=== PATIENT | female | born 1950 | race Caucasian/White ===

== ENCOUNTER 2016-12-25 06:34 | Inpatient (IN) | payer OTHER ==
[2016-12-25] MEDS ORDERED: SODIUM CHLORIDE 1,000 ML IV STA ×2 (07:17→08:05)
[2016-12-25] MEDS ORDERED: HYDROmorphone HCL CARPU-JECT 1 MG/1 ML DISP.SYRIN IVPUSH ONE ×2 (07:17→10:00)
[2016-12-25] MEDS ORDERED: HYDROmorphone HCL CARPU-JECT 2 MG/1 ML DISP.SYRIN ONE ×3 (07:33→17:24)
[2016-12-25] MEDS ORDERED: LEVOFLOXACIN 500 MG IVPB 100 ML IVPB ONE ×2 (07:40→07:52)
[2016-12-25] MEDS ORDERED: METRONIDAZOLE 500 MG PREMIXED 100 ML IVPB ONE ×2 (07:41→07:52)
--- NOTE | 2016-12-25 07:41 | PDOC ---
History of Present Illness - General Chief Complaint: Nausea/Vomiting Stated Complaint: NAUSEA AND VOMITING X2 DAYS Time Seen by Provider: 12/25/16 07:04 - History of Present Illness Initial Comments: 12/25/16 07:36 66-year-old female with a past medical history of hypertension and hyperlipidemia Past surgical history-cholecystectomy, and 2 She's never had a screening colonoscopy Patient is complaining of abdominal pain and vomiting since Wednesday, and no bowel movement since Wednesday The pain is been progressively worsening She awakened at 4 AM with severe lower abdominal pain, and shortness of breath She denies any fevers or chills She denies any blood in her vomitus She denies any chest pain She denies any history of diabetes She denies any pain radiating to her back She denies any dysuria urgency or frequency Patient arrives with severe pain, hyperventilating, and pale Past History - Past Medical History Allergies/Adverse Reactions: Allergies Allergy/AdvReac Type Severity Reaction Status Date / Time Penicillins Allergy Verified 12/25/16 07:43 Tetanus Vaccines and Toxoid Allergy Verified 12/25/16 07:43 [Tetanus Vaccines & Toxoid] Home Medications: Ambulatory Orders Aspirin [ASA -] 0 mg PO DAILY 12/25/16 HTN: Yes Hypercholesterolemia: Yes - Surgical History Cholecystectomy: Yes (X2) - Psycho/Social/Smoking Cessation Hx Anxiety: No Suicidal Ideation: No Smoking History: Never smoked Hx Alcohol Use: No Drug/Substance Use Hx: No Review of Systems - Review of Systems Able to Perform ROS?: Yes Comments:: 12/25/16 07:38 12 point review of systems is as per history of present illness and otherwise negative *Physical Exam - Vital Signs Last Vital Signs Temp Pulse Resp BP Pulse Ox 97.4 F L 107 H 24 117/81 95 12/25/16 06:41 12/25/16 06:41 12/25/16 06:41 12/25/16 06:41 12/25/16 06:41 - Physical Exam Comments: 12/25/16 07:38 Physical exam Last Vital Signs Temp Pulse Resp BP Pulse Ox 97.4 F L 107 H 24 117/81 95 12/25/16 06:41 12/25/16 06:41 12/25/16 06:41 12/25/16 06:41 12/25/16 06:41 GENERAL: The patient is awake, alert, and in severe pain, hyperventilating, pale HEAD: Normal with no signs of trauma. EYES: Sclera anicteric ENT: mucous membranes dry NECK: Normal range of motion, supple LUNGS: Breath sounds equal, clear to auscultation bilaterally. No wheezes, and no crackles. HEART: Tachycardic Regular rate and rhythm, normal S1 and S2 without murmur, rub or gallop. ABDOMEN: The abdomen is distended and firm with hypoactive to absent bowel sounds There is exquisite diffuse lower abdominal tenderness to palpation more on the right than the left with guarding and rebound There is no CVA tenderness. Upper abdominal tenderness is also noted EXTREMITIES: Normal range of motion, no edema. No clubbing or cyanosis. No cords, erythema, or tenderness. NEUROLOGICAL: Alert and answering questions, moving all extremities, grossly nonfocal neurologic exam PSYCH: Normal mood, normal affect. SKIN: Diaphoretic ED Treatment Course - LABORATORY CBC & Chemistry Diagram: 12/26/16 05:20 12/26/16 05:20 - ADDITIONAL ORDERS Additional order review: Laboratory Results 12/25/16 07:04 POC Glucometer [id number] 12/25/16 07:04 POC Glucometer [id number] - RADIOLOGY Radiology Studies Ordered: Category Date Time Status ABDOMEN & PELVIS CT W/O CONTR [CT] Stat CT Scan 12/25/16 07:14 Ordered CHEST X-RAY PORTABLE* [RAD] Stat Radiology 12/25/16 07:16 Ordered Medical Decision Making - Critical Care Time Total Critical Care Time (minutes): 60 Critical Care Statement: The care of this patient involved high complexity decision making to prevent further life threatening deterioration of the patient 's condition and/or to evalute & treat vital organ system(s) failure or risk of failure. - Medical Decision Making 12/25/16 07:40 Pt seen immediately on arrival by me - documentation done later Concerned about acute surgical abdomen, with acidosis, with compensatory hyperventilation Patient states she has a severe penicillin ALLERGY Will get a stat CAT scan, initiate coverage with Levaquin and Flagyl Stat ABG drawn by [facility]-awaiting transport to [facility] blood gas lab He scan of the abdomen and pelvis stat without contrast There is a perforation in the mid transverse colon, with an abscess adjacent to the colon, as well as fluid in the abdomen This could be secondary to a perforating cancer, or diverticulitis, although the location is unusual for diverticulitis with perforation Awaiting official report Hannah-surgical PA-at bedside seeing patient-and speaking to Dr. Sloan, surgeon on-call Consistent with metabolic acidosis with respiratory compensation from hyperventilation White count elevated, Laboratory Results - last 24 hr 12/25/16 12/25/16 12/25/16 07:04 07:18 07:18 WBC 16.5 H RBC 5.34 H Hgb 13.2 Hct 41.5 MCV 77.9 L MCHC 31.8 L RDW 15.9 H Plt Count 571 H MPV 8.8 INR Anticoagulation Therapy Puncture Site ABG pH ABG pCO2 at Pt Temp ABG pO2 at Pt Temp ABG HCO3 ABG O2 Sat (Measured) ABG O2 Content ABG Base Excess [place] Test Carboxyhemoglobin Methemoglobin O2 Delivery Device Oxygen Flow Rate Vent Mode Vent Rate Mechanical Rate Pressure Support Vent Sodium Potassium Chloride Carbon Dioxide Anion Gap BUN Creatinine Creat Clearance w eGFR POC Glucometer 299.94604 Random Glucose Lactic Acid Calcium Magnesium Total Bilirubin AST ALT Alkaline Phosphatase Creatine Kinase 78 Troponin I < 0.03 L B-Natriuretic Peptide Total Protein Albumin Total Amylase Lipase Urine Color Urine Appearance Urine pH Ur Specific [place] Urine Protein Urine Glucose (UA) Urine Ketones Urine Blood Urine Nitrite Urine Bilirubin Urine Urobilinogen Ur Leukocyte Esterase Urine RBC Urine WBC Ur Epithelial Cells Urine Bacteria Hyaline Casts Acetone, Qual 12/25/16 12/25/16 12/25/16 07:18 07:18 07:19 WBC RBC Hgb Hct MCV MCHC RDW Plt Count MPV INR 1.16 Anticoagulation Therapy Puncture Site ABG pH ABG pCO2 at Pt Temp ABG pO2 at Pt Temp ABG HCO3 ABG O2 Sat (Measured) ABG O2 Content ABG Base Excess [place] Test Carboxyhemoglobin Methemoglobin O2 Delivery Device Oxygen Flow Rate Vent Mode Vent Rate Mechanical Rate Pressure Support Vent Sodium 137 Potassium 4.3 Chloride 100 Carbon Dioxide 23 Anion Gap 14 BUN 23 H Creatinine 1.1 Creat Clearance w eGFR 49.69 POC Glucometer Random Glucose 274 H Lactic Acid 3.359 H* Calcium 8.8 Magnesium 1.6 L Total Bilirubin 0.3 AST 17 ALT 9 L Alkaline Phosphatase 68 Creatine Kinase Troponin I B-Natriuretic Peptide 75.04 Total Protein 7.1 Albumin 3.2 L Total Amylase Lipase 38 Urine Color Urine Appearance Urine pH Ur Specific [place] Urine Protein Urine Glucose (UA) Urine Ketones Urine Blood Urine Nitrite Urine Bilirubin Urine Urobilinogen Ur Leukocyte Esterase Urine RBC Urine WBC Ur Epithelial Cells Urine Bacteria Hyaline Casts Acetone, Qual 12/25/16 12/25/16 12/25/16 08:00 08:00 08:10 WBC RBC Hgb Hct MCV MCHC RDW Plt Count MPV INR Anticoagulation Therapy Puncture Site ABG pH ABG pCO2 at Pt Temp ABG pO2 at Pt Temp ABG HCO3 ABG O2 Sat (Measured) ABG O2 Content ABG Base Excess [place] Test Carboxyhemoglobin Methemoglobin O2 Delivery Device Oxygen Flow Rate Vent Mode Vent Rate Mechanical Rate Pressure Support Vent Sodium Potassium Chloride Carbon Dioxide Anion Gap BUN Creatinine Creat Clearance w eGFR POC Glucometer Random Glucose Lactic Acid Calcium Magnesium Total Bilirubin AST ALT Alkaline Phosphatase Creatine Kinase Troponin I B-Natriuretic Peptide Total Protein Albumin Total Amylase 97 Lipase Urine Color Yellow Urine Appearance Cloudy Urine pH 5.5 Ur Specific [place] >= 1.030 H Urine Protein 2+ H Urine Glucose (UA) Negative Urine Ketones 1+ H Urine Blood Trace H Urine Nitrite Negative Urine Bilirubin 1+ H Urine Urobilinogen 0.2 e.u/dl Ur Leukocyte Esterase Negative Urine RBC 0-3 Urine WBC 0-3 Ur Epithelial Cells Moderate Urine Bacteria Few Hyaline Casts 3-5 Acetone, Qual Negative L 12/25/16 08:10 WBC RBC Hgb Hct MCV MCHC RDW Plt Count MPV INR Anticoagulation Therapy Y Puncture Site Md puncture ABG pH 7.45 ABG pCO2 at Pt Temp 29.9 L ABG pO2 at Pt Temp 69.9 L ABG HCO3 20.5 L ABG O2 Sat (Measured) 93.6 ABG O2 Content 16.8 ABG Base Excess -2.1 L Howard Test Not applicable Carboxyhemoglobin 1.1 Methemoglobin 0.9 O2 Delivery Device Room air Oxygen Flow Rate 21% Vent Mode Y Vent Rate Y Mechanical Rate Y Pressure Support Vent Y Sodium Potassium Chloride Carbon Dioxide Anion Gap BUN Creatinine Creat Clearance w eGFR POC Glucometer Random Glucose Lactic Acid Calcium Magnesium Total Bilirubin AST ALT Alkaline Phosphatase Creatine Kinase Troponin I B-Natriuretic Peptide Total Protein Albumin Total Amylase Lipase Urine Color Urine Appearance Urine pH Ur Specific [place] Urine Protein Urine Glucose (UA) Urine Ketones Urine Blood Urine Nitrite Urine Bilirubin Urine Urobilinogen Ur Leukocyte Esterase Urine RBC Urine WBC Ur Epithelial Cells Urine Bacteria Hyaline Casts Acetone, Qual 12/25/16 09:00 Lactic acid 3.6, patient on second liter of fluid will need ICU bed 12/25/16 09:[address] Deutsch-will admit Case discussed with ID-Dr Chirinos -could consider meropenem if patient does not have a severe penicillin ALLERGY (patient already had Levaquin and Flagyl due to penicillin ALLERGY) I went back and spoke to the patient-she states that she gets hives and throat swelling from penicillin, so would not use meropenem at this time Case discussed with Dr. Salgado-approves ICU bed 12/25/16 10:28 EKG Sinus tachycardia 104, 0 axis Normal AV and IV conduction time Normal QTC Peaked T's Otherwise normal EKG *DC/Admit/Observation/Transfer Diagnosis at time of Disposition: Surgical abdomen, Colon perforation, Sepsis, Lactic acid acidosis - Discharge Dispostion Condition at time of disposition: Guarded Admit: Yes
[2016-12-25 07:57] LABS: INR 1.16 (0.82-1.09)
[2016-12-25 08:00] LABS: MCH 24.8 pg (25.7-33.7); MCHC 31.8 g/dl (32.0-36.0); MEAN CELL VOLUME 77.9 fl (80-96); MEAN PLT VOLUME 8.8 fl (7.5-11.1); PLATELET COUNT 571 K/MM3 (134-434); RDW 15.9 % (11.6-15.6); WHITE BLOOD COUNT 16.5 K/mm3 (4.0-10.0)
[2016-12-25 08:18] LABS: ARTERIAL BLOOD GAS pH 7.45 (7.35-7.45)
[2016-12-25 08:19] LABS: ARTERIAL BLD GAS O2 SATURATION 93.6 % (90-98.9); ARTERIAL BLOOD GAS BASE EXCESS -2.1 meq/l (-2-2); ARTERIAL BLOOD GAS HCO3 20.5 meq/L (22-26); LPM/O2% 21%; METHEMOGLOBIN 0.9 % (0.4-1.5); PT. ON O2? no
[2016-12-25 08:21] LABS: ARTERIAL BLOOD GAS PO2 69.9 mmHg (80-100); TYPE OF O2 ROOM AIR
[2016-12-25 08:25] LABS: PH,URINE 5.5 (4.5-8); URINE APPEARANCE Cloudy; URINE BILIRUBIN 1+ (NEGATIVE); URINE COLOR YELLOW; URINE GLUCOSE (UA) Negative (NEGATIVE); URINE KETONE 1+ (NEGATIVE); URINE LEUK ESTERASE Negative (NEGATIVE); URINE NITRITE Negative (NEGATIVE); URINE PROTEIN 2+ (NEGATIVE); URINE UROBILINOGEN 0.2 E.U/dl (0.2-1.0)
[2016-12-25 08:26] LABS: URINE BACTERIA FEW /hpf (NEGATIVE); URINE BLOOD TRACE (NEGATIVE); URINE RBC 0-3 /hpf (0-3); URINE WBC 0-3 (3-5)
[2016-12-25 08:33] LABS: CPK(DFH) 78 IU/L (26-140)
[2016-12-25 08:34] LABS: ALBUMIN 3.2 g/dl (3.5-5.0); BILIRUBIN,TOTAL 0.3 mg/dl (0.2-1.0); CALCIUM 8.8 mg/dl (8.4-10.2); CREATININE 1.1 mg/dl (0.6-1.3); MAGNESIUM 1.6 mg/dL (1.8-2.4); TOT PROT 7.1 g/dl (6.4-8.3)
[2016-12-25 08:46] LABS: TROPONIN I (DFP) < 0.03 ng/ml (0.03-0.50)
[2016-12-25] MEDS ORDERED: LIDOCAINE HCL 2% JELLY (5 ML/TUBE) ONE (09:10)
[2016-12-25] MEDS ORDERED: SODIUM CHLORIDE 0.9% 500 ML INFUS.BAG IV ONE (09:29)
[2016-12-25] MEDS ORDERED: SODIUM CHLORIDE 1,000 ML IV SCH ×3 (09:30→18:45)
[2016-12-25 11:29] VITALS: BMI 28.3
--- NOTE | 2016-12-25 11:44 | HP ---
Admitting History and Physical - Primary Care Physician PCP: Sera Deutsch - Admission Chief Complaint: ABDOMINAL PAIN History of Present Illness: The patient is a 66 yo female who presents to the ER with the complaints of abd pain since wednesday. She has had no appetite and hasn't really eaten since wednesday. Currently she is nauseated and has had non-bloody emesis, no bowel movements for several days. She denies any SO, CP no dysuria, fevers or chills. - Smoking History Smoking history: Never smoked - Alcohol/Substance Use Hx Alcohol Use: No Home Medications - Allergies Allergies/Adverse Reactions: Allergies Allergy/AdvReac Type Severity Reaction Status Date / Time Penicillins Allergy Verified 12/25/16 07:43 Tetanus Vaccines and Toxoid Allergy Verified 12/25/16 07:43 [Tetanus Vaccines & Toxoid] - Home Medications Home Medications: Ambulatory Orders Aspirin [ASA -] 0 mg PO DAILY 12/25/16 Physical Examination Vital Signs: Vital Signs Temperature 98.7 F 12/25/16 10:54 Pulse Rate 97 H 12/25/16 10:54 Respiratory Rate 18 12/25/16 10:54 Blood Pressure 111/74 12/25/16 10:54 O2 Sat by Pulse Oximetry (%) 98 12/25/16 10:54 Constitutional: Yes: No Distress HENT: Yes: Atraumatic Neck: Yes: Supple Cardiovascular: Yes: Regular Rate and Rhythm Respiratory: Yes: CTA Bilaterally Gastrointestinal: Yes: Normal Bowel Sounds, Tenderness (MILD) Extremities: Yes: WNL Neurological: Yes: Alert, Oriented Problem List - Problems (1) Colon perforation Code(s): K63.1 - PERFORATION OF INTESTINE (NONTRAUMATIC) (2) Lactic acid acidosis Code(s): E87.2 - ACIDOSIS (3) Pneumoperitoneum Code(s): K66.8 - OTHER SPECIFIED DISORDERS OF PERITONEUM (4) Sepsis Code(s): A41.9 - SEPSIS, UNSPECIFIED ORGANISM (5) Surgical abdomen Code(s): R10.0 - ACUTE ABDOMEN Assessment/Plan Laboratory Tests 12/25/16 12/25/16 12/25/16 07:04 07:18 07:18 WBC 16.5 H RBC 5.34 H Hgb 13.2 Hct 41.5 MCV 77.9 L MCHC 31.8 L RDW 15.9 H Plt Count 571 H MPV 8.8 INR Anticoagulation Therapy Puncture Site ABG pH ABG pCO2 at Pt Temp ABG pO2 at Pt Temp ABG HCO3 ABG O2 Sat (Measured) ABG O2 Content ABG Base Excess [place] Test Carboxyhemoglobin Methemoglobin O2 Delivery Device Oxygen Flow Rate Vent Mode Vent Rate Mechanical Rate Pressure Support Vent Sodium Potassium Chloride Carbon Dioxide Anion Gap BUN Creatinine Creat Clearance w eGFR POC Glucometer 299.55295 Random Glucose Lactic Acid Calcium Magnesium Total Bilirubin AST ALT Alkaline Phosphatase Creatine Kinase 78 Troponin I < 0.03 L B-Natriuretic Peptide Total Protein Albumin Total Amylase Lipase Urine Color Urine Appearance Urine pH Ur Specific [place] Urine Protein Urine Glucose (UA) Urine Ketones Urine Blood Urine Nitrite Urine Bilirubin Urine Urobilinogen Ur Leukocyte Esterase Urine RBC Urine WBC Ur Epithelial Cells Urine Bacteria Hyaline Casts Acetone, Qual 12/25/16 12/25/16 12/25/16 07:18 07:18 07:19 WBC RBC Hgb Hct MCV MCHC RDW Plt Count MPV INR 1.16 Anticoagulation Therapy Puncture Site ABG pH ABG pCO2 at Pt Temp ABG pO2 at Pt Temp ABG HCO3 ABG O2 Sat (Measured) ABG O2 Content ABG Base Excess [place] Test Carboxyhemoglobin Methemoglobin O2 Delivery Device Oxygen Flow Rate Vent Mode Vent Rate Mechanical Rate Pressure Support Vent Sodium 137 Potassium 4.3 Chloride 100 Carbon Dioxide 23 Anion Gap 14 BUN 23 H Creatinine 1.1 Creat Clearance w eGFR 49.69 POC Glucometer Random Glucose 274 H Lactic Acid 3.359 H* Calcium 8.8 Magnesium 1.6 L Total Bilirubin 0.3 AST 17 ALT 9 L Alkaline Phosphatase 68 Creatine Kinase Troponin I B-Natriuretic Peptide 75.04 Total Protein 7.1 Albumin 3.2 L Total Amylase Lipase 38 Urine Color Urine Appearance Urine pH Ur Specific [place] Urine Protein Urine Glucose (UA) Urine Ketones Urine Blood Urine Nitrite Urine Bilirubin Urine Urobilinogen Ur Leukocyte Esterase Urine RBC Urine WBC Ur Epithelial Cells Urine Bacteria Hyaline Casts Acetone, Qual 12/25/16 12/25/16 12/25/16 08:00 08:00 08:10 WBC RBC Hgb Hct MCV MCHC RDW Plt Count MPV INR Anticoagulation Therapy Puncture Site ABG pH ABG pCO2 at Pt Temp ABG pO2 at Pt Temp ABG HCO3 ABG O2 Sat (Measured) ABG O2 Content ABG Base Excess Howard Test Carboxyhemoglobin Methemoglobin O2 Delivery Device Oxygen Flow Rate Vent Mode Vent Rate Mechanical Rate Pressure Support Vent Sodium Potassium Chloride Carbon Dioxide Anion Gap BUN Creatinine Creat Clearance w eGFR POC Glucometer Random Glucose Lactic Acid Calcium Magnesium Total Bilirubin AST ALT Alkaline Phosphatase Creatine Kinase Troponin I B-Natriuretic Peptide Total Protein Albumin Total Amylase 97 Lipase Urine Color Yellow Urine Appearance Cloudy Urine pH 5.5 Ur Specific [place] >= 1.030 H Urine Protein 2+ H Urine Glucose (UA) Negative Urine Ketones 1+ H Urine Blood Trace H Urine Nitrite Negative Urine Bilirubin 1+ H Urine Urobilinogen 0.2 e.u/dl Ur Leukocyte Esterase Negative Urine RBC 0-3 Urine WBC 0-3 Ur Epithelial Cells Moderate Urine Bacteria Few Hyaline Casts 3-5 Acetone, Qual Negative L 12/25/16 12/25/16 08:10 09:57 WBC RBC Hgb Hct MCV MCHC RDW Plt Count MPV INR Anticoagulation Therapy Y Puncture Site Md puncture ABG pH 7.45 ABG pCO2 at Pt Temp 29.9 L ABG pO2 at Pt Temp 69.9 L ABG HCO3 20.5 L ABG O2 Sat (Measured) 93.6 ABG O2 Content 16.8 ABG Base Excess -2.1 L Howard Test Not applicable Carboxyhemoglobin 1.1 Methemoglobin 0.9 O2 Delivery Device Room air Oxygen Flow Rate 21% Vent Mode Y Vent Rate Y Mechanical Rate Y Pressure Support Vent Y Sodium Potassium Chloride Carbon Dioxide Anion Gap BUN Creatinine Creat Clearance w eGFR POC Glucometer Random Glucose Lactic Acid 2.579 H* Calcium Magnesium Total Bilirubin AST ALT Alkaline Phosphatase Creatine Kinase Troponin I B-Natriuretic Peptide Total Protein Albumin Total Amylase Lipase Urine Color Urine Appearance Urine pH Ur Specific [place] Urine Protein Urine Glucose (UA) Urine Ketones Urine Blood Urine Nitrite Urine Bilirubin Urine Urobilinogen Ur Leukocyte Esterase Urine RBC Urine WBC Ur Epithelial Cells Urine Bacteria Hyaline Casts Acetone, Qual Active Medications Generic Name Dose Route Start Last Admin Trade Name Freq PRN Reason Stop Dose Admin Chlorhexidine Gluconate 1 applic 12/25/16 22:00 Hibiclens For Decolonization - TP HS OPAL Heparin Sodium (Porcine) 5,000 unit 12/25/16 22:00 Heparin - SQ TID OPAL Hydromorphone HCl 1 mg 12/25/16 17:24 12/25/16 18:30 Dilaudid Injection - IVPUSH 1 mg Q4H PRN Administration PAIN Pantoprazole Sodium 80 mg/ 100 mls @ 10 mls/hr 12/25/16 16:30 12/25/16 17:15 Sodium Chloride IVPB 0 mls Q10H OPAL Administration 8 MG/HR Lactated Ringer's 1,000 mls @ 1,000 mls/hr 12/25/16 16:00 12/25/16 16:15 Lactated Ringers Solution IV 300 mls ASDIR OPAL Administration Lactated Ringer's 1,000 mls @ 200 mls/hr 12/25/16 16:00 12/25/16 18:41 Lactated Ringers Solution IV 12/26/16 07:00 200 mls/hr ASDIR OPAL Administration Metronidazole 50 mls @ 50 mls/hr 12/25/16 20:00 Flagyl 250mg Premixed Ivpb - IVPB Q8H-IV OPAL Levofloxacin 100 mls @ 100 mls/hr 12/26/16 10:00 Levaquin 500 Mg Premixed Ivpb - IVPB DAILY OPAL Aztreonam 1 gm/ Dextrose 50 mls @ 100 mls/hr 12/25/16 18:00 12/25/16 18:22 IVPB 100 mls/hr Q8H-IV OPAL Administration Protocol Fluconazole 50 mls @ 100 mls/hr 12/26/16 10:00 Diflucan 100 Mg/D5w Premixed Ivpb - IVPB DAILY OPAL Sodium Chloride 500 mls @ 500 mls/hr 12/25/16 18:30 Normal Saline - IV 12/25/16 19:29 ASDIR STA Sodium Chloride 1,000 mls @ 100 mls/hr 12/25/16 18:45 Normal Saline - IV 12/26/16 04:44 ASDIR OPAL Midazolam HCl 2 mg 12/25/16 18:41 Versed - IVPUSH Q2H PRN AGITATION Mupirocin 1 applic 12/25/16 22:00 Bactroban Ointment (For Decolonization) - NS 12/30/16 21:59 BID OPAL A/P 1.COLON PERFORATION PT CAME IN FOR ABDOMINAL PAIN NPO, IVF, IV ABX,NGT PRN PAIN MEDS FOR OR DR OSHEA GI AND DVT PPX CC TIME 60 MIN SPENT WITH PATIENT
[2016-12-25] MEDS ORDERED: HYDROmorphone HCL CARPU-JECT 1 MG/1 ML DISP.SYRIN IVPB PRN (11:47)
[2016-12-25] MEDS ORDERED: ROCURONIUM BROMIDE 50 MG/5 ML VIAL ONE ×2 (11:59→13:47)
[2016-12-25] MEDS ORDERED: PROPOFOL 20 ML ONE (11:59)
[2016-12-25] MEDS ORDERED: MIDAZOLAM HCL 2 MG/2 ML SINGLE DOSE VIAL ONE ×2 (11:59→15:15)
[2016-12-25] MEDS ORDERED: LIDOCAINE HCL/PF 2% SDV 5ML VIAL ONE (12:01)
--- NOTE | 2016-12-25 12:12 | EKG ---
Test Reason : Blood Pressure : / mmHG Vent. Rate : 104 BPM Atrial Rate : 104 BPM P-R Int : 136 ms QRS Dur : 074 ms QT Int : 348 ms P-R-T Axes : 054 012 044 degrees QTc Int : 457 ms SINUS TACHYCARDIA OTHERWISE NORMAL ECG NO PREVIOUS ECGS AVAILABLE Confirmed by JOSE LUIS GAGNON MD ([id number] on 12/25/2016 12:12:08 PM Referred By: VIRY ZAYAS Confirmed By:JOSE LUIS GAGNON MD
[2016-12-25] MEDS ORDERED: PHENYLEPHRINE HCL 10 MG/1 ML SINGLE DOSE VIAL ONE (12:16)
[2016-12-25] MEDS ORDERED: DEXAMETHASONE SOD PHOSPHATE 4 MG/1 ML VIAL ONE (12:26)
--- NOTE | 2016-12-25 13:22 | CONSULT ---
- Consultation REQUESTING PROVIDER: Lucrecia Lawson CONSULT REQUEST: We have been asked to surgically evaluate this patient for abdominal pain. PCP:Sera Deutsch HISTORY OF PRESENT ILLNESS: The patient is a 66 yo female who presents to the ER with the complaints of abd pain since wednesday. She has had no appetite and hasn't really eaten since wednesday. Currently she is nauseated and has had non- bloody emesis, no bowel movements for several days. She denies any SO, CP no dysuria, fevers or chills. She denies any weight changes,jess blood in her stool, or changes in her stool caliber. PMHx: HTN, High cholesterol PSHx: c section, open cholecystectomy Home Medications Medication Instructions Recorded Aspirin [ASA -] 0 mg PO DAILY 12/25/16 Allergies Allergy/AdvReac Type Severity Reaction Status Date / Time Penicillins Allergy Verified 12/25/16 07:43 Tetanus Vaccines and Toxoid Allergy Verified 12/25/16 07:43 [Tetanus Vaccines & Toxoid] REVIEW OF SYSTEMS: CONSTITUTIONAL: Absent: fever, chills CARDIOVASCULAR: Absent: chest pain, palpitations, irregular heart rate RESPIRATORY: Absent: cough, shortness of breath GASTROINTESTINAL: Present: upper abdominal pain, abdominal distension, nausea, vomiting, She hasn' t had a colonscopy/EGD. GENITOURINARY: Absent: dysuria, frequency MUSCULOSKELETAL: Present: back pain,b/l knee pain HEMATOLOGIC/IMMUNOLOGIC: Absent: easy bleeding, easy bruising NEUROLOGIC: Absent: no headaches, seizures PSYCHIATRIC: Absent: anxiety, depression, suicidal or homicidal ideation, hallucinations. PHYSICAL EXAM: GENERAL: Awake, alert, and fully oriented, appears uncomfortable HEAD: Normal with no signs of trauma. EYES: sclera anicteric, conjunctiva clear. NECK: Normal ROM, supple without lymphadenopathy, JVD, or masses. LUNGS: Clear to auscultation bilat anteriorly. No wheezes, and no crackles. No accessory muscle use. HEART: Tachycardic and regular rhythm. No murmurs ABDOMEN: Distended, diffuse tenderness with guarding in upper abd/RLQ MUSCULOSKELETAL: Normal ROM at all joints. No bony deformities or tenderness. No CVA tenderness. UPPER EXTREMITIES: 2+ pulses, warm, well-perfused. No cyanosis. Cap refill <2 seconds. No peripheral edema. LOWER EXTREMITIES: 2+ pulses, warm, well-perfused. No calf tenderness. No peripheral edema. NEUROLOGICAL: Normal speech, gait not observed. PSYCH: Cooperative. Good eye contact. Appropriate mood and affect. SKIN: Warm, dry, normal turgor, no rashes or lesions noted. Vital Signs Temperature 98.7 F 12/25/16 10:54 Pulse Rate 97 H 12/25/16 10:54 Respiratory Rate 18 12/25/16 10:54 Blood Pressure 111/74 12/25/16 10:54 O2 Sat by Pulse Oximetry (%) 98 12/25/16 10:54 Lab Results WBC 16.5 K/mm3 (4.0-10.0) H 12/25/16 07:18 RBC 5.34 M/mm3 (3.60-5.2) H 12/25/16 07:18 Hgb 13.2 GM/dl (10.7-15.3) 12/25/16 07:18 Hct 41.5 % (32.4-45.2) 12/25/16 07:18 MCV 77.9 fl (80-96) L 12/25/16 07:18 MCHC 31.8 g/dl (32.0-36.0) L 12/25/16 07:18 RDW 15.9 % (11.6-15.6) H 12/25/16 07:18 Plt Count 571 K/MM3 (134-434) H 12/25/16 07:18 Sodium 137 mmol/L (136-145) 12/25/16 07:18 Potassium 4.3 mmol/L (3.5-5.1) 12/25/16 07:18 Chloride 100 mmol/L (98-107) 12/25/16 07:18 Carbon Dioxide 23 mmol/L (22-28) 12/25/16 07:18 Anion Gap 14 (8-16) 12/25/16 07:18 BUN 23 mg/dl (7-18) H 12/25/16 07:18 Creatinine 1.1 mg/dl (0.6-1.3) 12/25/16 07:18 Random Glucose 274 mg/dl (74-106) H 12/25/16 07:18 Calcium 8.8 mg/dl (8.4-10.2) 12/25/16 07:18 INR 1.16 (0.82-1.09) 12/25/16 07:18 Laboratory Tests 12/25/16 12/25/16 12/25/16 07:18 07:19 09:57 INR 1.16 Lactic Acid 3.359 H* 2.579 H* CT scan-pneumoperitoneum, small fluid collection and abscess which appears to be associated with mid transverse colon. Gastric distention. Problem List - Problems (1) Pneumoperitoneum Assessment/Plan: Spoke with the ER physcian and will arrange for transferred to [place] today for exp lap. D/w Dr. Lawson and will plan for emergent surgery today. Continue with aggressive IV hydration/IV levaquin/flagyl given Place NGT, npo Code(s): K66.8 - OTHER SPECIFIED DISORDERS OF PERITONEUM Visit type - Case Type Case Type: ED Admission - Emergency Emergency Visit: Yes ED Registration Date: 12/25/16 Care time: The patient presented to the Emergency Department on the above date and was hospitalized for further evaluation of their emergent condition. - New patient This patient is new to me today: Yes Date on this admission: 12/25/16 - Critical Care Critical Care patient: Yes Total Critical Care Time: 30 Critical Care Statement: The care of this patient involved high complexity decision making to prevent further life threatening deterioration of the patient 's condition and/or to evalute & treat vital organ system(s) failure or risk of failure.
[2016-12-25] MEDS ORDERED: GLYCOPYRROLATE 0.2 MG/1 ML VIAL ONE (14:31)
[2016-12-25] MEDS ORDERED: NEOSTIGMINE METHYLSULFATE 0.5 MG/ML - 10 ML MDV ONE (14:31)
[2016-12-25] MEDS ORDERED: LACTATED RINGERS SOLUTION 1,000 ML IV SCH ×2 (16:00)
[2016-12-25] MEDS ORDERED: LORAZEPAM CARPU-JECT 2 MG/ML DISP.SYRIN IM PRN (16:00)
[2016-12-25] MEDS: HYDROmorphone HCL CARPU-JECT 1 MG/1 ML DISP.SYRIN IVPUSH PRN ×7 (16:05→22:45)
[2016-12-25 16:21] LABS: BASOPHIL 0.2 % (0-2.0); EOSINOPHIL 0.1 % (0-4.5); MCH 24.4 pg (25.7-33.7); MCHC 31.3 g/dl (32.0-36.0); MEAN CELL VOLUME 78.1 fl (80-96); MEAN PLT VOLUME 7.7 fl (7.5-11.1); NEUTROPHILS 72.5 % (42.8-82.8); PLATELET COUNT 305 K/MM3 (134-434); RDW 17.3 % (11.6-15.6); WHITE BLOOD COUNT 3.5 K/mm3 (4.0-10.0)
[2016-12-25 16:31] LABS: ARTERIAL BLOOD GAS BASE EXCESS -6.1 meq/l (-2-2); ARTERIAL BLOOD GAS HCO3 19.7 meq/L (22-26)
[2016-12-25 16:32] LABS: ALLENS TEST POSITIVE; ART PUNCT SITE RIGHT RADIAL; ARTERIAL BLOOD GAS pH 7.29 (7.35-7.45); LPM/O2% 100; MECH. VENT. YES; PT. ON O2? YES; TYPE OF O2 VENT; VENT RATE 10; VT/PRESS 500
[2016-12-25] MEDS ORDERED: LORAZEPAM CARPU-JECT 2 MG/ML DISP.SYRIN ONE (16:46)
[2016-12-25 17:08] LABS: CREATININE 0.8 mg/dL (0.55-1.02); MAGNESIUM 1.4 mg/dL (1.8-2.4); PHOSPHOROUS 3.2 mg/dL (2.5-4.9)
--- NOTE | 2016-12-25 17:10 | CONSULT ---
Consult Consult Specialty:: infectious diseases Reason for Consultation:: abd perforation - History of Present Illness Chief Complaint: abd pain History of Present Illness: 66 yo female who presents to the ER with the complaints of abd pain since wednesday. She has had no appetite and hasn't really eaten since wednesday. Currently she is nauseated and has had non-bloody emesis, no bowel movements for several days. She denies any SO, CP no dysuria, fevers or chills. She denies any weight changes,jess blood in her stool, or changes in her stool caliber. 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 and gastric tumor patient was taken to the operating room and the resection and repai was done patient now post op and in icu and patient is intubated and sedated history noted form the charts as she is intubated and sedated stable - History Source History Provided By: Medical Record Limitations to Obtaining History: Clinical Condition - Alcohol/Substance Use Hx Alcohol Use: No - Smoking History Smoking history: Never smoked Home Medications - Allergies Allergies/Adverse Reactions: Allergies Allergy/AdvReac Type Severity Reaction Status Date / Time Penicillins Allergy Verified 12/25/16 07:43 Tetanus Vaccines and Toxoid Allergy Verified 12/25/16 07:43 [Tetanus Vaccines & Toxoid] - Home Medications Home Medications: Ambulatory Orders Aspirin [ASA -] 0 mg PO DAILY 12/25/16 Review of Systems Unable to obtain ROS, reason: unable to obtain - Review of Systems Constitutional: reports: Weakness Physical Exam Vital Signs: Vital Signs Temperature 98.7 F 12/25/16 10:54 Pulse Rate 97 H 12/25/16 10:54 Respiratory Rate 18 12/25/16 10:54 Blood Pressure 111/74 12/25/16 10:54 O2 Sat by Pulse Oximetry (%) 98 12/25/16 10:54 Constitutional: Yes: Obese Eyes: Yes: Conjunctiva Clear HENT: Yes: Atraumatic Neck: Yes: Supple, Other Cardiovascular: Yes: Regular Rate and Rhythm, Tachycardia Respiratory: Yes: Regular, Intubated, Mechanically Ventilated Gastrointestinal: Yes: Soft, Other (absent bowel sounds 2 draiange tubes placed including j tube) Musculoskeletal: Yes: WNL Extremities: Yes: WNL Neurological: Yes: Other Labs: CBC, BMP 12/25/16 15:30 Imaging - Results Chest X-ray: Report Reviewed, Image Reviewed Cat Scan: Report Reviewed, Image Reviewed Assessment/Plan 66 year old female with significant PMH of HTN, HLD, s/p exploratory laparotomy for gastric perforation. #Gastric perforation, s/p gastrectomy & gastro-jejunostomy #HTN plan will start on abx also will start on antifungal very close mentoring hydration rest as per surgery and icu cc time 50 min
[2016-12-25] MEDS: PANTOPRAZOLE SODIUM 80 MG in SODIUM CHLORIDE 100 ML IVPB SCH (17:15)
[2016-12-25 17:34] LABS: CALCIUM 6.7 mg/dL (8.5-10.1)
[2016-12-25] MEDS ORDERED: FLUCONAZOLE 200 MG/D5W 100 ML IVPB ONE (18:00)
[2016-12-25] MEDS ORDERED: MAGNESIUM SULF 50% (8.12 MEQ/2 ML-1 GM VIAL) IVPB SCH (18:15)
[2016-12-25] MEDS: AZTREONAM 1 GM in DEXTROSE 5%-WATER - 50 ML IVPB SCH (18:22)
[2016-12-25] MEDS ORDERED: SODIUM CHLORIDE 500 ML IV STA ×2 (18:28→18:30)
[2016-12-25] MEDS ORDERED: MAGNESIUM SULF 50% (8.12 MEQ/2 ML-1 GM VIAL) IVPB ONE (18:30)
--- NOTE | 2016-12-25 18:46 | CONSULT ---
Consultation: HISTORY OF PRESENT ILLNESS: Patient is a 66 year old female with significant PMH of HTN, HLD, Open cholecystectomy presented to ED with abdominal pain wince Wednesday. States she had decrease in appetite & has been nauseous with nonbloody emesis. She also has not had a bowel movement in several days as well. Patient seen in PACU, thus history taken from her children & other providers. CT Abdomen showed pneumoperitoneum (questionable whether via gastric of colonic perforation) & patient was sent to OR for exploratory laparotomy. Found to have perforated stomach during surgery. Distal gastrectomy performed with gastro-jejunostomy & jejunal feeding tube placement. REVIEW OF SYSTEMS: UNABLE TO OBTAIN DUE TO SEDATION PHYSICAL EXAMINATION Vital Signs Temperature 98.7 F 12/25/16 10:54 Pulse Rate 97 H 12/25/16 10:54 Respiratory Rate 10 L 12/25/16 16:15 Blood Pressure 111/74 12/25/16 10:54 O2 Sat by Pulse Oximetry (%) 98 12/25/16 10:54 GENERAL: Intubated & sedated. In no acute distress. HEENT: Atraumatic, EOMI, PERRLA, No lymphadenopathy noted, moist membranes LUNGS: Clear to auscultation bilat anteriorly. No wheezes, and no crackles. No accessory muscle use. HEART: Tachycardic and regular rhythm. No murmurs ABDOMEN: Distended, diffuse tenderness with guarding in upper abd/RLQ EXTREMITIES: 2+ pulses, warm, well-perfused. No calf tenderness. No peripheral edema. SKIN: Warm, dry, normal turgor, no rashes or lesions noted. Laboratory Results - last 24 hr 12/25/16 12/25/16 12/25/16 15:30 15:30 16:15 WBC 3.5 L RBC 4.26 Hgb 10.4 L Hct 33.2 MCV 78.1 L MCHC 31.3 L RDW 17.3 H Plt Count 305 MPV 7.7 Neutrophils % 72.5 Lymphocytes % 15.6 Monocytes % 11.6 H Eosinophils % 0.1 Basophils % 0.2 Anticoagulation Therapy Y Puncture Site Right radial ABG pH 7.29 L ABG pCO2 at Pt Temp 42.5 ABG pO2 at Pt Temp 222.0 H* ABG HCO3 19.7 L ABG O2 Sat (Measured) 99.0 H ABG O2 Content 14.0 L ABG Base Excess -6.1 L Howard Test Positive O2 Delivery Device Vent Oxygen Flow Rate 100 Vent Mode A/c Vent Rate 10 Mechanical Rate Yes PEEP 5.0 Pressure Support Vent 500 Sodium 144 Potassium 4.7 Chloride 111 H Carbon Dioxide 23 Anion Gap 10 BUN 21 H Creatinine 0.8 Random Glucose 170 H Calcium 6.7 L* Phosphorus 3.2 Magnesium 1.4 L Active Medications Generic Name Dose Route Start Last Admin Trade Name Freq PRN Reason Stop Dose Admin Chlorhexidine Gluconate 1 applic 12/25/16 22:00 Hibiclens For Decolonization - TP HS OPAL Heparin Sodium (Porcine) 5,000 unit 12/25/16 22:00 Heparin - SQ TID OPAL Hydromorphone HCl 1 mg 12/25/16 17:24 12/25/16 18:30 Dilaudid Injection - IVPUSH 1 mg Q4H PRN Administration PAIN Pantoprazole Sodium 80 mg/ 100 mls @ 10 mls/hr 12/25/16 16:30 Sodium Chloride IVPB Q10H OPAL 8 MG/HR Lactated Ringer's 1,000 mls @ 1,000 mls/hr 12/25/16 16:00 Lactated Ringers Solution IV ASDIR OPAL Lactated Ringer's 1,000 mls @ 200 mls/hr 12/25/16 16:00 12/25/16 18:41 Lactated Ringers Solution IV 12/26/16 07:00 200 mls/hr ASDIR OPAL Administration Metronidazole 50 mls @ 50 mls/hr 12/25/16 20:00 Flagyl 250mg Premixed Ivpb - IVPB Q8H-IV OPAL Levofloxacin 100 mls @ 100 mls/hr 12/26/16 10:00 Levaquin 500 Mg Premixed Ivpb - IVPB DAILY OPAL Aztreonam 1 gm/ Dextrose 50 mls @ 100 mls/hr 12/25/16 18:00 12/25/16 18:22 IVPB 100 mls/hr Q8H-IV OPAL Administration Protocol Fluconazole 50 mls @ 100 mls/hr 12/26/16 10:00 Diflucan 100 Mg/D5w Premixed Ivpb - IVPB DAILY OPAL Sodium Chloride 500 mls @ 500 mls/hr 12/25/16 18:30 Normal Saline - IV 12/25/16 19:29 ASDIR STA Sodium Chloride 1,000 mls @ 100 mls/hr 12/25/16 18:45 Normal Saline - IV 12/26/16 04:44 ASDIR OPAL Midazolam HCl 2 mg 12/25/16 18:41 Versed - IVPUSH Q2H PRN AGITATION Mupirocin 1 applic 12/25/16 22:00 Bactroban Ointment (For Decolonization) - NS 12/30/16 21:59 BID OPAL ASSESSMENT/PLAN: 66 year old female with significant PMH of HTN, HLD, Open cholecystectomy presents to ICU from PACU s/p exploratory laparotomy for gastric perforation. #Gastric perforation, s/p gastrectomy & gastro-jejunostomy -intubated but not sedated -on Aztreonam, Levaquin, Metronidazole, Fluconazole -versed PRN for agitation -aggressive IV hydration (required 5 liters in OR) -follow urine output (IMPROVING) -PPI -Dilaudid pain management, as needed -keep O2 Sat >94% -ID Following #HTN -Holding antihypertensives Prophylaxis/FEN -Heparin/PPI -IVF, gave magnesium, NPO Dispo: We will continue to follow the patient. Thank you for this consultative opportunity. Visit type - Emergency Visit Emergency Visit: Yes ED Registration Date: 12/25/16 Care time: The patient presented to the Emergency Department on the above date and was hospitalized for further evaluation of their emergent condition. - New Patient This patient is new to me today: Yes Date on this admission: 12/28/16 - Critical Care Critical Care patient: Yes Total Critical Care Time (in minutes): 50 Critical Care Statement: The care of this patient involved high complexity decision making to prevent further life threatening deterioration of the patient 's condition and/or to evalute & treat vital organ system(s) failure or risk of failure.
[2016-12-25] MEDS: MIDAZOLAM HCL 2 MG/2 ML SINGLE DOSE VIAL IVPUSH PRN (20:45)
[2016-12-25] MEDS: METRONIDAZOLE PREMIXED IVPB 50 ML IVPB SCH (21:00)
[2016-12-25] MEDS: HEPARIN NA (PORCINE) 5,000 UNITS/ML 1ML VIAL SQ SCH (21:07)
[2016-12-25] MEDS: MUPIROCIN 2% TOPICAL OINTMENT FOR DECOLONIZATION NS SCH (21:07)
[2016-12-25] MEDS: CHLORHEXIDINE GLUCONATE 4% CLEANSER FOR DECOLONIZATION TP SCH (21:08)
[2016-12-25] MEDS ORDERED: CHLORHEXIDINE GLUCONATE 4% CLEANSER FOR DECOLONIZATION TP SCH (22:00)
[2016-12-25] MEDS ORDERED: MUPIROCIN 2% TOPICAL OINTMENT FOR DECOLONIZATION NS SCH (22:00)
--- NOTE | 2016-12-25 22:04 | CONSULT ---
Consult Consult Specialty:: Pulm/CCM Reason for Consultation:: stomach perf - History of Present Illness Chief Complaint: nausea, vomiting, abd pain History of Present Illness: This is a 66 yo woman HTN, HLD presented from home with severe abdominal pain, constipation (7 days) nausea/vomiting (NBNB), tachypneic and febrile. CTAP showed pneumoperitoneum with fluid collection c/f abscess. Surgery and ID were consulted. Labs: WBC 16.5, lactate 3.36. ABX: aztreonam, levaquin, flagyl and flucon. Patient taken to the OR for ex lap and found to have perforated stomach a distal gastrectomy was performed with GJ tube placement. PPI gtt started. Patient transferred to ICU intubated and sedated. Surgical site C/D/I, EDWARD drains with serosanguinous drainage. - History Source History Provided By: Medical Record Limitations to Obtaining History: Intubated - Alcohol/Substance Use Hx Alcohol Use: No - Smoking History Smoking history: Never smoked Home Medications - Allergies Allergies/Adverse Reactions: Allergies Allergy/AdvReac Type Severity Reaction Status Date / Time Penicillins Allergy Verified 12/25/16 07:43 Tetanus Vaccines and Toxoid Allergy Verified 12/25/16 07:43 [Tetanus Vaccines & Toxoid] - Home Medications Home Medications: Ambulatory Orders Aspirin [ASA -] 0 mg PO DAILY 12/25/16 Family Disease History - Family Disease History Family History: Unable to Obtain Review of Systems Unable to obtain ROS, reason: intubation Physical Exam Vital Signs: Vital Signs Temperature 98.8 F 12/25/16 21:53 Pulse Rate 96 H 12/25/16 21:53 Respiratory Rate 18 12/25/16 21:53 Blood Pressure 101/63 12/25/16 21:53 O2 Sat by Pulse Oximetry (%) 99 12/25/16 21:53 Current Medications Chlorhexidine Gluconate (Hibiclens For Decolonization -) 1 applic TP HS OPAL Last Admin: 12/25/16 21:08 Dose: 1 applic Heparin Sodium (Porcine) (Heparin -) 5,000 unit SQ TID OPAL Last Admin: 12/25/16 21:07 Dose: 5,000 unit Hydromorphone HCl (Dilaudid Injection -) 1 mg IVPUSH Q4H PRN PRN Reason: PAIN Last Admin: 12/25/16 18:30 Dose: 1 mg Pantoprazole Sodium 80 mg/ (Sodium Chloride) 100 mls @ 10 mls/hr IVPB Q10H OPAL PRN Reason: 8 MG/HR Last Admin: 12/25/16 17:15 Dose: 0 mls Lactated Ringer's (Lactated Ringers Solution) 1,000 mls @ 1,000 mls/hr IV ASDIR [facility] Last Admin: 12/25/16 16:15 Dose: 300 mls Lactated Ringer's (Lactated Ringers Solution) 1,000 mls @ 200 mls/hr IV ASDIR OPAL Stop: 12/26/16 07:00 Last Admin: 12/25/16 18:41 Dose: 200 mls/hr Metronidazole (Flagyl 250mg Premixed Ivpb -) 50 mls @ 50 mls/hr IVPB Q8H-IV OPAL Levofloxacin (Levaquin 500 Mg Premixed Ivpb -) 100 mls @ 100 mls/hr IVPB DAILY OPAL Aztreonam 1 gm/ Dextrose 50 mls @ 100 mls/hr IVPB Q8H-IV OPAL PRN Reason: Protocol Last Admin: 12/25/16 18:22 Dose: 100 mls/hr Fluconazole (Diflucan 100 Mg/D5w Premixed Ivpb -) 50 mls @ 100 mls/hr IVPB DAILY [facility] Sodium Chloride (Normal Saline -) 1,000 mls @ 100 mls/hr IV ASDIR [facility] Stop: 12/26/16 04:44 Midazolam HCl (Versed -) 2 mg IVPUSH Q2H PRN PRN Reason: AGITATION Last Admin: 12/25/16 20:45 Dose: 2 mg Mupirocin (Bactroban Ointment (For Decolonization) -) 1 applic NS BID [facility] Stop: 12/30/16 21:59 Last Admin: 12/25/16 21:07 Dose: 1 applic Constitutional: Yes: Calm Eyes: Yes: Conjunctiva Clear, PERRL Cardiovascular: Yes: Regular Rate and Rhythm, S1, S2 Respiratory: Yes: CTA Bilaterally, Mechanically Ventilated Gastrointestinal: Yes: Hypoactive Bowel Sounds, Tenderness (surgical site c/d/i , EDWARD drain x2: serosan, feeding tube in place.) Extremities: Yes: WNL Edema: LLE: 1+, RLE: 1+ Wound/Incision: Yes: Clean/Dry, Dressing Dry and Intact, Draining (EDWARD drains x2) Neurological: Yes: Alert (following commands) ...Motor Strength: WNL Labs: CBCD WBC 3.5 K/mm3 (4.0-10.0) L 12/25/16 15:30 RBC 4.26 M/mm3 (3.60-5.2) 12/25/16 15:30 Hgb 10.4 GM/dL (10.7-15.3) L 12/25/16 15:30 Hct 33.2 % (32.4-45.2) 12/25/16 15:30 MCV 78.1 fl (80-96) L 12/25/16 15:30 MCHC 31.3 g/dl (32.0-36.0) L 12/25/16 15:30 RDW 17.3 % (11.6-15.6) H 12/25/16 15:30 Plt Count 305 K/MM3 (134-434) 12/25/16 15:30 MPV 7.7 fl (7.5-11.1) 12/25/16 15:30 CMP Sodium 144 mmol/L (136-145) 12/25/16 15:30 Potassium 4.7 mmol/L (3.5-5.1) 12/25/16 15:30 Chloride 111 mmol/L (98-107) H 12/25/16 15:30 Carbon Dioxide 23 mmol/L (21-32) 12/25/16 15:30 Anion Gap 10 (8-16) 12/25/16 15:30 BUN 21 mg/dL (7-18) H 12/25/16 15:30 Creatinine 0.8 mg/dL (0.55-1.02) 12/25/16 15:30 Creat Clearance w eGFR 49.69 (>60) 12/25/16 07:18 Random Glucose 170 mg/dL (74-106) H 12/25/16 15:30 Calcium 6.7 mg/dL (8.5-10.1) L* 12/25/16 15:30 Total Bilirubin 0.3 mg/dl (0.2-1.0) 12/25/16 07:18 AST 17 U/L (10-42) 12/25/16 07:18 ALT 9 U/L (10-40) L 12/25/16 07:18 Alkaline Phosphatase 68 U/L (32-92) 12/25/16 07:18 Total Protein 7.1 g/dl (6.4-8.3) 12/25/16 07:18 Albumin 3.2 g/dl (3.5-5.0) L 12/25/16 07:18 CARDIAC ENZYMES Creatine Kinase 78 IU/L (26-140) 12/25/16 07:18 Troponin I < 0.03 ng/ml (0.03-0.50) L 12/25/16 07:18 Laboratory Tests 12/25/16 07:19 Lactic Acid 3.359 H* Imaging - Results Chest X-ray: Report Reviewed, Image Reviewed Cat Scan: Report Reviewed, Image Reviewed Problem List - Problems (1) Lactic acid acidosis Code(s): E87.2 - ACIDOSIS (2) Pneumoperitoneum Code(s): K66.8 - OTHER SPECIFIED DISORDERS OF PERITONEUM (3) Sepsis Code(s): A41.9 - SEPSIS, UNSPECIFIED ORGANISM (4) Surgical abdomen Code(s): R10.0 - ACUTE ABDOMEN (5) Perforated stomach Code(s): K25.5 - CHRONIC OR UNSPECIFIED GASTRIC ULCER WITH PERFORATION Assessment/Plan a/p: 66 yo woman with abdominal sepsis r/t perforated stomach s/p distal gastrectomy. Intubated and sedated in ICU. -ICU monitoring -ID following --aztreonam for GN coverage --flagyl for anaerobic coverage --levaquin for double GN coverage --flucon for empiric antifungal coverage -mechanical ventilation -VAP bundle: HOB >30, oral care -O2 for sat >92% -daily breathing trial -prn sedation -IVfluids -NPO -DVT prophylaxis Boerem ACNP Pulm/CCM CCT: 45m
[2016-12-26] MEDS: PANTOPRAZOLE SODIUM 80 MG in SODIUM CHLORIDE 100 ML IVPB SCH ×4 (00:50→21:23)
[2016-12-26] MEDS: AZTREONAM 1 GM in DEXTROSE 5%-WATER - 50 ML IVPB SCH ×3 (02:00→17:41)
[2016-12-26] MEDS: METRONIDAZOLE PREMIXED IVPB 50 ML IVPB SCH ×3 (02:00→18:57)
[2016-12-26] MEDS: HYDROmorphone HCL CARPU-JECT 1 MG/1 ML DISP.SYRIN IVPUSH PRN ×3 (02:32→09:26)
[2016-12-26] MEDS: MIDAZOLAM HCL 2 MG/2 ML SINGLE DOSE VIAL IVPUSH PRN (03:30)
[2016-12-26 06:19] LABS: BASOPHIL 0.1 % (0-2.0); MCH 24.7 pg (25.7-33.7); MEAN CELL VOLUME 77.3 fl (80-96); MEAN PLT VOLUME 8.2 fl (7.5-11.1); NEUTROPHILS 84.1 % (42.8-82.8); PLATELET COUNT 346 K/MM3 (134-434); RDW 16.6 % (11.6-15.6); WHITE BLOOD COUNT 12.1 K/mm3 (4.0-10.0)
[2016-12-26] MEDS: HEPARIN NA (PORCINE) 5,000 UNITS/ML 1ML VIAL SQ SCH ×3 (06:21→21:21)
[2016-12-26 06:35] LABS: INR 1.49 (0.82-1.09); PROTHROMBIN TIME (PATIENT) 16.5 SEC (9.98-11.88)
[2016-12-26 06:37] LABS: ACTIVATED PTT 31.6 SECONDS (26.9-34.4)
[2016-12-26 06:51] LABS: ALBUMIN 1.6 g/dl (3.4-5.0); ANION GAP 8 (8-16); BILIRUBIN,TOTAL 0.5 mg/dL (0.2-1.0); CALCIUM 7.1 mg/dL (8.5-10.1); CO2 24 mmol/L (21-32); CREATININE 0.8 mg/dL (0.55-1.02); GLUCOSE,RANDOM 185 mg/dL (74-106); MAGNESIUM 1.9 mg/dL (1.8-2.4); PHOSPHOROUS 2.6 mg/dL (2.5-4.9); SGOT/AST 16 U/L (15-37); SGPT/ALT 9 U/L (12-78); TOT PROT 4.1 g/dl (6.4-8.2)
[2016-12-26 06:52] LABS: ALK PHOS 42 U/L (45-117)
--- NOTE | 2016-12-26 08:32 | PN ---
Progress Note (short form) - Note Progress Note: Seen and examined in ICU BP stable post op Extubated this AM Denies: nausea, abd pain, CP, LUNDY, SOB Current Medications Chlorhexidine Gluconate (Hibiclens For Decolonization -) 1 applic TP HS OPAL Last Admin: 12/25/16 21:08 Dose: 1 applic Heparin Sodium (Porcine) (Heparin -) 5,000 unit SQ TID OPAL Last Admin: 12/26/16 06:21 Dose: 5,000 unit Hydromorphone HCl (Dilaudid Injection -) 1 mg IVPUSH Q4H PRN PRN Reason: PAIN Last Admin: 12/26/16 06:22 Dose: 1 mg Pantoprazole Sodium 80 mg/ (Sodium Chloride) 100 mls @ 10 mls/hr IVPB Q10H OPLA PRN Reason: 8 MG/HR Last Admin: 12/26/16 00:50 Dose: 10 mls/hr Lactated Ringer's (Lactated Ringers Solution) 1,000 mls @ 1,000 mls/hr IV ASDIR OPAL Last Admin: 12/25/16 16:15 Dose: 300 mls Metronidazole (Flagyl 250mg Premixed Ivpb -) 50 mls @ 50 mls/hr IVPB Q8H-IV OPAL Last Admin: 12/26/16 02:00 Dose: 50 mls/hr Levofloxacin (Levaquin 500 Mg Premixed Ivpb -) 100 mls @ 100 mls/hr IVPB DAILY OPAL Aztreonam 1 gm/ Dextrose 50 mls @ 100 mls/hr IVPB Q8H-IV OPAL PRN Reason: Protocol Last Admin: 12/26/16 02:00 Dose: 100 mls/hr Fluconazole (Diflucan 100 Mg/D5w Premixed Ivpb -) 50 mls @ 100 mls/hr IVPB DAILY [facility] Midazolam HCl (Versed -) 2 mg IVPUSH Q2H PRN PRN Reason: AGITATION Last Admin: 12/26/16 03:30 Dose: 2 mg Mupirocin (Bactroban Ointment (For Decolonization) -) 1 applic NS BID [facility] Stop: 12/30/16 21:59 Last Admin: 12/25/16 21:07 Dose: 1 applic Vital Signs Period Temp Pulse Resp BP Sys/Coker Pulse Ox Last 24 Hr 98.2 F-98.8 F 15-105 10- 80-165/50-586 98-100 Intake & Output 12/23/16 12/24/16 12/25/16 12/26/16 23:59 23:59 23:59 23:59 Intake Total 9750 1000 Output Total 2390 580 Balance 7360 420 Weight 82.1 kg 88.904 kg ExaM: Awake, alert w/o distress HEENT: PERRL, no JVD CV: RRR Pulm: CTA Abd: dressing c/d/i. EDWARD drains with serosang drainage. EDWARD and NGT tube with bilious drainage Ext: WWP +2 edema Neuro: grossly intact CXR: pending CBCD WBC 12.1 K/mm3 (4.0-10.0) H D 12/26/16 05:20 RBC 4.00 M/mm3 (3.60-5.2) 12/26/16 05:20 Hgb 9.9 GM/dL (10.7-15.3) L 12/26/16 05:20 Hct 30.9 % (32.4-45.2) L 12/26/16 05:20 MCV 77.3 fl (80-96) L 12/26/16 05:20 MCHC 32.0 g/dl (32.0-36.0) 12/26/16 05:20 RDW 16.6 % (11.6-15.6) H 12/26/16 05:20 Plt Count 346 K/MM3 (134-434) 12/26/16 05:20 MPV 8.2 fl (7.5-11.1) 12/26/16 05:20 CMP Sodium 142 mmol/L (136-145) 12/26/16 05:20 Potassium 4.5 mmol/L (3.5-5.1) 12/26/16 05:20 Chloride 110 mmol/L (98-107) H 12/26/16 05:20 Carbon Dioxide 24 mmol/L (21-32) 12/26/16 05:20 Anion Gap 8 (8-16) 12/26/16 05:20 BUN 20 mg/dL (7-18) H 12/26/16 05:20 Creatinine 0.8 mg/dL (0.55-1.02) 12/26/16 05:20 Creat Clearance w eGFR > 60 (>60) 12/26/16 05:20 Random Glucose 185 mg/dL (74-106) H 12/26/16 05:20 Calcium 7.1 mg/dL (8.5-10.1) L 12/26/16 05:20 Total Bilirubin 0.5 mg/dL (0.2-1.0) 12/26/16 05:20 AST 16 U/L (15-37) 12/26/16 05:20 ALT 9 U/L (12-78) L 12/26/16 05:20 Alkaline Phosphatase 42 U/L (45-117) L 12/26/16 05:20 Total Protein 4.1 g/dl (6.4-8.2) L 12/26/16 05:20 Albumin 1.6 g/dl (3.4-5.0) L 12/26/16 05:20 CARDIAC ENZYMES Creatine Kinase 78 IU/L (26-140) 12/25/16 07:18 Troponin I < 0.03 ng/ml (0.03-0.50) L 12/25/16 07:18 Micro: pending Problem List - Problems (1) Lactic acid acidosis Code(s): E87.2 - ACIDOSIS (2) Pneumoperitoneum Code(s): K66.8 - OTHER SPECIFIED DISORDERS OF PERITONEUM (3) Sepsis Code(s): A41.9 - SEPSIS, UNSPECIFIED ORGANISM (4) Surgical abdomen Code(s): R10.0 - ACUTE ABDOMEN (5) Perforated stomach Code(s): K25.5 - CHRONIC OR UNSPECIFIED GASTRIC ULCER WITH PERFORATION Assessment/Plan a/p: 66 yo woman with abdominal sepsis r/t perforated stomach s/p distal gastrectomy. Intubated and sedated in ICU. -ICU monitoring -ID following --aztreonam for GN coverage --flagyl for anaerobic coverage --levaquin for double GN coverage --flucon for empiric antifungal coverage -extubated this AM -incentive insentive goran -O2 for sat >92% -pain control prn -IVfluids -NPO -DVT prophylaxis Boerem ACNP Pulm/CCM CCT: 45m Problem List - Problems (1) Lactic acid acidosis Code(s): E87.2 - ACIDOSIS (2) Pneumoperitoneum Code(s): K66.8 - OTHER SPECIFIED DISORDERS OF PERITONEUM (3) Sepsis Code(s): A41.9 - SEPSIS, UNSPECIFIED ORGANISM (4) Surgical abdomen Code(s): R10.0 - ACUTE ABDOMEN (5) Perforated stomach Code(s): K25.5 - CHRONIC OR UNSPECIFIED GASTRIC ULCER WITH PERFORATION
[2016-12-26 08:43] LABS: ALLENS TEST POSITIVE; ARTERIAL BLD GAS O2 SATURATION 94.8 % (90-98.9); ARTERIAL BLOOD GAS BASE EXCESS 2.7 meq/l (-2-2); ARTERIAL BLOOD GAS HCO3 22.2 meq/L (22-26); ARTERIAL BLOOD GAS PO2 80.2 mmHg (80-100); ARTERIAL BLOOD GAS pH 7.34 (7.35-7.45)
[2016-12-26 08:44] LABS: TROPONIN I < 0.02 ng/ml (0.00-0.05)
[2016-12-26 08:44] LABS: ART PUNCT SITE RIGHT RADIAL; LPM/O2% 40; MECH. VENT. YES; PT. ON O2? YES; TYPE OF O2 MECH VENT
[2016-12-26 08:45] LABS: VT/PRESS PS5
--- NOTE | 2016-12-26 08:50 | OP ---
Operative Note - Note: Operative Date: 12/25/16 Pre-Operative Diagnosis: acute abdomen Operation: exploratory laparotomy, distal gastrectomy, gastro-jejunostomy, feeding jejunostomy, abdominal washout and drainage Findings: large perforated gastric ulcer in the greater curvature located inthe distal body proximal antrum. extensive lymphadenopathy int he celiac region and portahepatis Post-Operative Diagnosis: Same as Pre-op Surgeon: Adam Sloan Loan Reviewer: Denisse Tariq Anesthesia: General Specimens Removed: portion of stomach Estimated Blood Loss (mls): 100 Operative Report Dictated: Yes
--- NOTE | 2016-12-26 08:57 | PN ---
Progress Note, Physician History of Present Illness: s/p ex lap and partial gastrectomy, extubated this am - Current Medication List Current Medications: Active Medications Chlorhexidine Gluconate (Hibiclens For Decolonization -) 1 applic TP HS [facility] Last Admin: 12/25/16 21:08 Dose: 1 applic Heparin Sodium (Porcine) (Heparin -) 5,000 unit SQ TID OPAL Last Admin: 12/26/16 06:21 Dose: 5,000 unit Hydromorphone HCl (Dilaudid Injection -) 1 mg IVPUSH Q4H PRN PRN Reason: PAIN Last Admin: 12/26/16 06:22 Dose: 1 mg Pantoprazole Sodium 80 mg/ (Sodium Chloride) 100 mls @ 10 mls/hr IVPB Q10H OPAL PRN Reason: 8 MG/HR Last Admin: 12/26/16 00:50 Dose: 10 mls/hr Metronidazole (Flagyl 250mg Premixed Ivpb -) 50 mls @ 50 mls/hr IVPB Q8H-IV OPAL Last Admin: 12/26/16 02:00 Dose: 50 mls/hr Levofloxacin (Levaquin 500 Mg Premixed Ivpb -) 100 mls @ 100 mls/hr IVPB DAILY [facility] Aztreonam 1 gm/ Dextrose 50 mls @ 100 mls/hr IVPB Q8H-IV OPAL PRN Reason: Protocol Last Admin: 12/26/16 02:00 Dose: 100 mls/hr Fluconazole (Diflucan 100 Mg/D5w Premixed Ivpb -) 50 mls @ 100 mls/hr IVPB DAILY [facility] Mupirocin (Bactroban Ointment (For Decolonization) -) 1 applic NS BID [facility] Stop: 12/30/16 21:59 Last Admin: 12/25/16 21:07 Dose: 1 applic - Objective Vital Signs: Vital Signs Temperature 98.6 F 12/26/16 06:00 Pulse Rate 94 H 12/26/16 06:00 Respiratory Rate 17 12/26/16 07:47 Blood Pressure 127/80 12/26/16 06:00 O2 Sat by Pulse Oximetry (%) 99 12/25/16 22:07 Gastrointestinal: Yes: Other (dressing clean NGT, and drains in place) Labs: CBC, BMP 12/26/16 05:20 12/26/16 05:20 INR, PTT INR 1.49 (0.82-1.09) H 12/26/16 05:20 Problem List - Problems (1) Gastric ulcer with hemorrhage and perforation but without obstruction Code(s): K25.6 - CHRONIC OR UNSP GASTRIC ULCER W BOTH HEMORRHAGE AND PERF Assessment/Plan 66 yr old female with perforated gastric ulcer , peritonitis, extensive spillage, s/p ex.lap. distal gastrectomy and wash out Hemodynamically stable extubated continue antibiotics, protonix drip, support hemodynamics as needed Plan for Upper GI series on wednesday
[2016-12-26] MEDS ORDERED: ONDANSETRON 4 MG/2 ML VIAL IVPUSH PRN (09:18)
--- NOTE | 2016-12-26 09:18 | PN ---
Progress Note (short form) - Note Progress Note: ANESTHESIA POST-OP CHECK 66F s/p exploratory laparotomy, partial gastrectomy, gastrojejunostomy, under general anesthesia - POD #1. No acute events, NGT in place, denies N/V. Not yet OOB, wan in place. Pain 8/10. Extubated, awake and alert. Denies dyspnea. Vital Signs Temperature 98.6 F 12/26/16 06:00 Pulse Rate 107 H 12/26/16 08:25 Respiratory Rate 12/26/16 07:47 Blood Pressure 127/80 12/26/16 06:00 O2 Sat by Pulse Oximetry (%) 98 12/26/16 08:25 Active Medications Chlorhexidine Gluconate (Hibiclens For Decolonization -) 1 applic TP HS OPAL Last Admin: 12/25/16 21:08 Dose: 1 applic Heparin Sodium (Porcine) (Heparin -) 5,000 unit SQ TID OPAL Last Admin: 12/26/16 06:21 Dose: 5,000 unit Hydromorphone HCl (Dilaudid Injection -) 1 mg IVPUSH Q4H PRN PRN Reason: PAIN Last Admin: 12/26/16 06:22 Dose: 1 mg Pantoprazole Sodium 80 mg/ (Sodium Chloride) 100 mls @ 10 mls/hr IVPB Q10H OPAL PRN Reason: 8 MG/HR Last Admin: 12/26/16 00:50 Dose: 10 mls/hr Metronidazole (Flagyl 250mg Premixed Ivpb -) 50 mls @ 50 mls/hr IVPB Q8H-IV OPAL Last Admin: 12/26/16 02:00 Dose: 50 mls/hr Levofloxacin (Levaquin 500 Mg Premixed Ivpb -) 100 mls @ 100 mls/hr IVPB DAILY [facility] Aztreonam 1 gm/ Dextrose 50 mls @ 100 mls/hr IVPB Q8H-IV OPAL PRN Reason: Protocol Last Admin: 12/26/16 02:00 Dose: 100 mls/hr Fluconazole (Diflucan 100 Mg/D5w Premixed Ivpb -) 50 mls @ 100 mls/hr IVPB DAILY [facility] Potassium Chloride/Sodium Chloride (Ns+20 Meq Kcl -) 1,000 mls @ 100 mls/hr IV ASDIR OPAL Mupirocin (Bactroban Ointment (For Decolonization) -) 1 applic NS BID OPAL Stop: 12/30/16 21:59 Last Admin: 12/25/16 21:07 Dose: 1 applic Gen: awake, alert No apparent anesthesia complications. Will start Dilaudid [employer] for pain control and will follow. Continue management as per primary team.
[2016-12-26] MEDS ORDERED: PT OWN MED DRAWER 7, Y5N ONE ×3 (09:25→19:36)
[2016-12-26] MEDS: LEVOFLOXACIN 500 MG IVPB 100 ML IVPB SCH (09:31)
[2016-12-26] MEDS: SODIUM CHLORIDE 0.9%/KCL 1,000 ML IV SCH ×2 (09:58→19:53)
[2016-12-26] MEDS: MUPIROCIN 2% TOPICAL OINTMENT FOR DECOLONIZATION NS SCH ×2 (10:02→21:20)
[2016-12-26] MEDS: HYDROmorphone *PCA* 10MG/50ML DISP.SYRIN PCA SCH (10:21)
[2016-12-26] MEDS: FLUCONAZOLE 100 MG/D5W 50 ML IVPB SCH (11:39)
--- NOTE | 2016-12-26 15:50 | PN ---
Progress Note, Physician History of Present Illness: patient stable extubated and feeling well family in room no complaints - Current Medication List Current Medications: Active Medications Chlorhexidine Gluconate (Hibiclens For Decolonization -) 1 applic TP HS [facility] Last Admin: 12/25/16 21:08 Dose: 1 applic Heparin Sodium (Porcine) (Heparin -) 5,000 unit SQ TID [facility] Last Admin: 12/26/16 15:29 Dose: 5,000 unit Hydromorphone HCl (Dilaudid Plumbing Foreman -) 10 mg RIB KNITTER RIB KNITTER OPAL PRN Reason: Protocol Stop: 01/02/17 09:18 Last Admin: 12/26/16 10:21 Dose: 10 mg Pantoprazole Sodium 80 mg/ (Sodium Chloride) 100 mls @ 10 mls/hr IVPB Q10H [facility] PRN Reason: 8 MG/HR Last Admin: 12/26/16 12:45 Dose: 10 mls/hr Metronidazole (Flagyl 250mg Premixed Ivpb -) 50 mls @ 50 mls/hr IVPB Q8H-IV [facility] Last Admin: 12/26/16 12:45 Dose: 50 mls/hr Levofloxacin (Levaquin 500 Mg Premixed Ivpb -) 100 mls @ 100 mls/hr IVPB DAILY [facility] Last Admin: 12/26/16 09:31 Dose: 100 mls/hr Aztreonam 1 gm/ Dextrose 50 mls @ 100 mls/hr IVPB Q8H-IV [facility] PRN Reason: Protocol Last Admin: 12/26/16 10:34 Dose: 100 mls/hr Fluconazole (Diflucan 100 Mg/D5w Premixed Ivpb -) 50 mls @ 100 mls/hr IVPB DAILY [facility] Last Admin: 12/26/16 11:39 Dose: 100 mls/hr Potassium Chloride/Sodium Chloride (Ns+20 Meq Kcl -) 1,000 mls @ 100 mls/hr IV ASDIR [facility] Last Admin: 12/26/16 09:58 Dose: 100 mls/hr Mupirocin (Bactroban Ointment (For Decolonization) -) 1 applic NS BID [facility] Stop: 12/30/16 21:59 Last Admin: 12/26/16 10:02 Dose: 1 applic Ondansetron HCl (Zofran Injection) 4 mg IVPUSH Q4H PRN PRN Reason: NAUSEA AND/OR VOMITING Stop: 12/26/16 21:19 Promethazine HCl (Phenergan Injection -) 12.5 mg IVPB Q6H PRN PRN Reason: NAUSEA AND/OR VOMITING - Objective Vital Signs: Vital Signs Temperature 98.6 F 12/26/16 06:00 Pulse Rate 120 H 12/26/16 14:00 Respiratory Rate 16 12/26/16 14:00 Blood Pressure 118/67 12/26/16 14:00 O2 Sat by Pulse Oximetry (%) 98 12/26/16 09:00 Constitutional: Yes: No Distress, Calm Neck: Yes: Supple Cardiovascular: Yes: Regular Rate and Rhythm, Tachycardia Respiratory: Yes: Regular, On Venti-Mask, Poor Air Entry Gastrointestinal: Yes: Soft, Other (absent bowel sounds multiple drainage and [address]) Musculoskeletal: Yes: WNL Extremities: Yes: WNL Neurological: Yes: Alert, Oriented Psychiatric: Yes: Alert Labs: CBC, BMP 12/26/16 05:20 12/26/16 05:20 INR, PTT INR 1.49 (0.82-1.09) H 12/26/16 05:20 - ....Imaging Chest X-ray: Report Reviewed, Image Reviewed Assessment/Plan 66 year old female with significant PMH of HTN, HLD, s/p exploratory laparotomy for gastric perforation. #Gastric perforation, s/p gastrectomy & gastro-jejunostomy #HTN plan continue abx continue hydration rest as per icu close watch cc time 40 min
--- NOTE | 2016-12-26 17:39 | PN ---
Progress Note, Physician History of Present Illness: EXTUBATED - Current Medication List Current Medications: Active Medications Chlorhexidine Gluconate (Hibiclens For Decolonization -) 1 applic TP HS [facility] Last Admin: 12/25/16 21:08 Dose: 1 applic Heparin Sodium (Porcine) (Heparin -) 5,000 unit SQ TID [facility] Last Admin: 12/26/16 15:29 Dose: 5,000 unit Hydromorphone HCl (Dilaudid Household Worker -) 10 mg SOD CUTTER SOD CUTTER OPAL PRN Reason: Protocol Stop: 01/02/17 09:18 Last Admin: 12/26/16 10:21 Dose: 10 mg Pantoprazole Sodium 80 mg/ (Sodium Chloride) 100 mls @ 10 mls/hr IVPB Q10H [facility] PRN Reason: 8 MG/HR Last Admin: 12/26/16 12:45 Dose: 10 mls/hr Metronidazole (Flagyl 250mg Premixed Ivpb -) 50 mls @ 50 mls/hr IVPB Q8H-IV [facility] Last Admin: 12/26/16 12:45 Dose: 50 mls/hr Levofloxacin (Levaquin 500 Mg Premixed Ivpb -) 100 mls @ 100 mls/hr IVPB DAILY [facility] Last Admin: 12/26/16 09:31 Dose: 100 mls/hr Aztreonam 1 gm/ Dextrose 50 mls @ 100 mls/hr IVPB Q8H-IV [facility] PRN Reason: Protocol Last Admin: 12/26/16 10:34 Dose: 100 mls/hr Fluconazole (Diflucan 100 Mg/D5w Premixed Ivpb -) 50 mls @ 100 mls/hr IVPB DAILY [facility] Last Admin: 12/26/16 11:39 Dose: 100 mls/hr Potassium Chloride/Sodium Chloride (Ns+20 Meq Kcl -) 1,000 mls @ 100 mls/hr IV ASDIR [facility] Last Admin: 12/26/16 09:58 Dose: 100 mls/hr Mupirocin (Bactroban Ointment (For Decolonization) -) 1 applic NS BID [facility] Stop: 12/30/16 21:59 Last Admin: 12/26/16 10:02 Dose: 1 applic Ondansetron HCl (Zofran Injection) 4 mg IVPUSH Q4H PRN PRN Reason: NAUSEA AND/OR VOMITING Stop: 12/26/16 21:19 Promethazine HCl (Phenergan Injection -) 12.5 mg IVPB Q6H PRN PRN Reason: NAUSEA AND/OR VOMITING - Objective Vital Signs: Vital Signs Temperature 99.3 F 12/26/16 14:00 Pulse Rate 120 H 12/26/16 14:00 Respiratory Rate 16 12/26/16 14:00 Blood Pressure 118/67 12/26/16 14:00 O2 Sat by Pulse Oximetry (%) 98 12/26/16 09:00 Constitutional: Yes: No Distress HENT: Yes: Atraumatic Neck: Yes: Supple Cardiovascular: Yes: Regular Rate and Rhythm Respiratory: Yes: Rhonchi Gastrointestinal: Yes: Tenderness (AT THE SURGERY SITE) Extremities: Yes: WNL Neurological: Yes: Alert, Oriented Labs: CBC, BMP 12/26/16 05:20 12/26/16 05:20 INR, PTT INR 1.49 (0.82-1.09) H 12/26/16 05:20 Problem List - Problems (1) Colon perforation Code(s): K63.1 - PERFORATION OF INTESTINE (NONTRAUMATIC) (2) Lactic acid acidosis Code(s): E87.2 - ACIDOSIS (3) Pneumoperitoneum Code(s): K66.8 - OTHER SPECIFIED DISORDERS OF PERITONEUM (4) Sepsis Code(s): A41.9 - SEPSIS, UNSPECIFIED ORGANISM (5) Surgical abdomen Code(s): R10.0 - ACUTE ABDOMEN (6) Gastric ulcer with hemorrhage and perforation but without obstruction Code(s): K25.6 - CHRONIC OR UNSP GASTRIC ULCER W BOTH HEMORRHAGE AND PERF (7) Perforated stomach Code(s): K25.5 - CHRONIC OR UNSPECIFIED GASTRIC ULCER WITH PERFORATION Assessment/Plan A/P 1.COLON PERFORATION/gastric perforation s/p surgery NPO, IVF, IV ABX, PRN PAIN MEDS GI AND DVT PPX CC TIME 30 MIN SPENT WITH PATIENT
[2016-12-26] MEDS: PROMETHAZINE HCL 25 MG/1 ML VIAL IVPB PRN (21:21)
[2016-12-26] MEDS: CHLORHEXIDINE GLUCONATE 4% CLEANSER FOR DECOLONIZATION TP SCH (21:21)
[2016-12-27] MEDS: METRONIDAZOLE PREMIXED IVPB 50 ML IVPB SCH ×3 (01:38→17:36)
[2016-12-27] MEDS: AZTREONAM 1 GM in DEXTROSE 5%-WATER - 50 ML IVPB SCH ×3 (01:38→18:40)
[2016-12-27] MEDS: PROMETHAZINE HCL 25 MG/1 ML VIAL IVPB PRN (04:30)
[2016-12-27] MEDS: HEPARIN NA (PORCINE) 5,000 UNITS/ML 1ML VIAL SQ SCH ×3 (05:10→22:13)
[2016-12-27] MEDS: SODIUM CHLORIDE 0.9%/KCL 1,000 ML IV SCH (05:11)
[2016-12-27 06:18] LABS: MCH 25.3 pg (25.7-33.7); MCHC 32.9 g/dl (32.0-36.0); MEAN CELL VOLUME 77.1 fl (80-96); MEAN PLT VOLUME 8.2 fl (7.5-11.1); PLATELET COUNT 312 K/MM3 (134-434); RDW 16.8 % (11.6-15.6); WHITE BLOOD COUNT 13.2 K/mm3 (4.0-10.0)
[2016-12-27 07:51] LABS: CALCIUM 7.1 mg/dL (8.5-10.1)
[2016-12-27 08:02] LABS: CREATININE 0.5 mg/dL (0.55-1.02); PHOSPHOROUS 1.2 mg/dL (2.5-4.9)
--- NOTE | 2016-12-27 08:24 | PN ---
Progress Note (short form) - Note Progress Note: Anesthesia/Pain Pt seen and examined S:alert and awake. Does not use INSPECTOR COLD WORKING due to hand swelling O: Vital Signs Temperature 100 F H 12/27/16 06:00 Pulse Rate 111 H 12/27/16 06:21 Respiratory Rate 18 12/27/16 06:21 Blood Pressure 147/80 12/27/16 06:21 O2 Sat by Pulse Oximetry (%) 99 12/26/16 21:00 CBC, BMP 12/27/16 05:20 A/P: Current Active Problems Colon perforation (Acute) Gastric ulcer with hemorrhage and perforation but without obstruction (Acute) Lactic acid acidosis (Acute) Perforated stomach (Acute) Pneumoperitoneum (Acute) Sepsis (Acute) Surgical abdomen (Acute) Still in guarded condition Pain control by IV prn bases Will d/c IV INSPECTOR COLD WORKING and add IV narcotics Grant Lucio MD
[2016-12-27] MEDS: HYDROmorphone HCL CARPU-JECT 1 MG/1 ML DISP.SYRIN IVPUSH PRN ×3 (09:01→23:00)
[2016-12-27] MEDS: PANTOPRAZOLE SODIUM 80 MG in SODIUM CHLORIDE 100 ML IVPB SCH ×3 (09:02→19:48)
[2016-12-27] MEDS ORDERED: PT OWN MED DRAWER 7, Y5N ONE ×3 (09:09→20:02)
[2016-12-27] MEDS: LEVOFLOXACIN 500 MG IVPB 100 ML IVPB SCH (11:11)
[2016-12-27] MEDS: MUPIROCIN 2% TOPICAL OINTMENT FOR DECOLONIZATION NS SCH ×2 (11:11→22:13)
[2016-12-27] MEDS: LACTATED RINGERS SOLUTION 1,000 ML IV SCH (11:11)
--- NOTE | 2016-12-27 11:20 | PN ---
Progress Note (short form) - Note Progress Note: Seen and examined in the ICU Awake, alert and cooperative OOB to chair this AM Denies: LUNDY, CP, SOB, n/v c/o: abd pain at surgical site Current Medications Chlorhexidine Gluconate (Hibiclens For Decolonization -) 1 applic TP HS [facility] Last Admin: 12/26/16 21:21 Dose: 1 applic Heparin Sodium (Porcine) (Heparin -) 5,000 unit SQ TID [facility] Last Admin: 12/27/16 05:10 Dose: 5,000 unit Hydromorphone HCl (Dilaudid Grain Elevator Worker -) 10 mg SUPERVISOR DELIVERY DEPARTMENT SUPERVISOR DELIVERY DEPARTMENT OPAL PRN Reason: Protocol Stop: 01/02/17 09:18 Last Admin: 12/26/16 10:21 Dose: 10 mg Hydromorphone HCl (Dilaudid Injection -) 0.5 mg IVPUSH Q4H PRN PRN Reason: PAIN Stop: 12/28/16 08:23 Last Admin: 12/27/16 09:01 Dose: 0.5 mg Pantoprazole Sodium 80 mg/ (Sodium Chloride) 100 mls @ 10 mls/hr IVPB Q10H [facility] PRN Reason: 8 MG/HR Last Admin: 12/27/16 09:03 Dose: Not Given Metronidazole (Flagyl 250mg Premixed Ivpb -) 50 mls @ 50 mls/hr IVPB Q8H-IV [facility] Last Admin: 12/27/16 09:10 Dose: 50 mls/hr Levofloxacin (Levaquin 500 Mg Premixed Ivpb -) 100 mls @ 100 mls/hr IVPB DAILY [facility] Last Admin: 12/26/16 09:31 Dose: 100 mls/hr Aztreonam 1 gm/ Dextrose 50 mls @ 100 mls/hr IVPB Q8H-IV [facility] PRN Reason: Protocol Last Admin: 12/27/16 09:47 Dose: 100 mls/hr Fluconazole (Diflucan 100 Mg/D5w Premixed Ivpb -) 50 mls @ 100 mls/hr IVPB DAILY [facility] Last Admin: 12/26/16 11:39 Dose: 100 mls/hr Lactated Ringer's (Lactated Ringers Solution) 1,000 mls @ 83 mls/hr IV ASDIR [facility] Mupirocin (Bactroban Ointment (For Decolonization) -) 1 applic NS BID [facility] Stop: 12/30/16 21:59 Last Admin: 12/26/16 21:20 Dose: 1 applic Promethazine HCl (Phenergan Injection -) 12.5 mg IVPB Q6H PRN PRN Reason: NAUSEA AND/OR VOMITING Last Admin: 12/27/16 04:30 Dose: 12.5 mg Vital Signs Period Temp Pulse Resp BP Sys/Coker Pulse Ox Last 24 Hr 99 F-100 F 91-122 12-18 109-147/59-86 96-99 Intake & Output 12/24/16 12/25/16 12/26/16 12/27/16 23:59 23:59 23:59 23:59 Intake Total 9750 3140 993 Output Total 2390 1395 600 Balance 7360 1745 393 Weight 82.1 kg 88.904 kg 89.947 kg General: awake, alert and cooperative sitting in bed HEENT: PERRRL CV: s1, s2 Pulm: CTA Abd: dressing c/d/i, EDWARD right>left sersang, feeding tube & NG with bilious drainage Ext: Le +1 edema Neuro: grossly intact CBCD WBC 13.2 K/mm3 (4.0-10.0) H 12/27/16 05:20 RBC 3.31 M/mm3 (3.60-5.2) L 12/27/16 05:20 Hgb 8.4 GM/dL (10.7-15.3) L D 12/27/16 05:20 Hct 25.5 % (32.4-45.2) L D 12/27/16 05:20 MCV 77.1 fl (80-96) L 12/27/16 05:20 MCHC 32.9 g/dl (32.0-36.0) 12/27/16 05:20 RDW 16.8 % (11.6-15.6) H 12/27/16 05:20 Plt Count 312 K/MM3 (134-434) 12/27/16 05:20 MPV 8.2 fl (7.5-11.1) 12/27/16 05:20 CMP Sodium 142 mmol/L (136-145) 12/27/16 05:20 Potassium 4.5 mmol/L (3.5-5.1) 12/27/16 05:20 Chloride 111 mmol/L (98-107) H 12/27/16 05:20 Carbon Dioxide 24 mmol/L (21-32) 12/27/16 05:20 Anion Gap 7 (8-16) L 12/27/16 05:20 BUN 14 mg/dL (7-18) D 12/27/16 05:20 Creatinine 0.5 mg/dL (0.55-1.02) L D 12/27/16 05:20 Creat Clearance w eGFR > 60 (>60) 12/26/16 05:20 Random Glucose 109 mg/dL (74-106) H D 12/27/16 05:20 Calcium 7.1 mg/dL (8.5-10.1) L 12/27/16 05:20 Total Bilirubin 0.5 mg/dL (0.2-1.0) 12/26/16 05:20 AST 16 U/L (15-37) 12/26/16 05:20 ALT 9 U/L (12-78) L 12/26/16 05:20 Alkaline Phosphatase 42 U/L (45-117) L 12/26/16 05:20 Total Protein 4.1 g/dl (6.4-8.2) L 12/26/16 05:20 Albumin 1.6 g/dl (3.4-5.0) L 12/26/16 05:20 CARDIAC ENZYMES Creatine Kinase 242 IU/L (26-192) H 12/26/16 05:20 Troponin I < 0.02 ng/ml (0.00-0.05) 12/26/16 05:20 Microbiology 12/25/16 07:18 Blood - Peripheral Venous Blood Culture - Preliminary NO GROWTH OBTAINED AFTER 48 HOURS, INCUBATION TO CONTINUE FOR 3 DAYS. 12/25/16 07:18 Blood - Peripheral Venous Blood Culture - Preliminary NO GROWTH OBTAINED AFTER 48 HOURS, INCUBATION TO CONTINUE FOR 3 DAYS. 12/25/16 14:00 Peritoneal Fluid Gram Stain - Final 12/25/16 14:00 Peritoneal Fluid Body Fluid Culture - Preliminary NO AEROBIC GROWTH, 24 HRS Problem List - Problems (1) Lactic acid acidosis Code(s): E87.2 - ACIDOSIS (2) Pneumoperitoneum Code(s): K66.8 - OTHER SPECIFIED DISORDERS OF PERITONEUM (3) Sepsis Code(s): A41.9 - SEPSIS, UNSPECIFIED ORGANISM (4) Surgical abdomen Code(s): R10.0 - ACUTE ABDOMEN (5) Perforated stomach Code(s): K25.5 - CHRONIC OR UNSPECIFIED GASTRIC ULCER WITH PERFORATION Assessment/Plan a/p: 66 yo woman with abdominal sepsis r/t perforated stomach s/p distal gastrectomy. Intubated and sedated in ICU. -ICU monitoring -ID following --aztreonam for GN coverage --flagyl for anaerobic coverage --levaquin for double GN coverage --flucon for empiric antifungal coverage -O2 for Sat >92% on NC 2lpm -incentive insentive goran -O2 for sat >92% -pain control prn -IVfluids change to LR given hypercholoremia -NPO -DVT prophylaxis Boerem ACNP Pulm/CCM CCT: 45m Problem List - Problems (1) Lactic acid acidosis Code(s): E87.2 - ACIDOSIS (2) Pneumoperitoneum Code(s): K66.8 - OTHER SPECIFIED DISORDERS OF PERITONEUM (3) Sepsis Code(s): A41.9 - SEPSIS, UNSPECIFIED ORGANISM (4) Surgical abdomen Code(s): R10.0 - ACUTE ABDOMEN (5) Perforated stomach Code(s): K25.5 - CHRONIC OR UNSPECIFIED GASTRIC ULCER WITH PERFORATION
[2016-12-27] MEDS: FLUCONAZOLE 100 MG/D5W 50 ML IVPB SCH (12:09)
--- NOTE | 2016-12-27 13:12 | PN ---
Progress Note, Physician History of Present Illness: s/p ex lap and partial gastrectomy, extubated yesterday feeling better, thirsty! pain 06/10 - Current Medication List Current Medications: Active Medications Chlorhexidine Gluconate (Hibiclens For Decolonization -) 1 applic TP HS [facility] Last Admin: 12/26/16 21:21 Dose: 1 applic Heparin Sodium (Porcine) (Heparin -) 5,000 unit SQ TID [facility] Last Admin: 12/27/16 05:10 Dose: 5,000 unit Hydromorphone HCl (Dilaudid Millinery Salesperson -) 10 mg TECHNICAL FELLOW TECHNICAL FELLOW OPAL PRN Reason: Protocol Stop: 01/02/17 09:18 Last Admin: 12/26/16 10:21 Dose: 10 mg Hydromorphone HCl (Dilaudid Injection -) 0.5 mg IVPUSH Q4H PRN PRN Reason: PAIN Stop: 12/28/16 08:23 Last Admin: 12/27/16 12:45 Dose: 0.5 mg Pantoprazole Sodium 80 mg/ (Sodium Chloride) 100 mls @ 10 mls/hr IVPB Q10H [facility] PRN Reason: 8 MG/HR Last Admin: 12/27/16 09:03 Dose: Not Given Metronidazole (Flagyl 250mg Premixed Ivpb -) 50 mls @ 50 mls/hr IVPB Q8H-IV [facility] Last Admin: 12/27/16 09:10 Dose: 50 mls/hr Levofloxacin (Levaquin 500 Mg Premixed Ivpb -) 100 mls @ 100 mls/hr IVPB DAILY [facility] Last Admin: 12/27/16 11:11 Dose: 100 mls/hr Aztreonam 1 gm/ Dextrose 50 mls @ 100 mls/hr IVPB Q8H-IV [facility] PRN Reason: Protocol Last Admin: 12/27/16 09:47 Dose: 100 mls/hr Fluconazole (Diflucan 100 Mg/D5w Premixed Ivpb -) 50 mls @ 100 mls/hr IVPB DAILY [facility] Last Admin: 12/27/16 12:09 Dose: 100 mls/hr Lactated Ringer's (Lactated Ringers Solution) 1,000 mls @ 83 mls/hr IV ASDIR [facility] Last Admin: 12/27/16 11:11 Dose: 83 mls/hr Mupirocin (Bactroban Ointment (For Decolonization) -) 1 applic NS BID [facility] Stop: 12/30/16 21:59 Last Admin: 12/27/16 11:11 Dose: 1 applic Promethazine HCl (Phenergan Injection -) 12.5 mg IVPB Q6H PRN PRN Reason: NAUSEA AND/OR VOMITING Last Admin: 12/27/16 04:30 Dose: 12.5 mg - Objective Vital Signs: Vital Signs Temperature 99.8 F H 12/27/16 10:00 Pulse Rate 109 H 12/27/16 12:00 Respiratory Rate 12/27/16 12:00 Blood Pressure 123/72 12/27/16 12:00 O2 Sat by Pulse Oximetry (%) 96 12/27/16 09:18 Labs: CBC, BMP 12/27/16 05:20 12/27/16 05:20 INR, PTT INR 1.49 (0.82-1.09) H 12/26/16 05:20 Problem List - Problems (1) Gastric ulcer with hemorrhage and perforation but without obstruction Code(s): K25.6 - CHRONIC OR UNSP GASTRIC ULCER W BOTH HEMORRHAGE AND PERF Assessment/Plan 66 yr old female with perforated gastric ulcer , peritonitis, extensive spillage, s/p ex.lap. distal gastrectomy and wash out Hemodynamically stable will start with water at 20cc's /hr via feeding jejunostomy continue antibiotics, protonix drip, support hemodynamics as needed Plan for Upper GI series on wednesday
--- NOTE | 2016-12-27 14:49 | PN ---
Progress Note, Physician History of Present Illness: stable - Current Medication List Current Medications: Active Medications Chlorhexidine Gluconate (Hibiclens For Decolonization -) 1 applic TP HS [facility] Last Admin: 12/26/16 21:21 Dose: 1 applic Heparin Sodium (Porcine) (Heparin -) 5,000 unit SQ TID [facility] Last Admin: 12/27/16 05:10 Dose: 5,000 unit Hydromorphone HCl (Dilaudid Injection -) 1 mg IVPUSH Q3H PRN PRN Reason: pain 5-7 Stop: 12/28/16 08:23 Hydromorphone HCl (Dilaudid Injection -) 2 mg IVPUSH Q3H PRN PRN Reason: pain >7 Pantoprazole Sodium 80 mg/ (Sodium Chloride) 100 mls @ 10 mls/hr IVPB Q10H [facility] PRN Reason: 8 MG/HR Last Admin: 12/27/16 09:03 Dose: Not Given Metronidazole (Flagyl 250mg Premixed Ivpb -) 50 mls @ 50 mls/hr IVPB Q8H-IV [facility] Last Admin: 12/27/16 09:10 Dose: 50 mls/hr Levofloxacin (Levaquin 500 Mg Premixed Ivpb -) 100 mls @ 100 mls/hr IVPB DAILY [facility] Last Admin: 12/27/16 11:11 Dose: 100 mls/hr Aztreonam 1 gm/ Dextrose 50 mls @ 100 mls/hr IVPB Q8H-IV [facility] PRN Reason: Protocol Last Admin: 12/27/16 09:47 Dose: 100 mls/hr Fluconazole (Diflucan 100 Mg/D5w Premixed Ivpb -) 50 mls @ 100 mls/hr IVPB DAILY [facility] Last Admin: 12/27/16 12:09 Dose: 100 mls/hr Lactated Ringer's (Lactated Ringers Solution) 1,000 mls @ 83 mls/hr IV ASDIR [facility] Last Admin: 12/27/16 11:11 Dose: 83 mls/hr Mupirocin (Bactroban Ointment (For Decolonization) -) 1 applic NS BID [facility] Stop: 12/30/16 21:59 Last Admin: 12/27/16 11:11 Dose: 1 applic Promethazine HCl (Phenergan Injection -) 12.5 mg IVPB Q6H PRN PRN Reason: NAUSEA AND/OR VOMITING Last Admin: 12/27/16 04:30 Dose: 12.5 mg - Objective Vital Signs: Vital Signs Temperature 99.8 F H 12/27/16 10:00 Pulse Rate 112 H 12/27/16 14:00 Respiratory Rate 20 12/27/16 14:00 Blood Pressure 137/66 12/27/16 14:00 O2 Sat by Pulse Oximetry (%) 96 12/27/16 09:18 Constitutional: Yes: No Distress HENT: Yes: Atraumatic Neck: Yes: Supple Cardiovascular: Yes: Regular Rate and Rhythm Respiratory: Yes: CTA Bilaterally Gastrointestinal: Yes: Hypoactive Bowel Sounds, Tenderness, Other (dressing in place) Extremities: Yes: WNL Neurological: Yes: Alert, Oriented Labs: CBC, BMP 12/27/16 05:20 12/27/16 05:20 INR, PTT INR 1.49 (0.82-1.09) H 12/26/16 05:20 Problem List - Problems (1) Colon perforation Code(s): K63.1 - PERFORATION OF INTESTINE (NONTRAUMATIC) (2) Lactic acid acidosis Code(s): E87.2 - ACIDOSIS (3) Pneumoperitoneum Code(s): K66.8 - OTHER SPECIFIED DISORDERS OF PERITONEUM (4) Sepsis Code(s): A41.9 - SEPSIS, UNSPECIFIED ORGANISM (5) Surgical abdomen Code(s): R10.0 - ACUTE ABDOMEN (6) Gastric ulcer with hemorrhage and perforation but without obstruction Code(s): K25.6 - CHRONIC OR UNSP GASTRIC ULCER W BOTH HEMORRHAGE AND PERF (7) Perforated stomach Code(s): K25.5 - CHRONIC OR UNSPECIFIED GASTRIC ULCER WITH PERFORATION Assessment/Plan A/P 1.COLON PERFORATION/gastric perforation s/p surgery NPO, IVF, IV ABX, PRN PAIN MEDS GI AND DVT PPX CC TIME 30 MIN SPENT WITH PATIENT
[2016-12-27] MEDS: HYDROmorphone HCL CARPU-JECT 2 MG/1 ML DISP.SYRIN IVPUSH PRN ×2 (15:03→17:59)
--- NOTE | 2016-12-27 15:44 | PN ---
Progress Note, Physician History of Present Illness: patient stable extubated and feeling well family in room no complaints ng tube still drainaing - Current Medication List Current Medications: Active Medications Chlorhexidine Gluconate (Hibiclens For Decolonization -) 1 applic TP HS [facility] Last Admin: 12/26/16 21:21 Dose: 1 applic Heparin Sodium (Porcine) (Heparin -) 5,000 unit SQ TID [facility] Last Admin: 12/27/16 15:03 Dose: 5,000 unit Hydromorphone HCl (Dilaudid Injection -) 1 mg IVPUSH Q3H PRN PRN Reason: pain 5-7 Stop: 12/28/16 08:23 Hydromorphone HCl (Dilaudid Injection -) 2 mg IVPUSH Q3H PRN PRN Reason: pain >7 Last Admin: 12/27/16 15:03 Dose: 2 mg Pantoprazole Sodium 80 mg/ (Sodium Chloride) 100 mls @ 10 mls/hr IVPB Q10H [facility] PRN Reason: 8 MG/HR Last Admin: 12/27/16 09:03 Dose: Not Given Metronidazole (Flagyl 250mg Premixed Ivpb -) 50 mls @ 50 mls/hr IVPB Q8H-IV [facility] Last Admin: 12/27/16 09:10 Dose: 50 mls/hr Levofloxacin (Levaquin 500 Mg Premixed Ivpb -) 100 mls @ 100 mls/hr IVPB DAILY [facility] Last Admin: 12/27/16 11:11 Dose: 100 mls/hr Aztreonam 1 gm/ Dextrose 50 mls @ 100 mls/hr IVPB Q8H-IV [facility] PRN Reason: Protocol Last Admin: 12/27/16 09:47 Dose: 100 mls/hr Fluconazole (Diflucan 100 Mg/D5w Premixed Ivpb -) 50 mls @ 100 mls/hr IVPB DAILY [facility] Last Admin: 12/27/16 12:09 Dose: 100 mls/hr Lactated Ringer's (Lactated Ringers Solution) 1,000 mls @ 83 mls/hr IV ASDIR [facility] Last Admin: 12/27/16 11:11 Dose: 83 mls/hr Mupirocin (Bactroban Ointment (For Decolonization) -) 1 applic NS BID [facility] Stop: 12/30/16 21:59 Last Admin: 12/27/16 11:11 Dose: 1 applic Promethazine HCl (Phenergan Injection -) 12.5 mg IVPB Q6H PRN PRN Reason: NAUSEA AND/OR VOMITING Last Admin: 12/27/16 04:30 Dose: 12.5 mg - Objective Vital Signs: Vital Signs Temperature 99.8 F H 12/27/16 10:00 Pulse Rate 112 H 12/27/16 14:00 Respiratory Rate 20 12/27/16 14:00 Blood Pressure 137/66 12/27/16 14:00 O2 Sat by Pulse Oximetry (%) 96 12/27/16 09:18 Constitutional: Yes: No Distress, Calm Cardiovascular: Yes: Regular Rate and Rhythm Respiratory: Yes: Regular, Poor Air Entry Gastrointestinal: Yes: Soft, Hypoactive Bowel Sounds, Other (draiange tube and j tube in place patient started on j tube with trickle of water) Musculoskeletal: Yes: WNL Extremities: Yes: WNL Wound/Incision: Yes: Clean/Dry, Other Neurological: Yes: Alert, Oriented Psychiatric: Yes: Alert Labs: CBC, BMP 12/27/16 05:20 12/27/16 05:20 INR, PTT INR 1.49 (0.82-1.09) H 12/26/16 05:20 Assessment/Plan 66 year old female with significant PMH of HTN, HLD, s/p exploratory laparotomy for gastric perforation. #Gastric perforation, s/p gastrectomy & gastro-jejunostomy #HTN plan continue abx continue hydration rest as per icu close watch patient started on trickle of water will d/c levaquin cc time 40 min
[2016-12-27] MEDS ORDERED: PROPOFOL 100 ML ONE (15:48)
[2016-12-27] MEDS: CHLORHEXIDINE GLUCONATE 4% CLEANSER FOR DECOLONIZATION TP SCH (22:14)
[2016-12-28] MEDS: METRONIDAZOLE PREMIXED IVPB 50 ML IVPB SCH ×3 (01:27→18:34)
[2016-12-28] MEDS: AZTREONAM 1 GM in DEXTROSE 5%-WATER - 50 ML IVPB SCH ×3 (01:27→17:14)
[2016-12-28] MEDS: LACTATED RINGERS SOLUTION 1,000 ML IV SCH ×2 (01:27→17:14)
[2016-12-28] MEDS: HYDROmorphone HCL CARPU-JECT 1 MG/1 ML DISP.SYRIN IVPUSH PRN ×5 (02:38→22:15)
[2016-12-28] MEDS: HEPARIN NA (PORCINE) 5,000 UNITS/ML 1ML VIAL SQ SCH ×3 (05:09→22:44)
[2016-12-28] MEDS: PANTOPRAZOLE SODIUM 80 MG in SODIUM CHLORIDE 100 ML IVPB SCH ×2 (05:09→15:21)
[2016-12-28 06:03] LABS: MCH 24.9 pg (25.7-33.7); MCHC 32.1 g/dl (32.0-36.0); MEAN CELL VOLUME 77.5 fl (80-96); MEAN PLT VOLUME 7.7 fl (7.5-11.1); PLATELET COUNT 329 K/MM3 (134-434); RDW 17.3 % (11.6-15.6); WHITE BLOOD COUNT 15.6 K/mm3 (4.0-10.0)
[2016-12-28 06:20] LABS: INR 1.19 (0.82-1.09); PROTHROMBIN TIME (PATIENT) 13.1 SEC (9.98-11.88)
[2016-12-28 06:28] LABS: ALBUMIN 1.6 g/dl (3.4-5.0); BILIRUBIN,DIRECT 0.1 mg/dL (0.0-0.2); CALCIUM 7.1 mg/dL (8.5-10.1); CREATININE 0.5 mg/dL (0.55-1.02); PHOSPHOROUS 1.8 mg/dL (2.5-4.9)
[2016-12-28 06:29] LABS: BILIRUBIN,TOTAL 0.4 mg/dL (0.2-1.0); TOT PROT 4.6 g/dl (6.4-8.2)
[2016-12-28] MEDS ORDERED: PT OWN MED DRAWER 7, Y5N ONE ×2 (08:18→14:51)
[2016-12-28] MEDS: HYDROmorphone HCL CARPU-JECT 2 MG/1 ML DISP.SYRIN IVPUSH PRN (10:37)
[2016-12-28] MEDS: MUPIROCIN 2% TOPICAL OINTMENT FOR DECOLONIZATION NS SCH ×2 (10:53→22:20)
[2016-12-28] MEDS: FLUCONAZOLE 100 MG/D5W 50 ML IVPB SCH (12:29)
--- NOTE | 2016-12-28 14:34 | PN ---
Teaching Attending Note Name of Resident: Facundo Weaver ATTENDING PHYSICIAN STATEMENT I saw and evaluated the patient. I reviewed the resident's note and discussed the case with the resident. I agree with the resident's findings and plan as documented. SUBJECTIVE: Patient seen and examined in the ICU. Awake and alert. Some discomfort at the surgical sites. Tolerating water at 20cc. No CP or SOB. Some dry cough. Awaiting UGI series to R/O leak. Intake & Output 12/25/16 12/26/16 12/27/16 12/28/16 23:59 23:59 23:59 23:59 Intake Total 9750 3140 3009 891 Output Total 2390 1395 1780 1095 Balance 7360 1745 1229 -204 Weight 181 lb 196 lb 198 lb 4.8 oz 201 lb 6.4 oz Last Vital Signs Temp Pulse Resp BP Pulse Ox 99.1 F 102 H 17 149/81 96 12/28/16 14:28 12/28/16 14:28 12/28/16 14:28 12/28/16 14:28 12/27/16 20:25 Active Medications Chlorhexidine Gluconate (Hibiclens For Decolonization -) 1 applic TP HS [facility] Last Admin: 12/27/16 22:14 Dose: 1 applic Heparin Sodium (Porcine) (Heparin -) 5,000 unit SQ TID [facility] Last Admin: 12/28/16 05:09 Dose: 5,000 unit Hydromorphone HCl (Dilaudid Injection -) 2 mg IVPUSH Q3H PRN PRN Reason: pain >7 Last Admin: 12/28/16 10:37 Dose: 2 mg Hydromorphone HCl (Dilaudid Injection -) 1 mg IVPUSH Q3H PRN PRN Reason: PAIN Pantoprazole Sodium 80 mg/ (Sodium Chloride) 100 mls @ 10 mls/hr IVPB Q10H OPAL PRN Reason: 8 MG/HR Last Admin: 12/28/16 05:09 Dose: 10 mls/hr Metronidazole (Flagyl 250mg Premixed Ivpb -) 50 mls @ 50 mls/hr IVPB Q8H-IV [facility] Last Admin: 12/28/16 10:38 Dose: 50 mls/hr Aztreonam 1 gm/ Dextrose 50 mls @ 100 mls/hr IVPB Q8H-IV [facility] PRN Reason: Protocol Last Admin: 12/28/16 10:38 Dose: 100 mls/hr Fluconazole (Diflucan 100 Mg/D5w Premixed Ivpb -) 50 mls @ 100 mls/hr IVPB DAILY [facility] Last Admin: 12/28/16 12:29 Dose: 100 mls/hr Lactated Ringer's (Lactated Ringers Solution) 1,000 mls @ 83 mls/hr IV ASDIR [facility] Last Admin: 12/28/16 01:27 Dose: 83 mls/hr Mupirocin (Bactroban Ointment (For Decolonization) -) 1 applic NS BID [facility] Stop: 12/30/16 21:59 Last Admin: 12/28/16 10:53 Dose: 1 applic Promethazine HCl (Phenergan Injection -) 12.5 mg IVPB Q6H PRN PRN Reason: NAUSEA AND/OR VOMITING Last Admin: 12/27/16 04:30 Dose: 12.5 mg Awake, alert and cooperative OOB to chair this AM Denies: LUNDY, CP, SOB, n/v c/o: abd pain at surgical site General: awake, alert, mildly tachypneic at rest HEENT: (-) Pallor CV: s1, s2 Pulm: few basilar rhonchi Abd: dressing c/d/i, EDWARD right>left sersang, feeding tube & NG with bilious drainage Ext: Le +1 edema Neuro: grossly intact Laboratory Results - last 24 hr 12/28/16 12/28/16 12/28/16 05:00 05:00 05:00 WBC 15.6 H RBC 3.29 L Hgb 8.2 L Hct 25.5 L MCV 77.5 L MCHC 32.1 RDW 17.3 H Plt Count 329 MPV 7.7 INR 1.19 H Sodium 143 Potassium 4.2 Chloride 108 H Carbon Dioxide 28 Anion Gap 7 L BUN 11 D Creatinine 0.5 L Random Glucose 94 Calcium 7.1 L Phosphorus 1.8 L D Magnesium 2.0 Total Bilirubin 0.4 Direct Bilirubin 0.1 AST 20 D ALT 7 L D Alkaline Phosphatase 54 D Total Protein 4.6 L Albumin 1.6 L Problem List - Problems (1) Lactic acid acidosis Code(s): E87.2 - ACIDOSIS (2) Pneumoperitoneum Code(s): K66.8 - OTHER SPECIFIED DISORDERS OF PERITONEUM (3) Sepsis Code(s): A41.9 - SEPSIS, UNSPECIFIED ORGANISM (4) Surgical abdomen Code(s): R10.0 - ACUTE ABDOMEN (5) Perforated stomach Code(s): K25.5 - CHRONIC OR UNSPECIFIED GASTRIC ULCER WITH PERFORATION Assessment/Plan ABX Per ID IVF For UGI Series Incentive Spirometry O2 to maintain saturation Pain control VTE prophylaxis PO when ok with Surgery Dr Salgado CCTime 35"
--- NOTE | 2016-12-28 15:08 | PN ---
Physical Exam: SUBJECTIVE: Patient seen and examined at bedside this AM. AAO and in a pleasant mood. Afebrile overnight with good urine output. Surgical site is mildly tender , but clean & dry. Minimal serous output from EDWARD drain. For upper GI series later today. OBJECTIVE: Vital Signs Period Temp Pulse Resp BP Sys/Coker Pulse Ox Last 24 Hr 98.6 F-99.8 F 86-104 11-18 100-166/58-81 96 GENERAL: The patient is awake, alert, and fully oriented, in no acute distress. HEENT: Atraumatic, EOMI, PERRLA, No lymphadenopathy, moist emmbranes LUNGS: mildly diminished breath sounds at bases HEART: Regular rate and rhythm, S1, S2 without murmur, rub or gallop. ABDOMEN: Soft, non distended, mildly tender to touch diffusely, dressing clean/ dry/intact; EDWARD tube draining minimal serous fluid EXTREMITIES: 2+ pulses, warm, well-perfused, no edema. NEUROLOGICAL: Cranial nerves II through XII grossly intact. Normal speech, gait not observed. PSYCH: Normal mood, normal affect. SKIN: Warm, dry, normal turgor, no rashes or lesions noted Laboratory Results - last 24 hr 12/28/16 12/28/16 12/28/16 05:00 05:00 05:00 WBC 15.6 H RBC 3.29 L Hgb 8.2 L Hct 25.5 L MCV 77.5 L MCHC 32.1 RDW 17.3 H Plt Count 329 MPV 7.7 INR 1.19 H Sodium 143 Potassium 4.2 Chloride 108 H Carbon Dioxide 28 Anion Gap 7 L BUN 11 D Creatinine 0.5 L Random Glucose 94 Calcium 7.1 L Phosphorus 1.8 L D Magnesium 2.0 Total Bilirubin 0.4 Direct Bilirubin 0.1 AST 20 D ALT 7 L D Alkaline Phosphatase 54 D Total Protein 4.6 L Albumin 1.6 L Active Medications Generic Name Dose Route Start Last Admin Trade Name Freq PRN Reason Stop Dose Admin Chlorhexidine Gluconate 1 applic 12/25/16 22:00 12/27/16 22:14 Hibiclens For Decolonization - TP 1 applic HS OPAL Administration Heparin Sodium (Porcine) 5,000 unit 12/25/16 22:00 12/28/16 05:09 Heparin - SQ 5,000 unit TID OPAL Administration Hydromorphone HCl 2 mg 12/27/16 14:42 12/28/16 10:37 Dilaudid Injection - IVPUSH 2 mg Q3H PRN Administration pain >7 Hydromorphone HCl 1 mg 12/28/16 13:24 Dilaudid Injection - IVPUSH Q3H PRN PAIN Pantoprazole Sodium 80 mg/ 100 mls @ 10 mls/hr 12/25/16 16:30 12/28/16 05:09 Sodium Chloride IVPB 10 mls/hr Q10H OPAL Administration 8 MG/HR Metronidazole 50 mls @ 50 mls/hr 12/25/16 20:00 12/28/16 10:38 Flagyl 250mg Premixed Ivpb - IVPB 50 mls/hr Q8H-IV OP[facility] Administration Aztreonam 1 gm/ Dextrose 50 mls @ 100 mls/hr 12/25/16 18:00 12/28/16 10:38 IVPB 100 mls/hr Q8H-IV OPAL Administration Protocol Fluconazole 50 mls @ 100 mls/hr 12/26/16 10:00 12/28/16 12:29 Diflucan 100 Mg/D5w Premixed Ivpb - IVPB 100 mls/hr DAILY [facility] Administration Lactated Ringer's 1,000 mls @ 83 mls/hr 12/27/16 10:45 12/28/16 01:27 Lactated Ringers Solution IV 83 mls/hr ASDIR [facility] Administration Mupirocin 1 applic 12/25/16 22:00 12/28/16 10:53 Bactroban Ointment (For Decolonization) - NS 12/30/16 21:59 1 applic BID OPAL Administration Promethazine HCl 12.5 mg 12/26/16 09:18 12/27/16 04:30 Phenergan Injection - IVPB 12.5 mg Q6H PRN Administration NAUSEA AND/OR VOMITING ASSESSMENT/PLAN: 66 year old female with significant PMH of HTN, HLD, Open cholecystectomy presents to ICU from PACU s/p exploratory laparotomy for gastric perforation. #Gastric perforation, s/p gastrectomy & gastro-jejunostomy -saturating well on NC 2L -on Aztreonam, Metronidazole, Fluconazole -upper gI series later today -dilaudid pain management -IVF LR@150cc/hr w/ good urine output -PPI -Dilaudid pain management, as needed -keep O2 Sat >94% -PT -ID Following #HTN -Holding antihypertensives Prophylaxis/FEN -Heparin/PPI -IVF, monitoring electrolytes, tube feeds with just water (defer to surgery) Visit type - Emergency Visit Emergency Visit: Yes ED Registration Date: 12/25/16 Care time: The patient presented to the Emergency Department on the above date and was hospitalized for further evaluation of their emergent condition. - New Patient This patient is new to me today: No - Critical Care Critical Care patient: Yes Total Critical Care Time (in minutes): 40 Critical Care Statement: The care of this patient involved high complexity decision making to prevent further life threatening deterioration of the patient 's condition and/or to evalute & treat vital organ system(s) failure or risk of failure.
--- NOTE | 2016-12-28 16:27 | PN ---
Progress Note, Physician History of Present Illness: patient stable no complaints family in room no complaints ng tube still drainaing - Current Medication List Current Medications: Active Medications Chlorhexidine Gluconate (Hibiclens For Decolonization -) 1 applic TP HS [facility] Last Admin: 12/27/16 22:14 Dose: 1 applic Heparin Sodium (Porcine) (Heparin -) 5,000 unit SQ TID [facility] Last Admin: 12/28/16 15:21 Dose: 5,000 unit Hydromorphone HCl (Dilaudid Injection -) 2 mg IVPUSH Q3H PRN PRN Reason: pain >7 Last Admin: 12/28/16 10:37 Dose: 2 mg Hydromorphone HCl (Dilaudid Injection -) 1 mg IVPUSH Q3H PRN PRN Reason: PAIN Pantoprazole Sodium 80 mg/ (Sodium Chloride) 100 mls @ 10 mls/hr IVPB Q10H OPAL PRN Reason: 8 MG/HR Last Admin: 12/28/16 15:21 Dose: 10 mls/hr Metronidazole (Flagyl 250mg Premixed Ivpb -) 50 mls @ 50 mls/hr IVPB Q8H-IV [facility] Last Admin: 12/28/16 10:38 Dose: 50 mls/hr Aztreonam 1 gm/ Dextrose 50 mls @ 100 mls/hr IVPB Q8H-IV [facility]AL PRN Reason: Protocol Last Admin: 12/28/16 10:38 Dose: 100 mls/hr Fluconazole (Diflucan 100 Mg/D5w Premixed Ivpb -) 50 mls @ 100 mls/hr IVPB DAILY [facility] Last Admin: 12/28/16 12:29 Dose: 100 mls/hr Lactated Ringer's (Lactated Ringers Solution) 1,000 mls @ 83 mls/hr IV ASDIR [facility] Last Admin: 12/28/16 01:27 Dose: 83 mls/hr Mupirocin (Bactroban Ointment (For Decolonization) -) 1 applic NS BID [facility] Stop: 12/30/16 21:59 Last Admin: 12/28/16 10:53 Dose: 1 applic Promethazine HCl (Phenergan Injection -) 12.5 mg IVPB Q6H PRN PRN Reason: NAUSEA AND/OR VOMITING Last Admin: 12/27/16 04:30 Dose: 12.5 mg - Objective Vital Signs: Vital Signs Temperature 99.1 F 12/28/16 14:28 Pulse Rate 102 H 12/28/16 14:28 Respiratory Rate 17 12/28/16 14:28 Blood Pressure 149/81 12/28/16 14:28 O2 Sat by Pulse Oximetry (%) 96 12/27/16 20:25 Constitutional: Yes: No Distress, Calm Cardiovascular: Yes: Regular Rate and Rhythm Respiratory: Yes: Regular, CTA Bilaterally Gastrointestinal: Yes: Soft, Other (tubes in place) Musculoskeletal: Yes: WNL Extremities: Yes: WNL Integumentary: Yes: WNL Wound/Incision: Yes: Dressing Dry and Intact Neurological: Yes: Alert Psychiatric: Yes: Alert Labs: CBC, BMP 12/28/16 05:00 12/28/16 05:00 INR, PTT INR 1.19 (0.82-1.09) H 12/28/16 05:00 Assessment/Plan 66 year old female with significant PMH of HTN, HLD, s/p exploratory laparotomy for gastric perforation. #Gastric perforation, s/p gastrectomy & gastro-jejunostomy #HTN plan continue abx continue hydration rest as per icu close watch patient started on trickle of water patient for study to see if any leak present cc time 40 min
--- NOTE | 2016-12-28 18:36 | PN ---
Progress Note (short form) - Note Progress Note: Surgery- Dr. Sloan Patient seen and examined. Patient discussed with nursing. Patient states she is feeling better. She states her pain is controlled. She denies nausea and vomiting. She denies passing flatus, but feels she will soon. She was able to get oob with physical therapy today and states she spent time sitting in the chair. She denies fever/chills. Last Vital Signs Temp Pulse Resp BP Pulse Ox 99.1 F 102 H 17 149/81 96 12/28/16 14:28 12/28/16 14:28 12/28/16 14:28 12/28/16 14:28 12/27/16 20:25 CBC, BMP 12/28/16 05:00 12/28/16 05:00 Exam: Gen: NAD, pleasant and cooperative ENT: NG in place ABD: obese, soft, midline incision repacked with wet to dry dressing (gauze and saline), healing well without surrounding erythema, EDWARD drains in place with minimal serosanguineous drainage (left EDWARD 85ml and right EDWARD 25 ml recorded today per chart), J tube in place, mild tenderness with dressing change Problem List - Problems (1) Surgical abdomen Assessment/Plan: POD#3 s/p exploratory laparotomy, distal gastrectomy, gastro-jejunostomy, feeding jejunostomy, abdominal washout water via Jtube Continue DVT prophylaxis Continue GI prophylaxis Continue IV abx per ID OOB/PT Pain control Replete electrolytes PRN Dressing/packing changed on rounds Followup upper GI series Code(s): R10.0 - ACUTE ABDOMEN
--- NOTE | 2016-12-28 20:39 | PN ---
Progress Note, Physician History of Present Illness: stable - Current Medication List Current Medications: Active Medications Chlorhexidine Gluconate (Hibiclens For Decolonization -) 1 applic TP HS [facility] Last Admin: 12/27/16 22:14 Dose: 1 applic Heparin Sodium (Porcine) (Heparin -) 5,000 unit SQ TID [facility] Last Admin: 12/28/16 15:21 Dose: 5,000 unit Hydromorphone HCl (Dilaudid Injection -) 2 mg IVPUSH Q3H PRN PRN Reason: pain >7 Last Admin: 12/28/16 10:37 Dose: 2 mg Hydromorphone HCl (Dilaudid Injection -) 1 mg IVPUSH Q3H PRN PRN Reason: PAIN Last Admin: 12/28/16 18:26 Dose: 1 mg Pantoprazole Sodium 80 mg/ (Sodium Chloride) 100 mls @ 10 mls/hr IVPB Q10H OPAL PRN Reason: 8 MG/HR Last Admin: 12/28/16 15:21 Dose: 10 mls/hr Metronidazole (Flagyl 250mg Premixed Ivpb -) 50 mls @ 50 mls/hr IVPB Q8H-IV [facility] Last Admin: 12/28/16 18:34 Dose: 50 mls/hr Aztreonam 1 gm/ Dextrose 50 mls @ 100 mls/hr IVPB Q8H-IV [facility] PRN Reason: Protocol Last Admin: 12/28/16 17:14 Dose: 100 mls/hr Fluconazole (Diflucan 100 Mg/D5w Premixed Ivpb -) 50 mls @ 100 mls/hr IVPB DAILY [facility] Last Admin: 12/28/16 12:29 Dose: 100 mls/hr Lactated Ringer's (Lactated Ringers Solution) 1,000 mls @ 83 mls/hr IV ASDIR [facility] Last Admin: 12/28/16 17:14 Dose: 83 mls/hr Mupirocin (Bactroban Ointment (For Decolonization) -) 1 applic NS BID [facility] Stop: 12/30/16 21:59 Last Admin: 12/28/16 10:53 Dose: 1 applic Promethazine HCl (Phenergan Injection -) 12.5 mg IVPB Q6H PRN PRN Reason: NAUSEA AND/OR VOMITING Last Admin: 12/27/16 04:30 Dose: 12.5 mg - Objective Vital Signs: Vital Signs Temperature 99.1 F 12/28/16 14:28 Pulse Rate 102 H 12/28/16 14:28 Respiratory Rate 17 12/28/16 14:28 Blood Pressure 149/81 12/28/16 14:28 O2 Sat by Pulse Oximetry (%) 96 12/27/16 20:25 Constitutional: Yes: No Distress HENT: Yes: Atraumatic Neck: Yes: Supple Cardiovascular: Yes: Regular Rate and Rhythm Respiratory: Yes: Rhonchi Gastrointestinal: Yes: Hypoactive Bowel Sounds, Tenderness Extremities: Yes: WNL Neurological: Yes: Alert, Oriented Labs: CBC, BMP 12/28/16 05:00 12/28/16 05:00 INR, PTT INR 1.19 (0.82-1.09) H 12/28/16 05:00 Problem List - Problems (1) Colon perforation Code(s): K63.1 - PERFORATION OF INTESTINE (NONTRAUMATIC) (2) Lactic acid acidosis Code(s): E87.2 - ACIDOSIS (3) Pneumoperitoneum Code(s): K66.8 - OTHER SPECIFIED DISORDERS OF PERITONEUM (4) Sepsis Code(s): A41.9 - SEPSIS, UNSPECIFIED ORGANISM (5) Surgical abdomen Code(s): R10.0 - ACUTE ABDOMEN (6) Gastric ulcer with hemorrhage and perforation but without obstruction Code(s): K25.6 - CHRONIC OR UNSP GASTRIC ULCER W BOTH HEMORRHAGE AND PERF (7) Perforated stomach Code(s): K25.5 - CHRONIC OR UNSPECIFIED GASTRIC ULCER WITH PERFORATION Assessment/Plan A/P 1.COLON PERFORATION/gastric perforation s/p ex-lap, distal gastrectomy, gastro-jejunostomy, feeding jejunostomy, abd washout Patient seen and examined in ICU. Awake and alert. Resting comfortably. C/o incisional tenderness. NPO, IVF, IV ABX, PRN PAIN MEDS ngt in place GI AND DVT PPX CC TIME 30 MIN SPENT WITH PATIENT
[2016-12-28] MEDS: CHLORHEXIDINE GLUCONATE 4% CLEANSER FOR DECOLONIZATION TP SCH (22:30)
[2016-12-29] MEDS: AZTREONAM 1 GM in DEXTROSE 5%-WATER - 50 ML IVPB SCH ×3 (01:51→22:13)
[2016-12-29] MEDS: METRONIDAZOLE PREMIXED IVPB 50 ML IVPB SCH ×3 (01:51→18:37)
[2016-12-29] MEDS: HYDROmorphone HCL CARPU-JECT 1 MG/1 ML DISP.SYRIN IVPUSH PRN (02:44)
[2016-12-29 06:19] LABS: MCH 24.6 pg (25.7-33.7); MEAN CELL VOLUME 76.9 fl (80-96); MEAN PLT VOLUME 7.7 fl (7.5-11.1); PLATELET COUNT 334 K/MM3 (134-434); RDW 16.7 % (11.6-15.6); WHITE BLOOD COUNT 11.7 K/mm3 (4.0-10.0)
[2016-12-29 06:27] LABS: INR 1.16 (0.82-1.09); PROTHROMBIN TIME (PATIENT) 12.8 SEC (9.98-11.88)
[2016-12-29 06:32] LABS: ALBUMIN 1.4 g/dl (3.4-5.0); ANION GAP 13 (8-16); CALCIUM 7.4 mg/dL (8.5-10.1); CO2 23 mmol/L (21-32); GLUCOSE,RANDOM 94 mg/dL (74-106); MAGNESIUM 1.7 mg/dL (1.8-2.4)
[2016-12-29] MEDS: HEPARIN NA (PORCINE) 5,000 UNITS/ML 1ML VIAL SQ SCH ×3 (06:33→22:14)
[2016-12-29 06:35] LABS: ALK PHOS 45 U/L (45-117); BILIRUBIN,TOTAL 0.3 mg/dL (0.2-1.0); CREATININE 0.3 mg/dL (0.55-1.02); PHOSPHOROUS 2.5 mg/dL (2.5-4.9); SGOT/AST 16 U/L (15-37); SGPT/ALT < 6 U/L (12-78); TOT PROT 4.1 g/dl (6.4-8.2)
[2016-12-29] MEDS ORDERED: PT OWN MED DRAWER 7, Y5N ONE ×2 (08:10→17:13)
[2016-12-29] MEDS: MUPIROCIN 2% TOPICAL OINTMENT FOR DECOLONIZATION NS SCH ×2 (11:16→22:06)
[2016-12-29] MEDS: FLUCONAZOLE 100 MG/D5W 50 ML IVPB SCH (11:17)
[2016-12-29] MEDS: PANTOPRAZOLE SODIUM 80 MG in SODIUM CHLORIDE 100 ML IVPB SCH ×4 (11:19→22:06)
[2016-12-29] MEDS: LACTATED RINGERS SOLUTION 1,000 ML IV SCH ×2 (11:20→20:59)
[2016-12-29] MEDS ORDERED: D5-NS + 20 MEQ KCL - 1,000 ML IV SCH (14:00)
--- NOTE | 2016-12-29 14:38 | PN ---
Progress Note, Physician History of Present Illness: patient doing well no new issues no complaints - Current Medication List Current Medications: Active Medications Chlorhexidine Gluconate (Hibiclens For Decolonization -) 1 applic TP HS [facility] Last Admin: 12/28/16 22:30 Dose: 1 applic Heparin Sodium (Porcine) (Heparin -) 5,000 unit SQ TID [facility] Last Admin: 12/29/16 06:33 Dose: 5,000 unit Hydromorphone HCl (Dilaudid Injection -) 2 mg IVPUSH Q3H PRN PRN Reason: pain >7 Last Admin: 12/28/16 10:37 Dose: 2 mg Hydromorphone HCl (Dilaudid Injection -) 1 mg IVPUSH Q3H PRN PRN Reason: PAIN Last Admin: 12/29/16 02:44 Dose: 1 mg Pantoprazole Sodium 80 mg/ (Sodium Chloride) 100 mls @ 10 mls/hr IVPB Q10H OPAL PRN Reason: 8 MG/HR Last Admin: 12/29/16 11:19 Dose: 10 mls/hr Metronidazole (Flagyl 250mg Premixed Ivpb -) 50 mls @ 50 mls/hr IVPB Q8H-IV [facility] Last Admin: 12/29/16 11:16 Dose: 50 mls/hr Aztreonam 1 gm/ Dextrose 50 mls @ 100 mls/hr IVPB Q8H-IV [facility] PRN Reason: Protocol Last Admin: 12/29/16 11:17 Dose: 100 mls/hr Fluconazole (Diflucan 100 Mg/D5w Premixed Ivpb -) 50 mls @ 100 mls/hr IVPB DAILY [facility] Last Admin: 12/29/16 11:17 Dose: 100 mls/hr Lactated Ringer's (Lactated Ringers Solution) 1,000 mls @ 83 mls/hr IV [facility]IR [facility] Last Admin: 12/29/16 11:20 Dose: 83 mls/hr Dextrose/Sodium Chloride (Dextrose 5%-Normal Saline+20 Meq Kcl -) 1,000 mls @ 125 mls/hr IV ASDIR [facility] Mupirocin (Bactroban Ointment (For Decolonization) -) 1 applic NS BID [facility] Stop: 12/30/16 21:59 Last Admin: 12/29/16 11:16 Dose: 1 applic Promethazine HCl (Phenergan Injection -) 12.5 mg IVPB Q6H PRN PRN Reason: NAUSEA AND/OR VOMITING Last Admin: 12/27/16 04:30 Dose: 12.5 mg - Objective Vital Signs: Vital Signs Temperature 99.7 F H 12/29/16 13:49 Pulse Rate 103 H 12/29/16 13:49 Respiratory Rate 19 12/29/16 13:49 Blood Pressure 153/72 12/29/16 13:49 O2 Sat by Pulse Oximetry (%) 97 12/28/16 20:58 Constitutional: Yes: No Distress, Calm Cardiovascular: Yes: Regular Rate and Rhythm Respiratory: Yes: Regular, Poor Air Entry Gastrointestinal: Yes: Soft, Hypoactive Bowel Sounds, Other (multiple draiange tubes in place) Musculoskeletal: Yes: WNL Extremities: Yes: WNL Integumentary: Yes: WNL Wound/Incision: Yes: Dressing Dry and Intact, Other Neurological: Yes: Alert, Oriented Labs: CBC, BMP 12/29/16 05:10 12/29/16 05:10 INR, PTT INR 1.16 (0.82-1.09) H 12/29/16 05:10 - ....Imaging Cat Scan: Report Reviewed, Image Reviewed Assessment/Plan 66 year old female with significant PMH of HTN, HLD, s/p exploratory laparotomy for gastric perforation. #Gastric perforation, s/p gastrectomy & gastro-jejunostomy #HTN plan continue abx continue hydration rest as per icu close watch patient started on trickle of water wbc trending down will deescalte abx soon cc time 40 min
--- NOTE | 2016-12-29 14:55 | PN ---
Progress Note (short form) - Note Progress Note: Patient seen and examined in the ICU. Awake and alert. Some discomfort at the surgical sites. Tolerating water at 20cc. Had UGI series -> no extravasation of contrast media. Noted increase in lactic acid level. Denies CP or SOB. Some dry cough. Intake & Output 12/26/16 12/27/16 12/28/16 12/29/16 23:59 23:59 23:59 23:59 Intake Total 3140 3009 2201 1356 Output Total 1395 1780 1710 1335 Balance 1745 1229 491 21 Weight 196 lb 198 lb 4.8 oz 201 lb 6.4 oz 204 lb 6 oz Last Vital Signs Temp Pulse Resp BP Pulse Ox 99.7 F H 103 H 19 153/72 97 12/29/16 13:49 12/29/16 13:49 12/29/16 13:49 12/29/16 13:49 12/28/16 20:58 Active Medications Chlorhexidine Gluconate (Hibiclens For Decolonization -) 1 applic TP HS [facility] Last Admin: 12/28/16 22:30 Dose: 1 applic Heparin Sodium (Porcine) (Heparin -) 5,000 unit SQ TID [facility] Last Admin: 12/29/16 06:33 Dose: 5,000 unit Hydromorphone HCl (Dilaudid Injection -) 2 mg IVPUSH Q3H PRN PRN Reason: pain >7 Last Admin: 12/28/16 10:37 Dose: 2 mg Hydromorphone HCl (Dilaudid Injection -) 1 mg IVPUSH Q3H PRN PRN Reason: PAIN Last Admin: 12/29/16 02:44 Dose: 1 mg Pantoprazole Sodium 80 mg/ (Sodium Chloride) 100 mls @ 10 mls/hr IVPB Q10H [facility] PRN Reason: 8 MG/HR Last Admin: 12/29/16 11:19 Dose: 10 mls/hr Metronidazole (Flagyl 250mg Premixed Ivpb -) 50 mls @ 50 mls/hr IVPB Q8H-IV [facility] Last Admin: 12/29/16 11:16 Dose: 50 mls/hr Aztreonam 1 gm/ Dextrose 50 mls @ 100 mls/hr IVPB Q8H-IV [facility] PRN Reason: Protocol Last Admin: 12/29/16 11:17 Dose: 100 mls/hr Fluconazole (Diflucan 100 Mg/D5w Premixed Ivpb -) 50 mls @ 100 mls/hr IVPB DAILY [facility] Last Admin: 12/29/16 11:17 Dose: 100 mls/hr Lactated Ringer's (Lactated Ringers Solution) 1,000 mls @ 83 mls/hr IV [facility] Last Admin: 12/29/16 11:20 Dose: 83 mls/hr Dextrose/Sodium Chloride (Dextrose 5%-Normal Saline+20 Meq Kcl -) 1,000 mls @ 125 mls/hr IV ASDIR [facility] Mupirocin (Bactroban Ointment (For Decolonization) -) 1 applic NS BID [facility] Stop: 12/30/16 21:59 Last Admin: 12/29/16 11:16 Dose: 1 applic Promethazine HCl (Phenergan Injection -) 12.5 mg IVPB Q6H PRN PRN Reason: NAUSEA AND/OR VOMITING Last Admin: 12/27/16 04:30 Dose: 12.5 mg General: awake, alert, NAD HEENT: (-) Pallor CV: s1, s2 Pulm: few basilar rhonchi Abd: dressing c/d/i, EDWARD right>left sersang, feeding tube & NG with bilious drainage Ext: Le +1 edema Neuro: grossly intact Laboratory Results - last 24 hr 12/29/16 12/29/16 12/29/16 05:10 05:10 05:10 WBC 11.7 H RBC 2.92 L Hgb 7.2 L D Hct 22.4 L MCV 76.9 L MCHC 32.0 RDW 16.7 H Plt Count 334 MPV 7.7 INR 1.16 H Sodium 139 Potassium 3.7 Chloride 103 Carbon Dioxide 23 Anion Gap 13 BUN 6 L D Creatinine 0.3 L D Creat Clearance w eGFR > 60 Random Glucose 94 Lactic Acid Calcium 7.4 L Phosphorus 2.5 D Magnesium 1.7 L Total Bilirubin 0.3 D AST 16 ALT < 6 L Alkaline Phosphatase 45 Total Protein 4.1 L Albumin 1.4 L 12/29/16 05:10 WBC RBC Hgb Hct MCV MCHC RDW Plt Count MPV INR Sodium Potassium Chloride Carbon Dioxide Anion Gap BUN Creatinine Creat Clearance w eGFR Random Glucose Lactic Acid 3.123 H* Calcium Phosphorus Magnesium Total Bilirubin AST ALT Alkaline Phosphatase Total Protein Albumin Problem List - Problems (1) Lactic acid acidosis Code(s): E87.2 - ACIDOSIS (2) Pneumoperitoneum Code(s): K66.8 - OTHER SPECIFIED DISORDERS OF PERITONEUM (3) Sepsis Code(s): A41.9 - SEPSIS, UNSPECIFIED ORGANISM (4) Surgical abdomen Code(s): R10.0 - ACUTE ABDOMEN (5) Perforated stomach Code(s): K25.5 - CHRONIC OR UNSPECIFIED GASTRIC ULCER WITH PERFORATION Assessment/Plan ABX Per ID IVF Enteral to be started IVF changed / increased -> Recheck Lactic acid level Incentive Spirometry O2 to maintain saturation Pain control VTE prophylaxis Dr Salgado CCTime 35"
--- NOTE | 2016-12-29 15:01 | PN ---
Addendum entered and electronically signed by Torres Kathleen PA 12/30/16 08:07: 12/29/16 14:20 Lactic Acid 0.922 Original Note: Progress Note (short form) - Note Progress Note: POD #4 s/p ex-lap, distal gastrectomy, gastro-jejunostomy, feeding jejunostomy, abd washout Patient seen and examined in ICU. Awake and alert. Resting comfortably. C/o incisional tenderness. Adequate pain control via prn meds. Denies flatus, bm, n/ v/f/c, CP or SOB. UGI w/ gastrograffin 12/29: negative leak with good flow of contrast in to jejunum. Last Vital Signs Temp Pulse Resp BP Pulse Ox 99.7 F H 103 H 19 153/72 97 12/29/16 14:00 12/29/16 14:00 12/29/16 14:00 12/29/16 14:00 12/28/16 20:58 CBC, BMP 12/29/16 05:10 12/29/16 05:10 Lactic Acid 12/26/16 12/29/16 12/29/16 12/29/16 05:20 05:10 05:10 14:20 Lactic Acid 2.205 H* 3.123 H* Pending PE: General: alert. nad. Nose: NGT 50mL Pulm: Cor: Abd: Midline incision open. Deep fascia intact. Wound clean. Left EDWARD 80mL ( serosang), Right EDWARD 15mL (serosang), feeding tube intact : wan to gravity (>30mL/hr and clear) LE: soft. non-tender. +1 b/l edema. Problem List - Problems (1) Surgical abdomen Assessment/Plan: Cont NPO NGT dc'd on rounds GI/DVT ppx Tube feeding started 12/29: Pivot: 1200 cc/ day to provide: 1800 cals 112 gm protein and 910 ml water 20cc H20 flush / hr with additional 200cc H20 2 x day feedings at 20cc / hr titrate 20 ml / hr Q 4 h OOB to chair PT Pain control Replete elytes PRN Dressing/packing changed on rounds f/u Lactic Acid - if trending down, can downgrade to floor at ICU discretion. Above plan discussed with Dr. Nathalia and agrees. Code(s): R10.0 - ACUTE ABDOMEN
[2016-12-29] MEDS ORDERED: SODIUM CHLORIDE 500 ML IV STA (16:54)
[2016-12-29] MEDS ORDERED: PROMETHAZINE HCL 25 MG/1 ML VIAL IVPB PRN (16:54)
--- NOTE | 2016-12-29 17:21 | PN ---
Progress Note, Physician History of Present Illness: stable - Current Medication List Current Medications: Active Medications Chlorhexidine Gluconate (Hibiclens For Decolonization -) 1 applic TP HS OPAL Heparin Sodium (Porcine) (Heparin -) 5,000 unit SQ TID OPAL Hydromorphone HCl (Dilaudid Injection -) 1 mg IVPUSH Q3H PRN PRN Reason: PAIN Hydromorphone HCl (Dilaudid Injection -) 2 mg IVPUSH Q3H PRN PRN Reason: pain >7 Aztreonam 1 gm/ Dextrose 50 mls @ 100 mls/hr IVPB Q8H-IV OPAL PRN Reason: Protocol Dextrose/Sodium Chloride (Dextrose 5%-Normal Saline+20 Meq Kcl -) 1,000 mls @ 125 mls/hr IV ASDIR OPAL Metronidazole (Flagyl 250mg Premixed Ivpb -) 50 mls @ 50 mls/hr IVPB Q8H-IV OPAL Fluconazole (Diflucan 100 Mg/D5w Premixed Ivpb -) 50 mls @ 100 mls/hr IVPB DAILY OPAL Lactated Ringer's (Lactated Ringers Solution) 1,000 mls @ 83 mls/hr IV ASDIR OPAL Pantoprazole Sodium 80 mg/ (Sodium Chloride) 100 mls @ 10 mls/hr IVPB Q10H OPAL PRN Reason: 8 MG/HR Sodium Chloride (Normal Saline -) 500 mls @ 500 mls/hr IV ASDIR STA Stop: 12/29/16 17:53 Mupirocin (Bactroban Ointment (For Decolonization) -) 1 applic NS BID OPAL Stop: 12/30/16 21:59 Promethazine HCl (Phenergan Injection -) 12.5 mg IVPB Q6H PRN PRN Reason: NAUSEA AND/OR VOMITING - Objective Vital Signs: Vital Signs Temperature 99.7 F H 12/29/16 14:00 Pulse Rate 99 H 12/29/16 16:00 Respiratory Rate 18 12/29/16 16:00 Blood Pressure 138/76 12/29/16 16:00 O2 Sat by Pulse Oximetry (%) 97 12/28/16 20:58 Constitutional: Yes: No Distress HENT: Yes: Atraumatic Neck: Yes: Supple Cardiovascular: Yes: Regular Rate and Rhythm Respiratory: Yes: CTA Bilaterally Gastrointestinal: Yes: Hypoactive Bowel Sounds, Tenderness Extremities: Yes: WNL Neurological: Yes: Alert, Oriented Labs: CBC, BMP 12/29/16 05:10 12/29/16 05:10 INR, PTT INR 1.16 (0.82-1.09) H 12/29/16 05:10 Problem List - Problems (1) Colon perforation Code(s): K63.1 - PERFORATION OF INTESTINE (NONTRAUMATIC) (2) Lactic acid acidosis Code(s): E87.2 - ACIDOSIS (3) Pneumoperitoneum Code(s): K66.8 - OTHER SPECIFIED DISORDERS OF PERITONEUM (4) Sepsis Code(s): A41.9 - SEPSIS, UNSPECIFIED ORGANISM (5) Surgical abdomen Code(s): R10.0 - ACUTE ABDOMEN (6) Gastric ulcer with hemorrhage and perforation but without obstruction Code(s): K25.6 - CHRONIC OR UNSP GASTRIC ULCER W BOTH HEMORRHAGE AND PERF (7) Perforated stomach Code(s): K25.5 - CHRONIC OR UNSPECIFIED GASTRIC ULCER WITH PERFORATION Assessment/Plan A/P 1.COLON PERFORATION/gastric perforation s/p ex-lap, distal gastrectomy, gastro-jejunostomy, feeding jejunostomy, abd washout Patient seen and examined in ICU. Awake and alert. Resting comfortably. C/o incisional tenderness. NPO, IVF, IV ABX, PRN PAIN MEDS ngt in place GI AND DVT PPX CC TIME 30 MIN SPENT WITH PATIENT
[2016-12-29] MEDS: D5-NS + 20 MEQ KCL - 1,000 ML IV SCH (20:59)
[2016-12-29] MEDS ORDERED: CHLORHEXIDINE GLUCONATE 4% CLEANSER FOR DECOLONIZATION TP SCH (22:00)
[2016-12-29] MEDS: SODIUM CHLORIDE 0.9%/KCL 1,000 ML IV SCH (22:17)
[2016-12-29] MEDS: HYDROmorphone *PCA* 10MG/50ML DISP.SYRIN PCA SCH (22:17)
[2016-12-30] MEDS: D5-NS + 20 MEQ KCL - 1,000 ML IV SCH ×3 (00:41→18:27)
[2016-12-30] MEDS: HYDROmorphone HCL CARPU-JECT 1 MG/1 ML DISP.SYRIN IVPUSH PRN ×2 (00:41→09:46)
[2016-12-30] MEDS: METRONIDAZOLE PREMIXED IVPB 50 ML IVPB SCH ×2 (02:01→10:51)
[2016-12-30] MEDS: AZTREONAM 1 GM in DEXTROSE 5%-WATER - 50 ML IVPB SCH ×3 (02:01→18:29)
[2016-12-30] MEDS: HEPARIN NA (PORCINE) 5,000 UNITS/ML 1ML VIAL SQ SCH ×3 (06:28→21:40)
[2016-12-30] MEDS: PANTOPRAZOLE SODIUM 80 MG in SODIUM CHLORIDE 100 ML IVPB SCH (06:33)
[2016-12-30] MEDS ORDERED: PT OWN MED DRAWER 7, Y5N ONE ×3 (09:43→18:29)
[2016-12-30] MEDS ORDERED: FLUCONAZOLE 100 MG/D5W 50 ML IVPB SCH (10:00)
[2016-12-30] MEDS: MUPIROCIN 2% TOPICAL OINTMENT FOR DECOLONIZATION NS SCH (11:15)
--- NOTE | 2016-12-30 13:40 | PN ---
Addendum entered and electronically signed by Torres Kathleen PA 12/30/16 14:07: Per Dr. Sloan, it's ok to start patient on clear liquid diet. Changed Protonix to BID. Stop IV fluid Original Note: Progress Note (short form) - Note Progress Note: POD #5 s/p ex-lap, distal gastrectomy, gastro-jejunostomy, feeding jejunostomy, abd washout Sitting in chair at bedside. Using her incentive spirometer. Resting comfortably. C/o mild incisional tenderness. Adequate pain control via prn meds. Her J-Tube feeds were started yesterday. Denies flatus, bm, n/v/f/c, CP or SOB. Last Vital Signs Temp Pulse Resp BP Pulse Ox 99.0 F 80 20 143/68 93 L 12/30/16 09:35 12/30/16 10:05 12/30/16 09:35 12/30/16 09:35 12/30/16 10:05 CBC, BMP 12/29/16 05:10 12/29/16 05:10 PE General: alert. nad. Pulm: mild basilar rhonchi b/l Cor: rrr Abd: Midline incision open. Deep fascia intact. Wound clean. EDWARD x2 (serosang), feeding tube intact : wan to gravity (>30mL/hr and clear) LE: +1 edema b/l. No calf tenderness. Problem List - Problems (1) Surgical abdomen Assessment/Plan: POD #5 s/p ex-lap, distal gastrectomy, gastro-jejunostomy, feeding jejunostomy, abd washout f/u STAT CBC, if still low, transfuse PRBC PRN Tube feeds increased to 30cc/hr with 10cc titration every 6hrs GI / DVT ppx Lower extremity elevation while seated in chair CBC, BMP in AM ordered Code(s): R10.0 - ACUTE ABDOMEN
--- NOTE | 2016-12-30 13:48 | PATH ---
Surgical Pathology Report Patient Name: LAURI WHITESIDE [facility]. Rec. #: [id number] /Age/Gender: 1950 (Age: 66) / F Account: [id number] Location: [facility] MED/SURG Taken: 12/25/2016 Received: 12/25/2016 Reported: 12/30/2016 Physicians: Adam Sloan M.D. Specimen(s) Received A: GASTRIC ULCER B: DISTAL GASTRECTOMY TISSUE C: OMENTUM Clinical History Gastric perforation Intraoperative Consult Diagnosis Gastric ulcer: Ulcer with marked inflammation. No malignant cells seen on a surgical device sales representative section. Final determination has to be done on permanent sections. Dr. Abel on 12/25/16 at 1:37 PM. Final Diagnosis A. GASTRIC ULCER, RESECTION: SEGMENT OF ULCERATED GASTRIC WALL WITH EVIDENCE OF TRANSMURAL PERFORATION AND ASSOCIATED MARKED ACUTE AND CHRONIC INFLAMMATION; BACKGROUND MODERATE CHRONIC GASTRITIS. NO MALIGNANCY IDENTIFIED. Comment: Immunohistochemical stain for Ae1/Ae3 keratin performed and interpreted [facility] highlights gastric surface epithelium and is negative in the deeper layers of the gastric wall supporting the interpretation above. B. STOMACH, DISTAL GASTRECTOMY: PORTION OF STOMACH WITH ULCERATION, ASSOCIATED PERFORATION WITH ACUTE INFLAMMATION AND BACKGROUND MODERATE CHRONIC GASTRITIS. NO MALIGNANCY IDENTIFIED. IMMUNOSTAIN FOR H. PYLORI IS NEGATIVE FOR ORGANISMS. SURGICAL RESECTION MARGINS APPEAR VIABLE. Comment: Immunohistochemical stain for Ae1/Ae3 keratin performed and interpreted [facility] on block B8 highlights gastric surface epithelium and is negative in the deeper layers of the gastric wall supporting the interpretation above. C. OMENTUM, OMENTECTOMY: BENIGN FATTY TISSUE WITH FOCI OF ACUTE INFLAMMATION, HEMORRHAGE AND MARKED VASCULAR CONGESTION . NO MALIGNANCY IDENTIFIED. Electronically Signed Carlos Abel M.D. Gross Description A. Received fresh, labeled "gastric ulcer" is a 3.5 x 3.3 x 1.0 cm open portion of stomach. The serosal surface is pink-keenan and smooth. The mucosa is keenan with normal folds. No mucosal masses are identified. Sectioning reveals a thickened, firm wall. The serosa is inked black and a surgical device sales representative section is submitted for frozen section. The specimen is serially sectioned and entirely submitted in 6 cassettes as follows: 1-frozen section residue; 2-9-zhuwswipo of specimen. B. Received in formalin, labeled "distal gastrectomy tissue" is a 10.5 x 5.5 x 3.3 cm previously opened portion of stomach with minimal attached fat. There is an open presumed proximal mucosal margin and a stapled presumed distal mucosal margin. The serosa is keenan-palafox and smooth. The mucosa is brown and appears focally ulcerated at the open edge of the specimen. No definite perforation is identified grossly. No definite masses are identified. Exhibit Technician sections are submitted in 11 cassettes as follows: 0-2-mlyuhlxs proximal (open) mucosal margin; 1-0-wpxqchzu distal (stapled) mucosal margin; 6-5-xtksuikw from ulcerated appearing edge of specimen; 28-43-teljthuhjt uninvolved mucosa. C. Received in formalin, labeled "omentum" is an 18.0 x 15.0 x 1.3 cm portion of yellow, lobulated adipose tissue, consistent with a portion of omentum. Sectioning reveals homogeneous yellow adipose tissue. No masses are identified. Exhibit Technician sections are submitted in 5 cassettes. 12/25/2016 [facility]12/25/2016
[2016-12-30] MEDS: HYDROmorphone HCL CARPU-JECT 2 MG/1 ML DISP.SYRIN IVPUSH PRN ×2 (14:18→22:55)
[2016-12-30 15:10] LABS: MCH 24.3 pg (25.7-33.7); MCHC 31.8 g/dl (32.0-36.0); MEAN CELL VOLUME 76.3 fl (80-96); MEAN PLT VOLUME 7.3 fl (7.5-11.1); PLATELET COUNT 416 K/MM3 (134-434); RDW 16.9 % (11.6-15.6); WHITE BLOOD COUNT 15.9 K/mm3 (4.0-10.0)
--- NOTE | 2016-12-30 15:18 | PN ---
Progress Note, Physician History of Present Illness: patient stable no issues plan from surgery to start orally - Current Medication List Current Medications: Active Medications Heparin Sodium (Porcine) (Heparin -) 5,000 unit SQ TID OPAL Last Admin: 12/30/16 13:25 Dose: 5,000 unit Hydromorphone HCl (Dilaudid Injection -) 1 mg IVPUSH Q3H PRN PRN Reason: PAIN Last Admin: 12/30/16 09:46 Dose: 1 mg Hydromorphone HCl (Dilaudid Injection -) 2 mg IVPUSH Q3H PRN PRN Reason: pain >7 Last Admin: 12/30/16 14:18 Dose: 2 mg Aztreonam 1 gm/ Dextrose 50 mls @ 100 mls/hr IVPB Q8H-IV OPAL PRN Reason: Protocol Last Admin: 12/30/16 10:02 Dose: 100 mls/hr Dextrose/Sodium Chloride (Dextrose 5%-Normal Saline+20 Meq Kcl -) 1,000 mls @ 125 mls/hr IV ASDIR OPAL Last Admin: 12/30/16 09:38 Dose: 125 mls/hr Lactated Ringer's (Lactated Ringers Solution) 1,000 mls @ 83 mls/hr IV ASDIR OPAL Last Admin: 12/29/16 20:59 Dose: Not Given Pantoprazole Sodium (Protonix 40mg Ivpb (Pre-Docked)) 100 mls @ 200 mls/hr IVPB BID OPAL Promethazine HCl (Phenergan Injection -) 12.5 mg IVPB Q6H PRN PRN Reason: NAUSEA AND/OR VOMITING - Objective Vital Signs: Vital Signs Temperature 99.0 F 12/30/16 09:35 Pulse Rate 80 12/30/16 10:05 Respiratory Rate 20 12/30/16 09:35 Blood Pressure 143/68 12/30/16 09:35 O2 Sat by Pulse Oximetry (%) 93 L 12/30/16 10:05 Constitutional: Yes: No Distress, Calm Cardiovascular: Yes: Regular Rate and Rhythm Respiratory: Yes: Regular, Poor Air Entry Gastrointestinal: Yes: Soft, Other (multiple tubes including j tube) Musculoskeletal: Yes: WNL Extremities: Yes: WNL Neurological: Yes: Alert, Oriented Psychiatric: Yes: Alert Labs: CBC, BMP 12/29/16 05:10 INR, PTT INR 1.16 (0.82-1.09) H 12/29/16 05:10 Assessment/Plan 66 year old female with significant PMH of HTN, HLD, s/p exploratory laparotomy for gastric perforation. #Gastric perforation, s/p gastrectomy & gastro-jejunostomy #HTN plan stopped diflucan and flagyl wbc awaited if normal will stop aztro tomorrow rest ct current mgmt
--- NOTE | 2016-12-30 18:25 | PN ---
Progress Note, Physician History of Present Illness: stable - Current Medication List Current Medications: Active Medications Heparin Sodium (Porcine) (Heparin -) 5,000 unit SQ TID OPAL Last Admin: 12/30/16 13:25 Dose: 5,000 unit Hydromorphone HCl (Dilaudid Injection -) 1 mg IVPUSH Q3H PRN PRN Reason: PAIN Last Admin: 12/30/16 09:46 Dose: 1 mg Hydromorphone HCl (Dilaudid Injection -) 2 mg IVPUSH Q3H PRN PRN Reason: pain >7 Last Admin: 12/30/16 14:18 Dose: 2 mg Aztreonam 1 gm/ Dextrose 50 mls @ 100 mls/hr IVPB Q8H-IV OPAL PRN Reason: Protocol Last Admin: 12/30/16 10:02 Dose: 100 mls/hr Dextrose/Sodium Chloride (Dextrose 5%-Normal Saline+20 Meq Kcl -) 1,000 mls @ 125 mls/hr IV ASDIR OPAL Last Admin: 12/30/16 09:38 Dose: 125 mls/hr Lactated Ringer's (Lactated Ringers Solution) 1,000 mls @ 83 mls/hr IV ASDIR OPAL Last Admin: 12/29/16 20:59 Dose: Not Given Pantoprazole Sodium (Protonix 40mg Ivpb (Pre-Docked)) 100 mls @ 200 mls/hr IVPB BID OPAL Promethazine HCl (Phenergan Injection -) 12.5 mg IVPB Q6H PRN PRN Reason: NAUSEA AND/OR VOMITING - Objective Vital Signs: Vital Signs Temperature 99.2 F 12/30/16 17:06 Pulse Rate 91 H 12/30/16 17:06 Respiratory Rate 20 12/30/16 17:06 Blood Pressure 137/67 12/30/16 17:06 O2 Sat by Pulse Oximetry (%) 93 L 12/30/16 10:05 Constitutional: Yes: No Distress HENT: Yes: Atraumatic Neck: Yes: Supple Cardiovascular: Yes: Regular Rate and Rhythm Respiratory: Yes: Rhonchi Gastrointestinal: Yes: Hypoactive Bowel Sounds, Tenderness Extremities: Yes: WNL Neurological: Yes: Alert, Oriented Labs: CBC, BMP 12/30/16 14:20 12/29/16 05:10 INR, PTT INR 1.16 (0.82-1.09) H 12/29/16 05:10 Problem List - Problems (1) Colon perforation Code(s): K63.1 - PERFORATION OF INTESTINE (NONTRAUMATIC) (2) Lactic acid acidosis Code(s): E87.2 - ACIDOSIS (3) Pneumoperitoneum Code(s): K66.8 - OTHER SPECIFIED DISORDERS OF PERITONEUM (4) Sepsis Code(s): A41.9 - SEPSIS, UNSPECIFIED ORGANISM (5) Surgical abdomen Code(s): R10.0 - ACUTE ABDOMEN (6) Gastric ulcer with hemorrhage and perforation but without obstruction Code(s): K25.6 - CHRONIC OR UNSP GASTRIC ULCER W BOTH HEMORRHAGE AND PERF (7) Perforated stomach Code(s): K25.5 - CHRONIC OR UNSPECIFIED GASTRIC ULCER WITH PERFORATION Assessment/Plan A/P 1.COLON PERFORATION/gastric perforation s/p ex-lap, distal gastrectomy, gastro-jejunostomy, feeding jejunostomy, abd washout Patient seen and examined in ICU. Awake and alert. Resting comfortably. C/o incisional tenderness. on clear liquid diet IVF, IV ABX, PRN PAIN MEDS GI AND DVT PPX
[2016-12-30] MEDS: LACTATED RINGERS SOLUTION 1,000 ML IV SCH (18:27)
[2016-12-30] MEDS: PANTOPRAZOLE SODIUM 100 ML IVPB SCH (21:40)
[2016-12-31] MEDS: AZTREONAM 1 GM in DEXTROSE 5%-WATER - 50 ML IVPB SCH ×3 (02:45→17:37)
[2016-12-31] MEDS ORDERED: PT OWN MED DRAWER 7, Y5N ONE ×4 (02:57→18:30)
[2016-12-31] MEDS: HEPARIN NA (PORCINE) 5,000 UNITS/ML 1ML VIAL SQ SCH ×3 (06:19→21:14)
[2016-12-31 07:38] LABS: BASOPHIL 0.8 % (0-2.0); MCH 24.6 pg (25.7-33.7); MEAN PLT VOLUME 7.2 fl (7.5-11.1); NEUTROPHILS 73.3 % (42.8-82.8); PLATELET COUNT 427 K/MM3 (134-434); RDW 17.2 % (11.6-15.6)
[2016-12-31 08:01] LABS: ALBUMIN 1.6 g/dl (3.4-5.0); ANION GAP 9 (8-16); CALCIUM 7.7 mg/dL (8.5-10.1); CO2 27 mmol/L (21-32); GLUCOSE,RANDOM 185 mg/dL (74-106)
[2016-12-31 08:03] LABS: ALK PHOS 55 U/L (45-117); BILIRUBIN,TOTAL 0.3 mg/dL (0.2-1.0); CREATININE 0.4 mg/dL (0.55-1.02); SGOT/AST 18 U/L (15-37); SGPT/ALT 9 U/L (12-78); TOT PROT 4.8 g/dl (6.4-8.2)
--- NOTE | 2016-12-31 08:12 | PN ---
Addendum entered and electronically signed by Denisse Tariq PA 12/31/16 09:45 : CBC, BMP 12/31/16 06:00 12/31/16 06:00 WBC 15.0, 15.9 yesterday, discussed with Dr. Sloan, consider CT scan tomorrow if WBC remains elevated Continue clear liquid diet and tube feeds Original Note: Progress Note (short form) - Note Progress Note: Patient seen and examined. Patient states she had some increased pain after moving around and washing up this morning, but is improving now. She has tolerated some water by mouth. Her wan catheter was removed and she was able to urinate without issue. She denies flatus. She has been OOB to chair and is using her incentive spirometry. She denies fever, chills, nausea, vomiting, CP , SOB, LUNDY, calf pain. Last Vital Signs Temp Pulse Resp BP Pulse Ox 98.2 F 97 H 20 158/85 93 L 12/31/16 06:36 12/31/16 06:36 12/31/16 06:36 12/31/16 06:36 12/30/16 21:00 Labs pending EDWARD output per chart: Left: 100 ml Right: 20 ml Exam: Gen: NAD, pleasant and cooperative Abd: obese, soft, mild tenderness with palp around midline and with dressing change, midline incision with fascia intact, healing well without erythema, wet to dry dressing replaced on rounds, EDWARD drains in place left and right abd with minimal serosanguineous drainage, J tube in place LE: calves soft without tenderness Problem List - Problems (1) Surgical abdomen Assessment/Plan: POD#6 s/p exploratory laparotomy, distal gastrectomy, gastro-jejunostomy, feeding jejunostomy, abdominal washout Pt tolerating water, continue clear liquid diet Follow-up labs DVT/GI prophylaxis PT, incentive spirometer Pain control Abx per ID PAcking/dressing changed on rounds Code(s): R10.0 - ACUTE ABDOMEN
[2016-12-31] MEDS: HYDROmorphone HCL CARPU-JECT 2 MG/1 ML DISP.SYRIN IVPUSH PRN ×2 (09:28→19:44)
[2016-12-31] MEDS: PANTOPRAZOLE SODIUM 100 ML IVPB SCH ×2 (10:39→21:14)
--- NOTE | 2016-12-31 11:44 | OP ---
DATE OF OPERATION: 12/25/2016 PREOPERATIVE DIAGNOSES: Perforated viscus, acute abdomen, questionable colonic perforation transverse colon. POSTOPERATIVE DIAGNOSES: Perforated gastric ulcer, peritonitis. PROCEDURE: Exploratory laparotomy, distal gastrectomy, gastrojejunostomy, feeding jejunostomy, irrigation and washout of peritoneal cavity. SURGEON: Adam Sloan MD SENIOR CUSTOMER SERVICE REPRESENTATIVE: TREVER Son COMPLICATIONS: Patient tolerated the procedure well. INDICATIONS: This is a 66-year-old female who presents with acute onset of abdominal pain. On the initial evaluation in the ER, she showed evidence of some free air and free fluid in the peritoneal cavity. It was suggested that perhaps this was related to a transverse colon perforation. The patient was taken emergently to the operating room for emergent exploratory laparotomy. Risks and benefits were discussed with the patient and family. DESCRIPTION OF PROCEDURE: In the operating room, the patient was placed in the supine position. After induction of general anesthesia, she was prepped and draped in the usual sterile fashion. After a standard time-out, a midline incision was performed from stem to cannon with a scalpel and carried through the subcutaneous tissues in a standard fashion. The fascia was incised and opened with a cautery. Upon entering the peritoneal cavity, there was evidence of purulent intestinal contents. Initial exploration including mobilization of the right colon, which was done with the use of cautery to free the White line of Toldt. After initial inspection, the transverse colon appeared to be stained but, otherwise, intact with no evidence of perforation. The left sac was entered, and this revealed the gastric contents within the larger sac and a large abscess cavity. Upon further exploration, there appeared to be a large, perforated ulcer in the greater curvature of the stomach directly connecting to the transverse colon mesentery, which had sealed it. Mobilization of this revealed significant evidence of lymphadenopathy in the karishma hepatis and celiac trunk. There was concern whether or not this was a malignancy. Biopsy was sent to pathology, which did not confirm malignancy. Upon the absence of malignancy, the decision was made to perform a distal gastrectomy given the large size of this ulcer, and at this point, the stomach was fully mobilized along the lesser curvature and greater curvature with the use of LigaSure. A stapler was used to divide the stomach just proximal to the ulcer and then a staple TA green cartridge was used at the level of the pylorus to staple opposite pylorus, and the stomach was divided here and the specimen removed. A loop of jejunum was then identified approximately 70 cm distal to the ligament of Treitz and brought up to the stomach, and a gastrojejunostomy was performed in 2 layers first using a running layer of 2-0 PDS and then a stapled anastomosis linear stapler blue cartridge was created. We did 2 enterotomies. The common enterotomy was then closed with a TA 55 and then oversewn through skin pop off sutures in a Lembert fashion. Once complete, a feeding jejunostomy was placed distally through the anastomosis. A NG tube was advanced transnasally and positioned through this anastomosis stump. The jejunostomy was done in standard fashion with purse string of 3-0 silk and then an enterotomy with placement of a G-tube 12 Chadian into the jejunostomy and then whistle technique was used to complete the procedure. The feeding jejunostomy was secured to the anterior abdominal wall with 3-0 silk sutures in 4 corners. At this point then the peritoneal cavity was irrigated copiously with 6 L of saline. Two Gentry-Puente drains 19 Chadian were placed, 1 on the left and 1 on the right side to cover both the gutters as well as the subdiaphragmatic spaces. At this point, the fascia was closed with No. 1 PDS double strength in 1 layer. Two sutures were run from each corner approximately 1 cm apart and then secured in the middle and tied in the middle. The wound was irrigated, and the skin was left open. Sterile dressing was applied, and the patient was returned to the recovery room away and alert in stable condition. He tolerated the procedure well. Kyle [id number]
--- NOTE | 2016-12-31 14:14 | PN ---
Progress Note, Physician History of Present Illness: patient remaining stable wbc on the higher side - Current Medication List Current Medications: Active Medications Heparin Sodium (Porcine) (Heparin -) 5,000 unit SQ TID OPAL Last Admin: 12/31/16 06:19 Dose: 5,000 unit Hydromorphone HCl (Dilaudid Injection -) 1 mg IVPUSH Q3H PRN PRN Reason: PAIN Last Admin: 12/30/16 09:46 Dose: 1 mg Hydromorphone HCl (Dilaudid Injection -) 2 mg IVPUSH Q3H PRN PRN Reason: pain >7 Last Admin: 12/31/16 09:28 Dose: 2 mg Aztreonam 1 gm/ Dextrose 50 mls @ 100 mls/hr IVPB Q8H-IV OPAL PRN Reason: Protocol Last Admin: 12/31/16 11:29 Dose: 100 mls/hr Pantoprazole Sodium (Protonix 40mg Ivpb (Pre-Docked)) 100 mls @ 200 mls/hr IVPB BID OPAL Last Admin: 12/31/16 10:39 Dose: 200 mls/hr Promethazine HCl (Phenergan Injection -) 12.5 mg IVPB Q6H PRN PRN Reason: NAUSEA AND/OR VOMITING - Objective Vital Signs: Vital Signs Temperature 98.4 F 12/31/16 10:00 Pulse Rate 84 12/31/16 10:00 Respiratory Rate 20 12/31/16 10:00 Blood Pressure 150/83 12/31/16 10:00 O2 Sat by Pulse Oximetry (%) 95 12/31/16 09:00 Constitutional: Yes: No Distress, Calm Cardiovascular: Yes: Regular Rate and Rhythm Respiratory: Yes: Regular, Poor Air Entry Gastrointestinal: Yes: Soft, Other (multiple tubes present) Musculoskeletal: Yes: WNL Extremities: Yes: WNL Neurological: Yes: Alert, Oriented Psychiatric: Yes: Alert, Oriented Labs: CBC, BMP 12/31/16 06:00 12/31/16 06:00 INR, PTT INR 1.16 (0.82-1.09) H 12/29/16 05:10 Assessment/Plan 66 year old female with significant PMH of HTN, HLD, s/p exploratory laparotomy for gastric perforation. #Gastric perforation, s/p gastrectomy & gastro-jejunostomy #HTN plan wbc results noted continue aztreonam for now if wbc does not decrease then will have to see or do imaging to see patient started orally
--- NOTE | 2016-12-31 17:44 | PN ---
Progress Note, Physician - Current Medication List Current Medications: Active Medications Heparin Sodium (Porcine) (Heparin -) 5,000 unit SQ TID OPAL Last Admin: 12/31/16 15:33 Dose: 5,000 unit Hydromorphone HCl (Dilaudid Injection -) 1 mg IVPUSH Q3H PRN PRN Reason: PAIN Last Admin: 12/30/16 09:46 Dose: 1 mg Hydromorphone HCl (Dilaudid Injection -) 2 mg IVPUSH Q3H PRN PRN Reason: pain >7 Last Admin: 12/31/16 09:28 Dose: 2 mg Aztreonam 1 gm/ Dextrose 50 mls @ 100 mls/hr IVPB Q8H-IV OPAL PRN Reason: Protocol Last Admin: 12/31/16 17:37 Dose: 100 mls/hr Pantoprazole Sodium (Protonix 40mg Ivpb (Pre-Docked)) 100 mls @ 200 mls/hr IVPB BID OPAL Last Admin: 12/31/16 10:39 Dose: 200 mls/hr Promethazine HCl (Phenergan Injection -) 12.5 mg IVPB Q6H PRN PRN Reason: NAUSEA AND/OR VOMITING - Objective Vital Signs: Vital Signs Temperature 99.3 F 12/31/16 17:17 Pulse Rate 93 H 12/31/16 17:17 Respiratory Rate 20 12/31/16 17:17 Blood Pressure 138/72 12/31/16 17:17 O2 Sat by Pulse Oximetry (%) 95 12/31/16 09:00 Constitutional: Yes: No Distress HENT: Yes: Atraumatic Neck: Yes: Supple Cardiovascular: Yes: Regular Rate and Rhythm Respiratory: Yes: CTA Bilaterally Gastrointestinal: Yes: Normal Bowel Sounds Extremities: Yes: WNL Neurological: Yes: Alert, Oriented Labs: CBC, BMP 12/31/16 06:00 12/31/16 06:00 INR, PTT INR 1.16 (0.82-1.09) H 12/29/16 05:10 Problem List - Problems (1) Colon perforation Code(s): K63.1 - PERFORATION OF INTESTINE (NONTRAUMATIC) (2) Lactic acid acidosis Code(s): E87.2 - ACIDOSIS (3) Pneumoperitoneum Code(s): K66.8 - OTHER SPECIFIED DISORDERS OF PERITONEUM (4) Sepsis Code(s): A41.9 - SEPSIS, UNSPECIFIED ORGANISM (5) Surgical abdomen Code(s): R10.0 - ACUTE ABDOMEN (6) Gastric ulcer with hemorrhage and perforation but without obstruction Code(s): K25.6 - CHRONIC OR UNSP GASTRIC ULCER W BOTH HEMORRHAGE AND PERF (7) Perforated stomach Code(s): K25.5 - CHRONIC OR UNSPECIFIED GASTRIC ULCER WITH PERFORATION Assessment/Plan A/P 1.COLON PERFORATION/gastric perforation s/p ex-lap, distal gastrectomy, gastro-jejunostomy, feeding jejunostomy, abd washout Patient seen and examined in ICU. Awake and alert. Resting comfortably. C/o incisional tenderness. on clear liquid diet IVF, IV ABX, PRN PAIN MEDS follow up labs GI AND DVT PPX
[2017-01-01] MEDS: AZTREONAM 1 GM in DEXTROSE 5%-WATER - 50 ML IVPB SCH ×3 (02:35→17:30)
[2017-01-01] MEDS: HEPARIN NA (PORCINE) 5,000 UNITS/ML 1ML VIAL SQ SCH ×3 (05:45→21:42)
[2017-01-01 09:53] LABS: MCH 24.4 pg (25.7-33.7); MCHC 31.8 g/dl (32.0-36.0); MEAN CELL VOLUME 76.8 fl (80-96); MEAN PLT VOLUME 7.4 fl (7.5-11.1); PLATELET COUNT 439 K/MM3 (134-434); RDW 17.2 % (11.6-15.6); WHITE BLOOD COUNT 13.1 K/mm3 (4.0-10.0)
[2017-01-01] MEDS: PANTOPRAZOLE SODIUM 100 ML IVPB SCH ×2 (10:43→21:41)
[2017-01-01 10:44] LABS: CALCIUM 7.2 mg/dL (8.5-10.1); CREATININE 0.4 mg/dL (0.55-1.02)
[2017-01-01] MEDS: HYDROmorphone HCL CARPU-JECT 1 MG/1 ML DISP.SYRIN IVPUSH PRN ×2 (11:24→22:56)
--- NOTE | 2017-01-01 11:58 | PN ---
Progress Note (short form) - Note Progress Note: Surgery- Dr. Sloan Patient seen and examined. Patient is having some pain with movement, but it is controlled. She has been tolerating clear liquids. She has been OOB to chair, is working with PT, has not ambulated yet. Patient reports 4 liquid bowel movements starting last night. She denies fever, chills, vomiting. Patient is receiving tube feeds at 60 ml/hr. Last Vital Signs Temp Pulse Resp BP Pulse Ox 98.9 F 96 H 18 160/83 95 01/01/17 05:24 01/01/17 05:24 01/01/17 05:24 01/01/17 05:24 12/31/16 21:00 CBC, BMP 01/01/17 09:20 01/01/17 09:20 WBC improved from 15 Exam: Gen: NAD, pleasant and cooperative Abd: obese, soft, nondistended, mild tenderness with palpation near midline incision, midline wound clean, healing well, wet to dry gauze packing and dressing replaced on rounds, Jtube in place, left and right EDWARD drains in place with serosanguineous drainage Problem List - Problems (1) Surgical abdomen Assessment/Plan: POD#7 s/p exploratory laparotomy, distal gastrectomy, gastro-jejunostomy, feeding jejunostomy, abdominal washout continue clear liquid diet and tube feeds at 60 ml/hr DVT/GI prophylaxis PT incentive spirometer Pain control WBC improving Abx per ID Packing/dressing changed on rounds Discussed with Dr. Sloan Code(s): R10.0 - ACUTE ABDOMEN
--- NOTE | 2017-01-01 14:56 | PN ---
Progress Note, Physician History of Present Illness: patient stable no complaints walked little - Current Medication List Current Medications: Active Medications Heparin Sodium (Porcine) (Heparin -) 5,000 unit SQ TID OPAL Last Admin: 01/01/17 05:45 Dose: 5,000 unit Hydromorphone HCl (Dilaudid Injection -) 1 mg IVPUSH Q3H PRN PRN Reason: PAIN Last Admin: 01/01/17 11:24 Dose: 1 mg Hydromorphone HCl (Dilaudid Injection -) 2 mg IVPUSH Q3H PRN PRN Reason: pain >7 Last Admin: 12/31/16 19:44 Dose: 2 mg Aztreonam 1 gm/ Dextrose 50 mls @ 100 mls/hr IVPB Q8H-IV OPAL PRN Reason: Protocol Last Admin: 01/01/17 11:11 Dose: 100 mls/hr Pantoprazole Sodium (Protonix 40mg Ivpb (Pre-Docked)) 100 mls @ 200 mls/hr IVPB BID OPAL Last Admin: 01/01/17 10:43 Dose: 200 mls/hr Promethazine HCl (Phenergan Injection -) 12.5 mg IVPB Q6H PRN PRN Reason: NAUSEA AND/OR VOMITING - Objective Vital Signs: Vital Signs Temperature 99.4 F 01/01/17 10:00 Pulse Rate 101 H 01/01/17 10:00 Respiratory Rate 20 01/01/17 10:00 Blood Pressure 158/77 01/01/17 10:00 O2 Sat by Pulse Oximetry (%) 95 12/31/16 21:00 Constitutional: Yes: No Distress, Calm Cardiovascular: Yes: Regular Rate and Rhythm Respiratory: Yes: Regular, CTA Bilaterally Gastrointestinal: Yes: Soft, Other (tubes in place) Musculoskeletal: Yes: WNL Extremities: Yes: WNL Neurological: Yes: Alert, Oriented Labs: CBC, BMP 01/01/17 09:20 01/01/17 09:20 INR, PTT INR 1.16 (0.82-1.09) H 12/29/16 05:10 Assessment/Plan 66 year old female with significant PMH of HTN, HLD, s/p exploratory laparotomy for gastric perforation. #Gastric perforation, s/p gastrectomy & gastro-jejunostomy #HTN plan wbc trending down continue current mgmt
[2017-01-01] MEDS ORDERED: PT OWN MED DRAWER 7, Y5N ONE (17:03)
--- NOTE | 2017-01-01 19:14 | PN ---
Progress Note, Physician History of Present Illness: stable - Current Medication List Current Medications: Active Medications Heparin Sodium (Porcine) (Heparin -) 5,000 unit SQ TID OPAL Last Admin: 01/01/17 15:48 Dose: 5,000 unit Aztreonam 1 gm/ Dextrose 50 mls @ 100 mls/hr IVPB Q8H-IV OPAL PRN Reason: Protocol Last Admin: 01/01/17 17:30 Dose: 100 mls/hr Pantoprazole Sodium (Protonix 40mg Ivpb (Pre-Docked)) 100 mls @ 200 mls/hr IVPB BID OPAL Last Admin: 01/01/17 10:43 Dose: 200 mls/hr Promethazine HCl (Phenergan Injection -) 12.5 mg IVPB Q6H PRN PRN Reason: NAUSEA AND/OR VOMITING - Objective Vital Signs: Vital Signs Temperature 99.5 F 01/01/17 18:47 Pulse Rate 94 H 01/01/17 18:47 Respiratory Rate 20 01/01/17 18:47 Blood Pressure 147/69 01/01/17 18:47 O2 Sat by Pulse Oximetry (%) 97 01/01/17 09:00 Constitutional: Yes: No Distress HENT: Yes: Atraumatic Neck: Yes: Supple Cardiovascular: Yes: Regular Rate and Rhythm Respiratory: Yes: CTA Bilaterally Gastrointestinal: Yes: Hypoactive Bowel Sounds, Tenderness Extremities: Yes: WNL Neurological: Yes: Alert, Oriented Labs: CBC, BMP 01/01/17 09:20 01/01/17 09:20 INR, PTT INR 1.16 (0.82-1.09) H 12/29/16 05:10 Problem List - Problems (1) Colon perforation Code(s): K63.1 - PERFORATION OF INTESTINE (NONTRAUMATIC) (2) Lactic acid acidosis Code(s): E87.2 - ACIDOSIS (3) Pneumoperitoneum Code(s): K66.8 - OTHER SPECIFIED DISORDERS OF PERITONEUM (4) Sepsis Code(s): A41.9 - SEPSIS, UNSPECIFIED ORGANISM (5) Surgical abdomen Code(s): R10.0 - ACUTE ABDOMEN (6) Gastric ulcer with hemorrhage and perforation but without obstruction Code(s): K25.6 - CHRONIC OR UNSP GASTRIC ULCER W BOTH HEMORRHAGE AND PERF (7) Perforated stomach Code(s): K25.5 - CHRONIC OR UNSPECIFIED GASTRIC ULCER WITH PERFORATION Assessment/Plan A/P 1.COLON PERFORATION/gastric perforation s/p ex-lap, distal gastrectomy, gastro-jejunostomy, feeding jejunostomy, abd washout Patient seen and examined in ICU. Awake and alert. Resting comfortably. C/o incisional tenderness. on clear liquid diet IVF, IV ABX, wbc trending down PRN PAIN MEDS follow up labs GI AND DVT PPX
[2017-01-02] MEDS: AZTREONAM 1 GM in DEXTROSE 5%-WATER - 50 ML IVPB SCH ×3 (02:43→17:43)
[2017-01-02] MEDS: HEPARIN NA (PORCINE) 5,000 UNITS/ML 1ML VIAL SQ SCH ×3 (06:00→21:54)
[2017-01-02 10:08] LABS: MCH 24.5 pg (25.7-33.7); MCHC 32.1 g/dl (32.0-36.0); MEAN CELL VOLUME 76.4 fl (80-96); PLATELET COUNT 435 K/MM3 (134-434); RDW 17.5 % (11.6-15.6); WHITE BLOOD COUNT 13.6 K/mm3 (4.0-10.0)
--- NOTE | 2017-01-02 10:24 | PN ---
Progress Note (short form) - Note Progress Note: Surgery- Dr. Sloan Patient seen and examined. Patient states she is feeling well today. Her pain is controlled. She is tolerating her clear liquid diet and would like to be advanced. She reports 3 more BM, less watery, today. She was able to ambulate with PT yesterday. She denies fever, chills, nausea, vomiting. Last Vital Signs Temp Pulse Resp BP Pulse Ox 98.6 F 92 H 20 141/58 96 01/02/17 09:07 01/02/17 09:07 01/02/17 09:07 01/02/17 09:07 01/01/17 21:00 CBC, BMP 01/02/17 09:55 BMP pending EDWARD output left: 120ml yesterday, 10 today in chart right: 20 ml yesterday, 5ml today Exam: Gen: NAD, pleasant and cooperative Abd: obese, soft, nondistended, mild tenderness with palp around midline, midline wound clean without drainage, packing and dressing replaced on rounds, J tube in place, EDWARD drains in place in left and right abdomen with small amount serosanguineous drainage Ext: soft, nontender Problem List - Problems (1) Surgical abdomen Assessment/Plan: POD#8 s/p exploratory laparotomy, distal gastrectomy, gastro-jejunostomy, feeding jejunostomy, abdominal washout Advance to full liquid diet and continue current tube feeds at 60 ml/hr DVT/GI prophylaxis Continue OOB with PT and incentive spirometer Pain control Abx per ID follow labs Packing/dressing changed on rounds Discussed with Dr. Sloan Code(s): R10.0 - ACUTE ABDOMEN
[2017-01-02 10:45] LABS: CALCIUM 7.2 mg/dL (8.5-10.1); CREATININE 0.4 mg/dL (0.55-1.02)
--- NOTE | 2017-01-02 11:18 | PN ---
Progress Note (short form) - Note Progress Note: Clinically appears better overall. Tolerating tube feeds and some oral intake. Overall abdominal pain is better. No CP or SOB. Intake & Output 12/30/16 12/31/16 01/01/17 01/02/17 23:59 23:59 23:59 23:59 Intake Total 1250 1350 2350 50 Output Total 1255 455 410 15 Balance -5 895 1940 35 Weight 207 lb 8 oz Last Vital Signs Temp Pulse Resp BP Pulse Ox 98.6 F 92 H 20 141/58 96 01/02/17 09:07 01/02/17 09:07 01/02/17 09:07 01/02/17 09:07 01/01/17 21:00 Active Medications Heparin Sodium (Porcine) (Heparin -) 5,000 unit SQ TID OPAL Last Admin: 01/02/17 06:00 Dose: 5,000 unit Hydromorphone HCl (Dilaudid Injection -) 1 mg IVPUSH Q3H PRN PRN Reason: PAIN Last Admin: 01/01/17 22:56 Dose: 1 mg Aztreonam 1 gm/ Dextrose 50 mls @ 100 mls/hr IVPB Q8H-IV OPAL PRN Reason: Protocol Last Admin: 01/02/17 10:39 Dose: 100 mls/hr Pantoprazole Sodium (Protonix 40mg Ivpb (Pre-Docked)) 100 mls @ 200 mls/hr IVPB BID OPAL Last Admin: 01/01/17 21:41 Dose: 200 mls/hr Promethazine HCl (Phenergan Injection -) 12.5 mg IVPB Q6H PRN PRN Reason: NAUSEA AND/OR VOMITING General: awake, alert, NAD HEENT: (-) Pallor CV: s1, s2 Pulm: few basilar rhonchi Abd: dressings intact and dry, (+) BS Ext: Le +1 edema Neuro: grossly intact Laboratory Results - last 24 hr 01/02/17 01/02/17 09:55 09:55 WBC 13.6 H RBC 3.29 L Hgb 8.1 L Hct 25.1 L MCV 76.4 L MCHC 32.1 RDW 17.5 H Plt Count 435 H MPV 7.0 L Neutrophils % Y Lymphocytes % Y Sodium 143 Potassium 3.8 Chloride 108 H Carbon Dioxide 27 Anion Gap 8 BUN 13 Creatinine 0.4 L Random Glucose 170 H Calcium 7.2 L Problem List - Problems (1) Lactic acid acidosis Code(s): E87.2 - ACIDOSIS (2) Pneumoperitoneum Code(s): K66.8 - OTHER SPECIFIED DISORDERS OF PERITONEUM (3) Sepsis Code(s): A41.9 - SEPSIS, UNSPECIFIED ORGANISM (4) Surgical abdomen Code(s): R10.0 - ACUTE ABDOMEN (5) Perforated stomach Code(s): K25.5 - CHRONIC OR UNSPECIFIED GASTRIC ULCER WITH PERFORATION Assessment/Plan ABX Per ID Enteral / PO nutrition Incentive Spirometry O2 to maintain saturation Pain control VTE prophylaxis Dr Salgado
[2017-01-02] MEDS: PANTOPRAZOLE SODIUM 100 ML IVPB SCH ×2 (11:29→21:54)
[2017-01-02 13:37] LABS: METAMYELOCYTE 1 % (0-2); PLATELET ESTIMATE ADEQUATE (NORMAL)
--- NOTE | 2017-01-02 14:50 | PN ---
Progress Note, Physician History of Present Illness: patient stable no complaints - Current Medication List Current Medications: Active Medications Heparin Sodium (Porcine) (Heparin -) 5,000 unit SQ TID OPAL Last Admin: 01/02/17 14:00 Dose: 5,000 unit Hydromorphone HCl (Dilaudid Injection -) 1 mg IVPUSH Q3H PRN PRN Reason: PAIN Last Admin: 01/01/17 22:56 Dose: 1 mg Aztreonam 1 gm/ Dextrose 50 mls @ 100 mls/hr IVPB Q8H-IV OPAL PRN Reason: Protocol Last Admin: 01/02/17 10:39 Dose: 100 mls/hr Pantoprazole Sodium (Protonix 40mg Ivpb (Pre-Docked)) 100 mls @ 200 mls/hr IVPB BID OPAL Last Admin: 01/02/17 11:29 Dose: 200 mls/hr Promethazine HCl (Phenergan Injection -) 12.5 mg IVPB Q6H PRN PRN Reason: NAUSEA AND/OR VOMITING - Objective Vital Signs: Vital Signs Temperature 98.6 F 01/02/17 09:07 Pulse Rate 92 H 01/02/17 09:07 Respiratory Rate 20 01/02/17 09:07 Blood Pressure 141/58 01/02/17 09:07 O2 Sat by Pulse Oximetry (%) 96 01/01/17 21:00 Constitutional: Yes: No Distress, Calm Cardiovascular: Yes: Regular Rate and Rhythm Respiratory: Yes: Regular, CTA Bilaterally Gastrointestinal: Yes: Soft Neurological: Yes: Alert, Oriented Psychiatric: Yes: Alert Labs: CBC, BMP 01/02/17 09:55 01/02/17 09:55 INR, PTT INR 1.16 (0.82-1.09) H 12/29/16 05:10 Assessment/Plan 66 year old female with significant PMH of HTN, HLD, s/p exploratory laparotomy for gastric perforation. #Gastric perforation, s/p gastrectomy & gastro-jejunostomy #HTN plan continue current mgmt monitor wbc will soon deescalate abx if wbc remains steady rest ct current mgmt
[2017-01-02] MEDS ORDERED: PT OWN MED DRAWER 7, Y5N ONE (17:42)
--- NOTE | 2017-01-02 17:49 | PN ---
Progress Note, Physician History of Present Illness: NO NEW COMPLAINTs - Current Medication List Current Medications: Active Medications Heparin Sodium (Porcine) (Heparin -) 5,000 unit SQ TID OPAL Last Admin: 01/02/17 14:00 Dose: 5,000 unit Hydromorphone HCl (Dilaudid Injection -) 1 mg IVPUSH Q3H PRN PRN Reason: PAIN Last Admin: 01/01/17 22:56 Dose: 1 mg Aztreonam 1 gm/ Dextrose 50 mls @ 100 mls/hr IVPB Q8H-IV OPAL PRN Reason: Protocol Last Admin: 01/02/17 17:43 Dose: 100 mls/hr Pantoprazole Sodium (Protonix 40mg Ivpb (Pre-Docked)) 100 mls @ 200 mls/hr IVPB BID OPAL Last Admin: 01/02/17 11:29 Dose: 200 mls/hr Promethazine HCl (Phenergan Injection -) 12.5 mg IVPB Q6H PRN PRN Reason: NAUSEA AND/OR VOMITING - Objective Vital Signs: Vital Signs Temperature 98.2 F 01/02/17 16:47 Pulse Rate 91 H 01/02/17 16:47 Respiratory Rate 20 01/02/17 16:47 Blood Pressure 144/76 01/02/17 16:47 O2 Sat by Pulse Oximetry (%) 96 01/02/17 09:00 Constitutional: Yes: Well Nourished Cardiovascular: Yes: WNL, Regular Rate and Rhythm Respiratory: Yes: WNL, Regular, CTA Bilaterally Gastrointestinal: Yes: WNL, Normal Bowel Sounds, Soft Labs: CBC, BMP 01/02/17 09:55 01/02/17 09:55 INR, PTT INR 1.16 (0.82-1.09) H 12/29/16 05:10 Problem List - Problems (1) CVA (cerebral vascular accident) Code(s): I63.9 - CEREBRAL INFARCTION, UNSPECIFIED (2) Colon perforation Code(s): K63.1 - PERFORATION OF INTESTINE (NONTRAUMATIC) (3) Paroxysmal atrial fibrillation Code(s): I48.0 - PAROXYSMAL ATRIAL FIBRILLATION (4) Pneumoperitoneum Code(s): K66.8 - OTHER SPECIFIED DISORDERS OF PERITONEUM
[2017-01-02] MEDS: HYDROmorphone HCL CARPU-JECT 1 MG/1 ML DISP.SYRIN IVPUSH PRN (23:05)
[2017-01-03] MEDS ORDERED: PT OWN MED DRAWER 7, Y5N ONE (02:12)
[2017-01-03] MEDS: AZTREONAM 1 GM in DEXTROSE 5%-WATER - 50 ML IVPB SCH ×2 (02:22→10:17)
[2017-01-03] MEDS: HEPARIN NA (PORCINE) 5,000 UNITS/ML 1ML VIAL SQ SCH ×3 (06:18→22:22)
[2017-01-03] MEDS ORDERED: OXYCODONE/APAP 5/325MG COMBO TABLET PO PRN (08:31)
[2017-01-03] MEDS: PANTOPRAZOLE 40 MG TABLET (FP) PO SCH ×2 (10:17→22:22)
--- NOTE | 2017-01-03 10:21 | PN ---
Progress Note (short form) - Note Progress Note: Clinically appears better overall. Tolerating tube feeds and some oral intake. Overall abdominal pain is better. (+) Diarrhea. No CP or SOB. Intake & Output 12/31/16 01/01/17 01/02/17 01/03/17 23:59 23:59 23:59 23:59 Intake Total 1350 2350 1370 50 Output Total 455 410 70 32 Balance 895 1940 1300 18 Weight 207 lb 8 oz 201 lb 7 oz Last Vital Signs Temp Pulse Resp BP Pulse Ox 98.4 F 88 24 162/83 96 01/03/17 09:07 01/03/17 09:07 01/03/17 09:07 01/03/17 09:07 01/02/17 09:00 Active Medications Acetaminophen (Tylenol -) 325 mg PO Q6H PRN PRN Reason: PAIN Heparin Sodium (Porcine) (Heparin -) 5,000 unit SQ TID [facility] Last Admin: 01/03/17 06:18 Dose: 5,000 unit Aztreonam 1 gm/ Dextrose 50 mls @ 100 mls/hr IVPB Q8H-IV OPAL PRN Reason: Protocol Last Admin: 01/03/17 10:17 Dose: 100 mls/hr Oxycodone HCl (Roxicodone -) 5 mg PO Q6H PRN PRN Reason: PAIN Pantoprazole Sodium (Protonix -) 40 mg PO BID [facility] Last Admin: 01/03/17 10:17 Dose: 40 mg Promethazine HCl (Phenergan Injection -) 12.5 mg IVPB Q6H PRN PRN Reason: NAUSEA AND/OR VOMITING General: awake, alert, NAD HEENT: (-) Pallor CV: s1, s2 Pulm: few basilar rhonchi Abd: dressings intact and dry, (+) BS Ext: Le +1 edema Neuro: grossly intact Laboratory Results - last 24 hr 01/02/17 01/02/17 09:55 09:55 Neutrophils % 75.0 Lymphocytes % 14.0 Monocytes % 8.0 Eosinophils % 1.0 Basophils % 0.0 Band Neutrophils 1.0 Metamyelocytes 1 Differential Comment Manual diff done Platelet Estimate Adequate Sodium 143 Potassium 3.8 Chloride 108 H Carbon Dioxide 27 Anion Gap 8 BUN 13 Creatinine 0.4 L Random Glucose 170 H Calcium 7.2 L Problem List - Problems (1) Lactic acid acidosis Code(s): E87.2 - ACIDOSIS (2) Pneumoperitoneum Code(s): K66.8 - OTHER SPECIFIED DISORDERS OF PERITONEUM (3) Sepsis Code(s): A41.9 - SEPSIS, UNSPECIFIED ORGANISM (4) Surgical abdomen Code(s): R10.0 - ACUTE ABDOMEN (5) Perforated stomach Code(s): K25.5 - CHRONIC OR UNSPECIFIED GASTRIC ULCER WITH PERFORATION Assessment/Plan ABX Per ID Enteral / PO nutrition Incentive Spirometry O2 to maintain saturation Pain control VTE prophylaxis Check C Diff Dr Salgado
--- NOTE | 2017-01-03 11:45 | PN ---
Progress Note (short form) - Note Progress Note: Surgery-Dr. Sloan Patient seen and examined. Patient states she is doing ok, pain is controlled, worse at night. She states she is continuing to have diarrhea, several episodes of liquid stool. She has been OOB walking and using her incentive spirometry. She has been tolerating the full liquid diet. She denies fever/ chills/nausea/vomiting. Last Vital Signs Temp Pulse Resp BP Pulse Ox 98.4 F 88 24 162/83 96 01/03/17 09:07 01/03/17 09:07 01/03/17 09:07 01/03/17 09:07 01/02/17 09:00 CBC, BMP 01/02/17 09:55 01/02/17 09:55 EDWARD output: Left:50ml yesterday 25ml today Right: 20 recorded yesterday 7ml recorded today Exam: Gen: NAD, pleasant and cooperative Abd: obese, soft, minimal tenderness, dressings changed with nursing on rounds, midline wound clean, healing well, without drainage, EDWARD with small amount serosanguineous drainage, Jtube in place Problem List - Problems (1) Surgical abdomen Assessment/Plan: POD#9 s/p exploratory laparotomy, distal gastrectomy, gastro-jejunostomy, feeding jejunostomy, abdominal washout Continued diarrhea- send stool for cdiff Continue full liquid diet and continue tube feeds at 60 ml/hr for now, may decrease tomorrow DVT/GI prophylaxis Continue OOB/ambulation with PT and incentive spirometer Pain control with PO medication Abx per ID Follow labs Packing/dressing changed on rounds Discussed with Dr. Sloan Code(s): R10.0 - ACUTE ABDOMEN
--- NOTE | 2017-01-03 16:01 | PN ---
Progress Note, Physician History of Present Illness: stable dirrhoea no complaints tolerating tube feeds and oral - Current Medication List Current Medications: Active Medications Acetaminophen (Tylenol -) 325 mg PO Q6H PRN PRN Reason: PAIN Heparin Sodium (Porcine) (Heparin -) 5,000 unit SQ TID [facility] Last Admin: 01/03/17 13:20 Dose: 5,000 unit Oxycodone HCl (Roxicodone -) 5 mg PO Q6H PRN PRN Reason: PAIN Pantoprazole Sodium (Protonix -) 40 mg PO BID [facility] Last Admin: 01/03/17 10:17 Dose: 40 mg Promethazine HCl (Phenergan Injection -) 12.5 mg IVPB Q6H PRN PRN Reason: NAUSEA AND/OR VOMITING - Objective Vital Signs: Vital Signs Temperature 99.1 F 01/03/17 15:44 Pulse Rate 92 H 01/03/17 15:44 Respiratory Rate 18 01/03/17 15:44 Blood Pressure 144/71 01/03/17 15:44 O2 Sat by Pulse Oximetry (%) 95 01/03/17 09:00 Constitutional: Yes: No Distress, Calm HENT: Yes: Atraumatic Cardiovascular: Yes: Regular Rate and Rhythm Respiratory: Yes: Regular, CTA Bilaterally Gastrointestinal: Yes: Normal Bowel Sounds, Soft, Other (tubes in place) Musculoskeletal: Yes: WNL Extremities: Yes: WNL Wound/Incision: Yes: Clean/Dry Neurological: Yes: Alert, Oriented Labs: CBC, BMP 01/02/17 09:55 01/02/17 09:55 INR, PTT INR 1.16 (0.82-1.09) H 12/29/16 05:10 Assessment/Plan 66 year old female with significant PMH of HTN, HLD, s/p exploratory laparotomy for gastric perforation. #Gastric perforation, s/p gastrectomy & gastro-jejunostomy #HTN plan continue current mgmt stopped abx as patient doing very well check wbc and monitor rest as per the teams
--- NOTE | 2017-01-03 18:13 | PN ---
Progress Note, Physician History of Present Illness: stable - Current Medication List Current Medications: Active Medications Acetaminophen (Tylenol -) 325 mg PO Q6H PRN PRN Reason: PAIN Heparin Sodium (Porcine) (Heparin -) 5,000 unit SQ TID [facility] Last Admin: 01/03/17 13:20 Dose: 5,000 unit Oxycodone HCl (Roxicodone -) 5 mg PO Q6H PRN PRN Reason: PAIN Pantoprazole Sodium (Protonix -) 40 mg PO BID [facility] Last Admin: 01/03/17 10:17 Dose: 40 mg Promethazine HCl (Phenergan Injection -) 12.5 mg IVPB Q6H PRN PRN Reason: NAUSEA AND/OR VOMITING - Objective Vital Signs: Vital Signs Temperature 99.8 F H 01/03/17 17:30 Pulse Rate 94 H 01/03/17 17:30 Respiratory Rate 20 01/03/17 17:30 Blood Pressure 146/73 01/03/17 17:30 O2 Sat by Pulse Oximetry (%) 95 01/03/17 09:00 Constitutional: Yes: No Distress HENT: Yes: Atraumatic Neck: Yes: Supple Cardiovascular: Yes: Regular Rate and Rhythm Respiratory: Yes: CTA Bilaterally Gastrointestinal: Yes: Normal Bowel Sounds, Tenderness (mild at the surgery site) Extremities: Yes: WNL Neurological: Yes: Alert, Oriented Labs: CBC, BMP 01/02/17 09:55 01/02/17 09:55 INR, PTT INR 1.16 (0.82-1.09) H 12/29/16 05:10 Problem List - Problems (1) Colon perforation Code(s): K63.1 - PERFORATION OF INTESTINE (NONTRAUMATIC) (2) Lactic acid acidosis Code(s): E87.2 - ACIDOSIS (3) Pneumoperitoneum Code(s): K66.8 - OTHER SPECIFIED DISORDERS OF PERITONEUM (4) Sepsis Code(s): A41.9 - SEPSIS, UNSPECIFIED ORGANISM (5) Surgical abdomen Code(s): R10.0 - ACUTE ABDOMEN (6) Gastric ulcer with hemorrhage and perforation but without obstruction Code(s): K25.6 - CHRONIC OR UNSP GASTRIC ULCER W BOTH HEMORRHAGE AND PERF (7) Perforated stomach Code(s): K25.5 - CHRONIC OR UNSPECIFIED GASTRIC ULCER WITH PERFORATION Assessment/Plan A/P 1.COLON PERFORATION/gastric perforation s/p ex-lap, distal gastrectomy, gastro-jejunostomy, feeding jejunostomy, abd washout Patient seen and examined in ICU. Awake and alert. Resting comfortably. C/o incisional tenderness. on clear liquid diet IVF, IV ABX,...stopped wbc trending down PRN PAIN MEDS follow up labs cdiffpending GI AND DVT PPX
[2017-01-03] MEDS: ACETAMINOPHEN 325 MG TABLET (FP) PO PRN (22:22)
[2017-01-03] MEDS: oxyCODONE HCL 5 MG TABLET PO PRN (22:23)
[2017-01-04] MEDS: HYDROmorphone HCL CARPU-JECT 1 MG/1 ML DISP.SYRIN IVPB PRN ×2 (00:14→20:13)
[2017-01-04] MEDS: HEPARIN NA (PORCINE) 5,000 UNITS/ML 1ML VIAL SQ SCH ×3 (06:17→23:03)
[2017-01-04 07:42] LABS: MCH 24.6 pg (25.7-33.7); MCHC 32.3 g/dl (32.0-36.0); MEAN CELL VOLUME 76.2 fl (80-96); MEAN PLT VOLUME 7.6 fl (7.5-11.1); PLATELET COUNT 501 K/MM3 (134-434); RDW 17.7 % (11.6-15.6); WHITE BLOOD COUNT 14.2 K/mm3 (4.0-10.0)
[2017-01-04 08:49] LABS: CALCIUM 7.1 mg/dL (8.5-10.1)
[2017-01-04 08:52] LABS: CREATININE 0.4 mg/dL (0.55-1.02)
[2017-01-04] MEDS: PANTOPRAZOLE 40 MG TABLET (FP) PO SCH ×2 (09:33→23:03)
--- NOTE | 2017-01-04 12:05 | PN ---
Addendum entered and electronically signed by Denisse Tariq PA 01/04/17 16:11 : Patient seen for EDWARD drain removal. 2 EDWARD drains removed intact without issue, patient tolerated removal. Original Note: Progress Note (short form) - Note Progress Note: POD#10 Pt states that her diarrhea has improved. She is tolerating full liquids/tube feeds. OOB and ambulating with PT. Vital Signs Period Temp Pulse Resp BP Sys/Coker Pulse Ox Last 24 Hr 99.1 F-99.8 F 87-94 18-20 144-156/71-75 EDWARD-43ml(left) 35ml(right) GEN: A&)x3, NAD ABD: soft, non-distended, inc tenderness. Midline inc skin edges open and without drainage. Fascia intact. CBC, BMP 01/04/17 06:00 01/04/17 06:00 A/P: POD#10 from exp lap for gastric perforation/distal gastrectomy with gastrojejunosotomy feeding jejunosotomy Spoke with Dr. Lawson and plan for repeat ct scan of abd/pelivs to r/o any collections. Recommend to continue fulls/tube feeds x 1 month. Continue physical therapy, will need to make arrangements for possible rehab. wet to dry daily to open wound. oob/ambulate. Problem List - Problems (1) Pneumoperitoneum Code(s): K66.8 - OTHER SPECIFIED DISORDERS OF PERITONEUM
--- NOTE | 2017-01-04 13:19 | PN ---
Progress Note, Physician History of Present Illness: patient stable no new issues patient walking also tolerating orally dirrhoea better thinks the tube feds causing dirrhoea - Current Medication List Current Medications: Active Medications Acetaminophen (Tylenol -) 325 mg PO Q6H PRN PRN Reason: PAIN Last Admin: 01/03/17 22:22 Dose: 325 mg Heparin Sodium (Porcine) (Heparin -) 5,000 unit SQ TID [facility] Last Admin: 01/04/17 06:17 Dose: 5,000 unit Hydromorphone HCl (Dilaudid Injection -) 1 mg IVPB Q3H PRN Last Admin: 01/04/17 00:14 Dose: 1 mg Oxycodone HCl (Roxicodone -) 5 mg PO Q6H PRN PRN Reason: PAIN Last Admin: 01/03/17 22:23 Dose: 5 mg Pantoprazole Sodium (Protonix -) 40 mg PO BID [facility] Last Admin: 01/04/17 09:33 Dose: 40 mg Promethazine HCl (Phenergan Injection -) 12.5 mg IVPB Q6H PRN PRN Reason: NAUSEA AND/OR VOMITING - Objective Vital Signs: Vital Signs Temperature 98.3 F 01/04/17 10:00 Pulse Rate 80 01/04/17 10:00 Respiratory Rate 18 01/04/17 10:00 Blood Pressure 154/78 01/04/17 10:00 O2 Sat by Pulse Oximetry (%) 97 01/04/17 09:00 Constitutional: Yes: No Distress, Calm Cardiovascular: Yes: Regular Rate and Rhythm Respiratory: Yes: Regular Gastrointestinal: Yes: Normal Bowel Sounds, Soft, Other (tubes in place) Musculoskeletal: Yes: WNL Extremities: Yes: WNL Wound/Incision: Yes: Clean/Dry Neurological: Yes: Alert, Oriented Labs: CBC, BMP 01/04/17 06:00 01/04/17 06:00 INR, PTT INR 1.16 (0.82-1.09) H 12/29/16 05:10 Assessment/Plan 66 year old female with significant PMH of HTN, HLD, s/p exploratory laparotomy for gastric perforation. #Gastric perforation, s/p gastrectomy & gastro-jejunostomy #HTN plan continue current mgmt stable off of abx but patients wbc is slowly starting to creep up will continue to follow hydration as needed might need one more imaging if wbc continues to increase
--- NOTE | 2017-01-04 14:12 | PN ---
Progress Note (short form) - Note Progress Note: Clinically appears better overall. Tolerating tube feeds and oral intake. Overall abdominal pain is better. Less Diarrhea. No CP or SOB. Intake & Output 01/01/17 01/02/17 01/03/17 01/04/17 23:59 23:59 23:59 23:59 Intake Total 2350 1370 1270 530 Output Total 410 70 50 57 Balance 1940 1300 1220 473 Weight 207 lb 8 oz 201 lb 7 oz 200 lb 6.4 oz Last Vital Signs Temp Pulse Resp BP Pulse Ox 98.3 F 80 18 154/78 97 01/04/17 10:00 01/04/17 10:00 01/04/17 10:00 01/04/17 10:00 01/04/17 09:00 Active Medications Acetaminophen (Tylenol -) 325 mg PO Q6H PRN PRN Reason: PAIN Last Admin: 01/03/17 22:22 Dose: 325 mg Heparin Sodium (Porcine) (Heparin -) 5,000 unit SQ TID [facility] Last Admin: 01/04/17 06:17 Dose: 5,000 unit Hydromorphone HCl (Dilaudid Injection -) 1 mg IVPB Q3H PRN Last Admin: 01/04/17 00:14 Dose: 1 mg Oxycodone HCl (Roxicodone -) 5 mg PO Q6H PRN PRN Reason: PAIN Last Admin: 01/03/17 22:23 Dose: 5 mg Pantoprazole Sodium (Protonix -) 40 mg PO BID [facility] Last Admin: 01/04/17 09:33 Dose: 40 mg Promethazine HCl (Phenergan Injection -) 12.5 mg IVPB Q6H PRN PRN Reason: NAUSEA AND/OR VOMITING General: awake, alert, NAD HEENT: (-) Pallor CV: s1, s2 Pulm: few basilar rhonchi Abd: dressings intact and dry, (+) BS Ext: Le +1 edema Neuro: grossly intact Laboratory Results - last 24 hr 01/04/17 01/04/17 06:00 06:00 WBC 14.2 H RBC 3.21 L Hgb 7.9 L Hct 24.5 L MCV 76.2 L MCHC 32.3 RDW 17.7 H Plt Count 501 H MPV 7.6 Sodium 140 Potassium 4.4 Chloride 105 Carbon Dioxide 25 Anion Gap 10 BUN 11 Creatinine 0.4 L Random Glucose 148 H Calcium 7.1 L Problem List - Problems (1) Lactic acid acidosis Code(s): E87.2 - ACIDOSIS (2) Pneumoperitoneum Code(s): K66.8 - OTHER SPECIFIED DISORDERS OF PERITONEUM (3) Sepsis Code(s): A41.9 - SEPSIS, UNSPECIFIED ORGANISM (4) Surgical abdomen Code(s): R10.0 - ACUTE ABDOMEN (5) Perforated stomach Code(s): K25.5 - CHRONIC OR UNSPECIFIED GASTRIC ULCER WITH PERFORATION Assessment/Plan ABX Per ID Enteral / PO nutrition Incentive Spirometry O2 to maintain saturation Pain control VTE prophylaxis Check C Diff Dr Salgado
--- NOTE | 2017-01-04 17:58 | PN ---
Progress Note, Physician History of Present Illness: stable - Current Medication List Current Medications: Active Medications Acetaminophen (Tylenol -) 325 mg PO Q6H PRN PRN Reason: PAIN Last Admin: 01/03/17 22:22 Dose: 325 mg Heparin Sodium (Porcine) (Heparin -) 5,000 unit SQ TID [facility] Last Admin: 01/04/17 14:17 Dose: 5,000 unit Hydromorphone HCl (Dilaudid Injection -) 1 mg IVPB Q3H PRN Last Admin: 01/04/17 00:14 Dose: 1 mg Oxycodone HCl (Roxicodone -) 5 mg PO Q6H PRN PRN Reason: PAIN Last Admin: 01/03/17 22:23 Dose: 5 mg Pantoprazole Sodium (Protonix -) 40 mg PO BID [facility] Last Admin: 01/04/17 09:33 Dose: 40 mg Promethazine HCl (Phenergan Injection -) 12.5 mg IVPB Q6H PRN PRN Reason: NAUSEA AND/OR VOMITING - Objective Vital Signs: Vital Signs Temperature 98.9 F 01/04/17 15:06 Pulse Rate 93 H 01/04/17 15:06 Respiratory Rate 18 01/04/17 15:06 Blood Pressure 144/67 01/04/17 15:06 O2 Sat by Pulse Oximetry (%) 97 01/04/17 09:00 Constitutional: Yes: No Distress HENT: Yes: Atraumatic Neck: Yes: Supple Cardiovascular: Yes: Regular Rate and Rhythm Respiratory: Yes: CTA Bilaterally Gastrointestinal: Yes: Normal Bowel Sounds, Tenderness (mild) Extremities: Yes: WNL Neurological: Yes: Alert, Oriented Labs: CBC, BMP 01/04/17 06:00 01/04/17 06:00 INR, PTT INR 1.16 (0.82-1.09) H 12/29/16 05:10 Problem List - Problems (1) Colon perforation Code(s): K63.1 - PERFORATION OF INTESTINE (NONTRAUMATIC) (2) Lactic acid acidosis Code(s): E87.2 - ACIDOSIS (3) Pneumoperitoneum Code(s): K66.8 - OTHER SPECIFIED DISORDERS OF PERITONEUM (4) Sepsis Code(s): A41.9 - SEPSIS, UNSPECIFIED ORGANISM (5) Surgical abdomen Code(s): R10.0 - ACUTE ABDOMEN (6) Gastric ulcer with hemorrhage and perforation but without obstruction Code(s): K25.6 - CHRONIC OR UNSP GASTRIC ULCER W BOTH HEMORRHAGE AND PERF (7) Perforated stomach Code(s): K25.5 - CHRONIC OR UNSPECIFIED GASTRIC ULCER WITH PERFORATION Assessment/Plan A/P 1.COLON PERFORATION/gastric perforation s/p ex-lap, distal gastrectomy, gastro-jejunostomy, feeding jejunostomy, abd washout Patient seen and examined in ICU. Awake and alert. Resting comfortably. C/o incisional tenderness. on clear liquid diet IVF, IV ABX,...stopped wbc trending down PRN PAIN MEDS follow up labs cdiff negative drain was taken out today on tube feeds surgery to give prescription for tube feeds and feeding plan dc planning
[2017-01-05] MEDS: HEPARIN NA (PORCINE) 5,000 UNITS/ML 1ML VIAL SQ SCH ×3 (05:56→22:33)
--- NOTE | 2017-01-05 09:14 | PN ---
Progress Note (short form) - Note Progress Note: clinically stable tolerating full liquid diet and tube feedings Afebrile Exam benign Ct scan negative clear for discharge Problem List - Problems (1) Gastric ulcer with hemorrhage and perforation but without obstruction Code(s): K25.6 - CHRONIC OR UNSP GASTRIC ULCER W BOTH HEMORRHAGE AND PERF
--- NOTE | 2017-01-05 10:08 | PN ---
Progress Note (short form) - Note Progress Note: Yesterday, EDWARD drains removed yesterday without difficulty x 2. Pt seen today by Dr. Lawson and discharge planning to rehab was discussed. She needs to remain on J tube feeds/fulls for 2 to 3 weeks and then will follow-up by Problem List - Problems (1) Pneumoperitoneum Code(s): K66.8 - OTHER SPECIFIED DISORDERS OF PERITONEUM
--- NOTE | 2017-01-05 10:32 | PN ---
Progress Note (short form) - Note Progress Note: Clinically appears better overall. Tolerating tube feeds and oral intake. Overall abdominal pain is better. No CP or SOB. Intake & Output 01/02/17 01/03/17 01/04/17 01/05/17 23:59 23:59 23:59 23:59 Intake Total 1370 1270 930 Output Total 70 50 67 Balance 1300 1220 863 Weight 207 lb 8 oz 201 lb 7 oz 200 lb 6.4 oz 196 lb 9.6 oz Last Vital Signs Temp Pulse Resp BP Pulse Ox 99.6 F 90 20 144/75 97 01/05/17 06:00 01/05/17 06:00 01/05/17 06:00 01/05/17 06:00 01/04/17 21:00 Active Medications Acetaminophen (Tylenol -) 325 mg PO Q6H PRN PRN Reason: PAIN Last Admin: 01/03/17 22:22 Dose: 325 mg Heparin Sodium (Porcine) (Heparin -) 5,000 unit SQ TID [facility] Last Admin: 01/05/17 05:56 Dose: 5,000 unit Hydromorphone HCl (Dilaudid Injection -) 1 mg IVPB Q3H PRN Last Admin: 01/04/17 20:13 Dose: 1 mg Oxycodone HCl (Roxicodone -) 5 mg PO Q6H PRN PRN Reason: PAIN Last Admin: 01/03/17 22:23 Dose: 5 mg Pantoprazole Sodium (Protonix -) 40 mg PO BID [facility] Last Admin: 01/04/17 23:03 Dose: 40 mg Promethazine HCl (Phenergan Injection -) 12.5 mg IVPB Q6H PRN PRN Reason: NAUSEA AND/OR VOMITING General: awake, alert, NAD HEENT: (-) Pallor CV: s1, s2 Pulm: few basilar rhonchi Abd: dressings intact and dry, (+) BS Ext: Le +1 edema Neuro: grossly intact Problem List - Problems (1) Lactic acid acidosis Code(s): E87.2 - ACIDOSIS (2) Pneumoperitoneum Code(s): K66.8 - OTHER SPECIFIED DISORDERS OF PERITONEUM (3) Sepsis Code(s): A41.9 - SEPSIS, UNSPECIFIED ORGANISM (4) Surgical abdomen Code(s): R10.0 - ACUTE ABDOMEN (5) Perforated stomach Code(s): K25.5 - CHRONIC OR UNSPECIFIED GASTRIC ULCER WITH PERFORATION Assessment/Plan ABX Per ID Enteral / PO nutrition Incentive Spirometry O2 to maintain saturation Pain control VTE prophylaxis D/C planning Dr Salgado
[2017-01-05] MEDS: PANTOPRAZOLE 40 MG TABLET (FP) PO SCH ×2 (10:50→22:29)
--- NOTE | 2017-01-05 12:32 | PN ---
Progress Note, Physician History of Present Illness: doing well no new events - Current Medication List Current Medications: Active Medications Acetaminophen (Tylenol -) 325 mg PO Q6H PRN PRN Reason: PAIN Last Admin: 01/03/17 22:22 Dose: 325 mg Heparin Sodium (Porcine) (Heparin -) 5,000 unit SQ TID [facility] Last Admin: 01/05/17 05:56 Dose: 5,000 unit Hydromorphone HCl (Dilaudid Injection -) 1 mg IVPB Q3H PRN Last Admin: 01/04/17 20:13 Dose: 1 mg Oxycodone HCl (Roxicodone -) 5 mg PO Q6H PRN PRN Reason: PAIN Last Admin: 01/03/17 22:23 Dose: 5 mg Pantoprazole Sodium (Protonix -) 40 mg PO BID [facility] Last Admin: 01/05/17 10:50 Dose: 40 mg Promethazine HCl (Phenergan Injection -) 12.5 mg IVPB Q6H PRN PRN Reason: NAUSEA AND/OR VOMITING - Objective Vital Signs: Vital Signs Temperature 99.6 F 01/05/17 06:00 Pulse Rate 90 01/05/17 06:00 Respiratory Rate 20 01/05/17 06:00 Blood Pressure 144/75 01/05/17 06:00 O2 Sat by Pulse Oximetry (%) 97 01/04/17 21:00 Constitutional: Yes: No Distress, Calm Cardiovascular: Yes: Regular Rate and Rhythm Respiratory: Yes: Regular, CTA Bilaterally Gastrointestinal: Yes: Normal Bowel Sounds, Soft, Other Musculoskeletal: Yes: WNL Extremities: Yes: WNL Wound/Incision: Yes: Clean/Dry Neurological: Yes: Alert, Oriented Psychiatric: Yes: Alert, Oriented Labs: CBC, BMP 01/04/17 06:00 01/04/17 06:00 INR, PTT INR 1.16 (0.82-1.09) H 12/29/16 05:10 Assessment/Plan 66 year old female with significant PMH of HTN, HLD, s/p exploratory laparotomy for gastric perforation. #Gastric perforation, s/p gastrectomy & gastro-jejunostomy #HTN plan continue current mgmt stable off of abx will check wbc tomorrow continue nutrition
--- NOTE | 2017-01-05 18:08 | PN ---
Progress Note, Physician History of Present Illness: stable - Current Medication List Current Medications: Active Medications Acetaminophen (Tylenol -) 325 mg PO Q6H PRN PRN Reason: PAIN Last Admin: 01/03/17 22:22 Dose: 325 mg Heparin Sodium (Porcine) (Heparin -) 5,000 unit SQ TID [facility] Last Admin: 01/05/17 15:19 Dose: 5,000 unit Hydromorphone HCl (Dilaudid Injection -) 1 mg IVPB Q3H PRN Last Admin: 01/04/17 20:13 Dose: 1 mg Oxycodone HCl (Roxicodone -) 5 mg PO Q6H PRN PRN Reason: PAIN Last Admin: 01/03/17 22:23 Dose: 5 mg Pantoprazole Sodium (Protonix -) 40 mg PO BID [facility] Last Admin: 01/05/17 10:50 Dose: 40 mg Promethazine HCl (Phenergan Injection -) 12.5 mg IVPB Q6H PRN PRN Reason: NAUSEA AND/OR VOMITING - Objective Vital Signs: Vital Signs Temperature 99.0 F 01/05/17 16:52 Pulse Rate 95 H 01/05/17 16:52 Respiratory Rate 20 01/05/17 16:52 Blood Pressure 152/73 01/05/17 16:52 O2 Sat by Pulse Oximetry (%) 97 01/04/17 21:00 Constitutional: Yes: No Distress HENT: Yes: Atraumatic Neck: Yes: Supple Cardiovascular: Yes: Regular Rate and Rhythm Respiratory: Yes: CTA Bilaterally Gastrointestinal: Yes: Normal Bowel Sounds, Tenderness (at the surgery site) Extremities: Yes: WNL Neurological: Yes: Alert, Oriented Labs: CBC, BMP 01/04/17 06:00 01/04/17 06:00 INR, PTT INR 1.16 (0.82-1.09) H 12/29/16 05:10 Problem List - Problems (1) Colon perforation Code(s): K63.1 - PERFORATION OF INTESTINE (NONTRAUMATIC) (2) Lactic acid acidosis Code(s): E87.2 - ACIDOSIS (3) Pneumoperitoneum Code(s): K66.8 - OTHER SPECIFIED DISORDERS OF PERITONEUM (4) Sepsis Code(s): A41.9 - SEPSIS, UNSPECIFIED ORGANISM (5) Surgical abdomen Code(s): R10.0 - ACUTE ABDOMEN (6) Gastric ulcer with hemorrhage and perforation but without obstruction Code(s): K25.6 - CHRONIC OR UNSP GASTRIC ULCER W BOTH HEMORRHAGE AND PERF (7) Perforated stomach Code(s): K25.5 - CHRONIC OR UNSPECIFIED GASTRIC ULCER WITH PERFORATION Assessment/Plan A/P 1.COLON PERFORATION/gastric perforation s/p ex-lap, distal gastrectomy, gastro-jejunostomy, feeding jejunostomy, abd washout Patient seen and examined in ICU. Awake and alert. Resting comfortably. C/o incisional tenderness. on clear liquid diet on tube feeds oxycododne prescription sent surgery to give prescription for tube feeds and feeding plan
[2017-01-05] MEDS: oxyCODONE HCL 5 MG TABLET PO PRN (20:40)
[2017-01-05] MEDS: ACETAMINOPHEN 325 MG TABLET (FP) PO PRN (20:41)
[2017-01-05] MEDS ORDERED: ACETAMINOPHEN 325 MG TABLET (FP) PO PRN (21:33)
[2017-01-05] MEDS ORDERED: oxyCODONE HCL 5 MG TABLET PO ONE (21:45)
[2017-01-06] MEDS: oxyCODONE HCL 5 MG TABLET PO PRN ×3 (03:00→18:25)
[2017-01-06] MEDS: ACETAMINOPHEN 325 MG TABLET (FP) PO PRN ×2 (03:05→12:47)
[2017-01-06 08:17] LABS: MCH 24.3 pg (25.7-33.7); MEAN CELL VOLUME 75.8 fl (80-96); PLATELET COUNT 485 K/MM3 (134-434); RDW 18.1 % (11.6-15.6); WHITE BLOOD COUNT 15.2 K/mm3 (4.0-10.0)
[2017-01-06 09:20] LABS: CALCIUM 7.3 mg/dL (8.5-10.1); CREATININE 0.4 mg/dL (0.55-1.02)
[2017-01-06] MEDS: PANTOPRAZOLE 40 MG TABLET (FP) PO SCH ×2 (12:47→22:11)
--- NOTE | 2017-01-06 14:20 | PN ---
Progress Note, Physician History of Present Illness: doing well no new events patient had one episode of dirrhoea otherwise no issues one thing of note is wbc is creeping up - Current Medication List Current Medications: Active Medications Acetaminophen (Tylenol -) 325 mg PO Q6H PRN PRN Reason: PAIN Last Admin: 01/06/17 12:47 Dose: 325 mg Acetaminophen (Tylenol -) 325 mg PO Q6H PRN PRN Reason: PAIN Hydromorphone HCl (Dilaudid Injection -) 1 mg IVPB Q3H PRN Last Admin: 01/04/17 20:13 Dose: 1 mg Oxycodone HCl (Roxicodone -) 10 mg PO Q6H PRN PRN Reason: PAIN Last Admin: 01/06/17 12:46 Dose: 10 mg Pantoprazole Sodium (Protonix -) 40 mg PO BID [facility] Last Admin: 01/06/17 12:47 Dose: 40 mg Promethazine HCl (Phenergan Injection -) 12.5 mg IVPB Q6H PRN PRN Reason: NAUSEA AND/OR VOMITING - Objective Vital Signs: Vital Signs Temperature 98.9 F 01/06/17 06:00 Pulse Rate 83 01/06/17 06:00 Respiratory Rate 20 01/06/17 06:00 Blood Pressure 131/69 01/06/17 06:00 O2 Sat by Pulse Oximetry (%) 97 01/04/17 21:00 Constitutional: Yes: No Distress, Calm Neck: Yes: Supple Cardiovascular: Yes: Regular Rate and Rhythm Respiratory: Yes: Regular, CTA Bilaterally Gastrointestinal: Yes: Normal Bowel Sounds, Soft Musculoskeletal: Yes: WNL Extremities: Yes: WNL Neurological: Yes: Alert, Oriented Psychiatric: Yes: Alert Labs: CBC, BMP 01/06/17 06:00 01/06/17 06:00 INR, PTT INR 1.16 (0.82-1.09) H 12/29/16 05:10 Assessment/Plan 66 year old female with significant PMH of HTN, HLD, s/p exploratory laparotomy for gastric perforation. #Gastric perforation, s/p gastrectomy & gastro-jejunostomy #HTN patients wbc has started to increase plan will start on oral flagyl and see wbc tomorrow rest ct current mgmt
[2017-01-06] MEDS ORDERED: metroNIDAZOLE 250 MG TABLET PO SCH (15:00)
--- NOTE | 2017-01-06 15:59 | SURG ---
Surgery [employer] Note [employer] Counselor: Denisse Tariq PA-C Date of Service: 12/25/16 Diagnosis: acute abdomen Procedure: exploratory laparotomy, distal gastrectomy, gastro-jejunostomy, feeding jejunostomy, abdominal washout and drainage I was present for the entirety of the operative procedure. For further detail, please refer to operative report. Visit type - Case Type Case Type: ED Admission
[2017-01-06] MEDS ORDERED: ACETAMINOPHEN 325 MG TABLET (FP) PO PRN ×2 (16:39→18:10)
[2017-01-06] MEDS: METRONIDAZOLE 500 MG PREMIXED 100 ML IVPB SCH (18:16)
[2017-01-06] MEDS: AZTREONAM 1 GM in DEXTROSE 5%-WATER - 50 ML IVPB SCH (18:16)
--- NOTE | 2017-01-06 18:22 | PN ---
Progress Note, Physician History of Present Illness: fever of 101 - Current Medication List Current Medications: Active Medications Acetaminophen (Tylenol -) 650 mg PO Q6H PRN PRN Reason: FEVER OR PAIN Hydromorphone HCl (Dilaudid Injection -) 1 mg IVPB Q3H PRN Last Admin: 01/04/17 20:13 Dose: 1 mg Metronidazole (Flagyl 500mg Premixed Ivpb -) 100 mls @ 100 mls/hr IVPB Q8H-IV [facility] Aztreonam 1 gm/ Dextrose 50 mls @ 100 mls/hr IVPB Q8H-IV [facility] Oxycodone HCl (Roxicodone -) 10 mg PO Q6H PRN PRN Reason: PAIN Last Admin: 01/06/17 12:46 Dose: 10 mg Pantoprazole Sodium (Protonix -) 40 mg PO BID [facility] Last Admin: 01/06/17 12:47 Dose: 40 mg Promethazine HCl (Phenergan Injection -) 12.5 mg IVPB Q6H PRN PRN Reason: NAUSEA AND/OR VOMITING - Objective Vital Signs: Vital Signs Temperature 101.1 F H 01/06/17 17:08 Pulse Rate 97 H 01/06/17 17:08 Respiratory Rate 18 01/06/17 17:08 Blood Pressure 158/82 01/06/17 17:08 O2 Sat by Pulse Oximetry (%) 97 01/04/17 21:00 Constitutional: Yes: No Distress HENT: Yes: Atraumatic Neck: Yes: Supple Cardiovascular: Yes: Regular Rate and Rhythm Respiratory: Yes: CTA Bilaterally Gastrointestinal: Yes: Normal Bowel Sounds, Tenderness Extremities: Yes: WNL Neurological: Yes: Alert, Oriented Labs: CBC, BMP 01/06/17 06:00 01/06/17 06:00 INR, PTT INR 1.16 (0.82-1.09) H 12/29/16 05:10 Problem List - Problems (1) Colon perforation Code(s): K63.1 - PERFORATION OF INTESTINE (NONTRAUMATIC) (2) Lactic acid acidosis Code(s): E87.2 - ACIDOSIS (3) Pneumoperitoneum Code(s): K66.8 - OTHER SPECIFIED DISORDERS OF PERITONEUM (4) Sepsis Code(s): A41.9 - SEPSIS, UNSPECIFIED ORGANISM (5) Surgical abdomen Code(s): R10.0 - ACUTE ABDOMEN (6) Gastric ulcer with hemorrhage and perforation but without obstruction Code(s): K25.6 - CHRONIC OR UNSP GASTRIC ULCER W BOTH HEMORRHAGE AND PERF (7) Perforated stomach Code(s): K25.5 - CHRONIC OR UNSPECIFIED GASTRIC ULCER WITH PERFORATION Assessment/Plan A/P 1.COLON PERFORATION/gastric perforation s/p ex-lap, distal gastrectomy, gastro-jejunostomy, feeding jejunostomy, abd washout Patient seen and examined in ICU. Awake and alert. Resting comfortably. C/o incisional tenderness. on clear liquid diet on tube feeds oxycododne prescription sent discharge cancel pt had a temp today, on abx, cxr done , bcx sent
[2017-01-07] MEDS: oxyCODONE HCL 5 MG TABLET PO PRN (00:52)
[2017-01-07] MEDS: AZTREONAM 1 GM in DEXTROSE 5%-WATER - 50 ML IVPB SCH ×3 (01:00→17:18)
[2017-01-07] MEDS: METRONIDAZOLE 500 MG PREMIXED 100 ML IVPB SCH ×3 (01:39→17:18)
--- NOTE | 2017-01-07 08:50 | RAPID ---
Physical Examination Vital Signs: Vital Signs Temperature 99.1 F 01/07/17 06:00 Pulse Rate 87 01/07/17 06:00 Respiratory Rate 20 01/07/17 06:00 Blood Pressure 133/66 01/07/17 06:00 O2 Sat by Pulse Oximetry (%) 97 01/04/17 21:00 Findings/Remarks: The patient is alert and oriented x 3. She has difficulty finding words but her speech is not slurred. Constitutional: Yes: No Distress Eyes: Yes: WNL, EOM Intact HENT: Yes: WNL, Atraumatic, Normocephalic Neck: Yes: Supple, Trachea Midline Respiratory: Yes: WNL, Regular, CTA Bilaterally Extremities: Yes: WNL Neurological: Yes: Alert, Oriented, Aphasia (the patient had problems with finding words), Babinski negative. No: Confusion, Facial Droop, Seizure, Weakness Psychiatric: Yes: Alert, Oriented Labs: CBC, BMP 01/06/17 06:00 01/06/17 06:00 Rapid Response - Rapid Response Assessment: The patient is a 66 yo female s/p gastric perforation, post-op ex-lap, distal gastrectomy, gastro-jejunostomy, feeding jejunostomy, abd washout. We were called for rapid response. The nurse noticed that she had difficulty finding words. Her vitals are stable, Oxygen Saturation is 97 on RA. She is not tachycardic. Outcome: We initiated code silva and ordered CT head without contrast, EKG stat, apirin 325, she is not a candidate for tPA. We also ordered brain MRI and called neurology. primary team. Her NIHSS score is 1. Primary Physician Notified: Rashida Lam Critical Care Total Critical Care Time (in minutes): 30 Critical Care Statement: The care of this patient involved high complexity decision making to prevent further life threatening deterioration of the patient 's condition and/or to evalute & treat vital organ system(s) failure or risk of failure.
--- NOTE | 2017-01-07 08:56 | RAPID ---
Physical Examination Vital Signs: Vital Signs Temperature 99.1 F 01/07/17 06:00 Pulse Rate 87 01/07/17 06:00 Respiratory Rate 20 01/07/17 06:00 Blood Pressure 133/66 01/07/17 06:00 O2 Sat by Pulse Oximetry (%) 97 01/04/17 21:00 Findings/Remarks: [employer] was called at 8:15 as pt had difficulty with her speech. last time she was noted to have normal speech was 7 am . Pt seen , denies any SOB, LUNDY , or CP . Exam : NAD , AAOx3. mild aphasia . symmetric face , tongue at mid line, EOMI, round equal pupils , reactive to light , uvula at mid line. Strength 5/5 in upper and lower ext proximally and distally , sensation to light touch nL , reflexes 2+ knee jerk and biceps b/l . CV : RRR, NOM RG Lung s: CTAB Abd : dressing on ABd wall . BS heard . edema on LE A/P : 66 y/o lady with no known medical hx who presented with abd pain, was found tohave colonic ischemia now post surgical intervention approximately 2 weks ago. [employer] was called due to aphasia impression : possible stroke plan : - give 325 mg of asa - stat CT scan of head w/o contrast - EKG - neuro paged. - NPO - tx to tele . - MRI of brain . - dr. Deutsch was updated, I will f/u on CT results, she will f/u on rest . - Likely pt is not a candidate for TPA due to low NIH scale score and recent surgery . Labs: CBC, BMP 01/06/17 06:00 01/06/17 06:00
[2017-01-07] MEDS: PANTOPRAZOLE 40 MG TABLET (FP) PO SCH (09:47)
[2017-01-07] MEDS ORDERED: ASPIRIN 325 MG TABLET PO SCH (10:00)
--- NOTE | 2017-01-07 10:57 | EKG ---
Test Reason : Blood Pressure : / mmHG Vent. Rate : 091 BPM Atrial Rate : 091 BPM P-R Int : 138 ms QRS Dur : 082 ms QT Int : 370 ms P-R-T Axes : 042 029 038 degrees QTc Int : 455 ms NORMAL SINUS RHYTHM NORMAL ECG WHEN COMPARED WITH ECG OF 25-DEC-2016 06:39, NO SIGNIFICANT CHANGE WAS FOUND Confirmed by ARLEEN TEMPLE MD ([id number]) on 01/07/2017 10:57:39 AM Referred By: ALMAS PUENTE Confirmed By:ARLEEN TEMPLE MD
--- NOTE | 2017-01-07 11:20 | PN ---
Teaching Attending Note Name of Resident: Facundo Weaver ATTENDING PHYSICIAN STATEMENT I saw and evaluated the patient. I reviewed the resident's note and discussed the case with the resident. I agree with the resident's findings and plan as documented. SUBJECTIVE: Pt seen and examined in the ICU. Events this AM noted. New expressive aphasia but pt not a candidate for tPA due to recent surgery this admission. She denies headache, nausea. Recognizes family members at bedside. OBJECTIVE: Last Vital Signs Temp Pulse Resp BP Pulse Ox 98.6 F 87 18 159/72 98 01/07/17 08:50 01/07/17 10:50 01/07/17 08:50 01/07/17 08:50 01/07/17 10:50 Intake & Output 01/04/17 01/05/17 01/06/17 01/07/17 23:59 23:59 23:59 23:59 Intake Total 930 1120 1650 1020 Output Total 67 Balance 863 1120 1650 1020 Weight 200 lb 6.4 oz 196 lb 9.6 oz 192 lb 8 oz 192 lb 12.8 oz Gen: NAD at rest, aphasic Heart: RRR Lung: decreased breath sounds at the bases Abd: soft, mild TTP lower quadrants, no rebound, dressings intact Ext: + edema CBC, BMP 01/06/17 06:00 01/06/17 06:00 Active Medications Acetaminophen (Tylenol -) 650 mg PO Q6H PRN PRN Reason: FEVER OR PAIN Aspirin (Asa -) 325 mg PO DAILY [facility] Last Admin: 01/07/17 09:27 Dose: 325 mg Enoxaparin Sodium (Lovenox -) 40 mg SQ DAILY [facility] Hydromorphone HCl (Dilaudid Injection -) 1 mg IVPB Q3H PRN Last Admin: 01/04/17 20:13 Dose: 1 mg Metronidazole (Flagyl 500mg Premixed Ivpb -) 100 mls @ 100 mls/hr IVPB Q8H-IV [facility] Last Admin: 01/07/17 09:47 Dose: 100 mls/hr Aztreonam 1 gm/ Dextrose 50 mls @ 100 mls/hr IVPB Q8H-IV [facility] Last Admin: 01/07/17 10:56 Dose: 100 mls/hr Pantoprazole Sodium (Protonix 40mg Ivpb (Pre-Docked)) 100 mls @ 200 mls/hr IVPB BID [facility] Oxycodone HCl (Roxicodone -) 10 mg PO Q6H PRN PRN Reason: PAIN Last Admin: 01/07/17 00:52 Dose: 10 mg Promethazine HCl (Phenergan Injection -) 12.5 mg IVPB Q6H PRN PRN Reason: NAUSEA AND/OR VOMITING ASSESSMENT AND PLAN: Acute CVA with Expressive Aphasia NIHSS 1 Gastric Perforation s/p ex-lap/gastrectomy/gastro-jejunostomy HTN - MRI brain - neuro checks - aspiration precautions - SPT eval - continue antibiotics per ID - f/u cultures - send UA, UCx, resent C diff - incentive spirometry - DVT prophylaxis - ICU monitoring
--- NOTE | 2017-01-07 11:25 | CONSULT ---
Consult - text type - Consultation Consultation Note: Neurology History of Present Illness 66-year-old female with a past medical history of hypertension and hyperlipidemia, cholecystectomy, and 2, presented initially complaining of abdominal pain and vomiting, and no bowel movements. Patient had extensive stay with surigcal intervention for perforated bowel. This AM, rapid response called on patient for slurred speech. She was sent for CT which showed R parietal region. 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 No other deficits, NIHSS 1. I was contacted by hospitalist as I was entering hospital. Was not TPA case due to NIHSS being only 1 and recent surgery. Was given 325mg, had been on hold due surgery. Had some difficulty with speech this morning with her family at bedside and we discussed speech and swallow eval/treatment. They were in agreement. Past History - Past Medical History Allergies/Adverse Reactions: Allergies Allergy/AdvReac Type Severity Reaction Status Date / Time Penicillins Allergy Verified 12/25/16 07:43 Tetanus Vaccines and Toxoid Allergy Verified 12/25/16 07:43 [Tetanus Vaccines & Toxoid] Current Medications Acetaminophen (Tylenol -) 650 mg PO Q6H PRN PRN Reason: FEVER OR PAIN Aspirin (Asa -) 325 mg PO DAILY [facility] Last Admin: 01/07/17 09:27 Dose: 325 mg Enoxaparin Sodium (Lovenox -) 40 mg SQ DAILY [facility] Hydromorphone HCl (Dilaudid Injection -) 1 mg IVPB Q3H PRN Last Admin: 01/04/17 20:13 Dose: 1 mg Metronidazole (Flagyl 500mg Premixed Ivpb -) 100 mls @ 100 mls/hr IVPB Q8H-IV [facility] Last Admin: 01/07/17 09:47 Dose: 100 mls/hr Aztreonam 1 gm/ Dextrose 50 mls @ 100 mls/hr IVPB Q8H-IV OP[facility] Last Admin: 01/07/17 10:56 Dose: 100 mls/hr Pantoprazole Sodium (Protonix 40mg Ivpb (Pre-Docked)) 100 mls @ 200 mls/hr IVPB BID OPAL Oxycodone HCl (Roxicodone -) 10 mg PO Q6H PRN PRN Reason: PAIN Last Admin: 01/07/17 00:52 Dose: 10 mg Promethazine HCl (Phenergan Injection -) 12.5 mg IVPB Q6H PRN PRN Reason: NAUSEA AND/OR VOMITING HTN: Yes Hypercholesterolemia: Yes - Surgical History Cholecystectomy: Yes (X2) - Psycho/Social/Smoking Cessation Hx Anxiety: No Suicidal Ideation: No Smoking History: Never smoked Hx Alcohol Use: No Drug/Substance Use Hx: No *Physical Exam Last Vital Signs Temp Pulse Resp BP Pulse Ox 97.4 F L 107 H 24 117/81 95 12/25/16 06:41 12/25/16 06:41 12/25/16 06:41 12/25/16 06:41 12/25/16 06:41 GENERAL: The patient is awake, alert, HEAD: Normal with no signs of trauma. EYES: Sclera anicteric ENT: mucous membranes dry NECK: Normal range of motion, supple LUNGS: Breath sounds equal, clear to auscultation bilaterally. No wheezes, and no crackles. HEART: Tachycardic Regular rate and rhythm, normal S1 and S2 without murmur, rub or gallop. ABDOMEN: The abdomen is distended and firm with hypoactive to absent bowel sounds There is exquisite diffuse lower abdominal tenderness to palpation more on the right than the left with guarding and rebound There is no CVA tenderness. Upper abdominal tenderness is also noted EXTREMITIES: Normal range of motion, no edema. No clubbing or cyanosis. No cords, erythema, or tenderness. NEUROLOGICAL: Alert and answering questions, moving all extremities, delayed speech, able to articulate but expressive difficulty PSYCH: Normal mood, normal affect. SKIN: Diaphoretic CBCD WBC 15.2 K/mm3 (4.0-10.0) H 01/06/17 06:00 RBC 3.28 M/mm3 (3.60-5.2) L 01/06/17 06:00 Hgb 8.0 GM/dL (10.7-15.3) L 01/06/17 06:00 Hct 24.9 % (32.4-45.2) L 01/06/17 06:00 MCV 75.8 fl (80-96) L 01/06/17 06:00 MCHC 32.0 g/dl (32.0-36.0) 01/06/17 06:00 RDW 18.1 % (11.6-15.6) H 01/06/17 06:00 Plt Count 485 K/MM3 (134-434) H 01/06/17 06:00 MPV 7.0 fl (7.5-11.1) L 01/06/17 06:00 CMP Sodium 140 mmol/L (136-145) 01/06/17 06:00 Potassium 3.8 mmol/L (3.5-5.1) 01/06/17 06:00 Chloride 104 mmol/L (98-107) 01/06/17 06:00 Carbon Dioxide 25 mmol/L (21-32) 01/06/17 06:00 Anion Gap 11 (8-16) 01/06/17 06:00 BUN 9 mg/dL (7-18) 01/06/17 06:00 Creatinine 0.4 mg/dL (0.55-1.02) L 01/06/17 06:00 Creat Clearance w eGFR > 60 (>60) 12/31/16 06:00 Calcium 7.3 mg/dL (8.5-10.1) L 01/06/17 06:00 Total Bilirubin 0.3 mg/dL (0.2-1.0) 12/31/16 06:00 AST 18 U/L (15-37) 12/31/16 06:00 ALT 9 U/L (12-78) L D 12/31/16 06:00 Alkaline Phosphatase 55 U/L (45-117) D 12/31/16 06:00 Total Protein 4.8 g/dl (6.4-8.2) L 12/31/16 06:00 Albumin 1.6 g/dl (3.4-5.0) L 12/31/16 06:00 Plan 66-year-old female with a past medical history of hypertension and hyperlipidemia, cholecystectomy, and 2, presented initially complaining of abdominal pain and vomiting, and no bowel movements. Patient had extensive stay with surgical intervention for perforated bowel. This AM, rapid response called on patient for slurred speech. She was sent for CT which showed R parietal region. 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 No other deficits, NIHSS 1. I was contacted by hospitalist as I was entering hospital. Was not TPA case due to NIHSS being only 1 and recent surgery. Was given 325mg, had been on hold due surgery. Had some difficulty with speech this morning with her family at bedside and we discussed speech and swallow eval/treatment. They were in agreement. This may be considered a wake up stroke which has been confirmed via CT. MRI can be obtained to confirm acuity. If patient safe to restart ASA 325mg daily, I would recommend this though would defer to surgeon regarding bleed risk. If not, would ASA 81mg daily be acceptable for now? Would allow for permissive HTN (up to 180/100) for 24 hrs then goal < 160/90. Being monitored closely in ICU. Continue speech therapy as much as possible.
--- NOTE | 2017-01-07 11:45 | PN ---
Physical Exam: SUBJECTIVE: Patient seen and examined at bedside in ICU this AM. Sons were present for meeting. Rapid response called this morning when patient was found with slurred speech. CT head confirmed recent right parietal (and ? frontal) ischemia. [id number] given (not tPA candidate d/t recent surgery). Afebrile overnight and was to be discharged soon before stroke this AM. Patient looks comfortable during examination but has expressive aphasia when asked questions. Denies headache, vomiting or visual changes. OBJECTIVE: Vital Signs Period Temp Pulse Resp BP Sys/Coker Pulse Ox Last 24 Hr 98.6 F-101.1 F 87-98 18-20 133-159/66-82 98 GENERAL: The patient is awake, alert, and fully oriented, in no acute distress. HEENT: Atraumatic, EOMI, PERRLA, No lymphadenopathy, moist membranes LUNGS: mildly diminished breath sounds at bases HEART: Regular rate and rhythm, S1, S2 without murmur, rub or gallop. ABDOMEN: Soft, non distended, mildly tender to touch diffusely, dressing clean/ dry/intact EXTREMITIES: 2+ pulses, warm, well-perfused, +1 pitting edema bilateral LE (L>R) NEUROLOGICAL: Expressive aphasia. Cranial nerves II through XII grossly intact. Strength 5/5 bilateral upper & lower extremities; sensation intact bilateral upper & lower extremities PSYCH: Normal mood, normal affect. SKIN: Warm, dry, normal turgor, no rashes or lesions noted Laboratory Last Values WBC 15.2 K/mm3 (4.0-10.0) H 01/06/17 06:00 RBC 3.28 M/mm3 (3.60-5.2) L 01/06/17 06:00 Hgb 8.0 GM/dL (10.7-15.3) L 01/06/17 06:00 Hct 24.9 % (32.4-45.2) L 01/06/17 06:00 MCV 75.8 fl (80-96) L 01/06/17 06:00 MCHC 32.0 g/dl (32.0-36.0) 01/06/17 06:00 RDW 18.1 % (11.6-15.6) H 01/06/17 06:00 Plt Count 485 K/MM3 (134-434) H 01/06/17 06:00 MPV 7.0 fl (7.5-11.1) L 01/06/17 06:00 Neutrophils % 75.0 % (42.8-82.8) 01/02/17 09:55 Lymphocytes % 14.0 % (8-40) 01/02/17 09:55 Monocytes % 8.0 % (3.8-10.2) 01/02/17 09:55 Eosinophils % 1.0 % (0-4.5) 01/02/17 09:55 Basophils % 0.0 % (0-2.0) 01/02/17 09:55 Band Neutrophils 1.0 % (0-10) 01/02/17 09:55 Metamyelocytes 1 % (0-2) 01/02/17 09:55 Differential Comment Manual diff done 01/02/17 09:55 Platelet Estimate Adequate (NORMAL) 01/02/17 09:55 INR 1.16 (0.82-1.09) H 12/29/16 05:10 PTT (Actin FS) 31.6 SECONDS (26.9-34.4) 12/26/16 05:20 Anticoagulation Therapy Y 12/26/16 08:40 Puncture Site Right radial 12/26/16 08:40 ABG pH 7.34 (7.35-7.45) L 12/26/16 08:40 ABG pCO2 at Pt Temp 42.0 mmHg (35-45) 12/26/16 08:40 ABG pO2 at Pt Temp 80.2 mmHg (80-100) D 12/26/16 08:40 ABG HCO3 22.2 meq/L (22-26) 12/26/16 08:40 ABG O2 Sat (Measured) 94.8 % (90-98.9) 12/26/16 08:40 ABG O2 Content 13.0 % vol (15-22) L 12/26/16 08:40 ABG Base Excess 2.7 meq/l (-2-2) H 12/26/16 08:40 Howard Test Positive 12/26/16 08:40 Carboxyhemoglobin 1.1 gm% (0.5-2.0) 12/25/16 08:10 Methemoglobin 0.9 % (0.4-1.5) 12/25/16 08:10 O2 Delivery Device Mech vent 12/26/16 08:40 Oxygen Flow Rate 40 12/26/16 08:40 Vent Mode Cpap 12/26/16 08:40 Vent Rate Y 12/26/16 08:40 Mechanical Rate Yes 12/26/16 08:40 PEEP 5.0 cmH2O 12/26/16 08:40 Pressure Support Vent Ps5 12/26/16 08:40 Sodium 140 mmol/L (136-145) 01/06/17 06:00 Potassium 3.8 mmol/L (3.5-5.1) 01/06/17 06:00 Chloride 104 mmol/L (98-107) 01/06/17 06:00 Carbon Dioxide 25 mmol/L (21-32) 01/06/17 06:00 Anion Gap 11 (8-16) 01/06/17 06:00 BUN 9 mg/dL (7-18) 01/06/17 06:00 Creatinine 0.4 mg/dL (0.55-1.02) L 01/06/17 06:00 Creat Clearance w eGFR > 60 (>60) 12/31/16 06:00 POC Glucometer 299.77084 UNITS (()) 12/25/16 07:04 Random Glucose 157 mg/dL (74-106) H 01/06/17 06:00 Lactic Acid 0.922 mmol/L (0.4-2.0) 12/29/16 14:20 Calcium 7.3 mg/dL (8.5-10.1) L 01/06/17 06:00 Phosphorus 2.5 mg/dL (2.5-4.9) D 12/29/16 05:10 Magnesium 1.7 mg/dL (1.8-2.4) L 12/29/16 05:10 Total Bilirubin 0.3 mg/dL (0.2-1.0) 12/31/16 06:00 Direct Bilirubin 0.1 mg/dL (0.0-0.2) 12/28/16 05:00 AST 18 U/L (15-37) 12/31/16 06:00 ALT 9 U/L (12-78) L D 12/31/16 06:00 Alkaline Phosphatase 55 U/L (45-117) D 12/31/16 06:00 Creatine Kinase 242 IU/L (26-192) H 12/26/16 05:20 CK-MB (CK-2) 1.506 ng/ml (0.5-3.6) 12/26/16 05:20 Troponin I < 0.02 ng/ml (0.00-0.05) 12/26/16 05:20 B-Natriuretic Peptide 75.04 pg/ml (5-125) 12/25/16 07:18 Total Protein 4.8 g/dl (6.4-8.2) L 12/31/16 06:00 Albumin 1.6 g/dl (3.4-5.0) L 12/31/16 06:00 Total Amylase 97 U/L (25-125) 12/25/16 08:00 Lipase 38 U/L (22-51) 12/25/16 07:18 Urine Color Yellow 12/25/16 08:10 Urine Appearance Cloudy 12/25/16 08:10 Urine pH 5.5 (4.5-8) 12/25/16 08:10 Ur Specific [place] >= 1.030 (1.005-1.025) H 12/25/16 08:10 Urine Protein 2+ (NEGATIVE) H 12/25/16 08:10 Urine Glucose (UA) Negative (NEGATIVE) 12/25/16 08:10 Urine Ketones 1+ (NEGATIVE) H 12/25/16 08:10 Urine Blood Trace (NEGATIVE) H 12/25/16 08:10 Urine Nitrite Negative (NEGATIVE) 12/25/16 08:10 Urine Bilirubin 1+ (NEGATIVE) H 12/25/16 08:10 Urine Urobilinogen 0.2 e.u/dl (0.2-1.0) 12/25/16 08:10 Ur Leukocyte Esterase Negative (NEGATIVE) 12/25/16 08:10 Urine RBC 0-3 /hpf (0-3) 12/25/16 08:10 Urine WBC 0-3 (3-5) 12/25/16 08:10 Ur Epithelial Cells Moderate /HPF 12/25/16 08:10 Urine Bacteria Few /hpf (NEGATIVE) 12/25/16 08:10 Hyaline Casts 3-5 /lpf 12/25/16 08:10 Acetone, Qual Negative (NEGATIVE) L 12/25/16 08:00 Blood Type A POSITIVE 12/25/16 09:57 Antibody Screen Negative 12/25/16 09:57 Active Medications Generic Name Dose Route Start Last Admin Trade Name Freq PRN Reason Stop Dose Admin Acetaminophen 650 mg 01/06/17 18:10 Tylenol - PO Q6H PRN FEVER OR PAIN Aspirin 325 mg 01/07/17 10:00 01/07/17 09:27 Asa - PO 325 mg DAILY OPAL Administration Enoxaparin Sodium 40 mg 01/07/17 11:15 Lovenox - SQ DAILY OPAL Hydromorphone HCl 1 mg 01/04/17 00:16 01/04/17 20:13 Dilaudid Injection - IVPB 1 mg Q3H PRN Administration Metronidazole 100 mls @ 100 mls/hr 01/06/17 18:00 01/07/17 09:47 Flagyl 500mg Premixed Ivpb - IVPB 100 mls/hr Q8H-IV OPAL Administration Aztreonam 1 gm/ Dextrose 50 mls @ 100 mls/hr 01/06/17 18:00 01/07/17 10:56 IVPB 100 mls/hr Q8H-IV OPAL Administration Pantoprazole Sodium 100 mls @ 200 mls/hr 01/07/17 22:00 Protonix 40mg Ivpb (Pre-Docked) IVPB BID OPAL Oxycodone HCl 10 mg 01/05/17 21:33 01/07/17 00:52 Roxicodone - PO 10 mg Q6H PRN Administration PAIN Promethazine HCl 12.5 mg 12/29/16 16:54 Phenergan Injection - IVPB Q6H PRN NAUSEA AND/OR VOMITING MRI Brain Impression: Nonhemorrhagic acute/subacute infarcts with restrictive diffusion are noted. Right posterior cope radiata. Cortical infarct of inferior, superior frontal gyrus of the right frontal lobe. Cortical infarct of the left temporal lobe, occipital lobe. Cortical infarct involving the anterior aspect of the left precentral gyrus. Punctate cortical infarct - left parietal lobe. Subacute nonhemorrhagic infarct is observed in the right postcentral gyrus of the right parietal lobe with restrictive changes on diffusion weighted, normalization of the signal intensity on ADC, with increased signal intensity on FLAIR, T2-weighted images. ASSESSMENT/PLAN: 66 year old female with significant PMH of HTN, HLD, Open cholecystectomy presented to ICU this AM after slurred speech noted. CT showed right parietal & questionable right frontal lobe stroke. ASA 325mg given as patient not tPA candidate. Originally seen in ICU on December 25 s/p exploratory laparotomy for gastric perforation. She has been in the hospital since the operation. #Acute Stroke -CT Head showed right parietal & right frontal ischemic areas -MRI brain ordered for later today -ASA 325mg given -need to discuss bleeding risk with surgery (may need to be on 81mg instead) -Speech & swallow eval ordered -NPO for now, Aspiration precautions -Neurochecks -Neurology following #Gastric perforation, s/p gastrectomy & gastro-jejunostomy -saturating well on NC 2L -PPI -Dilaudid pain management, as needed -keep O2 Sat >94% -PT -Incentive spirometer #HTN -Holding antihypertensives (permissive HTN for 24 hours) #Acute Sepsis -on Aztreonam, Metronidazole -Blood Cultures pending -UA w/ cultures sent today -C Diff ordered -ID following Prophylaxis/FEN -Lovenox, PPI -Tube feed Pivot 1.5, monitoring electrolytes, NPO Visit type - Emergency Visit Emergency Visit: Yes ED Registration Date: 12/25/16 Care time: The patient presented to the Emergency Department on the above date and was hospitalized for further evaluation of their emergent condition. - New Patient This patient is new to me today: Yes Date on this admission: 01/07/17 - Critical Care Critical Care patient: Yes Total Critical Care Time (in minutes): 45 Critical Care Statement: The care of this patient involved high complexity decision making to prevent further life threatening deterioration of the patient 's condition and/or to evalute & treat vital organ system(s) failure or risk of failure.
[2017-01-07] MEDS: ENOXAPARIN NA (PORCINE) 40 MG/0.4 ML DISP.SYRIN SQ SCH (12:50)
--- NOTE | 2017-01-07 12:50 | CONSULT ---
Admitting History and Physical - Primary Care Physician PCP: Rashida Lam - Admission History of Present Illness: Per EMR: "Operative Date: 12/25/16 Pre-Operative Diagnosis: acute abdomen Operation: exploratory laparotomy, distal gastrectomy, gastro-jejunostomy, feeding jejunostomy, abdominal washout and drainage Findings: large perforated gastric ulcer in the greater curvature located inthe distal body proximal antrum. extensive lymphadenopathy int he celiac region and portahepatis" Pt was on full fluid diet/JT feedings. Today pt presented with word finding deficits- Code silva initiated. Made NPO MRI- Multiple infarcts. History Source: Patient, Family Member, Medical Record Limitations to Obtaining History: Other (Non fluent Aphasia) - Smoking History Smoking history: Never smoked - Alcohol/Substance Use Hx Alcohol Use: No - Social History Occupation: [employer], History - Admission Reason For Visit: PERFORATED COLON - Diagnostics X-ray: Report Reviewed CT Scan: Report Reviewed MRI: Report Reviewed - General Mental Status: Alert and Oriented, Awake and Alert, Able to Follow Commands Attention: Intact Ability to Follow Directions: Excellent (Follow 2 stage, complex commands without difficulty.) - Hearing Hearing: Functional Hearing: Impaired Hearing Aide: No Speech Evaluation - Communication Primary Language: BELARUSIAN Communication: Yes: Aphasia Oral Expression Ability: Yes: Moderate Impairment - Speech Production Able to Make Needs Known: Yes: Mildly Impaired Intelligibility: Yes: WNL - Speech Characteristics Voice Loudness: Normal Voice Pitch: Yes: Normal Voice Phonatory-based Quality: Yes: Normal Speech Clarity: < 100% Nasal Resonance: Normal Articulation: Yes: Precise Rate of Speech: Too Slow - Language/Auditory Comprehension Follows: Yes: Complex Commands Observation: Able to respond to yes/no queries: Yes, Yes/No Confusion: No, Comprehends Conversational Speech: Yes - Language/Verbal Expression Aphasia: Yes: Nonfluent, Impaired Repetition (on longer, low probability sentences), Sound Errors (on multisullabbic words), Grammatic Errors ( intermittent omission of function words.) Able to Respond to Simple Queries: Yes: Mildly Impaired, Moderately Impaired Able to Communicate Wants and Needs: Yes: WNL Functional Communication Status: Yes: WNL Aware of Errors: Yes Attempts to Correct Errors: Yes - Memory/Perception ferry terminal agent Memory: Yes: WNL Short Term Memory: Yes: WNL - Swallow Evaluation/Bedside Assessment Current Nutritional Intake: NPO Oral Secretions: Yes: WFL Dentition: Yes: Adequate Facial Symmetry at Rest: Symmetrical Facial Symmetry on Retraction: Symmetrical Facial Movement: Controlled Against Resistance Opening: Normal Against Resistance Closing: Normal Pucker Lips: Normal Smile: Normal Lingual Movement: Normal Lingual Speed of Movement: Normal Lingual Movement Strgth Against Opposition: Normal Lingual Movement Characteristics: Normal Velopharyngeal Movement: Normal Laryngeal Elevation: WFL Laryngeal Movement: Able to Palpate Rate of Intake: WFL Bolus Size: WFL Labial Seal: WFL Chewing: WFL Oral Prep Time: WFL A-P Transit: WFL Pocketing: None Timing of Swallow: WFL Coughing/Throat Clear: No Change in Voice: No Recommendations - Speech Evaluation, Impression/Plan Impression: Pt presents with nonfluent Aphasia, characterized by reduced rate of speech initiation, reduced fluency of propositional speech, intermittent phonemic errors, more frequently with multisyllabic words, intermittent omission of function words, repetition errors on low probability sentences,good confrontation naming on simple level but with difficulty on less common words eg stem, metal, etc.. Excellent auditory comprehension and cognition. Swallowing function intact. Recommended Therapies: Speech, Language, Fluency, Speech Rate Recommended Frequency for Therapy: 3-5 x Week - Disposition Discharge to: [facility] - Dysphagia Impressions/Plan Swallowing Skills: WFL *Silent aspiration: cannot be R/O at bedside - Recommendations Diet Consistency: Other (full fluid per surgeon.) Liquids: Thin Liquids
[2017-01-07 13:39] LABS: URINE APPEARANCE CLOUDY; URINE BILIRUBIN NEGATIVE (NEGATIVE); URINE BLOOD NEGATIVE (NEGATIVE); URINE COLOR STRAW; URINE GLUCOSE (UA) NEGATIVE (NEGATIVE); URINE KETONE NEGATIVE (NEGATIVE); URINE LEUK ESTERASE 1+ (NEGATIVE); URINE NITRITE NEGATIVE (NEGATIVE); URINE PROTEIN NEGATIVE (NEGATIVE); URINE UROBILINOGEN NEGATIVE E.U./dl (0.2-1.0)
[2017-01-07 14:34] LABS: URINE RBC 11 /hpf (0-3); URINE WBC 12 /hpf (3-5)
--- NOTE | 2017-01-07 16:52 | PN ---
Progress Note, Physician History of Present Illness: patient stable events noted stroke noted patient transferred to icu - Current Medication List Current Medications: Active Medications Acetaminophen (Tylenol -) 650 mg PO Q6H PRN PRN Reason: FEVER OR PAIN Aspirin (Asa -) 325 mg PO DAILY [facility] Last Admin: 01/07/17 09:27 Dose: 325 mg Enoxaparin Sodium (Lovenox -) 40 mg SQ DAILY [facility] Last Admin: 01/07/17 12:50 Dose: 40 mg Hydromorphone HCl (Dilaudid Injection -) 1 mg IVPB Q3H PRN Last Admin: 01/04/17 20:13 Dose: 1 mg Metronidazole (Flagyl 500mg Premixed Ivpb -) 100 mls @ 100 mls/hr IVPB Q8H-IV [facility] Last Admin: 01/07/17 09:47 Dose: 100 mls/hr Aztreonam 1 gm/ Dextrose 50 mls @ 100 mls/hr IVPB Q8H-IV [facility] Last Admin: 01/07/17 10:56 Dose: 100 mls/hr Pantoprazole Sodium (Protonix 40mg Ivpb (Pre-Docked)) 100 mls @ 200 mls/hr IVPB BID [facility] Oxycodone HCl (Roxicodone -) 10 mg PO Q6H PRN PRN Reason: PAIN Last Admin: 01/07/17 00:52 Dose: 10 mg Promethazine HCl (Phenergan Injection -) 12.5 mg IVPB Q6H PRN PRN Reason: NAUSEA AND/OR VOMITING - Objective Vital Signs: Vital Signs Temperature 98.8 F 01/07/17 12:00 Pulse Rate 78 01/07/17 12:00 Respiratory Rate 18 01/07/17 12:00 Blood Pressure 126/90 01/07/17 12:00 O2 Sat by Pulse Oximetry (%) 98 01/07/17 10:50 Constitutional: Yes: No Distress, Calm Eyes: Yes: Conjunctiva Clear Cardiovascular: Yes: Regular Rate and Rhythm Respiratory: Yes: Regular, CTA Bilaterally Gastrointestinal: Yes: Normal Bowel Sounds, Soft, Other (tube in place) Musculoskeletal: Yes: WNL Extremities: Yes: WNL Integumentary: Yes: WNL Wound/Incision: Yes: Clean/Dry Psychiatric: Yes: Alert, Oriented Labs: CBC, BMP 01/06/17 06:00 01/06/17 06:00 INR, PTT INR 1.16 (0.82-1.09) H 12/29/16 05:10 - ....Imaging Cat Scan: Report Reviewed, Image Reviewed MRI: Report Reviewed, Image Reviewed Assessment/Plan 66 year old female with significant PMH of HTN, HLD, s/p exploratory laparotomy for gastric perforation. #Gastric perforation, s/p gastrectomy & gastro-jejunostomy #HTN stroke patients dirrhoea has decreased plan continue abx for now patient now being followed by neurology stable at the moment icu care we will start deescating abx once patient is afebrile for some time rest ct mgmt cc time 40 min
[2017-01-07] MEDS ORDERED: PT OWN MED DRAWER 7, Y5N ONE (16:59)
--- NOTE | 2017-01-07 17:55 | PN ---
Progress Note, Physician - Current Medication List Current Medications: Active Medications Acetaminophen (Tylenol -) 650 mg PO Q6H PRN PRN Reason: FEVER OR PAIN Aspirin (Ecotrin -) 325 mg PO DAILY [facility] Enoxaparin Sodium (Lovenox -) 40 mg SQ DAILY [facility] Last Admin: 01/07/17 12:50 Dose: 40 mg Hydromorphone HCl (Dilaudid Injection -) 1 mg IVPB Q3H PRN Last Admin: 01/04/17 20:13 Dose: 1 mg Metronidazole (Flagyl 500mg Premixed Ivpb -) 100 mls @ 100 mls/hr IVPB Q8H-IV [facility] Last Admin: 01/07/17 17:18 Dose: 100 mls/hr Aztreonam 1 gm/ Dextrose 50 mls @ 100 mls/hr IVPB Q8H-IV [facility] Last Admin: 01/07/17 17:18 Dose: 100 mls/hr Pantoprazole Sodium (Protonix 40mg Ivpb (Pre-Docked)) 100 mls @ 200 mls/hr IVPB BID [facility] Oxycodone HCl (Roxicodone -) 10 mg PO Q6H PRN PRN Reason: PAIN Last Admin: 01/07/17 00:52 Dose: 10 mg Promethazine HCl (Phenergan Injection -) 12.5 mg IVPB Q6H PRN PRN Reason: NAUSEA AND/OR VOMITING - Objective Vital Signs: Vital Signs Temperature 98.8 F 01/07/17 12:00 Pulse Rate 78 01/07/17 12:00 Respiratory Rate 18 01/07/17 12:00 Blood Pressure 126/90 01/07/17 12:00 O2 Sat by Pulse Oximetry (%) 98 01/07/17 10:50 Constitutional: Yes: No Distress HENT: Yes: Atraumatic Neck: Yes: Supple Cardiovascular: Yes: Regular Rate and Rhythm Respiratory: Yes: CTA Bilaterally Gastrointestinal: Yes: Normal Bowel Sounds Labs: CBC, BMP 01/06/17 06:00 01/06/17 06:00 INR, PTT INR 1.16 (0.82-1.09) H 12/29/16 05:10 Problem List - Problems (1) Colon perforation Code(s): K63.1 - PERFORATION OF INTESTINE (NONTRAUMATIC) (2) Lactic acid acidosis Code(s): E87.2 - ACIDOSIS (3) Pneumoperitoneum Code(s): K66.8 - OTHER SPECIFIED DISORDERS OF PERITONEUM (4) Sepsis Code(s): A41.9 - SEPSIS, UNSPECIFIED ORGANISM (5) Surgical abdomen Code(s): R10.0 - ACUTE ABDOMEN (6) Gastric ulcer with hemorrhage and perforation but without obstruction Code(s): K25.6 - CHRONIC OR UNSP GASTRIC ULCER W BOTH HEMORRHAGE AND PERF (7) Perforated stomach Code(s): K25.5 - CHRONIC OR UNSPECIFIED GASTRIC ULCER WITH PERFORATION (8) CVA (cerebral vascular accident) Code(s): I63.9 - CEREBRAL INFARCTION, UNSPECIFIED Assessment/Plan A/P 1.COLON PERFORATION/gastric perforation s/p ex-lap, distal gastrectomy, gastro-jejunostomy, feeding jejunostomy, abd washout Patient seen and examined in ICU. Awake and alert. Resting comfortably. C/o incisional tenderness. on clear liquid diet on tube feeds 2.CVA This AM, rapid response called on patient for slurred speech. She was sent for CT which showed R parietal region. 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 No other deficits, NIHSS 1. NO TPA due to NIHSS being only 1 and recent surgery. MRI DONE REPORT REVIEWED SPEECH AND SWALLOWING EVAL
[2017-01-07] MEDS: PANTOPRAZOLE SODIUM 100 ML IVPB SCH (22:00)
[2017-01-08] MEDS: AZTREONAM 1 GM in DEXTROSE 5%-WATER - 50 ML IVPB SCH ×3 (01:13→17:28)
[2017-01-08] MEDS: METRONIDAZOLE 500 MG PREMIXED 100 ML IVPB SCH ×3 (01:13→17:28)
[2017-01-08 05:48] LABS: BASOPHIL 0.5 % (0-2.0); EOSINOPHIL 3.8 % (0-4.5); MCH 25.2 pg (25.7-33.7); MCHC 33.2 g/dl (32.0-36.0); MEAN PLT VOLUME 7.3 fl (7.5-11.1); NEUTROPHILS 73.3 % (42.8-82.8); PLATELET COUNT 527 K/MM3 (134-434); RDW 17.7 % (11.6-15.6); WHITE BLOOD COUNT 9.8 K/mm3 (4.0-10.0)
[2017-01-08 06:17] LABS: ALBUMIN 1.7 g/dl (3.4-5.0); ANION GAP 10 (8-16); CALCIUM 7.4 mg/dL (8.5-10.1); CO2 26 mmol/L (21-32); GLUCOSE,RANDOM 155 mg/dL (74-106)
[2017-01-08 06:20] LABS: ALK PHOS 49 U/L (45-117); BILIRUBIN,TOTAL 0.2 mg/dL (0.2-1.0); CREATININE 0.4 mg/dL (0.55-1.02); SGOT/AST 15 U/L (15-37); SGPT/ALT 8 U/L (12-78); TOT PROT 5.2 g/dl (6.4-8.2)
[2017-01-08] MEDS: ASPIRIN 325 MG ENTERIC COATED TABLET (FP) PO SCH (09:02)
[2017-01-08] MEDS: ENOXAPARIN NA (PORCINE) 40 MG/0.4 ML DISP.SYRIN SQ SCH (09:02)
[2017-01-08] MEDS: PANTOPRAZOLE SODIUM 100 ML IVPB SCH ×2 (09:02→22:00)
--- NOTE | 2017-01-08 11:31 | PN ---
Teaching Attending Note Name of Resident: Luis Voss ATTENDING PHYSICIAN STATEMENT I saw and evaluated the patient. I reviewed the resident's note and discussed the case with the resident. I agree with the resident's findings and plan as documented. SUBJECTIVE: Patient seen and examined in the ICU. Expressive aphasia yesterday and was transferred to the ICU. Now awake and alert. Expressive aphasia seems improved from yesterday. No headache or BOV. No CP or SOB. OBJECTIVE: Intake & Output 01/05/17 01/06/17 01/07/17 01/08/17 23:59 23:59 23:59 23:59 Intake Total 1120 1650 1725 350 Output Total 60 Balance 1120 1650 1665 350 Weight 196 lb 9.6 oz 192 lb 8 oz 192 lb 12.8 oz 190 lb 12.8 oz Last Vital Signs Temp Pulse Resp BP Pulse Ox 98.8 F 94 H 18 138/72 97 01/08/17 10:00 01/08/17 10:00 01/08/17 10:00 01/08/17 10:00 01/08/17 09:00 Active Medications Acetaminophen (Tylenol -) 650 mg PO Q6H PRN PRN Reason: FEVER OR PAIN Aspirin (Ecotrin -) 325 mg PO DAILY [facility] Last Admin: 01/08/17 09:02 Dose: 325 mg Enoxaparin Sodium (Lovenox -) 40 mg SQ DAILY [facility] Last Admin: 01/08/17 09:02 Dose: 40 mg Hydromorphone HCl (Dilaudid Injection -) 1 mg IVPB Q3H PRN Last Admin: 01/04/17 20:13 Dose: 1 mg Metronidazole (Flagyl 500mg Premixed Ivpb -) 100 mls @ 100 mls/hr IVPB Q8H-IV [facility] Last Admin: 01/08/17 09:03 Dose: 100 mls/hr Aztreonam 1 gm/ Dextrose 50 mls @ 100 mls/hr IVPB Q8H-IV [facility] Last Admin: 01/08/17 09:03 Dose: 100 mls/hr Pantoprazole Sodium (Protonix 40mg Ivpb (Pre-Docked)) 100 mls @ 200 mls/hr IVPB BID [facility] Last Admin: 01/08/17 09:02 Dose: 200 mls/hr Oxycodone HCl (Roxicodone -) 10 mg PO Q6H PRN PRN Reason: PAIN Last Admin: 01/07/17 00:52 Dose: 10 mg Promethazine HCl (Phenergan Injection -) 12.5 mg IVPB Q6H PRN PRN Reason: NAUSEA AND/OR VOMITING Gen: NAD at rest, expressive aphasia Heart: RRR Lung: decreased breath sounds at the bases Abd: soft, mild TTP lower quadrants, no rebound, dressings intact Ext: + edema Laboratory Results - last 24 hr 01/07/17 01/08/17 01/08/17 12:15 05:00 05:00 WBC 9.8 D RBC 3.24 L Hgb 8.2 L Hct 24.6 L MCV 76.0 L MCHC 33.2 RDW 17.7 H Plt Count 527 H MPV 7.3 L Neutrophils % 73.3 Lymphocytes % 11.1 D Monocytes % 11.3 H Eosinophils % 3.8 D Basophils % 0.5 D Sodium 138 Potassium 4.1 Chloride 102 Carbon Dioxide 26 Anion Gap 10 BUN 10 Creatinine 0.4 L Creat Clearance w eGFR > 60 Random Glucose 155 H Calcium 7.4 L Total Bilirubin 0.2 D AST 15 ALT 8 L Alkaline Phosphatase 49 Total Protein 5.2 L Albumin 1.7 L Urine Color Straw Urine Appearance Cloudy Urine pH 7.0 Ur Specific [place] 1.009 Urine Protein Negative Urine Glucose (UA) Negative Urine Ketones Negative Urine Blood Negative Urine Nitrite Negative Urine Bilirubin Negative Urine Urobilinogen Negative Ur Leukocyte Esterase 1+ H Urine RBC 11 Urine WBC 12 Ur Epithelial Cells Rare ASSESSMENT AND PLAN: Acute CVA with Expressive Aphasia NIHSS Gastric Perforation s/p ex-lap/gastrectomy/gastro-jejunostomy HTN - neuro checks - aspiration precautions - PO as tolerated - ABX per ID - incentive spirometry - DVT prophylaxis - PT / ambulate Dr Salgado CCTime 35"
--- NOTE | 2017-01-08 14:00 | PN ---
Progress Note (short form) - Note Progress Note: Neurology History of Present Illness 66-year-old female with a past medical history of hypertension and hyperlipidemia, cholecystectomy, and 2, presented initially complaining of abdominal pain and vomiting, and no bowel movements. Patient had extensive stay with surigcal intervention for perforated bowel. Yesterday, rapid response called on patient for slurred speech. She was sent for CT which showed R parietal region. 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 No other deficits, NIHSS 1. I was contacted by hospitalist as I was entering hospital. Was not TPA case due to NIHSS being only 1 and recent surgery. Was given 325mg, had been on hold due surgery. Much improved speech, nonfocal exam, still slight slowness in vocalization of words but encouraged continued speech. Active Medications Acetaminophen (Tylenol -) 650 mg PO Q6H PRN PRN Reason: FEVER OR PAIN Aspirin (Ecotrin -) 325 mg PO DAILY [facility] Last Admin: 01/08/17 09:02 Dose: 325 mg Enoxaparin Sodium (Lovenox -) 40 mg SQ DAILY [facility] Last Admin: 01/08/17 09:02 Dose: 40 mg Hydromorphone HCl (Dilaudid Injection -) 1 mg IVPB Q3H PRN Last Admin: 01/04/17 20:13 Dose: 1 mg Metronidazole (Flagyl 500mg Premixed Ivpb -) 100 mls @ 100 mls/hr IVPB Q8H-IV [facility] Last Admin: 01/08/17 09:03 Dose: 100 mls/hr Aztreonam 1 gm/ Dextrose 50 mls @ 100 mls/hr IVPB Q8H-IV [facility] Last Admin: 01/08/17 09:03 Dose: 100 mls/hr Pantoprazole Sodium (Protonix 40mg Ivpb (Pre-Docked)) 100 mls @ 200 mls/hr IVPB BID [facility] Last Admin: 01/08/17 09:02 Dose: 200 mls/hr Oxycodone HCl (Roxicodone -) 10 mg PO Q6H PRN PRN Reason: PAIN Last Admin: 01/07/17 00:52 Dose: 10 mg Promethazine HCl (Phenergan Injection -) 12.5 mg IVPB Q6H PRN PRN Reason: NAUSEA AND/OR VOMITING *Physical Exam Last Vital Signs Temp Pulse Resp BP Pulse Ox 97.4 F L 107 H 24 117/81 95 12/25/16 06:41 12/25/16 06:41 12/25/16 06:41 12/25/16 06:41 12/25/16 06:41 GENERAL: The patient is awake, alert, HEAD: Normal with no signs of trauma. EYES: Sclera anicteric ENT: mucous membranes dry NECK: Normal range of motion, supple LUNGS: Breath sounds equal, clear to auscultation bilaterally. No wheezes, and no crackles. HEART: Tachycardic Regular rate and rhythm, normal S1 and S2 without murmur, rub or gallop. ABDOMEN: The abdomen is distended and firm with hypoactive to absent bowel sounds There is exquisite diffuse lower abdominal tenderness to palpation more on the right than the left with guarding and rebound There is no CVA tenderness. Upper abdominal tenderness is also noted EXTREMITIES: Normal range of motion, no edema. No clubbing or cyanosis. No cords, erythema, or tenderness. NEUROLOGICAL: Alert and answering questions, moving all extremities, delayed speech but improved, able to articulate but expressive difficulty PSYCH: Normal mood, normal affect. SKIN: Diaphoretic CBCD WBC 15.2 K/mm3 (4.0-10.0) H 01/06/17 06:00 RBC 3.28 M/mm3 (3.60-5.2) L 01/06/17 06:00 Hgb 8.0 GM/dL (10.7-15.3) L 01/06/17 06:00 Hct 24.9 % (32.4-45.2) L 01/06/17 06:00 MCV 75.8 fl (80-96) L 01/06/17 06:00 MCHC 32.0 g/dl (32.0-36.0) 01/06/17 06:00 RDW 18.1 % (11.6-15.6) H 01/06/17 06:00 Plt Count 485 K/MM3 (134-434) H 01/06/17 06:00 MPV 7.0 fl (7.5-11.1) L 01/06/17 06:00 CMP Sodium 140 mmol/L (136-145) 01/06/17 06:00 Potassium 3.8 mmol/L (3.5-5.1) 01/06/17 06:00 Chloride 104 mmol/L (98-107) 01/06/17 06:00 Carbon Dioxide 25 mmol/L (21-32) 01/06/17 06:00 Anion Gap 11 (8-16) 01/06/17 06:00 BUN 9 mg/dL (7-18) 01/06/17 06:00 Creatinine 0.4 mg/dL (0.55-1.02) L 01/06/17 06:00 Creat Clearance w eGFR > 60 (>60) 12/31/16 06:00 Calcium 7.3 mg/dL (8.5-10.1) L 01/06/17 06:00 Total Bilirubin 0.3 mg/dL (0.2-1.0) 12/31/16 06:00 AST 18 U/L (15-37) 12/31/16 06:00 ALT 9 U/L (12-78) L D 12/31/16 06:00 Alkaline Phosphatase 55 U/L (45-117) D 12/31/16 06:00 Total Protein 4.8 g/dl (6.4-8.2) L 12/31/16 06:00 Albumin 1.6 g/dl (3.4-5.0) L 12/31/16 06:00 Plan 66-year-old female with a past medical history of hypertension and hyperlipidemia, cholecystectomy, and 2, presented initially complaining of abdominal pain and vomiting, and no bowel movements. Patient had extensive stay with surgical intervention for perforated bowel. This AM, rapid response called on patient for slurred speech. She was sent for CT which showed R parietal region. 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 No other deficits, NIHSS 1. I was contacted by hospitalist as I was entering hospital. Was not TPA case due to NIHSS being only 1 and recent surgery. Was given 325mg, had been on hold due surgery. Had some difficulty with speech this morning with her family at bedside and we discussed speech and swallow eval/treatment. They were in agreement. This may be considered a wake up stroke which has been confirmed via CT. MRI completed and with multiple locations of infarcts. If patient safe to restart ASA 325mg daily, I would recommend this though would defer to surgeon regarding bleed risk. BP goal now < 160/90. Being monitored closely in ICU. Continue speech therapy as much as possible. Would check CD, Echo for emboli given multiple locations of infarcts.
--- NOTE | 2017-01-08 14:22 | PN ---
Progress Note, Physician History of Present Illness: patient doing much better aphasia cavanaugh nearly resolved no complaints - Current Medication List Current Medications: Active Medications Acetaminophen (Tylenol -) 650 mg PO Q6H PRN PRN Reason: FEVER OR PAIN Aspirin (Ecotrin -) 325 mg PO DAILY [facility] Last Admin: 01/08/17 09:02 Dose: 325 mg Enoxaparin Sodium (Lovenox -) 40 mg SQ DAILY [facility] Last Admin: 01/08/17 09:02 Dose: 40 mg Hydromorphone HCl (Dilaudid Injection -) 1 mg IVPB Q3H PRN Last Admin: 01/04/17 20:13 Dose: 1 mg Metronidazole (Flagyl 500mg Premixed Ivpb -) 100 mls @ 100 mls/hr IVPB Q8H-IV [facility] Last Admin: 01/08/17 09:03 Dose: 100 mls/hr Aztreonam 1 gm/ Dextrose 50 mls @ 100 mls/hr IVPB Q8H-IV [facility] Last Admin: 01/08/17 09:03 Dose: 100 mls/hr Pantoprazole Sodium (Protonix 40mg Ivpb (Pre-Docked)) 100 mls @ 200 mls/hr IVPB BID [facility] Last Admin: 01/08/17 09:02 Dose: 200 mls/hr Oxycodone HCl (Roxicodone -) 10 mg PO Q6H PRN PRN Reason: PAIN Last Admin: 01/07/17 00:52 Dose: 10 mg Promethazine HCl (Phenergan Injection -) 12.5 mg IVPB Q6H PRN PRN Reason: NAUSEA AND/OR VOMITING - Objective Vital Signs: Vital Signs Temperature 98.8 F 01/08/17 10:00 Pulse Rate 92 H 01/08/17 14:00 Respiratory Rate 18 01/08/17 14:00 Blood Pressure 153/78 01/08/17 14:00 O2 Sat by Pulse Oximetry (%) 97 01/08/17 09:00 Constitutional: Yes: No Distress, Calm Cardiovascular: Yes: Regular Rate and Rhythm Respiratory: Yes: Regular Gastrointestinal: Yes: Normal Bowel Sounds, Soft Musculoskeletal: Yes: WNL Extremities: Yes: WNL Wound/Incision: Yes: Clean/Dry, Well Approximated, Other Neurological: Yes: Alert, Oriented Psychiatric: Yes: Alert, Oriented Labs: CBC, BMP 01/08/17 05:00 03/10/17 05:00 INR, PTT INR 1.16 (0.82-1.09) H 12/29/16 05:10 Assessment/Plan 66 year old female with significant PMH of HTN, HLD, s/p exploratory laparotomy for gastric perforation. #Gastric perforation, s/p gastrectomy & gastro-jejunostomy #HTN stroke dirrhoea resolving plan continue abx for now patient now being followed by neurology stable at the moment icu care wbc normal aphasia nearly resolved rest ct mgmt cc time 40 min
--- NOTE | 2017-01-08 15:47 | PN ---
Progress Note, RESP THER - Note Progress Note: Excellent tx session today- Pt is retrieving words with less delay, and fewer articulation errors. Still with function word omissions but improving. Prosody is still quite impaired with reduced fluency, and absent pitch/rhythm variation. Worked on using music to improve pitch/prosody variation and stringing words together, pausing at the correct spot in the sentence to improve naturalness of speech production.Excellent stimulability in repetition on simple sentence level. Sons also educated and trained for carryover of techniques b/n sessions. Pt is tolerating full liquids. From swallowing standpoint, diet can be upgraded once surgeon gives clearance. Excellent prognosis for improvement with intensive rehabilitation.
--- NOTE | 2017-01-08 15:55 | PN ---
Progress Note (short form) - Note Progress Note: Cardiology Consult Dictated Acute CVAs, multiple Perforated peptic ulcer s/p partial gastrectomy 12/30 Multiple possibilities for etiology of CVAs, the differential includes: PAF, intracardiac source, infection (?bacteremia), hypercoag state from critical illness. REC: Continue TELE in ICU to evaluate for occult AF Would obtain blood cultures if not yet done. Further neuro imaging as per Neurology Will likely need YURIDIA if safe from surgical standpoint (with omission of transgastric views). Continue ASA. Above discussed at length with patient and family.
[2017-01-08] MEDS ORDERED: PT OWN MED DRAWER 7, Y5N ONE ×2 (17:23→23:11)
--- NOTE | 2017-01-08 19:05 | PN ---
Physical Exam: SUBJECTIVE: Patient seen and examined at bed side. patietn reports less diarrhea. Expressive aphasia seems improved from yesterday. patient with help of PT sat from bed to chair. denies LUNDY, sob, cp, n/v/, fever, chills, visual changes. Two sons present at bed side. requesting to speak to nursing home social worker for rehab placemnt. Sons were present for meeting. OBJECTIVE: Vital Signs Period Temp Pulse Resp BP Sys/Coker Pulse Ox Last 24 Hr 98 F-98.8 F 78-98 16-20 114-157/63-78 97-98 GENERAL: The patient is awake, alert, and fully oriented, in no acute distress. HEENT: Atraumatic, EOMI, PERRLA, No lymphadenopathy, moist membranes LUNGS: mildly diminished breath sounds at bases HEART: Regular rate and rhythm, S1, S2 without murmur, rub or gallop. ABDOMEN: Soft, non distended, mildly tender to touch diffusely, dressing clean/ dry/intact. incision no sign of infection no erythema, warmth, dry, and drainage. EXTREMITIES: 2+ pulses, warm, well-perfused, +1 pitting edema bilateral LE (L>R) NEUROLOGICAL: Expressive aphasia. Cranial nerves II through XII grossly intact. Strength 5/5 bilateral upper & lower extremities; sensation intact bilateral upper & lower extremities PSYCH: Normal mood, normal affect. SKIN: Warm, dry, normal turgor, no rashes or lesions noted Laboratory Results - last 24 hr 01/08/17 01/08/17 05:00 05:00 WBC 9.8 D RBC 3.24 L Hgb 8.2 L Hct 24.6 L MCV 76.0 L MCHC 33.2 RDW 17.7 H Plt Count 527 H MPV 7.3 L Neutrophils % 73.3 Lymphocytes % 11.1 D Monocytes % 11.3 H Eosinophils % 3.8 D Basophils % 0.5 D Sodium 138 Potassium 4.1 Chloride 102 Carbon Dioxide 26 Anion Gap 10 BUN 10 Creatinine 0.4 L Creat Clearance w eGFR > 60 Random Glucose 155 H Calcium 7.4 L Total Bilirubin 0.2 D AST 15 ALT 8 L Alkaline Phosphatase 49 Total Protein 5.2 L Albumin 1.7 L Active Medications Generic Name Dose Route Start Last Admin Trade Name Freq PRN Reason Stop Dose Admin Acetaminophen 650 mg 01/06/17 18:10 Tylenol - PO Q6H PRN FEVER OR PAIN Aspirin 325 mg 01/08/17 10:00 01/08/17 09:02 Ecotrin - PO 325 mg DAILY [facility] Administration Enoxaparin Sodium 40 mg 01/07/17 11:15 01/08/17 09:02 Lovenox - SQ 40 mg DAILY [facility] Administration Hydromorphone HCl 1 mg 01/04/17 00:16 01/04/17 20:13 Dilaudid Injection - IVPB 1 mg Q3H PRN Administration Metronidazole 100 mls @ 100 mls/hr 01/06/17 18:00 01/08/17 17:28 Flagyl 500mg Premixed Ivpb - IVPB 100 mls/hr Q8H-IV [facility] Administration Aztreonam 1 gm/ Dextrose 50 mls @ 100 mls/hr 01/06/17 18:00 01/08/17 17:28 IVPB 100 mls/hr Q8H-IV [facility] Administration Pantoprazole Sodium 100 mls @ 200 mls/hr 01/07/17 22:00 01/08/17 09:02 Protonix 40mg Ivpb (Pre-Docked) IVPB 200 mls/hr BID [facility] Administration Oxycodone HCl 10 mg 01/05/17 21:33 01/07/17 00:52 Roxicodone - PO 10 mg Q6H PRN Administration PAIN Promethazine HCl 12.5 mg 12/29/16 16:54 Phenergan Injection - IVPB Q6H PRN NAUSEA AND/OR VOMITING ASSESSMENT/PLAN: 66 year old female with significant PMH of HTN, HLD, Open cholecystectomy presented to ICU this AM after slurred speech noted. CT showed right parietal & questionable right frontal lobe stroke. ASA 325mg given as patient not tPA candidate. Originally seen in ICU on December 25 s/p exploratory laparotomy for gastric perforation. She has been in the hospital since the operation. #Acute Stroke NIH score 1: possible emboli inlight of multiple infarctions and Of Mitral annular Calcifications, vs Multiple possibilities for etiology of CVAs , the differential includes: PAF, intracardiac source, infection (?bacteremia), hypercoag state from critical illness. -continue ASA 325mg given, need to discuss bleeding risk with surgery (may need to be on 81mg instead) -Speech & swallow appreciated -NPO for now, Aspiration precautions -Neurochecks -Neurology following -PT / ambulate sat in chair. -BP goal now < 160/90. -echo- mild , mild to severe mitral annular calcification -Continue tele and monitor to evaluate for occult AF -Blood cultures neg -consider YURIDIA if safe from surgical standpoint (with omission of transgastric views). -cardiac input appreciated #Gastric perforation, s/p gastrectomy & gastro-jejunostomy -saturating well on NC 2L -PPI -Dilaudid pain management, as needed -keep O2 Sat >94% -PT -Incentive spirometer -would like surgery imput on timeline of starting PO intake and advacemt of diet. . #HTN -Holding antihypertensives (permissive HTN for 24 hours) #Acute Sepsis -on Aztreonam, Metronidazole -Blood Cultures neg -UA w/ cultures sent today -C Diff tox neg, antigen post -ID following Prophylaxis/FEN -PPI, SCD's - tube feed vital 1.5, monitoring electrolytes, NPO dispo: case management for placement, continue tele . Visit type - Emergency Visit Emergency Visit: Yes ED Registration Date: 12/25/16 Care time: The patient presented to the Emergency Department on the above date and was hospitalized for further evaluation of their emergent condition. - New Patient This patient is new to me today: Yes Date on this admission: 12/25/16 - Critical Care Critical Care patient: Yes Total Critical Care Time (in minutes): 45 Critical Care Statement: The care of this patient involved high complexity decision making to prevent further life threatening deterioration of the patient 's condition and/or to evalute & treat vital organ system(s) failure or risk of failure.
--- NOTE | 2017-01-08 20:39 | PN ---
Progress Note, Physician History of Present Illness: stable still has loose bm - Current Medication List Current Medications: Active Medications Acetaminophen (Tylenol -) 650 mg PO Q6H PRN PRN Reason: FEVER OR PAIN Aspirin (Ecotrin -) 325 mg PO DAILY [facility] Last Admin: 01/08/17 09:02 Dose: 325 mg Enoxaparin Sodium (Lovenox -) 40 mg SQ DAILY [facility] Last Admin: 01/08/17 09:02 Dose: 40 mg Hydromorphone HCl (Dilaudid Injection -) 1 mg IVPB Q3H PRN Last Admin: 01/04/17 20:13 Dose: 1 mg Metronidazole (Flagyl 500mg Premixed Ivpb -) 100 mls @ 100 mls/hr IVPB Q8H-IV [facility] Last Admin: 01/08/17 17:28 Dose: 100 mls/hr Aztreonam 1 gm/ Dextrose 50 mls @ 100 mls/hr IVPB Q8H-IV [facility] Last Admin: 01/08/17 17:28 Dose: 100 mls/hr Pantoprazole Sodium (Protonix 40mg Ivpb (Pre-Docked)) 100 mls @ 200 mls/hr IVPB BID [facility] Last Admin: 01/08/17 09:02 Dose: 200 mls/hr Oxycodone HCl (Roxicodone -) 10 mg PO Q6H PRN PRN Reason: PAIN Last Admin: 01/07/17 00:52 Dose: 10 mg Promethazine HCl (Phenergan Injection -) 12.5 mg IVPB Q6H PRN PRN Reason: NAUSEA AND/OR VOMITING - Objective Vital Signs: Vital Signs Temperature 98 F 01/08/17 18:00 Pulse Rate 80 01/08/17 18:00 Respiratory Rate 20 01/08/17 18:00 Blood Pressure 118/63 01/08/17 18:00 O2 Sat by Pulse Oximetry (%) 97 01/08/17 09:00 Constitutional: Yes: No Distress HENT: Yes: Atraumatic Neck: Yes: Supple Cardiovascular: Yes: Regular Rate and Rhythm Respiratory: Yes: CTA Bilaterally Gastrointestinal: Yes: Normal Bowel Sounds, Tenderness, Rebound (betetr at the surgery site) Extremities: Yes: WNL Neurological: Yes: Alert, Oriented Labs: CBC, BMP 01/08/17 05:00 01/08/17 05:00 INR, PTT INR 1.16 (0.82-1.09) H 12/29/16 05:10 Problem List - Problems (1) Colon perforation Code(s): K63.1 - PERFORATION OF INTESTINE (NONTRAUMATIC) (2) Lactic acid acidosis Code(s): E87.2 - ACIDOSIS (3) Pneumoperitoneum Code(s): K66.8 - OTHER SPECIFIED DISORDERS OF PERITONEUM (4) Sepsis Code(s): A41.9 - SEPSIS, UNSPECIFIED ORGANISM (5) Surgical abdomen Code(s): R10.0 - ACUTE ABDOMEN (6) Gastric ulcer with hemorrhage and perforation but without obstruction Code(s): K25.6 - CHRONIC OR UNSP GASTRIC ULCER W BOTH HEMORRHAGE AND PERF (7) Perforated stomach Code(s): K25.5 - CHRONIC OR UNSPECIFIED GASTRIC ULCER WITH PERFORATION (8) CVA (cerebral vascular accident) Code(s): I63.9 - CEREBRAL INFARCTION, UNSPECIFIED Assessment/Plan A/P 1.COLON PERFORATION/gastric perforation s/p ex-lap, distal gastrectomy, gastro-jejunostomy, feeding jejunostomy, abd washout Patient seen and examined in ICU. Awake and alert. Resting comfortably. C/o incisional tenderness. on clear liquid diet on tube feeds 2.CVA speech is much better pt/ot cardiology consult reviewed continue iv abx cxs negative to date dc planning to rehab CC TIME 30 MIN
[2017-01-09] MEDS: AZTREONAM 1 GM in DEXTROSE 5%-WATER - 50 ML IVPB SCH ×2 (02:00→10:13)
[2017-01-09] MEDS: METRONIDAZOLE 500 MG PREMIXED 100 ML IVPB SCH ×3 (02:00→18:17)
[2017-01-09 06:27] LABS: BASOPHIL 0.7 % (0-2.0); EOSINOPHIL 4.7 % (0-4.5); MCH 24.7 pg (25.7-33.7); MCHC 32.4 g/dl (32.0-36.0); MEAN CELL VOLUME 76.3 fl (80-96); MEAN PLT VOLUME 6.8 fl (7.5-11.1); NEUTROPHILS 70.4 % (42.8-82.8); PLATELET COUNT 506 K/MM3 (134-434); RDW 17.5 % (11.6-15.6); WHITE BLOOD COUNT 8.9 K/mm3 (4.0-10.0)
[2017-01-09 06:39] LABS: ALBUMIN 1.6 g/dl (3.4-5.0); ANION GAP 8 (8-16); CALCIUM 7.4 mg/dL (8.5-10.1); CO2 26 mmol/L (21-32); CREATININE 0.4 mg/dL (0.55-1.02); GLUCOSE,RANDOM 158 mg/dL (74-106); SGOT/AST 17 U/L (15-37); SGPT/ALT 11 U/L (12-78)
[2017-01-09 06:40] LABS: ALK PHOS 45 U/L (45-117); BILIRUBIN,TOTAL 0.2 mg/dL (0.2-1.0); TOT PROT 5.1 g/dl (6.4-8.2)
--- NOTE | 2017-01-09 07:55 | PN ---
Progress Note (short form) - Note Progress Note: PT states that she is tolerating clears. OOB to chair. she is having diarrhea. Vital Signs Period Temp Pulse Resp BP Sys/Coker Pulse Ox Last 24 Hr 98 F-98.9 F 78-98 18-20 111-153/62-78 97-97 PE: GEN: Alert and oriented x3. Neuro: Speech delayed, difficult to find words but answers appropriately ABD: soft, non-distended, midline inc: skin edges open, wound base with clean granulation tissue. Rectal: tube in place/draining light brown liquid stool CBC, BMP 01/09/17 05:20 01/09/17 05:20 A/P: s/p exp lap for perforated gastric ulcer, gastrojejunostomy. Continue local wound care with wet to dry full liquid diet and J tube feeds, as per Dr. Lawson will continue this diet for at least another 2 to 3 weeks. PT, oob to chair Pt with expressive aphasia from [facility] [place], on 325mg aspirin, and monitoring for bleeding. Cont protonix bid. Problem List - Problems (1) Pneumoperitoneum Code(s): K66.8 - OTHER SPECIFIED DISORDERS OF PERITONEUM
--- NOTE | 2017-01-09 08:01 | PN ---
Progress Note, Physician Chief Complaint: Alert and oriented no complaints History of Present Illness: TELE: reviewed. NSR with a short run of Paroxysmal atrial fibrillation/flutter - Current Medication List Current Medications: Active Medications Acetaminophen (Tylenol -) 650 mg PO Q6H PRN PRN Reason: FEVER OR PAIN Aspirin (Ecotrin -) 325 mg PO DAILY [facility] Last Admin: 01/08/17 09:02 Dose: 325 mg Enoxaparin Sodium (Lovenox -) 40 mg SQ DAILY [facility] Last Admin: 01/08/17 09:02 Dose: 40 mg Hydromorphone HCl (Dilaudid Injection -) 1 mg IVPB Q3H PRN Last Admin: 01/04/17 20:13 Dose: 1 mg Metronidazole (Flagyl 500mg Premixed Ivpb -) 100 mls @ 100 mls/hr IVPB Q8H-IV [facility] Last Admin: 01/09/17 02:00 Dose: 100 mls/hr Aztreonam 1 gm/ Dextrose 50 mls @ 100 mls/hr IVPB Q8H-IV [facility] Last Admin: 01/09/17 02:00 Dose: 100 mls/hr Pantoprazole Sodium (Protonix 40mg Ivpb (Pre-Docked)) 100 mls @ 200 mls/hr IVPB BID [facility] Last Admin: 01/08/17 22:00 Dose: 200 mls/hr Promethazine HCl (Phenergan Injection -) 12.5 mg IVPB Q6H PRN PRN Reason: NAUSEA AND/OR VOMITING - Objective Vital Signs: Vital Signs Temperature 98.9 F 01/09/17 06:00 Pulse Rate 82 01/09/17 06:00 Respiratory Rate 18 01/09/17 06:00 Blood Pressure 133/65 01/09/17 06:00 O2 Sat by Pulse Oximetry (%) 97 01/08/17 21:00 Constitutional: Yes: No Distress, Calm Eyes: Yes: Conjunctiva Clear Cardiovascular: Yes: Regular Rate and Rhythm Respiratory: Yes: CTA Bilaterally Gastrointestinal: Yes: Soft, Other (no rebound or guarding) Edema: Yes Edema: LLE: 1+, RLE: 1+ Labs: CBC, BMP 01/09/17 05:20 01/09/17 05:20 INR, PTT INR 1.16 (0.82-1.09) H 12/29/16 05:10 Microbiology 01/06/17 21:00 Blood - Peripheral Venous Blood Culture - Preliminary NO GROWTH OBTAINED AFTER 48 HOURS, INCUBATION TO CONTINUE FOR 3 DAYS. 01/06/17 18:45 Blood - Peripheral Venous Blood Culture - Preliminary NO GROWTH OBTAINED AFTER 48 HOURS, INCUBATION TO CONTINUE FOR 3 DAYS. Laboratory Tests 01/09/17 01/09/17 05:20 05:20 WBC 8.9 Hgb 7.9 L Hct 24.4 L Plt Count 506 H Potassium 3.8 Creatinine 0.4 L - ....Imaging EKG: Image Reviewed Assessment/Plan Perforated peptic ulcer, pneumoperitoneum s/p partial gastrectomy Bilateral CVAs Paroxysmal atrial fibrillation, newly detected. REC: Etiology of CVAs is likely PAF, newly detected while on tele in ICU. Would begin UFH gtts without bolus if ok from surgical standpoint. If heparin can be initiated, then d/c ASA and Lovenox. If YURIDIA is needed, will discuss with surgery timing and anatomy. May need GI to help guide depth of insertion of probe. With newly detected PAF as the likely source, YURIDIA may not need to be done at this time.
--- NOTE | 2017-01-09 09:32 | PN ---
Progress Note (short form) - Note Progress Note: PULM/CRITICAL CARE MEDICINE PROGRESS NOTE: Pt seen and examined in the ICU Events: Hemodynamically stable, oxygenating well on room air. Has some abdominal tenderness but does not want narcotics. Afebrile. Current Medications Acetaminophen (Tylenol -) 650 mg PO Q6H PRN PRN Reason: FEVER OR PAIN Aspirin (Ecotrin -) 325 mg PO DAILY [facility] Last Admin: 01/08/17 09:02 Dose: 325 mg Enoxaparin Sodium (Lovenox -) 40 mg SQ DAILY [facility] Last Admin: 01/08/17 09:02 Dose: 40 mg Hydromorphone HCl (Dilaudid Injection -) 1 mg IVPB Q3H PRN Last Admin: 01/04/17 20:13 Dose: 1 mg Metronidazole (Flagyl 500mg Premixed Ivpb -) 100 mls @ 100 mls/hr IVPB Q8H-IV [facility] Last Admin: 01/09/17 02:00 Dose: 100 mls/hr Aztreonam 1 gm/ Dextrose 50 mls @ 100 mls/hr IVPB Q8H-IV [facility] Last Admin: 01/09/17 02:00 Dose: 100 mls/hr Pantoprazole Sodium (Protonix 40mg Ivpb (Pre-Docked)) 100 mls @ 200 mls/hr IVPB BID [facility] Last Admin: 01/08/17 22:00 Dose: 200 mls/hr Promethazine HCl (Phenergan Injection -) 12.5 mg IVPB Q6H PRN PRN Reason: NAUSEA AND/OR VOMITING Vital Signs Temp 98.9 F 01/09/17 06:00 Pulse 82 01/09/17 06:00 Resp 18 01/09/17 06:00 BP 133/65 01/09/17 06:00 Pulse Ox 97 01/08/17 21:00 Intake & Output 01/08/17 01/09/17 01/09/17 18:59 06:59 18:59 Intake Total 2420 450 Output Total 30 Balance 2420 420 Weight 87.271 kg Intake: IV 450 Saline Lock 450 IVPB 250 Oral 760 200 Tube Feeding 960 Tube Irrigant 250 Output: Gastric Drainage 30 Other: Voiding Method Incontinent Incontinent # Unmeasured Voids Void 3 3 Bowel Movement Yes Yes Weight Measurement Method Built in [facility] EXAM: Gen: awake, alert, no distress, expressive aphasia Heart: RRR Lung: decreased breath sounds at the bases Abd: soft, appropriately tender Ext: trace edema CBC, BMP 01/09/17 05:20 01/09/17 05:20 ASSESSMENT AND PLAN: Acute CVA with Expressive Aphasia NIHSS Gastric Perforation s/p ex-lap/gastrectomy/gastro-jejunostomy HTN - consider non-opiate analgesia - Tylenol, Toradol? - neuro checks - aspiration precautions - PO as tolerated - ABX per ID - incentive spirometry - DVT prophylaxis - PT / ambulate as able Transfer to the floor Andi De [facility] Pulm/Critical Care [employer] 35"
[2017-01-09] MEDS ORDERED: PT OWN MED DRAWER 7, Y5N ONE (10:11)
[2017-01-09] MEDS: PANTOPRAZOLE SODIUM 100 ML IVPB SCH (10:20)
[2017-01-09] MEDS ORDERED: HEPARIN - 25,000 UNIT in SODIUM CHLORIDE 495 ML IV SCH (11:00)
[2017-01-09 11:55] LABS: INR 1.22 (0.82-1.09); PROTHROMBIN TIME (PATIENT) 13.5 SEC (9.98-11.88)
[2017-01-09 11:58] LABS: ACTIVATED PTT 27.8 SECONDS (26.9-34.4)
--- NOTE | 2017-01-09 13:29 | PN ---
Progress Note, Physician History of Present Illness: patient stable having dirrhoea otherwise stable started on heparin taking orally still has some expressive aphasia - Current Medication List Current Medications: Active Medications Acetaminophen (Tylenol -) 650 mg PO Q6H PRN PRN Reason: FEVER OR PAIN Hydromorphone HCl (Dilaudid Injection -) 1 mg IVPB Q3H PRN Last Admin: 01/04/17 20:13 Dose: 1 mg Metronidazole (Flagyl 500mg Premixed Ivpb -) 100 mls @ 100 mls/hr IVPB Q8H-IV [facility] Last Admin: 01/09/17 10:20 Dose: 100 mls/hr Pantoprazole Sodium (Protonix 40mg Ivpb (Pre-Docked)) 100 mls @ 200 mls/hr IVPB BID [facility] Last Admin: 01/09/17 10:20 Dose: 200 mls/hr Heparin Sodium (Porcine) 25, (000 unit/ Sodium Chloride) 500 mls @ 20 mls/hr IV TITR OPAL; 1,000 UNIT/HR PRN Reason: Protocol Last Admin: 01/09/17 12:03 Dose: 20 mls/hr Promethazine HCl (Phenergan Injection -) 12.5 mg IVPB Q6H PRN PRN Reason: NAUSEA AND/OR VOMITING - Objective Vital Signs: Vital Signs Temperature 99.2 F 01/09/17 10:00 Pulse Rate 92 H 01/09/17 12:12 Respiratory Rate 23 01/09/17 12:00 Blood Pressure 134/71 01/09/17 12:00 O2 Sat by Pulse Oximetry (%) 95 01/09/17 12:12 Constitutional: Yes: No Distress, Calm Neck: Yes: Supple Respiratory: Yes: Regular, Poor Air Entry Gastrointestinal: Yes: Normal Bowel Sounds, Soft, Other (dirrhoea) Musculoskeletal: Yes: WNL Extremities: Yes: WNL Neurological: Yes: Alert, Oriented Psychiatric: Yes: Alert Labs: CBC, BMP 01/09/17 05:20 01/09/17 05:20 INR, PTT INR 1.22 (0.82-1.09) H 01/09/17 11:20 Assessment/Plan 66 year old female with significant PMH of HTN, HLD, s/p exploratory laparotomy for gastric perforation. #Gastric perforation, s/p gastrectomy & gastro-jejunostomy #HTN stroke expressive aphasia plan will stop aztreonam and watch how patient does patient now being followed by neurology stable at the moment icu care wbc normal aphasia better rest ct mgmt cc time 40 min
[2017-01-09] MEDS ORDERED: HEPARIN NA (PORCINE) 5,000 UNITS/ML 1ML VIAL IVPUSH PRN (13:38)
[2017-01-09] MEDS ORDERED: HYDROmorphone HCL CARPU-JECT 1 MG/1 ML DISP.SYRIN IVPB PRN (13:38)
[2017-01-09] MEDS ORDERED: PROMETHAZINE HCL 25 MG/1 ML VIAL IVPB PRN (13:38)
[2017-01-09] MEDS: ENOXAPARIN NA (PORCINE) 40 MG/0.4 ML DISP.SYRIN SQ SCH (13:39)
[2017-01-09] MEDS: ASPIRIN 325 MG ENTERIC COATED TABLET (FP) PO SCH (13:39)
--- NOTE | 2017-01-09 13:47 | PN ---
Progress Note, Physician History of Present Illness: stable still has loose bm words more clear today - Current Medication List Current Medications: Active Medications Acetaminophen (Tylenol -) 650 mg PO Q6H PRN PRN Reason: FEVER OR PAIN Heparin Sodium (Porcine) (Heparin -) 1,000 unit IVPUSH PRN PRN PRN Reason: Heparin Heparin Sodium (Porcine) (Heparin -) 5,000 unit IVPUSH PRN PRN PRN Reason: Heparin Hydromorphone HCl (Dilaudid Injection -) 1 mg IVPB Q3H PRN Heparin Sodium (Porcine) 25, (000 unit/ Sodium Chloride) 500 mls @ 20 mls/hr IV TITR OPAL; 1,000 UNIT/HR PRN Reason: Protocol Metronidazole (Flagyl 500mg Premixed Ivpb -) 100 mls @ 100 mls/hr IVPB Q8H-IV [facility] Pantoprazole Sodium (Protonix 40mg Ivpb (Pre-Docked)) 100 mls @ 200 mls/hr IVPB BID OP[facility] Promethazine HCl (Phenergan Injection -) 12.5 mg IVPB Q6H PRN PRN Reason: NAUSEA AND/OR VOMITING - Objective Vital Signs: Vital Signs Temperature 99.2 F 01/09/17 10:00 Pulse Rate 92 H 01/09/17 12:12 Respiratory Rate 23 01/09/17 12:00 Blood Pressure 134/71 01/09/17 12:00 O2 Sat by Pulse Oximetry (%) 95 01/09/17 12:12 Constitutional: Yes: No Distress HENT: Yes: Atraumatic Neck: Yes: Supple Cardiovascular: Yes: Regular Rate and Rhythm Respiratory: Yes: CTA Bilaterally Gastrointestinal: Yes: Normal Bowel Sounds, Tenderness (improving at the surgery site) Extremities: Yes: WNL Labs: CBC, BMP 01/09/17 05:20 01/09/17 05:20 INR, PTT INR 1.22 (0.82-1.09) H 01/09/17 11:20 Problem List - Problems (1) Colon perforation Code(s): K63.1 - PERFORATION OF INTESTINE (NONTRAUMATIC) (2) Lactic acid acidosis Code(s): E87.2 - ACIDOSIS (3) Pneumoperitoneum Code(s): K66.8 - OTHER SPECIFIED DISORDERS OF PERITONEUM (4) Sepsis Code(s): A41.9 - SEPSIS, UNSPECIFIED ORGANISM (5) Surgical abdomen Code(s): R10.0 - ACUTE ABDOMEN (6) Gastric ulcer with hemorrhage and perforation but without obstruction Code(s): K25.6 - CHRONIC OR UNSP GASTRIC ULCER W BOTH HEMORRHAGE AND PERF (7) Perforated stomach Code(s): K25.5 - CHRONIC OR UNSPECIFIED GASTRIC ULCER WITH PERFORATION (8) CVA (cerebral vascular accident) Code(s): I63.9 - CEREBRAL INFARCTION, UNSPECIFIED Assessment/Plan A/P 1.COLON PERFORATION/gastric perforation s/p ex-lap, distal gastrectomy, gastro-jejunostomy, feeding jejunostomy, abd washout Patient seen and examined in ICU. Awake and alert. Resting comfortably. C/o incisional tenderness. on clear liquid diet on tube feeds 2.CVA speech is much better pt/ot dc planning to rehab Dc abx per id on iv flagyl, still has loose bms. pt is on tf and clear liquid could be due to that c diff was negative...will repeat 3.paf on iv heparin dr esteban has d/w with patient and family the pathology report CC TIME 30 MIN
--- NOTE | 2017-01-09 19:29 | CONS ---
CARDIOLOGY CONSULTATION DATE OF CONSULTATION: 01/08/2017 REQUESTED BY: Dr. Bipin MD REASON FOR CONSULTATION: Assistance in evaluation of recent multiple strokes. HISTORY OF PRESENT ILLNESS: The patient is a 66-year-old female who was admitted on December 25 with severe abdominal pain which began several weeks prior to admission. A CT scan of the abdomen and pelvis performed on December 25, 2016 in the emergency department showed pneumoperitoneum. Surgery was consulted and she was ultimately taken to the operating room, where she was found to have a perforated peptic ulcer for which a distal gastrectomy was performed. The patient had been in the hospital several days recovering when yesterday, she began having difficulty speaking and a stroke protocol was initiated. MRI of the brain showed multiple acute/subacute infarcts in the right posterior cope radiata, the inferior and superior right frontal lobes, the left temporal and occipital lobes. The patient states she has a past medical history of hypertension and hyperlipidemia, both treated with medications at home. She denies prior cerebrovascular incidents. She has no history of coronary artery disease. PAST MEDICAL HISTORY: Hypertension, hyperlipidemia. SURGICAL HISTORY: History of cholecystectomy in the late 80s and C-sections. ALLERGIES: She is allergic to PENICILLIN, which causes a rash, and TETANUS VACCINE. MEDICATIONS: Her medications at home include an anti-hypertensive agent and cholesterol medication which she did not recall the name of. Currently, she is receiving Tylenol 650 mg p.o. q 6 p.r.n., aspirin 325 daily, aztreonam, Lovenox 40 mg subcutaneously daily, Dilaudid 1 mg IV q 3 p.r.n., Flagyl intravenously, Protonix drip and promethazine p.r.n. FAMILY HISTORY: Both of her parents had strokes. Both had hypertension. SOCIAL HISTORY: She is a non-smoker. She works for [employer] and lives at home with her two sons. PHYSICAL EXAM: Vital signs: The patient was febrile to 101 Fahrenheit on January 06. Currently, she is afebrile. Pulse of 92 and regular. Review of telemetry and previous EKGs this admission has shown all sinus rhythm. Blood pressure is 153/78. Reviewing blood pressures from the last several days, I do not see any documented episodes of hypotension. She is saturating at 97% on room air. HEENT: She is anicteric. Neck: There were no carotid bruits, and carotid pulses were 2+ bilaterally. Heart: The heart was regular with no murmurs. Chest: Clear. Abdomen: Soft. Extremities: She has 1+ edema symmetrically. No tenderness. Negative Karyn sign. Her EKGs were reviewed and show all sinus rhythm. LABS: White count 9.8, hematocrit 24.6, platelets 527. INR 1.16. Sodium 138, potassium 4.1. Creatinine 0.4. LFTs are normal. Albumin is 1.7. Carotid duplex was performed on January 07, 2017 showing small to moderate plaque in the right bulb and small plaque in the left bulb with no hemodynamically-significant stenosis. Blood cultures were drawn on December 25 and again on January 06, which are negative to date. Her stool on January 03 was negative for C. difficile. She does have an enterococcal urinary tract infection in cultures on January 07. IMPRESSION: 1. Multiple cerebrovascular accidents. 2. Recent perforated bowel secondary to perforated peptic ulcer, status post partial/distal gastrectomy. There are multiple possibilities for the etiology of her multiple strokes. The differential diagnosis includes: Occult paroxysmal atrial fibrillation; possible intracardiac source of embolism which has not been excluded on the transthoracic study thus far; infection (? bacteremia); hypercoagulable state from critical illness. RECOMMENDATIONS: 1. Continue telemetry in the ICU to evaluate for occult atrial fibrillation. 2. Continue to observe blood cultures to rule out bacteremia in an effort to rule out endocarditis. 3. Further neuro imaging of the carotids and brain as per Neurology. 4. She may need a transesophageal echocardiogram due to the technically limited nature of her transthoracic study if no other source of embolism is found on telemetry. There was significant mitral annular calcification and the aortic valve was not well visualized. This can be done when safe from a surgical standpoint, obviously with omission of the transgastric views or with GI guidance as to depth of probe insertion. 5. Continue aspirin for now. Above differential and course of action for further diagnostic studies was discussed at length with the patient and family at the bedside. Thank you for this consultation. DIAZ PEÑA M.D. [id number] MTDD
[2017-01-09] MEDS: HEPARIN - 25,000 UNIT in SODIUM CHLORIDE 495 ML IV SCH (19:35)
[2017-01-09] MEDS: PANTOPRAZOLE SODIUM 40MG/100 ML IVPB SCH (22:01)
[2017-01-10] MEDS: METRONIDAZOLE 500 MG PREMIXED 100 ML IVPB SCH ×3 (04:22→17:50)
[2017-01-10] MEDS: PANTOPRAZOLE SODIUM 40MG/100 ML IVPB SCH ×2 (09:04→22:07)
--- NOTE | 2017-01-10 10:23 | PN ---
Progress Note, Physician Chief Complaint: no new complaints TELE: NSR rare APCs - Current Medication List Current Medications: Active Medications Acetaminophen (Tylenol -) 650 mg PO Q6H PRN PRN Reason: FEVER OR PAIN Heparin Sodium (Porcine) (Heparin -) 1,000 unit IVPUSH PRN PRN PRN Reason: Heparin Last Admin: 01/09/17 21:10 Dose: 1,000 unit Heparin Sodium (Porcine) (Heparin -) 5,000 unit IVPUSH PRN PRN PRN Reason: Heparin Hydromorphone HCl (Dilaudid Injection -) 1 mg IVPB Q3H PRN Heparin Sodium (Porcine) 25, (000 unit/ Sodium Chloride) 500 mls @ 20 mls/hr IV TITR OPAL; 1,000 UNIT/HR PRN Reason: Protocol Last Titration: 01/09/17 21:13 Dose: 1,100 unit/hr Metronidazole (Flagyl 500mg Premixed Ivpb -) 100 mls @ 100 mls/hr IVPB Q8H-IV [facility] Last Admin: 01/10/17 09:04 Dose: 100 mls/hr Pantoprazole Sodium (Protonix 40mg Ivpb (Pre-Docked)) 100 mls @ 200 mls/hr IVPB BID [facility] Last Admin: 01/10/17 09:04 Dose: 200 mls/hr Promethazine HCl (Phenergan Injection -) 12.5 mg IVPB Q6H PRN PRN Reason: NAUSEA AND/OR VOMITING - Objective Vital Signs: Vital Signs Temperature 98.1 F 01/10/17 09:13 Pulse Rate 86 01/10/17 09:13 Respiratory Rate 18 01/10/17 09:13 Blood Pressure 136/70 01/10/17 09:13 O2 Sat by Pulse Oximetry (%) 95 01/10/17 08:22 Constitutional: Yes: No Distress Eyes: Yes: Conjunctiva Clear Cardiovascular: Yes: Regular Rate and Rhythm Respiratory: Yes: CTA Bilaterally Gastrointestinal: Yes: Soft Edema: No Neurological: Yes: Alert, Oriented Labs: CBC, BMP 01/09/17 05:20 01/09/17 05:20 INR, PTT INR 1.22 (0.82-1.09) H 01/09/17 11:20 Laboratory Tests 01/09/17 18:35 PTT (Actin FS) 40.0 H D - ....Imaging EKG: Image Reviewed Assessment/Plan Assessment/Plan Perforated peptic ulcer, pneumoperitoneum s/p partial gastrectomy Bilateral CVAs Paroxysmal atrial fibrillation, newly detected. REC: Etiology of CVAs is likely PAF, newly detected while on tele in ICU. Tolerating heparin well. If YURIDIA is needed, will likely need to be done with GI guidance. Have discussed with Dr. Lawson, and there are no surgical contraindications for a YURIDIA if required.
[2017-01-10] MEDS: HEPARIN - 25,000 UNIT in SODIUM CHLORIDE 495 ML IV SCH (13:00)
[2017-01-10] MEDS: HEPARIN NA (PORCINE) 5,000 UNITS/ML 1ML VIAL IVPUSH PRN (13:00)
--- NOTE | 2017-01-10 15:14 | PN ---
Progress Note, Physician History of Present Illness: stable doing well dirrhoea still present aphasia improving - Current Medication List Current Medications: Active Medications Acetaminophen (Tylenol -) 650 mg PO Q6H PRN PRN Reason: FEVER OR PAIN Heparin Sodium (Porcine) (Heparin -) 1,000 unit IVPUSH PRN PRN PRN Reason: Heparin Last Admin: 01/09/17 21:10 Dose: 1,000 unit Heparin Sodium (Porcine) (Heparin -) 5,000 unit IVPUSH PRN PRN PRN Reason: Heparin Hydromorphone HCl (Dilaudid Injection -) 1 mg IVPB Q3H PRN Heparin Sodium (Porcine) 25, (000 unit/ Sodium Chloride) 500 mls @ 20 mls/hr IV TITR OPAL; 1,000 UNIT/HR PRN Reason: Protocol Last Titration: 01/09/17 21:13 Dose: 1,100 unit/hr Metronidazole (Flagyl 500mg Premixed Ivpb -) 100 mls @ 100 mls/hr IVPB Q8H-IV [facility] Last Admin: 01/10/17 09:04 Dose: 100 mls/hr Pantoprazole Sodium (Protonix 40mg Ivpb (Pre-Docked)) 100 mls @ 200 mls/hr IVPB BID [facility] Last Admin: 01/10/17 09:04 Dose: 200 mls/hr Promethazine HCl (Phenergan Injection -) 12.5 mg IVPB Q6H PRN PRN Reason: NAUSEA AND/OR VOMITING - Objective Vital Signs: Vital Signs Temperature 98.1 F 01/10/17 09:13 Pulse Rate 86 01/10/17 09:13 Respiratory Rate 18 01/10/17 09:13 Blood Pressure 136/70 01/10/17 09:13 O2 Sat by Pulse Oximetry (%) 95 01/10/17 08:22 Constitutional: Yes: No Distress, Calm Cardiovascular: Yes: Regular Rate and Rhythm Respiratory: Yes: Regular, CTA Bilaterally Gastrointestinal: Yes: Normal Bowel Sounds, Soft Musculoskeletal: Yes: WNL Extremities: Yes: WNL Labs: CBC, BMP 01/09/17 05:20 01/09/17 05:20 INR, PTT INR 1.22 (0.82-1.09) H 01/09/17 11:20 Assessment/Plan 66 year old female with significant PMH of HTN, HLD, s/p exploratory laparotomy for gastric perforation. #Gastric perforation, s/p gastrectomy & gastro-jejunostomy #HTN stroke expressive aphasia plan patient doing well except dirrhoea cdiff being send will decide on next step will stop flagyl tomorrow
--- NOTE | 2017-01-10 22:07 | PN ---
Progress Note, Physician - Current Medication List Current Medications: Active Medications Acetaminophen (Tylenol -) 650 mg PO Q6H PRN PRN Reason: FEVER OR PAIN Heparin Sodium (Porcine) (Heparin -) 1,000 unit IVPUSH PRN PRN PRN Reason: Heparin Last Admin: 01/09/17 21:10 Dose: 1,000 unit Heparin Sodium (Porcine) (Heparin -) 5,000 unit IVPUSH PRN PRN PRN Reason: Heparin Last Admin: 01/10/17 13:00 Dose: 5,000 unit Hydromorphone HCl (Dilaudid Injection -) 1 mg IVPB Q3H PRN Heparin Sodium (Porcine) 25, (000 unit/ Sodium Chloride) 500 mls @ 20 mls/hr IV TITR OPAL; 1,000 UNIT/HR PRN Reason: Protocol Last Admin: 01/10/17 13:00 Dose: 25 mls/hr Metronidazole (Flagyl 500mg Premixed Ivpb -) 100 mls @ 100 mls/hr IVPB Q8H-IV OPAL Last Admin: 01/10/17 17:50 Dose: 100 mls/hr Pantoprazole Sodium (Protonix 40mg Ivpb (Pre-Docked)) 100 mls @ 200 mls/hr IVPB BID OPAL Last Admin: 01/10/17 09:04 Dose: 200 mls/hr Promethazine HCl (Phenergan Injection -) 12.5 mg IVPB Q6H PRN PRN Reason: NAUSEA AND/OR VOMITING - Objective Vital Signs: Vital Signs Temperature 99.9 F H 01/10/17 18:00 Pulse Rate 84 01/10/17 18:00 Respiratory Rate 18 01/10/17 18:00 Blood Pressure 133/66 01/10/17 18:00 O2 Sat by Pulse Oximetry (%) 95 01/10/17 08:22 Labs: CBC, BMP 01/09/17 05:20 01/09/17 05:20 INR, PTT INR 1.22 (0.82-1.09) H 01/09/17 11:20 Assessment/Plan A/P 1.COLON PERFORATION/gastric perforation s/p ex-lap, distal gastrectomy, gastro-jejunostomy, feeding jejunostomy Cont feeds Cont IV flagyl 2.CVA Cont IV heparin New onset parosymal AFib
[2017-01-11] MEDS: METRONIDAZOLE 500 MG PREMIXED 100 ML IVPB SCH (02:07)
[2017-01-11 07:27] LABS: MCH 24.2 pg (25.7-33.7); MCHC 31.9 g/dl (32.0-36.0); MEAN CELL VOLUME 75.9 fl (80-96); MEAN PLT VOLUME 7.1 fl (7.5-11.1); PLATELET COUNT 564 K/MM3 (134-434); RDW 17.7 % (11.6-15.6); WHITE BLOOD COUNT 9.1 K/mm3 (4.0-10.0)
[2017-01-11] MEDS: PANTOPRAZOLE SODIUM 40MG/100 ML IVPB SCH ×2 (09:30→21:12)
--- NOTE | 2017-01-11 10:50 | PN ---
Progress Note, Physician History of Present Illness: seen and examined today in nad. awake and alert. 2 sons at bedside. pt states she is feeling much better. no overnight events. no new complaints. - Current Medication List Current Medications: Active Medications Acetaminophen (Tylenol -) 650 mg PO Q6H PRN PRN Reason: FEVER OR PAIN Heparin Sodium (Porcine) (Heparin -) 1,000 unit IVPUSH PRN PRN PRN Reason: Heparin Last Admin: 01/09/17 21:10 Dose: 1,000 unit Heparin Sodium (Porcine) (Heparin -) 5,000 unit IVPUSH PRN PRN PRN Reason: Heparin Last Admin: 01/10/17 13:00 Dose: 5,000 unit Hydromorphone HCl (Dilaudid Injection -) 1 mg IVPB Q3H PRN Heparin Sodium (Porcine) 25, (000 unit/ Sodium Chloride) 500 mls @ 20 mls/hr IV TITR OPAL; 1,000 UNIT/HR PRN Reason: Protocol Last Admin: 01/10/17 13:00 Dose: 25 mls/hr Metronidazole (Flagyl 500mg Premixed Ivpb -) 100 mls @ 100 mls/hr IVPB Q8H-IV OPAL Last Admin: 01/11/17 02:07 Dose: 100 mls/hr Pantoprazole Sodium (Protonix 40mg Ivpb (Pre-Docked)) 100 mls @ 200 mls/hr IVPB BID OPAL Last Admin: 01/10/17 22:07 Dose: 200 mls/hr Promethazine HCl (Phenergan Injection -) 12.5 mg IVPB Q6H PRN PRN Reason: NAUSEA AND/OR VOMITING - Objective Vital Signs: Vital Signs Temperature 98.2 F 01/11/17 09:16 Pulse Rate 69 01/11/17 09:16 Respiratory Rate 18 01/11/17 09:16 Blood Pressure 140/89 01/11/17 09:16 O2 Sat by Pulse Oximetry (%) 95 01/11/17 09:00 Constitutional: Yes: Well Nourished, No Distress, Calm Eyes: Yes: Conjunctiva Clear, EOM Intact, PERRL HENT: Yes: Atraumatic, Normocephalic Neck: Yes: Supple, Trachea Midline Cardiovascular: Yes: Regular Rate and Rhythm, Murmur, S1, S2. No: Bradycardia, Tachycardia, Pulse Irregular, Bruit, JVD, Gallop, Rub, S3, S4, Varicosities Respiratory: Yes: Regular, Diminished. No: Rales, Rhonchi, Wheezes Gastrointestinal: Yes: Normal Bowel Sounds, Soft, Tenderness Extremities: Yes: WNL Edema: No Peripheral Pulses WNL: Yes Peripheral Pulses: Left Doralis Pedis: 2+, Right Dorsalis Pedis: 2+ Neurological: Yes: Alert, Oriented Psychiatric: Yes: Alert, Oriented Labs: CBC, BMP 01/11/17 05:35 01/09/17 05:20 INR, PTT INR 1.22 (0.82-1.09) H 01/09/17 11:20 - ....Imaging Chest X-ray: Report Reviewed, Image Reviewed EKG: Report Reviewed, Image Reviewed Other: Report Reviewed, Image Reviewed (tele-nsr, sinus arrhythmia, no further pafib overnight) Problem List - Problems (1) CVA (cerebral vascular accident) Code(s): I63.9 - CEREBRAL INFARCTION, UNSPECIFIED (2) Colon perforation Code(s): K63.1 - PERFORATION OF INTESTINE (NONTRAUMATIC) (3) Gastric ulcer with hemorrhage and perforation but without obstruction Code(s): K25.6 - CHRONIC OR UNSP GASTRIC ULCER W BOTH HEMORRHAGE AND PERF (4) Pneumoperitoneum Code(s): K66.8 - OTHER SPECIFIED DISORDERS OF PERITONEUM (5) Sepsis Code(s): A41.9 - SEPSIS, UNSPECIFIED ORGANISM (6) Paroxysmal atrial fibrillation Code(s): I48.0 - PAROXYSMAL ATRIAL FIBRILLATION Assessment/Plan Perforated peptic ulcer, pneumoperitoneum s/p partial gastrectomy Bilateral CVAs Paroxysmal atrial fibrillation, newly diagnosed REC: Multiple CVAs suggest embolic events, PAFib newly detected on tele in ICU Tolerating heparin well without reported bleeding. YURIDIA does not seem necessary at this time given documented Pafib thus pt warrants full AC Can transition to po AC, coumadin likely best option given GI pathology If being discharged to rehab can change heparin gtt to Lovenox and bridge to coumadin Would confirm safety of AC plan with surgery prior to the above adjustments
[2017-01-11] MEDS: HEPARIN - 25,000 UNIT in SODIUM CHLORIDE 495 ML IV SCH ×2 (13:40→19:35)
--- NOTE | 2017-01-11 14:09 | PN ---
Progress Note, Physician History of Present Illness: improving aphasia improving - Current Medication List Current Medications: Active Medications Acetaminophen (Tylenol -) 650 mg PO Q6H PRN PRN Reason: FEVER OR PAIN Heparin Sodium (Porcine) (Heparin -) 1,000 unit IVPUSH PRN PRN PRN Reason: Heparin Last Admin: 01/09/17 21:10 Dose: 1,000 unit Heparin Sodium (Porcine) (Heparin -) 5,000 unit IVPUSH PRN PRN PRN Reason: Heparin Last Admin: 01/10/17 13:00 Dose: 5,000 unit Hydromorphone HCl (Dilaudid Injection -) 1 mg IVPB Q3H PRN Heparin Sodium (Porcine) 25, (000 unit/ Sodium Chloride) 500 mls @ 20 mls/hr IV TITR OPAL; 1,000 UNIT/HR PRN Reason: Protocol Last Admin: 01/10/17 13:00 Dose: 25 mls/hr Pantoprazole Sodium (Protonix 40mg Ivpb (Pre-Docked)) 100 mls @ 200 mls/hr IVPB BID OPAL Last Admin: 01/10/17 22:07 Dose: 200 mls/hr Promethazine HCl (Phenergan Injection -) 12.5 mg IVPB Q6H PRN PRN Reason: NAUSEA AND/OR VOMITING - Objective Vital Signs: Vital Signs Temperature 98.2 F 01/11/17 09:16 Pulse Rate 69 01/11/17 09:16 Respiratory Rate 18 01/11/17 09:16 Blood Pressure 140/89 01/11/17 09:16 O2 Sat by Pulse Oximetry (%) 95 01/11/17 09:00 Constitutional: Yes: No Distress, Calm Cardiovascular: Yes: Regular Rate and Rhythm Respiratory: Yes: Regular, CTA Bilaterally Gastrointestinal: Yes: Normal Bowel Sounds, Soft Musculoskeletal: Yes: WNL Extremities: Yes: WNL Neurological: Yes: Alert, Oriented Labs: CBC, BMP 01/11/17 05:35 01/09/17 05:20 INR, PTT INR 1.22 (0.82-1.09) H 01/09/17 11:20 Assessment/Plan 66 year old female with significant PMH of HTN, HLD, s/p exploratory laparotomy for gastric perforation. #Gastric perforation, s/p gastrectomy & gastro-jejunostomy #HTN stroke expressive aphasia plan await fo cdiff report continue current mgmt patient off of abx i think her dirrhoea might be due to feeds
--- NOTE | 2017-01-11 14:23 | PN ---
Progress Note, HOMEWORKER - Note Progress Note: Expressive fluency improving with 70 % achieved upon repetition,and 50% during propositional tasks. Confrontation naming improving with 100% on common words and 70% on less common words.Improved fluency in singing and prayer recitation. Excellent prognosis for improved language fluency, function and recovery. Cognitively intact and highly motivated with excellent support. Excellent rehab candidate.
--- NOTE | 2017-01-11 17:25 | PN ---
Progress Note, Physician History of Present Illness: stable - Current Medication List Current Medications: Active Medications Acetaminophen (Tylenol -) 650 mg PO Q6H PRN PRN Reason: FEVER OR PAIN Heparin Sodium (Porcine) (Heparin -) 1,000 unit IVPUSH PRN PRN PRN Reason: Heparin Last Admin: 01/09/17 21:10 Dose: 1,000 unit Heparin Sodium (Porcine) (Heparin -) 5,000 unit IVPUSH PRN PRN PRN Reason: Heparin Last Admin: 01/10/17 13:00 Dose: 5,000 unit Hydromorphone HCl (Dilaudid Injection -) 1 mg IVPB Q3H PRN Heparin Sodium (Porcine) 25, (000 unit/ Sodium Chloride) 500 mls @ 20 mls/hr IV TITR OPAL; 1,000 UNIT/HR PRN Reason: Protocol Last Admin: 01/10/17 13:00 Dose: 25 mls/hr Pantoprazole Sodium (Protonix 40mg Ivpb (Pre-Docked)) 100 mls @ 200 mls/hr IVPB BID OPAL Last Admin: 01/10/17 22:07 Dose: 200 mls/hr Promethazine HCl (Phenergan Injection -) 12.5 mg IVPB Q6H PRN PRN Reason: NAUSEA AND/OR VOMITING - Objective Vital Signs: Vital Signs Temperature 99 F 01/11/17 14:00 Pulse Rate 88 01/11/17 14:00 Respiratory Rate 20 01/11/17 14:00 Blood Pressure 147/72 01/11/17 14:00 O2 Sat by Pulse Oximetry (%) 95 01/11/17 09:00 Constitutional: Yes: No Distress HENT: Yes: Atraumatic Neck: Yes: Supple Cardiovascular: Yes: Regular Rate and Rhythm Respiratory: Yes: CTA Bilaterally Gastrointestinal: Yes: Normal Bowel Sounds Extremities: Yes: WNL Neurological: Yes: Alert, Oriented Labs: CBC, BMP 01/11/17 05:35 01/09/17 05:20 INR, PTT INR 1.22 (0.82-1.09) H 01/09/17 11:20 Problem List - Problems (1) Colon perforation Code(s): K63.1 - PERFORATION OF INTESTINE (NONTRAUMATIC) (2) Lactic acid acidosis Code(s): E87.2 - ACIDOSIS (3) Pneumoperitoneum Code(s): K66.8 - OTHER SPECIFIED DISORDERS OF PERITONEUM (4) Sepsis Code(s): A41.9 - SEPSIS, UNSPECIFIED ORGANISM (5) Surgical abdomen Code(s): R10.0 - ACUTE ABDOMEN (6) Gastric ulcer with hemorrhage and perforation but without obstruction Code(s): K25.6 - CHRONIC OR UNSP GASTRIC ULCER W BOTH HEMORRHAGE AND PERF (7) Perforated stomach Code(s): K25.5 - CHRONIC OR UNSPECIFIED GASTRIC ULCER WITH PERFORATION (8) CVA (cerebral vascular accident) Code(s): I63.9 - CEREBRAL INFARCTION, UNSPECIFIED Assessment/Plan A/P 1.COLON PERFORATION/gastric perforation s/p ex-lap, distal gastrectomy, gastro-jejunostomy, feeding jejunostomy, abd washout Patient seen and examined in ICU. Awake and alert. Resting comfortably. C/o incisional tenderness. on clear liquid diet on tube feeds 2.CVA speech is much better pt/ot dc planning to rehab Dc abx c diff negative 3.paf on iv heparin h/h low but stable..could be post op drop will check stool occult pt wants to wait for blood transfusion all questions answered of pt and sons fu cbc in am
[2017-01-11] MEDS: HEPARIN NA (PORCINE) 5,000 UNITS/ML 1ML VIAL IVPUSH PRN (21:13)
[2017-01-12] MEDS ORDERED: HEPARIN INFUSION - 500 ML IVPB ONE ×2 (02:40→20:44)
[2017-01-12 08:11] LABS: MCH 23.8 pg (25.7-33.7); MCHC 31.8 g/dl (32.0-36.0); MEAN CELL VOLUME 74.7 fl (80-96); MEAN PLT VOLUME 6.9 fl (7.5-11.1); PLATELET COUNT 586 K/MM3 (134-434); RDW 17.6 % (11.6-15.6); WHITE BLOOD COUNT 7.9 K/mm3 (4.0-10.0)
[2017-01-12] MEDS: PANTOPRAZOLE SODIUM 40MG/100 ML IVPB SCH ×2 (12:26→21:00)
[2017-01-12] MEDS: HEPARIN - 25,000 UNIT in SODIUM CHLORIDE 495 ML IV SCH (22:19)
[2017-01-13 07:27] LABS: MCH 24.2 pg (25.7-33.7); MCHC 32.1 g/dl (32.0-36.0); MEAN CELL VOLUME 75.5 fl (80-96); MEAN PLT VOLUME 7.1 fl (7.5-11.1); PLATELET COUNT 638 K/MM3 (134-434); RDW 17.9 % (11.6-15.6); WHITE BLOOD COUNT 9.1 K/mm3 (4.0-10.0)
--- NOTE | 2017-01-13 09:21 | PN ---
Progress Note, Physician Chief Complaint: alert, no distress History of Present Illness: Tolerating heparin well TELE: NSR w/ episode recurrent PAF at 03:37 01/12 - Current Medication List Current Medications: Active Medications Acetaminophen (Tylenol -) 650 mg PO Q6H PRN PRN Reason: FEVER OR PAIN Heparin Sodium (Porcine) (Heparin -) 1,000 unit IVPUSH PRN PRN PRN Reason: Heparin Last Admin: 01/09/17 21:10 Dose: 1,000 unit Heparin Sodium (Porcine) (Heparin -) 5,000 unit IVPUSH PRN PRN PRN Reason: Heparin Last Admin: 01/11/17 21:13 Dose: 5,000 unit Heparin Sodium (Porcine) 25, (000 unit/ Sodium Chloride) 500 mls @ 20 mls/hr IV TITR OPAL; 1,000 UNIT/HR PRN Reason: Protocol Last Admin: 01/12/17 22:19 Dose: 28 mls/hr Pantoprazole Sodium (Protonix 40mg Ivpb (Pre-Docked)) 100 mls @ 200 mls/hr IVPB BID OPAL Last Admin: 01/12/17 21:00 Dose: 200 mls/hr Promethazine HCl (Phenergan Injection -) 12.5 mg IVPB Q6H PRN PRN Reason: NAUSEA AND/OR VOMITING - Objective Vital Signs: Vital Signs Temperature 97.6 F 01/13/17 05:45 Pulse Rate 82 01/13/17 05:45 Respiratory Rate 20 01/13/17 05:45 Blood Pressure 146/70 01/13/17 05:45 O2 Sat by Pulse Oximetry (%) 95 01/12/17 21:00 Constitutional: Yes: No Distress Eyes: Yes: Conjunctiva Clear Cardiovascular: Yes: Regular Rate and Rhythm Respiratory: Yes: CTA Bilaterally Gastrointestinal: Yes: Soft Edema: No Labs: CBC, BMP 01/13/17 05:35 01/09/17 05:20 INR, PTT INR 1.22 (0.82-1.09) H 01/09/17 11:20 Laboratory Tests 01/09/17 01/13/17 01/13/17 05:20 05:35 05:35 WBC 9.1 Hgb 8.6 L Hct 26.8 L Plt Count 638 H PTT (Actin FS) 58.8 H Potassium 3.8 BUN 8 Creatinine 0.4 L - ....Imaging EKG: Image Reviewed Assessment/Plan Assessment/Plan Perforated peptic ulcer, pneumoperitoneum s/p partial gastrectomy Bilateral CVAs Paroxysmal atrial fibrillation, newly diagnosed REC: Multiple CVAs suggest embolic events, PAFib newly detected on tele in ICU Tolerating heparin well without reported bleeding. YURIDIA does not seem necessary at this time given documented Pafib thus pt warrants full AC Can transition to po AC, coumadin likely best option given GI pathology If being discharged to rehab can change heparin gtt to Lovenox and bridge to coumadin Have previously discussed with surgery, Dr. Lawson who has approved AC. Start coumadin.
[2017-01-13] MEDS: HEPARIN - 25,000 UNIT in SODIUM CHLORIDE 495 ML IV SCH (10:24)
[2017-01-13] MEDS: PANTOPRAZOLE SODIUM 40MG/100 ML IVPB SCH ×2 (10:26→21:01)
[2017-01-13 10:40] LABS: INR 1.18 (0.82-1.09)
--- NOTE | 2017-01-13 16:15 | PN ---
Progress Note, Physician History of Present Illness: doing well - Current Medication List Current Medications: Active Medications Acetaminophen (Tylenol -) 650 mg PO Q6H PRN PRN Reason: FEVER OR PAIN Heparin Sodium (Porcine) (Heparin -) 1,000 unit IVPUSH PRN PRN PRN Reason: Heparin Last Admin: 01/09/17 21:10 Dose: 1,000 unit Heparin Sodium (Porcine) (Heparin -) 5,000 unit IVPUSH PRN PRN PRN Reason: Heparin Last Admin: 01/11/17 21:13 Dose: 5,000 unit Heparin Sodium (Porcine) 25, (000 unit/ Sodium Chloride) 500 mls @ 20 mls/hr IV TITR OPAL; 1,000 UNIT/HR PRN Reason: Protocol Last Admin: 01/13/17 10:24 Dose: 28 mls/hr Pantoprazole Sodium (Protonix 40mg Ivpb (Pre-Docked)) 100 mls @ 200 mls/hr IVPB BID OPAL Last Admin: 01/13/17 10:26 Dose: 200 mls/hr Promethazine HCl (Phenergan Injection -) 12.5 mg IVPB Q6H PRN PRN Reason: NAUSEA AND/OR VOMITING Warfarin Sodium (Coumadin -) 5 mg PO DAILY@1800 OPAL - Objective Vital Signs: Vital Signs Temperature 98.2 F 01/13/17 08:20 Pulse Rate 86 01/13/17 08:20 Respiratory Rate 14 01/13/17 08:20 Blood Pressure 146/80 01/13/17 08:20 O2 Sat by Pulse Oximetry (%) 95 01/12/17 21:00 Constitutional: Yes: No Distress HENT: Yes: Atraumatic Neck: Yes: Supple Cardiovascular: Yes: Regular Rate and Rhythm Respiratory: Yes: CTA Bilaterally Gastrointestinal: Yes: Normal Bowel Sounds, Other (dressing in place) Extremities: Yes: WNL Labs: CBC, BMP 01/13/17 05:35 01/09/17 05:20 INR, PTT INR 1.18 (0.82-1.09) H 01/13/17 07:00 Problem List - Problems (1) Colon perforation Code(s): K63.1 - PERFORATION OF INTESTINE (NONTRAUMATIC) (2) Lactic acid acidosis Code(s): E87.2 - ACIDOSIS (3) Pneumoperitoneum Code(s): K66.8 - OTHER SPECIFIED DISORDERS OF PERITONEUM (4) Sepsis Code(s): A41.9 - SEPSIS, UNSPECIFIED ORGANISM (5) Surgical abdomen Code(s): R10.0 - ACUTE ABDOMEN (6) Gastric ulcer with hemorrhage and perforation but without obstruction Code(s): K25.6 - CHRONIC OR UNSP GASTRIC ULCER W BOTH HEMORRHAGE AND PERF (7) Perforated stomach Code(s): K25.5 - CHRONIC OR UNSPECIFIED GASTRIC ULCER WITH PERFORATION (8) CVA (cerebral vascular accident) Code(s): I63.9 - CEREBRAL INFARCTION, UNSPECIFIED Assessment/Plan A/P 1.COLON PERFORATION/gastric perforation s/p ex-lap, distal gastrectomy, gastro-jejunostomy, feeding jejunostomy, abd washout Patient seen and examined in ICU. Awake and alert. Resting comfortably. C/o incisional tenderness. on clear liquid diet on tube feeds 2.CVA speech is much better pt/ot dc planning to rehab Dc abx c diff negative 3.paf on heparin/coumadin stool occult...negative pt wants to wait for blood transfusion all questions answered of pt and sons fu cbc in am 314...bad storm..did not come to hosp but with nurses on phone managing pt...all stable
--- NOTE | 2017-01-13 16:20 | PN ---
Progress Note, Physician History of Present Illness: doing well - Current Medication List Current Medications: Active Medications Acetaminophen (Tylenol -) 650 mg PO Q6H PRN PRN Reason: FEVER OR PAIN Heparin Sodium (Porcine) (Heparin -) 1,000 unit IVPUSH PRN PRN PRN Reason: Heparin Last Admin: 01/09/17 21:10 Dose: 1,000 unit Heparin Sodium (Porcine) (Heparin -) 5,000 unit IVPUSH PRN PRN PRN Reason: Heparin Last Admin: 01/11/17 21:13 Dose: 5,000 unit Heparin Sodium (Porcine) 25, (000 unit/ Sodium Chloride) 500 mls @ 20 mls/hr IV TITR OPAL; 1,000 UNIT/HR PRN Reason: Protocol Last Admin: 01/13/17 10:24 Dose: 28 mls/hr Pantoprazole Sodium (Protonix 40mg Ivpb (Pre-Docked)) 100 mls @ 200 mls/hr IVPB BID OPAL Last Admin: 01/13/17 10:26 Dose: 200 mls/hr Promethazine HCl (Phenergan Injection -) 12.5 mg IVPB Q6H PRN PRN Reason: NAUSEA AND/OR VOMITING Warfarin Sodium (Coumadin -) 5 mg PO DAILY@1800 OPAL - Objective Vital Signs: Vital Signs Temperature 98.2 F 01/13/17 08:20 Pulse Rate 86 01/13/17 08:20 Respiratory Rate 14 01/13/17 08:20 Blood Pressure 146/80 01/13/17 08:20 O2 Sat by Pulse Oximetry (%) 95 01/13/17 09:00 Constitutional: Yes: No Distress HENT: Yes: Atraumatic Neck: Yes: Supple Cardiovascular: Yes: Regular Rate and Rhythm Respiratory: Yes: CTA Bilaterally Gastrointestinal: Yes: Normal Bowel Sounds, Other (dressing in place) Extremities: Yes: WNL Neurological: Yes: Alert, Oriented Labs: CBC, BMP 01/13/17 05:35 01/09/17 05:20 INR, PTT INR 1.18 (0.82-1.09) H 01/13/17 07:00 Problem List - Problems (1) Colon perforation Code(s): K63.1 - PERFORATION OF INTESTINE (NONTRAUMATIC) (2) Lactic acid acidosis Code(s): E87.2 - ACIDOSIS (3) Pneumoperitoneum Code(s): K66.8 - OTHER SPECIFIED DISORDERS OF PERITONEUM (4) Sepsis Code(s): A41.9 - SEPSIS, UNSPECIFIED ORGANISM (5) Surgical abdomen Code(s): R10.0 - ACUTE ABDOMEN (6) Gastric ulcer with hemorrhage and perforation but without obstruction Code(s): K25.6 - CHRONIC OR UNSP GASTRIC ULCER W BOTH HEMORRHAGE AND PERF (7) Perforated stomach Code(s): K25.5 - CHRONIC OR UNSPECIFIED GASTRIC ULCER WITH PERFORATION (8) CVA (cerebral vascular accident) Code(s): I63.9 - CEREBRAL INFARCTION, UNSPECIFIED Assessment/Plan A/P 1.COLON PERFORATION/gastric perforation s/p ex-lap, distal gastrectomy, gastro-jejunostomy, feeding jejunostomy, abd washout Patient seen and examined in ICU. Awake and alert. Resting comfortably. C/o incisional tenderness. on clear liquid diet on tube feeds 2.CVA speech is much better pt/ot dc planning to rehab Dc abx c diff negative 3.paf on heparin/coumadin stool occult...negative pt wants to wait for blood transfusion all questions answered of pt and sons fu cbc in am 01/12...bad storm..did not come but with nurses on phone managing pt....all stable
[2017-01-13] MEDS: WARFARIN NA 5 MG TABLET (UD) PO SCH (17:33)
[2017-01-14] MEDS ORDERED: HEPARIN INFUSION - 500 ML IVPB ONE (06:24)
[2017-01-14] MEDS: HEPARIN - 25,000 UNIT in SODIUM CHLORIDE 495 ML IV SCH ×3 (06:25→22:58)
[2017-01-14 08:00] LABS: BASOPHIL 0.7 % (0-2.0); EOSINOPHIL 2.9 % (0-4.5); MCH 23.8 pg (25.7-33.7); MCHC 31.9 g/dl (32.0-36.0); MEAN CELL VOLUME 74.4 fl (80-96); MEAN PLT VOLUME 6.7 fl (7.5-11.1); NEUTROPHILS 67.6 % (42.8-82.8); PLATELET COUNT 623 K/MM3 (134-434); WHITE BLOOD COUNT 10.5 K/mm3 (4.0-10.0)
[2017-01-14 08:31] LABS: INR 1.18 (0.82-1.09)
--- NOTE | 2017-01-14 09:45 | PN ---
Progress Note, Physician Chief Complaint: no CP or SOB Had some abdominal "cramping" yesterday and again this AM, but now resolved No nausea or vomiting. She reports that her rectal tubing was "crimped" yesterday when she was experiencing cramps - Current Medication List Current Medications: Active Medications Acetaminophen (Tylenol -) 650 mg PO Q6H PRN PRN Reason: FEVER OR PAIN Heparin Sodium (Porcine) (Heparin -) 1,000 unit IVPUSH PRN PRN PRN Reason: Heparin Last Admin: 01/09/17 21:10 Dose: 1,000 unit Heparin Sodium (Porcine) (Heparin -) 5,000 unit IVPUSH PRN PRN PRN Reason: Heparin Last Admin: 01/11/17 21:13 Dose: 5,000 unit Heparin Sodium (Porcine) 25, (000 unit/ Sodium Chloride) 500 mls @ 20 mls/hr IV TITR OPAL; 1,000 UNIT/HR PRN Reason: Protocol Last Admin: 01/14/17 06:25 Dose: 28 mls/hr Pantoprazole Sodium (Protonix 40mg Ivpb (Pre-Docked)) 100 mls @ 200 mls/hr IVPB BID OPAL Last Admin: 01/13/17 21:01 Dose: 200 mls/hr Promethazine HCl (Phenergan Injection -) 12.5 mg IVPB Q6H PRN PRN Reason: NAUSEA AND/OR VOMITING Warfarin Sodium (Coumadin -) 5 mg PO DAILY@1800 OPAL Last Admin: 01/13/17 17:33 Dose: 5 mg - Objective Vital Signs: Vital Signs Temperature 99.6 F 01/14/17 05:50 Pulse Rate 91 H 01/14/17 05:50 Respiratory Rate 20 01/14/17 05:50 Blood Pressure 143/68 01/14/17 05:50 O2 Sat by Pulse Oximetry (%) 95 01/13/17 21:00 Constitutional: Yes: Calm Cardiovascular: Yes: Regular Rate and Rhythm Respiratory: Yes: CTA Bilaterally Gastrointestinal: Yes: Soft (mild tenderness, no rebound or guarding.), Other ( bowel sounds present.) Edema: Yes Edema: LLE: 1+, RLE: 1+ Neurological: Yes: Alert, Oriented Labs: CBC, BMP 01/09/17 05:20 INR, PTT INR 1.18 (0.82-1.09) H 01/14/17 07:30 Laboratory Tests 01/09/17 01/14/17 01/14/17 05:20 07:30 07:30 WBC 10.5 H Hgb 8.4 L Hct 26.4 L Plt Count 623 H INR PTT (Actin FS) 58.6 H Sodium 141 Potassium 3.8 BUN 8 Creatinine 0.4 L 01/14/17 07:30 WBC Hgb Hct Plt Count INR 1.18 H PTT (Actin FS) Sodium Potassium BUN Creatinine Assessment/Plan Assessment/Plan Perforated peptic ulcer, pneumoperitoneum s/p partial gastrectomy Bilateral CVAs Paroxysmal atrial fibrillation, newly diagnosed REC: Multiple CVAs suggest embolic events, PAFib newly detected on this admission. Tolerating heparin well without bleeding. Coumadin started. YURIDIA does not seem necessary at this time given documented Pafib thus pt warrants full AC Clinically monitor episodic abdominal cramping she has had in last 24 hours. Surgery f/u.
[2017-01-14] MEDS: PANTOPRAZOLE SODIUM 40MG/100 ML IVPB SCH ×2 (09:56→22:36)
--- NOTE | 2017-01-14 14:45 | PN ---
Progress Note (short form) - Note Progress Note: Surgery- Dr. Sloan Patient seen this morning and called by nursing. Patient is complaining of gas pain and continued diarrhea. Last Vital Signs Temp Pulse Resp BP Pulse Ox 98.3 F 95 H 20 158/79 93 L 01/14/17 09:00 01/14/17 09:00 01/14/17 09:00 01/14/17 09:00 01/14/17 09:00 CBC, BMP 01/14/17 07:30 01/09/17 05:20 Exam: Gen: NAD Abd: soft, nontender Problem List - Problems (1) Surgical abdomen Assessment/Plan: s/p exploratory laparotomy, distal gastrectomy, gastro-jejunostomy, feeding jejunostomy, abdominal washout 12/25/16 cdiff 01/[address] Sloan Continue tube feeds at current rate and change full liquid diet to clears Code(s): R10.0 - ACUTE ABDOMEN
--- NOTE | 2017-01-14 14:55 | PN ---
Progress Note, OCCUPATIONAL REHABILITATION AIDE - Note Progress Note: Worked on oral reading of phrases, with generally 2 words read at a time with dysfluent output and occasional phonemic errors. With moderate cues, pt was better able to self correct sound errors, and improve fluency 60% of the time. Excellent prognosis for improved language fluency, function and recovery. Cognitively intact and highly motivated with excellent support. Excellent rehab candidate. c/o cramps from BMs. Nursing aware.
--- NOTE | 2017-01-14 15:22 | PN ---
Progress Note, Physician History of Present Illness: patient still with quite profuse dirrhoea has a rectal tube placed decubitus ulcer - Current Medication List Current Medications: Active Medications Acetaminophen (Tylenol -) 650 mg PO Q6H PRN PRN Reason: FEVER OR PAIN Heparin Sodium (Porcine) (Heparin -) 1,000 unit IVPUSH PRN PRN PRN Reason: Heparin Last Admin: 01/09/17 21:10 Dose: 1,000 unit Heparin Sodium (Porcine) (Heparin -) 5,000 unit IVPUSH PRN PRN PRN Reason: Heparin Last Admin: 01/11/17 21:13 Dose: 5,000 unit Heparin Sodium (Porcine) 25, (000 unit/ Sodium Chloride) 500 mls @ 20 mls/hr IV TITR OPAL; 1,000 UNIT/HR PRN Reason: Protocol Last Admin: 01/14/17 15:05 Dose: 28 mls/hr Pantoprazole Sodium (Protonix 40mg Ivpb (Pre-Docked)) 100 mls @ 200 mls/hr IVPB BID OPAL Last Admin: 01/14/17 09:56 Dose: 200 mls/hr Promethazine HCl (Phenergan Injection -) 12.5 mg IVPB Q6H PRN PRN Reason: NAUSEA AND/OR VOMITING Warfarin Sodium (Coumadin -) 5 mg PO DAILY@1800 OPAL Last Admin: 01/13/17 17:33 Dose: 5 mg - Objective Vital Signs: Vital Signs Temperature 98.3 F 01/14/17 09:00 Pulse Rate 95 H 01/14/17 09:00 Respiratory Rate 20 01/14/17 09:00 Blood Pressure 158/79 01/14/17 09:00 O2 Sat by Pulse Oximetry (%) 93 L 01/14/17 09:00 Constitutional: Yes: No Distress, Calm Neck: Yes: Supple Cardiovascular: Yes: Regular Rate and Rhythm Respiratory: Yes: Regular, CTA Bilaterally Gastrointestinal: Yes: Normal Bowel Sounds, Soft, Other Musculoskeletal: Yes: WNL Extremities: Yes: WNL Wound/Incision: Yes: Other (decubitus ulcer) Labs: CBC, BMP 01/14/17 07:30 01/09/17 05:20 INR, PTT INR 1.18 (0.82-1.09) H 01/14/17 07:30 Assessment/Plan 66 year old female with significant PMH of HTN, HLD, s/p exploratory laparotomy for gastric perforation. #Gastric perforation, s/p gastrectomy & gastro-jejunostomy #HTN stroke expressive aphasia plan cdiff negfative continue supportive care
--- NOTE | 2017-01-14 16:39 | PN ---
Progress Note, Physician History of Present Illness: patient doing well no new issues urine cx noted - Current Medication List Current Medications: Active Medications Acetaminophen (Tylenol -) 650 mg PO Q6H PRN PRN Reason: FEVER OR PAIN Heparin Sodium (Porcine) (Heparin -) 1,000 unit IVPUSH PRN PRN PRN Reason: Heparin Last Admin: 01/09/17 21:10 Dose: 1,000 unit Heparin Sodium (Porcine) (Heparin -) 5,000 unit IVPUSH PRN PRN PRN Reason: Heparin Last Admin: 01/11/17 21:13 Dose: 5,000 unit Heparin Sodium (Porcine) 25, (000 unit/ Sodium Chloride) 500 mls @ 20 mls/hr IV TITR OPAL; 1,000 UNIT/HR PRN Reason: Protocol Last Admin: 01/14/17 15:05 Dose: 28 mls/hr Pantoprazole Sodium (Protonix 40mg Ivpb (Pre-Docked)) 100 mls @ 200 mls/hr IVPB BID OPAL Last Admin: 01/14/17 09:56 Dose: 200 mls/hr Promethazine HCl (Phenergan Injection -) 12.5 mg IVPB Q6H PRN PRN Reason: NAUSEA AND/OR VOMITING Warfarin Sodium (Coumadin -) 5 mg PO DAILY@1800 OPAL Last Admin: 01/13/17 17:33 Dose: 5 mg - Objective Vital Signs: Vital Signs Temperature 99.2 F 01/14/17 15:43 Pulse Rate 94 H 01/14/17 15:43 Respiratory Rate 20 01/14/17 15:43 Blood Pressure 150/77 01/14/17 15:43 O2 Sat by Pulse Oximetry (%) 93 L 01/14/17 09:00 Constitutional: Yes: No Distress, Calm Cardiovascular: Yes: Regular Rate and Rhythm Respiratory: Yes: Regular, CTA Bilaterally Gastrointestinal: Yes: Normal Bowel Sounds, Soft, Other Musculoskeletal: Yes: WNL Extremities: Yes: WNL Neurological: Yes: Alert, Oriented Psychiatric: Yes: Alert Labs: CBC, BMP 01/14/17 07:30 01/09/17 05:20 INR, PTT INR 1.18 (0.82-1.09) H 01/14/17 07:30 Assessment/Plan 66 year old female with significant PMH of HTN, HLD, s/p exploratory laparotomy for gastric perforation. #Gastric perforation, s/p gastrectomy & gastro-jejunostomy #HTN stroke expressive aphasia plan patient stable dirrhoea urine cx noted it is contamination no treatment necessarily
[2017-01-14] MEDS: WARFARIN NA 5 MG TABLET (UD) PO SCH (17:59)
--- NOTE | 2017-01-14 18:03 | PN ---
Progress Note, Physician History of Present Illness: doing well - Current Medication List Current Medications: Active Medications Acetaminophen (Tylenol -) 650 mg PO Q6H PRN PRN Reason: FEVER OR PAIN Heparin Sodium (Porcine) (Heparin -) 1,000 unit IVPUSH PRN PRN PRN Reason: Heparin Last Admin: 01/09/17 21:10 Dose: 1,000 unit Heparin Sodium (Porcine) (Heparin -) 5,000 unit IVPUSH PRN PRN PRN Reason: Heparin Last Admin: 01/11/17 21:13 Dose: 5,000 unit Heparin Sodium (Porcine) 25, (000 unit/ Sodium Chloride) 500 mls @ 20 mls/hr IV TITR OPAL; 1,000 UNIT/HR PRN Reason: Protocol Last Admin: 01/14/17 15:05 Dose: 28 mls/hr Pantoprazole Sodium (Protonix 40mg Ivpb (Pre-Docked)) 100 mls @ 200 mls/hr IVPB BID OPAL Last Admin: 01/14/17 09:56 Dose: 200 mls/hr Promethazine HCl (Phenergan Injection -) 12.5 mg IVPB Q6H PRN PRN Reason: NAUSEA AND/OR VOMITING Warfarin Sodium (Coumadin -) 5 mg PO DAILY@1800 OPAL Last Admin: 01/14/17 17:59 Dose: 5 mg - Objective Vital Signs: Vital Signs Temperature 99.2 F 01/14/17 15:43 Pulse Rate 94 H 01/14/17 15:43 Respiratory Rate 20 01/14/17 15:43 Blood Pressure 150/77 01/14/17 15:43 O2 Sat by Pulse Oximetry (%) 93 L 01/14/17 09:00 Constitutional: Yes: No Distress HENT: Yes: Atraumatic Neck: Yes: Supple Cardiovascular: Yes: Regular Rate and Rhythm Respiratory: Yes: CTA Bilaterally Gastrointestinal: Yes: Normal Bowel Sounds, Tenderness (AT THE SURGERY SITE) Extremities: Yes: WNL Neurological: Yes: Alert, Oriented Labs: CBC, BMP 01/14/17 07:30 01/09/17 05:20 INR, PTT INR 1.18 (0.82-1.09) H 01/14/17 07:30 Problem List - Problems (1) Colon perforation Code(s): K63.1 - PERFORATION OF INTESTINE (NONTRAUMATIC) (2) Lactic acid acidosis Code(s): E87.2 - ACIDOSIS (3) Pneumoperitoneum Code(s): K66.8 - OTHER SPECIFIED DISORDERS OF PERITONEUM (4) Sepsis Code(s): A41.9 - SEPSIS, UNSPECIFIED ORGANISM (5) Surgical abdomen Code(s): R10.0 - ACUTE ABDOMEN (6) Gastric ulcer with hemorrhage and perforation but without obstruction Code(s): K25.6 - CHRONIC OR UNSP GASTRIC ULCER W BOTH HEMORRHAGE AND PERF (7) Perforated stomach Code(s): K25.5 - CHRONIC OR UNSPECIFIED GASTRIC ULCER WITH PERFORATION (8) CVA (cerebral vascular accident) Code(s): I63.9 - CEREBRAL INFARCTION, UNSPECIFIED Assessment/Plan A/P 1.COLON PERFORATION/gastric perforation s/p ex-lap, distal gastrectomy, gastro-jejunostomy, feeding jejunostomy, abd washout on clear liquid diet on tube feeds 2.CVA speech is much better pt/ot dc planning to rehab 3.paf on heparin/coumadin...CHECK PT/INR stool occult...negative pt wants to wait for blood transfusion 4.DIARRHEA HAS BEEN HAVING IT SINCE ON tf C DIFF NEGATIVE RECTAL TUBE TO PREVENT BED SORES AND SKIN IRRITATION DUE TO DIARRHEA WILL SEND ANOTHER ONE D/W DR FUNK HE WILL COME SEE PT
[2017-01-15 07:56] LABS: MCHC 32.1 g/dl (32.0-36.0); MEAN CELL VOLUME 74.7 fl (80-96); MEAN PLT VOLUME 7.1 fl (7.5-11.1); PLATELET COUNT 599 K/MM3 (134-434); RDW 17.7 % (11.6-15.6); WHITE BLOOD COUNT 8.9 K/mm3 (4.0-10.0)
[2017-01-15 08:45] LABS: INR 1.21 (0.82-1.09); PROTHROMBIN TIME (PATIENT) 13.4 SEC (9.98-11.88)
[2017-01-15] MEDS: PANTOPRAZOLE SODIUM 40MG/100 ML IVPB SCH ×2 (08:59→22:15)
--- NOTE | 2017-01-15 09:01 | PN ---
Progress Note, Physician Chief Complaint: no complaints today - Current Medication List Current Medications: Active Medications Acetaminophen (Tylenol -) 650 mg PO Q6H PRN PRN Reason: FEVER OR PAIN Heparin Sodium (Porcine) (Heparin -) 1,000 unit IVPUSH PRN PRN PRN Reason: Heparin Last Admin: 01/09/17 21:10 Dose: 1,000 unit Heparin Sodium (Porcine) (Heparin -) 5,000 unit IVPUSH PRN PRN PRN Reason: Heparin Last Admin: 01/11/17 21:13 Dose: 5,000 unit Heparin Sodium (Porcine) 25, (000 unit/ Sodium Chloride) 500 mls @ 20 mls/hr IV TITR OPAL; 1,000 UNIT/HR PRN Reason: Protocol Last Admin: 01/14/17 22:58 Dose: 28 mls/hr Pantoprazole Sodium (Protonix 40mg Ivpb (Pre-Docked)) 100 mls @ 200 mls/hr IVPB BID OPAL Last Admin: 01/15/17 08:59 Dose: 200 mls/hr Promethazine HCl (Phenergan Injection -) 12.5 mg IVPB Q6H PRN PRN Reason: NAUSEA AND/OR VOMITING Warfarin Sodium (Coumadin -) 5 mg PO DAILY@1800 OPAL Last Admin: 01/14/17 17:59 Dose: 5 mg - Objective Vital Signs: Vital Signs Temperature 97.2 F L 01/15/17 06:00 Pulse Rate 88 01/15/17 06:00 Respiratory Rate 18 01/15/17 06:00 Blood Pressure 152/75 01/15/17 06:00 O2 Sat by Pulse Oximetry (%) 93 L 01/14/17 21:00 Constitutional: Yes: No Distress Cardiovascular: Yes: Regular Rate and Rhythm Respiratory: Yes: CTA Bilaterally Gastrointestinal: Yes: Soft (no rebound or guarding) Edema: No Neurological: Yes: Alert Labs: CBC, BMP 01/15/17 05:35 01/09/17 05:20 INR, PTT INR 1.21 (0.82-1.09) H 01/15/17 05:35 Laboratory Tests 01/09/17 01/15/17 01/15/17 05:20 05:35 05:35 WBC 8.9 Hgb 8.1 L Plt Count 599 H INR PTT (Actin FS) 50.2 H Sodium 141 Potassium 3.8 Creatinine 0.4 L 01/15/17 05:35 WBC Hgb Plt Count INR 1.21 H PTT (Actin FS) Sodium Potassium Creatinine Assessment/Plan Assessment/Plan Perforated peptic ulcer, pneumoperitoneum s/p partial gastrectomy Bilateral CVAs Paroxysmal atrial fibrillation, newly diagnosed REC: Multiple CVAs suggest embolic events, PAFib newly detected on this admission. Tolerating heparin well without bleeding. Coumadin started. YURIDIA does not seem necessary at this time given documented Pafib thus pt warrants full AC
--- NOTE | 2017-01-15 15:08 | PN ---
Progress Note, Physician History of Present Illness: patient doing well no new issues family in the room - Current Medication List Current Medications: Active Medications Acetaminophen (Tylenol -) 650 mg PO Q6H PRN PRN Reason: FEVER OR PAIN Heparin Sodium (Porcine) (Heparin -) 1,000 unit IVPUSH PRN PRN PRN Reason: Heparin Last Admin: 01/09/17 21:10 Dose: 1,000 unit Heparin Sodium (Porcine) (Heparin -) 5,000 unit IVPUSH PRN PRN PRN Reason: Heparin Last Admin: 01/11/17 21:13 Dose: 5,000 unit Heparin Sodium (Porcine) 25, (000 unit/ Sodium Chloride) 500 mls @ 20 mls/hr IV TITR OPAL; 1,000 UNIT/HR PRN Reason: Protocol Last Admin: 01/14/17 22:58 Dose: 28 mls/hr Pantoprazole Sodium (Protonix 40mg Ivpb (Pre-Docked)) 100 mls @ 200 mls/hr IVPB BID OPAL Last Admin: 01/15/17 08:59 Dose: 200 mls/hr Promethazine HCl (Phenergan Injection -) 12.5 mg IVPB Q6H PRN PRN Reason: NAUSEA AND/OR VOMITING Warfarin Sodium (Coumadin -) 5 mg PO DAILY@1800 [facility]AL Last Admin: 01/14/17 17:59 Dose: 5 mg - Objective Vital Signs: Vital Signs Temperature 98.1 F 01/15/17 13:54 Pulse Rate 94 H 01/15/17 13:54 Respiratory Rate 18 01/15/17 13:54 Blood Pressure 131/73 01/15/17 13:54 O2 Sat by Pulse Oximetry (%) 93 L 01/14/17 21:00 Constitutional: Yes: No Distress, Calm Cardiovascular: Yes: Regular Rate and Rhythm Respiratory: Yes: Regular, CTA Bilaterally Gastrointestinal: Yes: Normal Bowel Sounds, Soft Musculoskeletal: Yes: WNL Extremities: Yes: WNL Wound/Incision: Yes: Other (decubitus ulcer) Neurological: Yes: Alert, Oriented Psychiatric: Yes: Alert Labs: CBC, BMP 01/15/17 05:35 01/09/17 05:20 INR, PTT INR 1.21 (0.82-1.09) H 01/15/17 05:35 Assessment/Plan 66 year old female with significant PMH of HTN, HLD, s/p exploratory laparotomy for gastric perforation. #Gastric perforation, s/p gastrectomy & gastro-jejunostomy #HTN stroke expressive aphasia dirrhoea better plan continue nutritional support wbc has normalized
--- NOTE | 2017-01-15 16:49 | PN ---
Progress Note, Physician History of Present Illness: doing well - Current Medication List Current Medications: Active Medications Acetaminophen (Tylenol -) 650 mg PO Q6H PRN PRN Reason: FEVER OR PAIN Heparin Sodium (Porcine) (Heparin -) 1,000 unit IVPUSH PRN PRN PRN Reason: Heparin Last Admin: 01/09/17 21:10 Dose: 1,000 unit Heparin Sodium (Porcine) (Heparin -) 5,000 unit IVPUSH PRN PRN PRN Reason: Heparin Last Admin: 01/11/17 21:13 Dose: 5,000 unit Heparin Sodium (Porcine) 25, (000 unit/ Sodium Chloride) 500 mls @ 20 mls/hr IV TITR OPAL; 1,000 UNIT/HR PRN Reason: Protocol Last Admin: 01/14/17 22:58 Dose: 28 mls/hr Pantoprazole Sodium (Protonix 40mg Ivpb (Pre-Docked)) 100 mls @ 200 mls/hr IVPB BID OPAL Last Admin: 01/15/17 08:59 Dose: 200 mls/hr Promethazine HCl (Phenergan Injection -) 12.5 mg IVPB Q6H PRN PRN Reason: NAUSEA AND/OR VOMITING Warfarin Sodium (Coumadin -) 5 mg PO DAILY@1800 OPAL Last Admin: 01/14/17 17:59 Dose: 5 mg - Objective Vital Signs: Vital Signs Temperature 98.1 F 01/15/17 13:54 Pulse Rate 94 H 01/15/17 13:54 Respiratory Rate 18 01/15/17 13:54 Blood Pressure 131/73 01/15/17 13:54 O2 Sat by Pulse Oximetry (%) 94 L 01/15/17 09:00 Constitutional: Yes: No Distress HENT: Yes: Atraumatic Neck: Yes: Supple Cardiovascular: Yes: Regular Rate and Rhythm Respiratory: Yes: CTA Bilaterally Gastrointestinal: Yes: Normal Bowel Sounds, Tenderness (much improved a the surgery site) Extremities: Yes: WNL Neurological: Yes: Alert, Oriented Labs: CBC, BMP 01/15/17 05:35 01/09/17 05:20 INR, PTT INR 1.21 (0.82-1.09) H 01/15/17 05:35 Problem List - Problems (1) Colon perforation Code(s): K63.1 - PERFORATION OF INTESTINE (NONTRAUMATIC) (2) Lactic acid acidosis Code(s): E87.2 - ACIDOSIS (3) Pneumoperitoneum Code(s): K66.8 - OTHER SPECIFIED DISORDERS OF PERITONEUM (4) Sepsis Code(s): A41.9 - SEPSIS, UNSPECIFIED ORGANISM (5) Surgical abdomen Code(s): R10.0 - ACUTE ABDOMEN (6) Gastric ulcer with hemorrhage and perforation but without obstruction Code(s): K25.6 - CHRONIC OR UNSP GASTRIC ULCER W BOTH HEMORRHAGE AND PERF (7) Perforated stomach Code(s): K25.5 - CHRONIC OR UNSPECIFIED GASTRIC ULCER WITH PERFORATION (8) CVA (cerebral vascular accident) Code(s): I63.9 - CEREBRAL INFARCTION, UNSPECIFIED Assessment/Plan A/P 1.COLON PERFORATION/gastric perforation s/p ex-lap, distal gastrectomy, gastro-jejunostomy, feeding jejunostomy, abd washout on clear liquid diet on tube feeds 2.CVA speech is much better pt/ot dc planning to rehab Dc abx c diff negative 3.paf on heparin/coumadin stool occult...negative 4.DIARRHEA c diff negative still has loose bms, could be due to tube feed will decrease the rate d/w surgery
[2017-01-15] MEDS: HEPARIN - 25,000 UNIT in SODIUM CHLORIDE 495 ML IV SCH (17:19)
[2017-01-15] MEDS: WARFARIN NA 5 MG TABLET (UD) PO SCH (17:19)
--- NOTE | 2017-01-15 17:53 | PN ---
Progress Note (short form) - Note Progress Note: 66 yr old female s/p distal gastrectomy for perforated gastric ulcer hospital course complicated by PAfib, multiple CVAs currently anticoagulated . Nutritional status supplemented by tube feeding jevity FS at 60 cc's /hr and persistnet diarrhea Awaiting transfer to Rehab facility General recommendations for management of Diarrhea: 1 Stop water via Jtube 2Decrease rate to 40cc's/hr and observe for # of bowel movements # if no improvement add 2 drops of paragoric to each bag of jevity and observe for clinical improvement 3 Check C diff titers prior to to adding paragoric. 4 Add formulary available probiotics 5Advance oral diet to puree diet 6 if no improvement add lomotil 10 mls Po start at BID ( if Cdiff is negative) 7 once diarrhea is controled increase rate to meet target needs * Dietitian Follow up in this patient is a must Please reconsult dietitian for daily follow up DONOT order Ensure as dumping syndrome will be a real problem and avoid high carb concentrated juices Problem List - Problems (1) Gastric ulcer with hemorrhage and perforation but without obstruction Code(s): K25.6 - CHRONIC OR UNSP GASTRIC ULCER W BOTH HEMORRHAGE AND PERF
[2017-01-15 19:36] LABS: INR 1.21 (0.82-1.09); PROTHROMBIN TIME (PATIENT) 13.4 SEC (9.98-11.88)
[2017-01-16 07:45] LABS: EOSINOPHIL 7.8 % (0-4.5); MCH 23.8 pg (25.7-33.7); MCHC 31.9 g/dl (32.0-36.0); MEAN CELL VOLUME 74.4 fl (80-96); MEAN PLT VOLUME 6.8 fl (7.5-11.1); NEUTROPHILS 57.5 % (42.8-82.8); PLATELET COUNT 627 K/MM3 (134-434); RDW 17.5 % (11.6-15.6); WHITE BLOOD COUNT 8.8 K/mm3 (4.0-10.0)
[2017-01-16 08:32] LABS: ANION GAP 7 (8-16); CALCIUM 7.5 mg/dL (8.5-10.1); CO2 28 mmol/L (21-32); CREATININE 0.4 mg/dL (0.55-1.02); GLUCOSE,RANDOM 134 mg/dL (74-106); SGOT/AST 15 U/L (15-37); SGPT/ALT 13 U/L (12-78)
[2017-01-16 08:34] LABS: ALK PHOS 54 U/L (45-117); BILIRUBIN,TOTAL 0.2 mg/dL (0.2-1.0); TOT PROT 5.7 g/dl (6.4-8.2)
--- NOTE | 2017-01-16 11:16 | PN ---
Progress Note, Physician History of Present Illness: seen and examined today in nad. no overnight events. no new complaints. - Current Medication List Current Medications: Active Medications Acetaminophen (Tylenol -) 650 mg PO Q6H PRN PRN Reason: FEVER OR PAIN Heparin Sodium (Porcine) (Heparin -) 1,000 unit IVPUSH PRN PRN PRN Reason: Heparin Last Admin: 01/09/17 21:10 Dose: 1,000 unit Heparin Sodium (Porcine) (Heparin -) 5,000 unit IVPUSH PRN PRN PRN Reason: Heparin Last Admin: 01/11/17 21:13 Dose: 5,000 unit Heparin Sodium (Porcine) 25, (000 unit/ Sodium Chloride) 500 mls @ 20 mls/hr IV TITR OPAL; 1,000 UNIT/HR PRN Reason: Protocol Last Admin: 01/15/17 17:19 Dose: Not Given Pantoprazole Sodium (Protonix 40mg Ivpb (Pre-Docked)) 100 mls @ 200 mls/hr IVPB BID OPAL Last Admin: 01/15/17 22:15 Dose: 200 mls/hr Promethazine HCl (Phenergan Injection -) 12.5 mg IVPB Q6H PRN PRN Reason: NAUSEA AND/OR VOMITING Warfarin Sodium (Coumadin -) 5 mg PO DAILY@1800 OPAL Last Admin: 01/15/17 17:19 Dose: 5 mg - Objective Vital Signs: Vital Signs Temperature 98.4 F 01/16/17 06:34 Pulse Rate 86 01/16/17 10:59 Respiratory Rate 20 01/16/17 10:59 Blood Pressure 152/77 01/16/17 10:59 O2 Sat by Pulse Oximetry (%) 97 01/15/17 20:30 Constitutional: Yes: No Distress, Calm Eyes: Yes: Conjunctiva Clear, EOM Intact, PERRL HENT: Yes: Atraumatic, Normocephalic Neck: Yes: Supple, Trachea Midline Cardiovascular: Yes: Pulse Irregular, S1, S2. No: Regular Rate and Rhythm, Bradycardia, Tachycardia, Bruit, JVD, Gallop, Murmur, Rub, S3, S4, Varicosities Respiratory: Yes: Regular, CTA Bilaterally. No: Rales, Rhonchi, Wheezes Gastrointestinal: Yes: Soft Musculoskeletal: Yes: Muscle Weakness Extremities: Yes: WNL Edema: No Peripheral Pulses WNL: Yes Peripheral Pulses: Left Doralis Pedis: 2+, Right Dorsalis Pedis: 2+ Neurological: Yes: Alert, Oriented Psychiatric: Yes: Alert, Oriented Labs: CBC, BMP 01/16/17 06:00 01/16/17 06:00 INR, PTT INR 1.21 (0.82-1.09) H 01/15/17 18:45 - ....Imaging Chest X-ray: Report Reviewed, Image Reviewed EKG: Report Reviewed, Image Reviewed Other: Report Reviewed, Image Reviewed (tele-no longer on tele) Problem List - Problems (1) CVA (cerebral vascular accident) Code(s): I63.9 - CEREBRAL INFARCTION, UNSPECIFIED (2) Colon perforation Code(s): K63.1 - PERFORATION OF INTESTINE (NONTRAUMATIC) (3) Gastric ulcer with hemorrhage and perforation but without obstruction Code(s): K25.6 - CHRONIC OR UNSP GASTRIC ULCER W BOTH HEMORRHAGE AND PERF (4) Pneumoperitoneum Code(s): K66.8 - OTHER SPECIFIED DISORDERS OF PERITONEUM (5) Sepsis Code(s): A41.9 - SEPSIS, UNSPECIFIED ORGANISM (6) Paroxysmal atrial fibrillation Code(s): I48.0 - PAROXYSMAL ATRIAL FIBRILLATION Assessment/Plan Perforated peptic ulcer, pneumoperitoneum s/p partial gastrectomy Bilateral CVAs Paroxysmal atrial fibrillation, newly diagnosed REC: Multiple CVAs suggest embolic events, PAFib newly detected on this admission. Currently on heparin bridging to coumadin for goal INR 2-3. If pt is ready for discharge before INR is therapeutic she can be changed to Lovenox bridging which can be continued at rehab center.
--- NOTE | 2017-01-16 13:10 | PN ---
Progress Note, Physician History of Present Illness: doing well no new issues dirrhoea the main concern improving - Current Medication List Current Medications: Active Medications Acetaminophen (Tylenol -) 650 mg PO Q6H PRN PRN Reason: FEVER OR PAIN Heparin Sodium (Porcine) (Heparin -) 1,000 unit IVPUSH PRN PRN PRN Reason: Heparin Last Admin: 01/09/17 21:10 Dose: 1,000 unit Heparin Sodium (Porcine) (Heparin -) 5,000 unit IVPUSH PRN PRN PRN Reason: Heparin Last Admin: 01/11/17 21:13 Dose: 5,000 unit Heparin Sodium (Porcine) 25, (000 unit/ Sodium Chloride) 500 mls @ 20 mls/hr IV TITR OPAL; 1,000 UNIT/HR PRN Reason: Protocol Last Admin: 01/15/17 17:19 Dose: Not Given Pantoprazole Sodium (Protonix 40mg Ivpb (Pre-Docked)) 100 mls @ 200 mls/hr IVPB BID OPAL Last Admin: 01/15/17 22:15 Dose: 200 mls/hr Promethazine HCl (Phenergan Injection -) 12.5 mg IVPB Q6H PRN PRN Reason: NAUSEA AND/OR VOMITING Warfarin Sodium (Coumadin -) 5 mg PO DAILY@1800 OPAL Last Admin: 01/15/17 17:19 Dose: 5 mg - Objective Vital Signs: Vital Signs Temperature 98.4 F 01/16/17 06:34 Pulse Rate 86 01/16/17 10:59 Respiratory Rate 20 01/16/17 10:59 Blood Pressure 152/77 01/16/17 10:59 O2 Sat by Pulse Oximetry (%) 97 01/15/17 20:30 Constitutional: Yes: No Distress, Calm Cardiovascular: Yes: Regular Rate and Rhythm Respiratory: Yes: Regular, CTA Bilaterally Gastrointestinal: Yes: Normal Bowel Sounds, Soft Musculoskeletal: Yes: WNL Extremities: Yes: WNL Neurological: Yes: Alert, Oriented Psychiatric: Yes: Alert Labs: CBC, BMP 01/16/17 06:00 01/16/17 06:00 INR, PTT INR 1.21 (0.82-1.09) H 01/15/17 18:45 Assessment/Plan 66 year old female with significant PMH of HTN, HLD, s/p exploratory laparotomy for gastric perforation. #Gastric perforation, s/p gastrectomy & gastro-jejunostomy #HTN stroke expressive aphasia dirrhoea better plan continue nutritional support anti dirrhoeal if needed
[2017-01-16] MEDS: PANTOPRAZOLE SODIUM 40MG/100 ML IVPB SCH (13:34)
[2017-01-16] MEDS ORDERED: HEPARIN NA (PORCINE) 5,000 UNITS/ML 1ML VIAL IVPUSH PRN ×2 (14:38)
[2017-01-16] MEDS: HEPARIN - 25,000 UNIT in SODIUM CHLORIDE 495 ML IV SCH (14:42)
--- NOTE | 2017-01-16 15:42 | PN ---
Progress Note, Physician History of Present Illness: doing well - Current Medication List Current Medications: Active Medications Acetaminophen (Tylenol -) 650 mg PO Q6H PRN PRN Reason: FEVER OR PAIN Heparin Sodium (Porcine) (Heparin -) 5,000 unit IVPUSH PRN PRN Heparin Sodium (Porcine) (Heparin -) 1,000 unit IVPUSH PRN PRN Heparin Sodium (Porcine) 25, (000 unit/ Sodium Chloride) 500 mls @ 28 mls/hr IV TITR OPAL; 1,400 UNIT/HR PRN Reason: Protocol Last Admin: 01/16/17 14:42 Dose: 28 mls/hr Lactobacillus Acidophilus (Bacid -) 1 tab PO DAILY OPAL Pantoprazole Sodium (Protonix -) 40 mg PO DAILY OPAL Promethazine HCl (Phenergan Injection -) 12.5 mg IVPB Q6H PRN PRN Reason: NAUSEA AND/OR VOMITING Warfarin Sodium (Coumadin -) 5 mg PO DAILY@1800 OPAL Last Admin: 01/15/17 17:19 Dose: 5 mg - Objective Vital Signs: Vital Signs Temperature 98.4 F 01/16/17 06:34 Pulse Rate 86 01/16/17 10:59 Respiratory Rate 20 01/16/17 10:59 Blood Pressure 152/77 01/16/17 10:59 O2 Sat by Pulse Oximetry (%) 97 01/16/17 10:50 Constitutional: Yes: No Distress HENT: Yes: Atraumatic Neck: Yes: Supple Cardiovascular: Yes: Regular Rate and Rhythm Respiratory: Yes: CTA Bilaterally Gastrointestinal: Yes: Normal Bowel Sounds, Tenderness (MILD) Extremities: Yes: WNL Neurological: Yes: Alert, Oriented Labs: CBC, BMP 01/16/17 06:00 01/16/17 06:00 INR, PTT INR 1.21 (0.82-1.09) H 01/15/17 18:45 Problem List - Problems (1) Colon perforation Code(s): K63.1 - PERFORATION OF INTESTINE (NONTRAUMATIC) (2) Lactic acid acidosis Code(s): E87.2 - ACIDOSIS (3) Pneumoperitoneum Code(s): K66.8 - OTHER SPECIFIED DISORDERS OF PERITONEUM (4) Sepsis Code(s): A41.9 - SEPSIS, UNSPECIFIED ORGANISM (5) Surgical abdomen Code(s): R10.0 - ACUTE ABDOMEN (6) Gastric ulcer with hemorrhage and perforation but without obstruction Code(s): K25.6 - CHRONIC OR UNSP GASTRIC ULCER W BOTH HEMORRHAGE AND PERF (7) Perforated stomach Code(s): K25.5 - CHRONIC OR UNSPECIFIED GASTRIC ULCER WITH PERFORATION (8) CVA (cerebral vascular accident) Code(s): I63.9 - CEREBRAL INFARCTION, UNSPECIFIED Assessment/Plan A/P 1.COLON PERFORATION/gastric perforation s/p ex-lap, distal gastrectomy, gastro-jejunostomy, feeding jejunostomy, abd washout on clear liquid diet on tube feeds 2.CVA speech is much better pt/ot dc planning to rehab..PT HAS A BED AT [facility]...PLAN FOR DC ON WEDNESDAY IF ALL GOES WELL 3.paf on heparin/coumadin...CHECK PT/INR stool occult...negative pt wants to wait for blood transfusion 4.DIARRHEA HAS BEEN HAVING IT SINCE ON tf C DIFF NEGATIVE need to know from surgery when can we advance patients diet and reduce/stop tube feeds DR FUNK, came to see pt yesterday, consult reviewed, orders done
[2017-01-16] MEDS ORDERED: CALCIUM GLUCONATE 10% - 1,000 MG/10 ML VIAL IVPB ONE (16:03)
[2017-01-16] MEDS: SODIUM CHLORIDE 1,000 ML IV SCH (17:11)
[2017-01-16] MEDS: ACETAMINOPHEN 325 MG TABLET (FP) PO PRN (17:25)
[2017-01-16 17:30] LABS: INR 1.28 (0.82-1.09); PROTHROMBIN TIME (PATIENT) 14.1 SEC (9.98-11.88)
[2017-01-16] MEDS: WARFARIN NA 5 MG TABLET (UD) PO SCH (17:37)
[2017-01-16] MEDS ORDERED: PT OWN MED DRAWER 7, Y5N ONE (20:00)
[2017-01-17 07:30] LABS: BASOPHIL 0.9 % (0-2.0); EOSINOPHIL 4.4 % (0-4.5); MCH 23.8 pg (25.7-33.7); MEAN CELL VOLUME 74.4 fl (80-96); MEAN PLT VOLUME 7.5 fl (7.5-11.1); NEUTROPHILS 64.3 % (42.8-82.8); PLATELET COUNT 662 K/MM3 (134-434); RDW 17.5 % (11.6-15.6); WHITE BLOOD COUNT 9.7 K/mm3 (4.0-10.0)
[2017-01-17 07:52] LABS: INR 1.43 (0.82-1.09); PROTHROMBIN TIME (PATIENT) 15.9 SEC (9.98-11.88)
[2017-01-17 07:53] LABS: ALBUMIN 2.1 g/dl (3.4-5.0); ANION GAP 10 (8-16); CO2 24 mmol/L (21-32); GLUCOSE,RANDOM 155 mg/dL (74-106); MAGNESIUM 1.9 mg/dL (1.8-2.4); SGOT/AST 16 U/L (15-37); SGPT/ALT 14 U/L (12-78)
[2017-01-17 07:55] LABS: ALK PHOS 58 U/L (45-117); BILIRUBIN,TOTAL 0.3 mg/dL (0.2-1.0); CREATININE 0.4 mg/dL (0.55-1.02); TOT PROT 6.1 g/dl (6.4-8.2)
[2017-01-17] MEDS: PANTOPRAZOLE 40 MG TABLET (FP) PO SCH (09:02)
[2017-01-17] MEDS: LACTOBACILLUS ACIDOPHILUS 1 EACH TAB (FP) PO SCH (09:02)
--- NOTE | 2017-01-17 09:40 | PN ---
Progress Note, Physician History of Present Illness: seen and examined today in nad. no overnight events. no new complaints. - Current Medication List Current Medications: Active Medications Acetaminophen (Tylenol -) 650 mg PO Q6H PRN PRN Reason: FEVER OR PAIN Last Admin: 01/16/17 17:25 Dose: 650 mg Heparin Sodium (Porcine) (Heparin -) 5,000 unit IVPUSH PRN PRN Heparin Sodium (Porcine) (Heparin -) 1,000 unit IVPUSH PRN PRN Heparin Sodium (Porcine) 25, (000 unit/ Sodium Chloride) 500 mls @ 28 mls/hr IV TITR OPAL; 1,400 UNIT/HR PRN Reason: Protocol Last Admin: 01/16/17 14:42 Dose: 28 mls/hr Sodium Chloride (Normal Saline -) 1,000 mls @ 75 mls/hr IV ASDIR OPAL Last Admin: 01/16/17 17:11 Dose: 75 mls/hr Lactobacillus Acidophilus (Bacid -) 1 tab PO DAILY [facility] Last Admin: 01/17/17 09:02 Dose: 1 tab Pantoprazole Sodium (Protonix -) 40 mg PO DAILY [facility] Last Admin: 01/17/17 09:02 Dose: 40 mg Promethazine HCl (Phenergan Injection -) 12.5 mg IVPB Q6H PRN PRN Reason: NAUSEA AND/OR VOMITING Warfarin Sodium (Coumadin -) 5 mg PO DAILY@1800 [facility] Last Admin: 01/16/17 17:37 Dose: 5 mg - Objective Vital Signs: Vital Signs Temperature 98.4 F 01/17/17 09:04 Pulse Rate 86 01/17/17 09:04 Respiratory Rate 20 01/17/17 09:04 Blood Pressure 150/95 01/17/17 09:04 O2 Sat by Pulse Oximetry (%) 97 01/16/17 21:00 Constitutional: Yes: No Distress, Calm Eyes: Yes: Conjunctiva Clear, EOM Intact HENT: Yes: Atraumatic, Normocephalic Neck: Yes: Supple, Trachea Midline Cardiovascular: Yes: Pulse Irregular, S1, S2. No: Regular Rate and Rhythm, Bradycardia, Tachycardia, Bruit, JVD, Gallop, Murmur, Rub, S3, S4, Varicosities Respiratory: Yes: Regular, CTA Bilaterally. No: Rales, Rhonchi, Wheezes Gastrointestinal: Yes: Normal Bowel Sounds Edema: No Peripheral Pulses WNL: Yes Peripheral Pulses: Left Doralis Pedis: 2+, Right Dorsalis Pedis: 2+ Neurological: Yes: Alert, Oriented Psychiatric: Yes: Alert, Oriented Labs: CBC, BMP 01/17/17 06:15 01/17/17 06:15 INR, PTT INR 1.43 (0.82-1.09) H 01/17/17 06:15 - ....Imaging Chest X-ray: Report Reviewed, Image Reviewed EKG: Report Reviewed, Image Reviewed Other: Report Reviewed, Image Reviewed (tele-no longer on tele) Problem List - Problems (1) CVA (cerebral vascular accident) Code(s): I63.9 - CEREBRAL INFARCTION, UNSPECIFIED (2) Colon perforation Code(s): K63.1 - PERFORATION OF INTESTINE (NONTRAUMATIC) (3) Gastric ulcer with hemorrhage and perforation but without obstruction Code(s): K25.6 - CHRONIC OR UNSP GASTRIC ULCER W BOTH HEMORRHAGE AND PERF (4) Pneumoperitoneum Code(s): K66.8 - OTHER SPECIFIED DISORDERS OF PERITONEUM (5) Sepsis Code(s): A41.9 - SEPSIS, UNSPECIFIED ORGANISM (6) Paroxysmal atrial fibrillation Code(s): I48.0 - PAROXYSMAL ATRIAL FIBRILLATION Assessment/Plan Perforated peptic ulcer, pneumoperitoneum s/p partial gastrectomy Bilateral CVAs Paroxysmal atrial fibrillation, newly diagnosed REC: Multiple CVAs suggest embolic events, PAFib newly detected on this admission. Currently on heparin bridging to coumadin for goal INR 2-3. INR drifting up, not yet at goal. If pt is ready for discharge before INR is therapeutic she can be changed to Lovenox bridging which can be continued at rehab center.
[2017-01-17] MEDS: HEPARIN - 25,000 UNIT in SODIUM CHLORIDE 495 ML IV SCH ×2 (10:37→18:26)
[2017-01-17] MEDS: SODIUM CHLORIDE 1,000 ML IV SCH ×2 (12:48→18:25)
--- NOTE | 2017-01-17 17:37 | PN ---
Progress Note, Physician History of Present Illness: doing well no new issues dirrhoea is the main - Current Medication List Current Medications: Active Medications Acetaminophen (Tylenol -) 650 mg PO Q6H PRN PRN Reason: FEVER OR PAIN Last Admin: 01/16/17 17:25 Dose: 650 mg Heparin Sodium (Porcine) (Heparin -) 5,000 unit IVPUSH PRN PRN Heparin Sodium (Porcine) (Heparin -) 1,000 unit IVPUSH PRN PRN Last Admin: 01/17/17 10:37 Dose: 1,000 unit Heparin Sodium (Porcine) 25, (000 unit/ Sodium Chloride) 500 mls @ 28 mls/hr IV TITR OPAL; 1,400 UNIT/HR PRN Reason: Protocol Last Admin: 01/17/17 10:37 Dose: 30 mls/hr Sodium Chloride (Normal Saline -) 1,000 mls @ 75 mls/hr IV ASDIR OPAL Last Admin: 01/17/17 12:48 Dose: 75 mls/hr Lactobacillus Acidophilus (Bacid -) 1 tab PO DAILY [facility] Last Admin: 01/17/17 09:02 Dose: 1 tab Pantoprazole Sodium (Protonix -) 40 mg PO DAILY [facility] Last Admin: 01/17/17 09:02 Dose: 40 mg Promethazine HCl (Phenergan Injection -) 12.5 mg IVPB Q6H PRN PRN Reason: NAUSEA AND/OR VOMITING Warfarin Sodium (Coumadin -) 5 mg PO DAILY@1800 [facility] Last Admin: 01/16/17 17:37 Dose: 5 mg - Objective Vital Signs: Vital Signs Temperature 99.3 F 01/17/17 10:00 Pulse Rate 92 H 01/17/17 10:00 Respiratory Rate 20 01/17/17 10:00 Blood Pressure 145/80 01/17/17 10:00 O2 Sat by Pulse Oximetry (%) 97 01/17/17 09:05 Constitutional: Yes: No Distress, Calm Cardiovascular: Yes: Regular Rate and Rhythm Respiratory: Yes: Regular, CTA Bilaterally Gastrointestinal: Yes: Normal Bowel Sounds, Soft, Other Musculoskeletal: Yes: WNL Extremities: Yes: WNL Neurological: Yes: Alert, Oriented Psychiatric: Yes: Alert Labs: CBC, BMP 01/17/17 06:15 01/17/17 06:15 INR, PTT INR 1.43 (0.82-1.09) H 01/17/17 06:15 Assessment/Plan 66 year old female with significant PMH of HTN, HLD, s/p exploratory laparotomy for gastric perforation. #Gastric perforation, s/p gastrectomy & gastro-jejunostomy #HTN stroke expressive aphasia dirrhoea improving plan continue nutritional support prevention of pressure on buttocks
[2017-01-17] MEDS: WARFARIN NA 5 MG TABLET (UD) PO SCH (18:16)
[2017-01-17] MEDS: ACETAMINOPHEN 325 MG TABLET (FP) PO PRN (18:16)
--- NOTE | 2017-01-17 23:26 | PN ---
Progress Note, Physician History of Present Illness: NO NEW COMPLAINTs - Current Medication List Current Medications: Active Medications Acetaminophen (Tylenol -) 650 mg PO Q6H PRN PRN Reason: FEVER OR PAIN Last Admin: 01/17/17 18:16 Dose: 650 mg Heparin Sodium (Porcine) (Heparin -) 5,000 unit IVPUSH PRN PRN Last Admin: 01/17/17 18:24 Dose: 5,000 unit Heparin Sodium (Porcine) (Heparin -) 1,000 unit IVPUSH PRN PRN Last Admin: 01/17/17 10:37 Dose: 1,000 unit Heparin Sodium (Porcine) 25, (000 unit/ Sodium Chloride) 500 mls @ 28 mls/hr IV TITR OPAL; 1,400 UNIT/HR PRN Reason: Protocol Last Admin: 01/17/17 18:26 Dose: Not Given Sodium Chloride (Normal Saline -) 1,000 mls @ 75 mls/hr IV ASDIR OPAL Last Admin: 01/17/17 18:25 Dose: Not Given Lactobacillus Acidophilus (Bacid -) 1 tab PO DAILY [facility] Last Admin: 01/17/17 09:02 Dose: 1 tab Pantoprazole Sodium (Protonix -) 40 mg PO DAILY [facility] Last Admin: 01/17/17 09:02 Dose: 40 mg Promethazine HCl (Phenergan Injection -) 12.5 mg IVPB Q6H PRN PRN Reason: NAUSEA AND/OR VOMITING Warfarin Sodium (Coumadin -) 5 mg PO DAILY@1800 [facility] Last Admin: 01/17/17 18:16 Dose: 5 mg - Objective Vital Signs: Vital Signs Temperature 100 F H 01/17/17 18:00 Pulse Rate 91 H 01/17/17 18:00 Respiratory Rate 18 01/17/17 18:00 Blood Pressure 145/76 01/17/17 18:00 O2 Sat by Pulse Oximetry (%) 97 01/17/17 09:05 Constitutional: Yes: Well Nourished Neck: Yes: Supple Cardiovascular: Yes: WNL, Regular Rate and Rhythm Respiratory: Yes: WNL, Regular, CTA Bilaterally Gastrointestinal: Yes: WNL, Normal Bowel Sounds, Soft Labs: CBC, BMP 01/17/17 06:15 01/17/17 06:15 INR, PTT INR 1.43 (0.82-1.09) H 01/17/17 06:15 Problem List - Problems (1) CVA (cerebral vascular accident) Code(s): I63.9 - CEREBRAL INFARCTION, UNSPECIFIED (2) Colon perforation Code(s): K63.1 - PERFORATION OF INTESTINE (NONTRAUMATIC) (3) Paroxysmal atrial fibrillation Code(s): I48.0 - PAROXYSMAL ATRIAL FIBRILLATION
[2017-01-18] MEDS: SODIUM CHLORIDE 1,000 ML IV SCH ×2 (01:52→16:35)
[2017-01-18] MEDS: ACETAMINOPHEN 325 MG TABLET (FP) PO PRN ×2 (06:22→20:21)
[2017-01-18 07:18] LABS: INR 1.58 (0.82-1.09); PROTHROMBIN TIME (PATIENT) 17.5 SEC (9.98-11.88)
[2017-01-18] MEDS: PANTOPRAZOLE 40 MG TABLET (FP) PO SCH (10:17)
[2017-01-18] MEDS: LACTOBACILLUS ACIDOPHILUS 1 EACH TAB (FP) PO SCH (10:17)
--- NOTE | 2017-01-18 14:32 | PN ---
Progress Note, Physician History of Present Illness: doing well no new issues dirrhoea - Current Medication List Current Medications: Active Medications Acetaminophen (Tylenol -) 650 mg PO Q6H PRN PRN Reason: FEVER OR PAIN Last Admin: 01/18/17 06:22 Dose: 650 mg Heparin Sodium (Porcine) (Heparin -) 5,000 unit IVPUSH PRN PRN Last Admin: 01/17/17 18:24 Dose: 5,000 unit Heparin Sodium (Porcine) (Heparin -) 1,000 unit IVPUSH PRN PRN Last Admin: 01/17/17 10:37 Dose: 1,000 unit Heparin Sodium (Porcine) 25, (000 unit/ Sodium Chloride) 500 mls @ 28 mls/hr IV TITR OPAL; 1,400 UNIT/HR PRN Reason: Protocol Last Admin: 01/17/17 18:26 Dose: Not Given Sodium Chloride (Normal Saline -) 1,000 mls @ 75 mls/hr IV ASDIR OPAL Last Admin: 01/18/17 01:52 Dose: 75 mls/hr Lactobacillus Acidophilus (Bacid -) 1 tab PO DAILY [facility] Last Admin: 01/18/17 10:17 Dose: 1 tab Pantoprazole Sodium (Protonix -) 40 mg PO DAILY [facility] Last Admin: 01/18/17 10:17 Dose: 40 mg Promethazine HCl (Phenergan Injection -) 12.5 mg IVPB Q6H PRN PRN Reason: NAUSEA AND/OR VOMITING Warfarin Sodium (Coumadin -) 5 mg PO DAILY@1800 OPAL Last Admin: 01/17/17 18:16 Dose: 5 mg - Objective Vital Signs: Vital Signs Temperature 98.5 F 01/18/17 10:19 Pulse Rate 90 01/18/17 10:19 Respiratory Rate 20 01/18/17 10:19 Blood Pressure 142/76 01/18/17 10:19 O2 Sat by Pulse Oximetry (%) 91 L 01/18/17 10:15 Constitutional: Yes: No Distress, Calm Cardiovascular: Yes: Regular Rate and Rhythm Respiratory: Yes: Regular, CTA Bilaterally Gastrointestinal: Yes: Normal Bowel Sounds, Soft, Other Musculoskeletal: Yes: WNL Extremities: Yes: WNL Wound/Incision: Yes: Other (decubitus ulcer) Neurological: Yes: Alert Psychiatric: Yes: Alert Labs: CBC, BMP 01/17/17 06:15 01/17/17 06:15 INR, PTT INR 1.58 (0.82-1.09) H 01/18/17 05:35 Assessment/Plan 66 year old female with significant PMH of HTN, HLD, s/p exploratory laparotomy for gastric perforation. #Gastric perforation, s/p gastrectomy & gastro-jejunostomy #HTN stroke expressive aphasia dirrhoea improving plan continue nutritional support anti dirrhoeal if needed
--- NOTE | 2017-01-18 15:02 | PN ---
Progress Note, [employer] - Note Progress Note: Improving fluency in oral reading and tasks involving recall and retelling a story. Mild hesitation. Selected Entries 01/17/17 01/17/17 01/17/17 06:00 09:04 10:00 Breakfast 50% Lunch Supper Temperature 98.2 F 98.4 F 99.3 F 01/17/17 01/17/17 01/17/17 15:12 18:00 18:30 Breakfast Lunch 25% Supper 25% Temperature 100 F H 01/17/17 01/18/17 01/18/17 21:00 06:00 09:32 Breakfast 100% Lunch Supper Temperature 98.8 F 100.5 F H 01/18/17 10:19 Breakfast Lunch Supper Temperature 98.5 F Less diarrhea reported. Pt is now on a pureed diet. Based on swallowing assessment, pt has no oropharyngeal swallowing deficits. Excellent rehab candidate.
--- NOTE | 2017-01-18 17:42 | PN ---
Progress Note, Physician History of Present Illness: diarrhea - Current Medication List Current Medications: Active Medications Acetaminophen (Tylenol -) 650 mg PO Q6H PRN PRN Reason: FEVER OR PAIN Last Admin: 01/18/17 06:22 Dose: 650 mg Heparin Sodium (Porcine) (Heparin -) 5,000 unit IVPUSH PRN PRN Last Admin: 01/17/17 18:24 Dose: 5,000 unit Heparin Sodium (Porcine) (Heparin -) 1,000 unit IVPUSH PRN PRN Last Admin: 01/17/17 10:37 Dose: 1,000 unit Heparin Sodium (Porcine) 25, (000 unit/ Sodium Chloride) 500 mls @ 28 mls/hr IV TITR OPAL; 1,400 UNIT/HR PRN Reason: Protocol Last Admin: 01/17/17 18:26 Dose: Not Given Sodium Chloride (Normal Saline -) 1,000 mls @ 75 mls/hr IV ASDIR OPAL Last Admin: 01/18/17 16:35 Dose: 75 mls/hr Lactobacillus Acidophilus (Bacid -) 1 tab PO DAILY [facility] Last Admin: 01/18/17 10:17 Dose: 1 tab Pantoprazole Sodium (Protonix -) 40 mg PO DAILY [facility] Last Admin: 01/18/17 10:17 Dose: 40 mg Promethazine HCl (Phenergan Injection -) 12.5 mg IVPB Q6H PRN PRN Reason: NAUSEA AND/OR VOMITING Warfarin Sodium (Coumadin -) 5 mg PO DAILY@1800 [facility] Last Admin: 01/17/17 18:16 Dose: 5 mg - Objective Vital Signs: Vital Signs Temperature 98.5 F 01/18/17 10:19 Pulse Rate 90 01/18/17 10:19 Respiratory Rate 20 01/18/17 10:19 Blood Pressure 142/76 01/18/17 10:19 O2 Sat by Pulse Oximetry (%) 91 L 01/18/17 10:15 Constitutional: Yes: Calm HENT: Yes: Atraumatic Neck: Yes: Supple Cardiovascular: Yes: Regular Rate and Rhythm Respiratory: Yes: CTA Bilaterally Gastrointestinal: Yes: Normal Bowel Sounds, Tenderness (mild) Extremities: Yes: WNL Neurological: Yes: Alert, Oriented Labs: CBC, BMP 01/17/17 06:15 01/17/17 06:15 INR, PTT INR 1.58 (0.82-1.09) H 01/18/17 05:35 Problem List - Problems (1) Colon perforation Code(s): K63.1 - PERFORATION OF INTESTINE (NONTRAUMATIC) (2) Lactic acid acidosis Code(s): E87.2 - ACIDOSIS (3) Pneumoperitoneum Code(s): K66.8 - OTHER SPECIFIED DISORDERS OF PERITONEUM (4) Sepsis Code(s): A41.9 - SEPSIS, UNSPECIFIED ORGANISM (5) Surgical abdomen Code(s): R10.0 - ACUTE ABDOMEN (6) Gastric ulcer with hemorrhage and perforation but without obstruction Code(s): K25.6 - CHRONIC OR UNSP GASTRIC ULCER W BOTH HEMORRHAGE AND PERF (7) Perforated stomach Code(s): K25.5 - CHRONIC OR UNSPECIFIED GASTRIC ULCER WITH PERFORATION (8) CVA (cerebral vascular accident) Code(s): I63.9 - CEREBRAL INFARCTION, UNSPECIFIED Assessment/Plan A/P 1.COLON PERFORATION/gastric perforation s/p ex-lap, distal gastrectomy, gastro-jejunostomy, feeding jejunostomy, abd washout on puree diet on tube feeds 2.CVA speech is much better pt/ot 3.paf on heparin/coumadin...CHECK PT/INR stool occult...negative 4.DIARRHEA IMPROVED C DIFF NEGATIVE ..will send another one on puree diet/tf 5.anemia post surgical..staying b/w 8-8.4 pt refusing blood transfusion and iron supplement consider iron inj in future JENNIE noriega spoke to dr flor...pt can be dc on po coumadin and sq lovenox to bridge until inr is b/w 2-3
[2017-01-18] MEDS: WARFARIN NA 5 MG TABLET (UD) PO SCH (18:23)
[2017-01-18] MEDS: HEPARIN - 25,000 UNIT in SODIUM CHLORIDE 495 ML IV SCH (18:23)
[2017-01-18] MEDS ORDERED: ENOXAPARIN NA (PORCINE) 80 MG/0.8 ML DISP.SYRIN SQ SCH (22:00)
[2017-01-19 06:57] VITALS: TEMP 99.4
[2017-01-19 07:00] LABS: BASOPHIL 2.3 % (0-2.0); MCH 24.2 pg (25.7-33.7); MCHC 32.7 g/dl (32.0-36.0); MEAN PLT VOLUME 7.2 fl (7.5-11.1); NEUTROPHILS 66.5 % (42.8-82.8); PLATELET COUNT 697 K/MM3 (134-434); RDW 17.5 % (11.6-15.6); WHITE BLOOD COUNT 10.5 K/mm3 (4.0-10.0)
[2017-01-19 07:05] LABS: ANION GAP 10 (8-16); CALCIUM 7.7 mg/dL (8.5-10.1); CO2 23 mmol/L (21-32); GLUCOSE,RANDOM 173 mg/dL (74-106); SGOT/AST 16 U/L (15-37); SGPT/ALT 11 U/L (12-78)
[2017-01-19 07:07] LABS: ALK PHOS 59 U/L (45-117); BILIRUBIN,TOTAL 0.2 mg/dL (0.2-1.0); CREATININE 0.9 mg/dL (0.55-1.02); TOT PROT 5.9 g/dl (6.4-8.2)
[2017-01-19 07:15] LABS: INR 1.73 (0.82-1.09); PROTHROMBIN TIME (PATIENT) 19.3 SEC (9.98-11.88)
[2017-01-19 09:20] VITALS: BP 150/72; PULSE 90
[2017-01-19] MEDS: PANTOPRAZOLE 40 MG TABLET (FP) PO SCH (09:21)
[2017-01-19] MEDS: LACTOBACILLUS ACIDOPHILUS 1 EACH TAB (FP) PO SCH (09:21)
--- NOTE | 2017-01-19 09:59 | PN ---
Progress Note, Physician Chief Complaint: alert and oriented sons at bedside plan for d/c to SNF for rehab today - Current Medication List Current Medications: Active Medications Acetaminophen (Tylenol -) 650 mg PO Q6H PRN PRN Reason: FEVER OR PAIN Last Admin: 01/18/17 20:21 Dose: 650 mg Enoxaparin Sodium (Lovenox -) 80 mg SQ BID [facility] Last Admin: 01/19/17 09:21 Dose: 80 mg Heparin Sodium (Porcine) (Heparin -) 5,000 unit IVPUSH PRN PRN Last Admin: 01/17/17 18:24 Dose: 5,000 unit Heparin Sodium (Porcine) (Heparin -) 1,000 unit IVPUSH PRN PRN Last Admin: 01/17/17 10:37 Dose: 1,000 unit Lactobacillus Acidophilus (Bacid -) 1 tab PO DAILY [facility] Last Admin: 01/19/17 09:21 Dose: 1 tab Pantoprazole Sodium (Protonix -) 40 mg PO DAILY [facility] Last Admin: 01/19/17 09:21 Dose: 40 mg Promethazine HCl (Phenergan Injection -) 12.5 mg IVPB Q6H PRN PRN Reason: NAUSEA AND/OR VOMITING Warfarin Sodium (Coumadin -) 5 mg PO DAILY@1800 [facility] Last Admin: 01/18/17 18:23 Dose: 5 mg - Objective Vital Signs: Vital Signs Temperature 99.4 F 01/19/17 06:00 Pulse Rate 90 01/19/17 09:19 Respiratory Rate 20 01/19/17 09:19 Blood Pressure 150/72 01/19/17 09:19 O2 Sat by Pulse Oximetry (%) 96 01/18/17 21:00 Constitutional: Yes: No Distress Cardiovascular: Yes: Regular Rate and Rhythm Respiratory: Yes: CTA Bilaterally Gastrointestinal: Yes: Soft Edema: No Neurological: Yes: Alert Labs: CBC, BMP 01/19/17 05:35 01/19/17 05:35 INR, PTT INR 1.73 (0.82-1.09) H 01/19/17 05:35 Laboratory Tests 01/19/17 01/19/17 01/19/17 05:35 05:35 05:35 WBC 10.5 H Hgb 8.1 L Hct 24.7 L Plt Count 697 H INR 1.73 H PTT (Actin FS) Potassium 3.9 BUN 10 D Creatinine 0.9 D 01/19/17 05:35 WBC Hgb Hct Plt Count INR PTT (Actin FS) 63.4 H Potassium BUN Creatinine Assessment/Plan Assessment/Plan Perforated peptic ulcer, pneumoperitoneum s/p partial gastrectomy Bilateral CVAs Paroxysmal atrial fibrillation, newly diagnosed REC: Multiple CVAs suggest embolic events, PAFib newly detected on this admission. Plan to bridge Lovenox to coumadin for INR 2-3. D/C Lovenox when INR therapeutic. Instructed patient and sons for f/u w/ me or Dr. Pollack 1-2 weeks after d/c from rehab
[2017-01-19] MEDS ORDERED: ENOXAPARIN NA (PORCINE) 80 MG/0.8 ML DISP.SYRIN SQ SCH (10:00)
--- NOTE | 2017-01-20 22:00 | DS ---
Physical Examination Vital Signs: Vital Signs Temperature 99.4 F 01/19/17 06:00 Pulse Rate 90 01/19/17 09:19 Respiratory Rate 20 01/19/17 09:19 Blood Pressure 150/72 01/19/17 09:19 O2 Sat by Pulse Oximetry (%) 96 01/18/17 21:00 Labs: CBC, BMP 01/19/17 05:35 01/19/17 05:35 Discharge Summary Reason For Visit: PERFORATED COLON Condition: Guarded - Instructions Diet, Activity, Other Instructions: on tube feeds puree diet pt on lovenox to bridge coumadin until inr is between 2-3 check pt/inr daily to adjust the dose check cbc every other day...pt refusing blood transfusion check cmp and c diff twice a week call dr esteban to make follow up appointment and for further instructions regarding tube feeds and when to advance diet. wound care dressing change Referrals: Marjan Chirinos MD [Staff Physician] - Torres Kathleen PA [Physician Patient Services Rep] - Declan Lombardi MD [Staff Physician] - Sera Deutsch MD [Staff Physician] - Gopi Salgado MD [Staff Physician] - Adam Sloan [Staff Physician] - Disposition: PHYSICAL REHABILATION FACILITY - Home Medications Comprehensive Discharge Medication List: Ambulatory Orders Oxycodone HCl [Roxicodone -] 5 mg PO Q6H PRN #20 tablet MDD 3 01/05/17 Enoxaparin Sodium [Lovenox] 80 mg SQ BID #7 ml 01/18/17 Lactobacillus Acidophilus [Bacid -] 1 tab PO DAILY #0 tab 01/18/17 Pantoprazole Sodium [Protonix -] 40 mg PO DAILY 01/18/17 Warfarin Na [Coumadin -] 5 mg PO DAILY@1800 tablet 01/18/17 dc to rehab
== END 2017-01-19 11:02 | DRG 853 ==
LOC: FER 06:34 → JICU 10:54 → J8W 12-29 17:43 → JICU 01-07 08:58 → J4W 01-09 14:20 → J6S 01-13 15:40 → J4S 01-14 18:30
PROVIDERS: ADMIT Internal Medicine; ATTEND Internal Medicine
PROC: 0DB60ZZ Excision of Stomach, Open Approach (ICD-10-PCS; 2016-12-25)
PROC: 0DHA3UZ Insertion of Feeding Device into Jejunum, Percutaneous Approach (ICD-10-PCS; 2016-12-25)
PROC: 3E0H76Z Introduction of Nutritional Substance into Lower GI, Via Natural or Artificial Opening (ICD-10-PCS; 2016-12-25)
PROC: 3E1M38Z Irrigation of Peritoneal Cavity using Irrigating Substance, Percutaneous Approach (ICD-10-PCS; 2016-12-25)
PROC: 0D160ZA Bypass Stomach to Jejunum, Open Approach (ICD-10-PCS; principal; 2016-12-25 11:00)
PROC: BD15YZZ Fluoroscopy of Upper GI using Other Contrast (ICD-10-PCS; 2016-12-29)
DX: A41.9 Sepsis, unspecified organism (principal); K63.1 Perforation of intestine (nontraumatic); K65.8 Other peritonitis; K25.6 Chronic or unspecified gastric ulcer with both hemorrhage and perforation; I63.9 Cerebral infarction, unspecified; E87.2 Acidosis; R47.01 Aphasia; I48.0 Paroxysmal atrial fibrillation; R29.701 NIHSS score 1; R19.7 Diarrhea, unspecified; I10 Essential (primary) hypertension; E78.5 Hyperlipidemia, unspecified; E66.9 Obesity, unspecified; Z68.28 Body mass index [BMI] 28.0-28.9, adult; Z88.0 Allergy status to penicillin
CPT/HCPCS: 36415; 36600; 70450-TC; 70551-TC; 71010-TC; 74176-TC; 74177-TC; 74247-TC; 80048; 80053; 80076; 81003; 81015; 82009; 82150; 82272; 82375; 82550; 82553; 82803; 83050; 83605; 83690; 83735; 83880; 84100; 84484; 85025; 85027; 85610; 85730; 86850; 86900; 86901; 86922; 87040; 87070; 87075; 87086; 87186; 87205; 87324; 87449; 88305-TC; 88307-TC; 88331-TC; 88341-TC; 93005; 93010; 93306-TC; 93880-TC; 94002; 94010; 94760; 97116-GP; 97161-GP; 99285-25; C1887; J1644

== ENCOUNTER 2022-01-07 07:10 | Day surgery (SDC) | payer OTHER ==
[2022-01-05 19:22] VITALS: BMI 26.6
[2022-01-07] MEDS ORDERED: TETRACAINE 0.5% OPHTH SOLN 2 ML BOTTLE ONE (07:32)
[2022-01-07] MEDS ORDERED: CARBACHOL 0.01% INTRA-OCULAR 1.5 ML VIAL ONE (07:32)
[2022-01-07] MEDS ORDERED: BSS (NA/CA/MG/K) BALANCED SALT SOLUTION OPHTH SOLN 15 ML BOTTLE ONE (07:32)
[2022-01-07] MEDS ORDERED: LIDOCAINE 1% P/F 10 MG/ML VIAL ONE (07:32)
[2022-01-07] MEDS ORDERED: NEO/POLYMYX B SULF/DEXAMETH OPHTHALMIC 5ML BOTTLE ONE (07:32)
[2022-01-07] MEDS: PHENYLEPHRINE 2.5% OPHTH SOLN 15 ML BOTTLE ONE ×3 (07:45→07:55)
[2022-01-07] MEDS: TROPICAMIDE 1% OPHTH SOLN 15 ML BOTTLE ONE ×3 (07:45→07:55)
[2022-01-07] MEDS: CIPROFLOXACIN 0.3% EYE DROPS 5 ML BOTTLE ONE ×3 (07:45→07:55)
[2022-01-07] MEDS: CYCLOPENTOLATE 2% OPHTH SOLN 2 ML BOTTLE ONE ×3 (07:45→07:55)
[2022-01-07 07:52] VITALS: PULSE 68
[2022-01-07] MEDS ORDERED: MIDAZOLAM HCL 2 MG/2 ML SINGLE DOSE VIAL ONE (08:12)
[2022-01-07 09:17] VITALS: TEMP 97.7
[2022-01-07 09:46] VITALS: BP 121/65
== END 2022-01-07 09:49 | disposition home or self-care (01) ==
LOC: FASU 07:10
PROVIDERS: ATTEND Ophthalmology
PROC: 08RJ3JZ Replacement of Right Lens with Synthetic Substitute, Percutaneous Approach (ICD-10-PCS; principal; 2022-01-07 08:50)
DX: H26.8 Other specified cataract (principal)

== ENCOUNTER 2022-03-04 07:34 | Day surgery (SDC) | payer OTHER ==
[2022-03-03 10:46] VITALS: BMI 26.6
[2022-03-04] MEDS: CIPROFLOXACIN 0.3% EYE DROPS 5 ML BOTTLE ONE ×3 (08:10→08:20)
[2022-03-04] MEDS: TROPICAMIDE 1% OPHTH SOLN 15 ML BOTTLE ONE ×3 (08:10→08:20)
[2022-03-04] MEDS: CYCLOPENTOLATE 2% OPHTH SOLN 2 ML BOTTLE ONE ×3 (08:10→08:20)
[2022-03-04] MEDS: PHENYLEPHRINE 2.5% OPHTH SOLN 15 ML BOTTLE ONE ×3 (08:10→08:20)
[2022-03-04] MEDS ORDERED: MIDAZOLAM HCL 2 MG/2 ML SINGLE DOSE VIAL ONE (08:49)
[2022-03-04 10:07] VITALS: BP 149/80; PULSE 72; TEMP 97.8
== END 2022-03-04 10:35 | disposition home or self-care (01) ==
LOC: FASU 07:34
PROVIDERS: ATTEND Ophthalmology
PROC: 08RK3JZ Replacement of Left Lens with Synthetic Substitute, Percutaneous Approach (ICD-10-PCS; principal; 2022-03-04 09:27)
DX: H26.8 Other specified cataract (principal)
CPT/HCPCS: 66984; V2632